=== PATIENT | female | born 1985 | race Caucasian/White ===

== ENCOUNTER 2022-03-13 14:12 | Emergency (ER) | payer BC, SELFPAY ==
[2022-03-13 14:31] VITALS: BP 113/68; PULSE 60; RESP 18; TEMP 36.6; O2SAT 100; BMI 29.3
--- NOTE | 2022-03-13 14:33 | CRLHL7_ITS ---
For Patients: As a result of the Cures Act, medical imaging exams and procedure reports are released immediately into your electronic medical record. You may view this report before your referring provider. If you have questions, please contact your health care provider. INDICATION: Lung inflammation from chlorine TECHNIQUE: Two view chest. FINDINGS: The lungs are clear. The heart, mediastinum and pulmonary vessels are of normal size. There is no evidence of pleural disease. Tiny 2 millimeter nodular density right lower lobe probably related to small granuloma. IMPRESSION: Negative chest. 2 millimeter nodular density peripheral right lower lobe probably reflects a granuloma but this could be compared with more remote chest radiographs to document stability or chest CT could be performed. Dictated by Larisa Snow MD @ 03/13/2022 3:44:59 PM (Electronically Signed)
--- NOTE | 2022-03-13 15:55 | ED_ITS ---
HPI - Burn/Smoke Inhalation General Time Seen by Provider: 15:30 Date Seen: 03/13/22 Chief complaint: Burn/Smoke Inhalation Stated complaint: Inhaled acid, sore throat bloody mucus Time Seen by Provider: 03/13/22 14:27 Source: patient and RN notes reviewed Mode of arrival: ambulatory Limitations: no limitations History of Present Illness HPI Narrative: Elli is a very pleasant 36-year-old female with a history of factor 5 Leiden heterozygous who comes to the emergency room from Urgent Care after that was suggested by poison Control. Very notes that she took the lid off of hydrochloric acid which she was using to treat the pool. Got 1 breath of this and immediately removed herself from the situation. She really had no complaints yesterday but woke up this morning with a feeling of fullness in her throat, mild cough and some mild hemoptysis. She has not had fever or chills. She has not had any wheezing or shortness of breath. She initially presented to urgent care but poison Control said she needed to be seen in the emergency room. She denies any chest pain, but perhaps has a little bit of burning in her upper chest. Her oxygen levels are 100% and pulse is normal. She has no underlying history of asthma and is not a smoker. Complaint: chemical exposure (Hydrochloric acid) Onset (ago): day(s) (Yesterday) Type of Exposure: chemical Smoke Inhalation: brief Place: home Severity: mild Associated symptoms: cough (Mild) and other (Hemoptysis-mild) Related Data Home Medications Medication Instructions Recorded Confirmed No Known Home Medications 03/13/22 03/13/22 Allergies Allergy/AdvReac Type Severity Reaction Status Date / Time No Known Drug Allergies Allergy Verified 03/13/22 13:04 Review of Systems Status of ROS: Reports: 6 or more systems reviewed and unremarkable except as noted in History and below Narrative: Denies wheezing, difficulty swallowing, change in voice, fever or chills. Denies any eye symptoms but does note that interior nasal cavity seems irritated as well. [facility] Social History Smoking Status: Never smoker Do you use any of these nicotine containing products: None Second hand tobacco smoke exposure: No How often do you have a drink containing alcohol: monthly or less How many standard drinks containing alcohol do you have on a typical day: 1 or 2 How often do you have six or more drinks on one occasion: Never AUDIT-C Alcohol total score: 1 Non-prescribed substance use: denies use Exam Narrative: Exam Narrative: personal history: Hysterectomy, heterozygous factor 5 Const: Vital Signs, click to edit/add: Vital Signs - 24 hr 03/13/22 14:31 Temperature 97.8 F Pulse Rate [Right Pulse Oximeter] 60 Respiratory Rate 18 Blood Pressure [Ri ght Upper Arm] 113/68 Pulse Oximetry 100 Documenting provider has reviewed patient's vital signs: yes Common normals: no apparent distress, average body habitus, oriented x3, no limitations, healthy appearing and alert General appearance: cooperative and comfortable Other: Patient is in no acute distress with no evidence of respiratory stridor, wheezing or increased effort. HENMT: Common normals: normocephalic and head/scalp atraumatic Head and scalp: normocephalic and atraumatic Face and sinus: normal facial exam Nose: nares normal Mouth: oral and palatal mucosa normal Other: No evidence of erythema or edema bilateral nares. Airway is patent oropharynx without erythema edema or abnormal findings. Eye: Common normals: PERRL General eye: normal appearance of both eyes Pupil: PERRL Neck & C-Spine: Common normals: no lymphadenopathy and supple Lymph: Lymphatic: no lymphadenopathy noted Resp: Common normals: normal respiratory effort, no retractions and clear to auscultation bilaterally Effort & inspection: able to speak in complete sentences Auscultation: clear to auscultation bilaterally Cardio: Common normals: regular rate and regular rhythm Rate: regular rate Rhythm: regular rhythm Extremity: Common normals: normal to inspection Neuro: Common normals: oriented x3 Sensorium/orientation: alert Speech: speech normal and other (No evidence of stridor or altered voice.) Course Course Hospital Course: Patient is presenting and does not appear to be in respiratory distress. Vital signs are very reassuring with 100% O2 sats. We will get a chest x-ray and attempt to talk to poison Control. We do hear back from poison Control and they also suggest CBC and comprehensive panel. Reevaluation(s) Reevaluation #1: patient continues to do well. She has had no episodes of hypoxia or coughing in the emergency room. Surprisingly she does not have any eye irritation. Poison Control instructed us to do CBC and comprehensive panel both which have come back normal. Patient will be discharged from the ED. She did have an incidental finding noted on plain x-ray of the chest. The chest itself is clear there is a small granuloma measuring 2 mm. She is instructed to follow up with her primary MD in regards to this. Time: 17:00 Vital Signs Vital signs: Initial Vital Signs Temperature 97.8 F 03/13/22 14:31 Temperature Source Temporal Artery Scan 03/13/22 14:31 Pulse Rate 60 03/13/22 14:31 Respiratory Rate 18 03/13/22 14:31 Blood Pressure 113/68 03/13/22 14:31 Blood Pressure Mean 83 03/13/22 14:31 Blood Pressure Position Sitting 03/13/22 14:31 Pulse Oximetry 100 03/13/22 14:31 Oxygen Delivery Method 03/13/22 14:31 Vital Signs Temperature 97.8 F 03/13/22 14:31 Pulse Rate 60 03/13/22 14:31 Respiratory Rate 18 03/13/22 14:31 Blood Pressure 113/68 03/13/22 14:31 Pulse Oximetry 100 03/13/22 14:31 Temperature 97.8 F 03/13/22 14:31 Pulse Rate 60 03/13/22 14:31 Respiratory Rate 18 03/13/22 14:31 Blood Pressure 113/68 03/13/22 14:31 Pulse Oximetry 100 03/13/22 14:31 MDM - Burn/Smoke Inhalation MDM Narrative Medical decision making narrative: Patient continues to do well. She had 1 episode of hemoptysis this morning and nothing since that time. She is not exhibiting any evidence of respiratory distress at this time. Medical Records Attestation: I reviewed the patient's medical records. Lab Data Attestation: I reviewed the patient's lab results. Labs: Lab Results 03/13/22 03/13/22 Range/Units 16:06 16:06 WBC 7.01 (4.50-11.00) K/uL RBC 4.67 (4.00-5.20) m/uL Hgb 13.6 (12.0-16.0) gm/dL Hct 39.1 (33.0-51.0) % MCV 84 (80-100) fL MCH 29 (26-34) pg MCHC 35 (32-36) gm/dL RDW Coeff of Allison 12.4 (11.5-15.5) % Plt Count 152 (140-440) K/uL Neut % (Auto) 72.0 (42.0-72.0) % Lymph % (Auto) 17.7 L (20-44) % [place] % (Auto) 6.7 (0.0-11.0) % Eos % (Auto) 3.1 (0.0-7.0) % Baso % (Auto) 0.4 (0.0-3.0) % Neut # (Auto) 5.04 (1.7-7.0) K/uL Lymph # (Auto) 1.20 (0.90-2.90) K/uL [place] # (Auto) 0.50 (0.00-0.90) K/UL Eos # (Auto) 0.22 (0.00-0.50) K/uL Baso # (Auto) 0.03 (0.00-0.30) K/uL Abs Immat Gran (auto) 0.01 (0.00-0.30) K/uL Sodium 139 (135-149) mmol/L Potassium 3.9 (3.6-5.1) mmol/L Chloride 106 (96-114) mmol/L Carbon Dioxide 26 (20-32) mmol/L BUN 12 (5-24) mg/dL Creatinine 0.9 (0.5-1.5) mg/dL Estimated Creat Clear 67.03 Glucose 100 (60-115) mg/dL Calcium 9.0 (8.4-10.6) mg/dL Total Bilirubin 0.7 (0.1-1.5) mg/dL AST 19 (12-35) U/L ALT 14 (4-35) U/L Alkaline Phosphatase 62 (40-150) U/L Total Protein 7.1 (6.0-8.3) g/dL Albumin 4.4 (3.3-5.0) g/dL Imaging Data Chest: Attestation: I have reviewed the pertinent imaging results. My impression: no evidence of pulmonary edema or Infiltrate Radiologist's impression: 2 mm granuloma right lower lung area. Otherwise clear chest. Discharge Plan Discharge Clinical Impression: Toxic effect of chlorine gas, accidental (unintentional), initial encounter Patient Disposition: Home, Self-Care Condition: Unchanged Additional Instructions: Continue to monitor and seek medical attention for wheezing, difficulty breathing, vomiting, shortness of breath.Follow-up with your primary MD in regards to 2 mm granuloma on your chest x-ray. Activity Level: Activity as Tolerated Discharge Diet: Regular Prescriptions: No Action No Known Home Medications 0RF Follow Up/Referrals: Provider,Not a Local [Primary Care Provider] - Stand Alone Forms: Critical Outcome Technologiesth Info Instructions [place] Burn Citation [email or web address]
--- NOTE | 2022-03-13 15:58 | ED.NURSE ---
Spoke w/ Poison Control per MD request, recommended pt have a CBC and CMP. Updated pt on POC and pt is agreeable w/ plan.
[2022-03-13 16:13] LABS: Basophils Absolute Auto 0.03 K/uL (0.00-0.30); Basophils Percent Auto 0.4 % (0.0-3.0); Eosinophils Absolute Auto 0.22 K/uL (0.00-0.50); Eosinophils Percent Auto 3.1 % (0.0-7.0); Hematocrit 39.1 % (33.0-51.0); Hemoglobin* 13.6 gm/dL (12.0-16.0); Immature Granulocytes Abs Auto 0.01 K/uL (0.00-0.30); Lymphocytes Percent Auto 17.7 % (20-44); Mean Corpuscular HGB Conc 35 gm/dL (32-36); Mean Corpuscular Hemoglobin 29 pg (26-34); Mean Corpuscular Volume 84 fL (80-100); Monocytes Percent Auto 6.7 % (0.0-11.0); Neutrophils Absolute Auto 5.04 K/uL (1.7-7.0); Platelet Count* 152 K/uL (140-440); RDW Coefficient of Variation % 12.4 % (11.5-15.5); Red Blood Count 4.67 m/uL (4.00-5.20); White Blood Count* 7.01 K/uL (4.50-11.00)
[2022-03-13 16:15] LABS: Slide Review Reflex No
[2022-03-13 16:27] LABS: Albumin* 4.4 g/dL (3.3-5.0); Chloride* 106 mmol/L (96-114); Potassium* 3.9 mmol/L (3.6-5.1); Sodium* 139 mmol/L (135-149)
[2022-03-13 16:29] LABS: Creatinine* 0.9 mg/dL (0.5-1.5); Est. Creatinine Clearance* 67.03; Estimated Glomerular Filt Rate 83.92
[2022-03-13 16:30] LABS: Alanine Aminotransferase* 14 U/L (4-35); Alkaline Phosphatase* 62 U/L (40-150); Aspartate Amino Transferase* 19 U/L (12-35); Bilirubin Total* 0.7 mg/dL (0.1-1.5); Blood Urea Nitrogen* 12 mg/dL (5-24); Carbon Dioxide* 26 mmol/L (20-32); Glucose* 100 mg/dL (60-115); Total Protein* 7.1 g/dL (6.0-8.3)
== END 2022-03-13 17:13 | disposition home or self-care (01) ==
PROVIDERS: Emergency Provider Family Medicine
DX: T59.4X1A Toxic effect of chlorine gas, accidental (unintentional), initial encounter (principal)
CPT/HCPCS: 36415; 71046; 80053; 85025; 99283

== ENCOUNTER 2022-04-10 12:49 | Outpatient (RCR) | payer BC, SELFPAY | END 2022-11-28 16:04 | disposition home or self-care (01) | PROVIDERS: PCP Family Medicine; Visit Provider Family Medicine | DX: M25.532 Pain in left wrist (principal); Z51.89 Encounter for other specified aftercare | CPT/HCPCS: 97033; 97035; 97165 ==

== ENCOUNTER 2022-04-17 12:58 | Outpatient (CLI) | payer BC, SELFPAY ==
--- NOTE | 2022-04-17 13:00 | CRLHL7_ITS ---
For Patients: As a result of the Century Cures Act, medical imaging exams and procedure reports are released immediately into your electronic medical record. You may view this report before your referring provider. If you have questions, please contact your health care provider. Indication: Pulmonary nodule Technique: Noncontrast CT chest Please note that all CT scans at this facility use dose modulation, iterative reconstruction, and/or weight-based dosing when appropriate to reduce radiation dose to as low as reasonably achievable. Comparison: Chest x-ray 03/13/2022 Findings: 5 millimeter calcified nodule right lower lobe. Calcified subcarinal and right hilar lymph nodes. Upper abdomen normal. No fracture. Normal breast tissue. Mild atelectasis within the right middle lobe. Left lung clear. Impression: Benign calcified granuloma right lower lobe. Please note that all CT scans at this facility use dose modulation, iterative reconstruction, and/or weight-based dosing when appropriate to reduce radiation dose to as low as reasonably achievable. Dictated by Donnie Manning MD @ 04/17/2022 1:35:04 PM (Electronically Signed)
--- OUTSIDE RECORDS SUMMARY | 2022-04-23 04:55 | XMS_ITS | Encounter Summary ---
:1985 Author Organization [facility] Address [address] [place] [address] Care Team Providers Name Role Phone Unavailable Primary Care Provider Unavailable Reason for Visit Reason Comments COVID Inquiry Encounter Details Date Type Department Care Team Description 12/12/2020 Clinical Communication Central Appointment JESUS Laguna Office in [facility] [address] [place], [place] [id number] Social History Tobacco Use Types Packs/Day Years Used Date Smoking Tobacco: Never Sex Assigned at Date Recorded Not on file documented as of this encounter Miscellaneous Notes Telephone Encounter - Paloma Landaverde - 12/12/2020 2:06 PM CDT What is the purpose of the call?: Requesting Testing Only Request Testing In the past 14 days are any of the following symptoms new to you and not related to an existing health condition?: No symptoms noted In the past 14 days have you had close contact* with a person who has a LABORATORY CONFIRMED case ofCOVID-19?: No exposure noted (Continue Screening) Have you tested positive for COVID-19 in the last 90 days?: No (Continue Screening) Why is the patient requesting testing?: Required to travel Select appropriate regional recommendations: [facility] COVID only testing recommended (End Screening) Plan: Endpoint recommendation: Testing indicated, advised to be swabbed for COVID-19 Only , sent to [facility] located at [address] [place] [address]. The entrance is on the north side of the building. You must call [phone] during the hours of 7am to 6 pm (M-F) or 9 am to 4 pm (Sat and Sun) for an appointment time.You can also schedule via your Patient Online Services account. Testing hours are 8 am to 12 noon every day. When you arrive at the testing site: Remain in your vehicle and check-in by calling the number listed on the signage at the testing site or provided to you at the time you schedule your testingappointment. and Please avoid using public transportation per CDC recommendation. If you do not have personal transportation please self-quarantine until a personal transportation option is available. *Reminder if sending patient for testing in [facility] or [facility], route encounter to the correct testing pool. documented in this encounter Plan of Treatment Not on filedocumented as of this encounter Visit Diagnoses Not on filedocumented in this encounter
--- OUTSIDE RECORDS SUMMARY | 2022-04-23 04:55 | XMS_ITS | Encounter Summary ---
:1985 Author Organization [facility] Address [address] [place] [address] Care Team Providers Name Role Phone Unavailable Primary Care Provider Unavailable Reason for Visit Reason Onset Date Comments Outpatient COVID-19 Testing 12/15/2020 Encounter Details Date Type Department Care Team Description 12/15/2020 External Outreach Department of [facility] Richard Klein Contact With And Medicine, [facility] Anthony Zimmer (Suspected) Exposure Building, in [address] COVID-19 ([place], [place] Dx) [address] [facility] [address] [place], [place] [phone] (Work) [phone] Social History Tobacco Use Types Packs/Day Years Used Date Smoking Tobacco: Never Sex Assigned at Date Recorded Not on file documented as of this encounter Progress Notes Shae You R.N., CHRN - 12/15/2020 9:51 AM CDT Encounter created for COVID-19 screening. documented in this encounter Plan of Treatment Not on filedocumented as of this encounter Procedures Procedure Name Priority Date/Time Associated Comments Diagnosis SARS CORONAVIRUS 2, Routine 12/16/2020 10:01 Resu lts for this PCR, V AM CDT procedure are i n the results section. documented in this encounter Results SARS Coronavirus 2, PCR, V (12/16/2020 10:01 AM CDT) [facility] Method Time Signature SARS-Coronavi Undetected Undetected 12/16/2020 MARITZA bri-2, PCR 11:56 PM CDT Comment: SARS-CoV-2 RNA absent. ?? ----ADDITIONAL INFORMATION---- This test using the Xpert Xpress SARS-Co V-2/Flu/RSV assay ([employer] performed on the Embark[employer] rt DX systems has received Emergency Use Authorization (EU A) by the U.S. Food and Drug Administration. Performanc e characteristics were verified by [facility] in a manner consistent with CLIA requirements . Fact sheets for this Emergency Use Autho rization (EUA) assay can be found at the following link s: For Healthcare Providers: https://www.fda.gov/media/479807/downloa d For Patients: https://www.fda.gov/media/116951/downloa d Specimen Source Nasopharyngeal Swab 12/16/2020 11: 09 PM CDT [facility] Specimen Anatomical Collection Method Collection Time Receive d Time (Source) Location / / Volume Laterality Varies 12/16/2020 10:01 12/16/2020 AM CDT 11:09 PM CDT Richard Klein D.O. LAB MICROBIOLOGY - GENERAL [facility] Performing Organization Address City/State/ZIP Code Phon e Number [facility] [address] [place] [phone] [place] [address] [place] [address] [address] documented in this encounter Visit Diagnoses Diagnosis Contact With And (Suspected) Exposure To COVID-19 - Primary documented in this encounter Additional Health Concerns Infection Onset Date Last Indicated Resolved Time COVID19 Pending 12/15/2020 12/16/2020 12/16/2020 11:09 PM CDT documented as of this encounter
--- OUTSIDE RECORDS SUMMARY | 2022-04-23 04:55 | XMS_ITS | Clinical Summary ---
:1985 Author Organization [facility] Address [address] [place] [address] Care Team Providers Name Role Phone Unavailable Primary Care Provider Unavailable Source Comments Patient records contain information from all sites at [facility]. For routine questions regarding patient records, call [phone] during business hours, M-F 8:00 AM - 5:00 PM Central Time. Record requests for emergency care only can be directed to [phone] at any time.[facility] Allergies No known active allergies Social History Tobacco Use Types Packs/Day Years Used Date Smoking Tobacco: Never Sex Assigned at Date Recorded Not on file Last Filed Vital Signs Vital Sign Reading Time Taken Comments Blood Pressure 116/70 07/22/2017 3:26 PM CERTIFIED [facility]ER Pulse 74 07/22/2017 3:26 PM [facility]IED [facility] Temperature - - Respiratory Rate 18 07/22/2017 9:00 AM CERT[facility]IED [facility] Oxygen Saturation - - Inhaled Oxygen Concentration - - Weight 75.1 kg (165 lb 9.1 oz) 07/22/2017 11:16 AM CERTIFIED [facility]ICAL [facility] Height 159 cm (5' 2.6) 12/16/2020 11:09 AM CDT Body Mass Index - - Plan of Treatment Health Maintenance Due Date Last Done Comments Fasting Lipid Panel 1985 HIV Screening 1985 Hepatitis B Vaccines (1 of 1985 3 - 3-dose series) Hepatitis C Screening 1985 COVID-19 Vaccine (3 - 04/19/2021 11/17/2020, 10/27/2020 Booster for Pfizer series) Depression Screening 09/14/2021 (Annual PHQ-2) Influenza Vaccine (#1) 2022 08/13/2021, 08/07/2020, 07/05/2019, Additional history exists Cervical Cancer Screening 10/09/2023 10/09/2020 DTaP,Tdap,and Td Vaccines 07/14/2027 07/14/2017, 04/25/2016 (3 - Td or Tdap) Pneumococcal vaccine (0-64 Aged Out No lo nger eligible years) based on patient 's age to complete this topic Insurance Payer Benefit Plan / Subscriber ID Effective Phone Address T e Group Dates [facility] [id number] 2019-Alex [phone] [address] [employer] [place] [address]
--- OUTSIDE RECORDS SUMMARY | 2022-04-23 04:55 | XMS_ITS | Encounter Summary ---
:1985 Author Organization [facility] Address [address] [place] [address] Care Team Providers Name Role Phone Unavailable Primary Care Provider Unavailable Encounter Details Date Type Department Care Team Description 08/07/2020 Admin Visit Department of Family Medicine, [address] [address] [facility] [phone] Social History Tobacco Use Types Packs/Day Years Used Date Smoking Tobacco: Never Sex Assigned at Date Recorded Not on file documented as of this encounter Plan of Treatment Not on filedocumented as of this encounter Visit Diagnoses Not on filedocumented in this encounter Additional Health Concerns Infection Onset Date Last Indicated Resolved Time COVID19 Pending 08/07/2020 08/07/2020 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
--- OUTSIDE RECORDS SUMMARY | 2022-04-23 04:55 | XMS_ITS | Encounter Summary ---
:1985 Author Organization [facility] Address [address] [place] [address] Care Team Providers Name Role Phone Unavailable Primary Care Provider Unavailable Encounter Details Date Type Department Care Team Description 08/13/2020 Admin Visit Department of Family Medicine, [address] [address] [facility] [phone] Social History Tobacco Use Types Packs/Day Years Used Date Smoking Tobacco: Never Sex Assigned at Date Recorded Not on file documented as of this encounter Plan of Treatment Not on filedocumented as of this encounter Visit Diagnoses Not on filedocumented in this encounter Additional Health Concerns Infection Onset Date Last Indicated Resolved Time COVID19 Pending 08/13/2020 08/13/2020 08/14/2020 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
--- OUTSIDE RECORDS SUMMARY | 2022-04-23 04:55 | XMS_ITS | Encounter Summary ---
:1985 Author Organization [facility] Address [address] [place] [address] Care Team Providers Name Role Phone Unavailable Primary Care Provider Unavailable Encounter Details Date Type Department Care Team Description 09/25/2021 Admin Visit Department of Family Medicine, [address] [address] [facility] [phone] Social History Tobacco Use Types Packs/Day Years Used Date Smoking Tobacco: Never Sex Assigned at Date Recorded Not on file documented as of this encounter Plan of Treatment Not on filedocumented as of this encounter Visit Diagnoses Not on filedocumented in this encounter Additional Health Concerns Infection Onset Date Last Indicated Resolved Time COVID19 Pending 09/25/2021 09/25/2021 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
--- OUTSIDE RECORDS SUMMARY | 2022-04-23 04:55 | XMS_ITS | Encounter Summary ---
:1985 Author Organization [facility] Address [address] [place] [address] Care Team Providers Name Role Phone Unavailable Primary Care Provider Unavailable Reason for Visit Reason Onset Date Comments Testing For Upper Respiratory Virus Symptoms 09/25/2021 Encounter Details Date Type Department Care Team Description 09/25/2021 External Outreach Department of [facility] Richard Klein Contact With And Medicine, [facility] Anthony Zimmer (Suspected) Exposure Building, in [address] COVID-19 ([place], [place] Dx) [address] [facility] [phone] [place], [place] [phone] [address] (Work) [phone] Social History Tobacco Use Types Packs/Day Years Used Date Smoking Tobacco: Never Sex Assigned at Date Recorded Not on file documented as of this encounter Progress Notes Yudi Brown R.N. - 09/25/2021 9:36 AM CST Encounter created for symptomatic infectious disease screening with possible COVID, Influenza, RSV, and/or Group A Strep testing. TER STRUCTURAL STEEL documented in this encounter Miscellaneous Notes Result Encounter Note - Rebecca Teixeira R.N. - 09/26/2021 10:51 AM PAINTER STRUCTURAL STEEL Your patient has tested positive for SARS-CoV-2, the virus that causes COVID-19. IMPORTANT: Please update the patient's problem list and medication list to ensure an accurate and timely evaluation for COVID-19 treatments, including various medications and Remote Patient Monitoring (RPM). If eligible for COVID-19 treatments or RPM, your patient will be contacted by a designated team of nurses to coordinate the care. The [facility] ([facility]) sends general guidance about COVID-19 to all patients by letter or portal, except when a patient is hospitalized or resides in a [place] health care facility. The [facility] will also call all adult patients at highest risk for severe complications of COVID-19 andall who require an slipman. Any patient with a MASS score 1 or greater or a COVID-19 score 1 or greater may be at higher risk ofsevere disease. These patients will follow up directly with primary care. The primary care team willdecide if the patient needs a phone call or a follow up portal message to assess symptom severity, provide individualized guidance on symptom monitoring or symptom management, or to reinforce when to se ek care. [facility] encourages patients to follow up with their PCP with questions, worsening symptoms, or for symptom management. For questions, contact the [facility] ([facility]): Pager: [phone] In basket: P RST/[facility] COVID-19 POSITIVE Covid Care e-consult Components of the Monoclonal Antibody Selection Score (MASS) Compromised Immune System/Transplant = 4 points Chronic Kidney Disease on Dialysis = 4 points Age greater than or equal to 55 and chronic pulmonary disease = 3 points Age greater than or equal to 65 = 2 points Age greater than or equal to = 2 points Diabetes = 2 points Age greater than or equal to 55 AND cardiovascular disease = 2 points Age greater than or equal to 55 and hypertension = 1 point NOTE: At the time of testing, patients are instructed to obtain the result by calling the ii4b result line or by checking their online services account. TER STRUCTURAL STEEL documented in this encounter Plan of Treatment Not on filedocumented as of this encounter Procedures Procedure Name Priority Date/Time Associated Diagnosis Comme nts SARS CORONAVIRUS-2 Routine 09/25/2021 9:47 AM Contact With And Results for this RNA, V PAINTER STRUCTURAL STEEL (Suspected) Exposure procedu re are in To COVID-19 the results section. documented in this encounter Results (ABNORMAL) SARS Coronavirus-2 RNA, V Symptomatic (09/25/2021 9:47 AM PAINTER STRUCTURAL STEEL) [facility] Method Time Signature SARS-CoV-2 Swab, 09/26/2021 MKTO Specimen Nasopharynx 12:24 AM Source PAINTER STRUCTURAL STEEL SARS CoV-2 Detected (A) Undetected 09/26/2021 MKTO RNA, TMA 12:24 AM PAINTER STRUCTURAL STEEL Comment: SARS-CoV-2 RNA present. ----ADDITIONAL INFORMATION---- This molecular amplification test was pe rformed using the Aptima SARS-CoV-2 assay ([employer] on the Bizos tem under emergency use authorization (EUA) by the U.S. Food and Drug Administ ration. Fact sheets for this EUA assay can be fo und at the following links: For Healthcare Providers: https://www.[employer] [place] a.gov/media/793110/download For Patients: https://www.fda.gov/media/ 900848/download Specimen Anatomical Collection Method Collection Time Receive d Time (Source) Location / / Volume Laterality Varies 09/25/2021 9:47 AM 3:20 (Nasopharynx) PAINTER STRUCTURAL STEEL PM PAINTER STRUCTURAL STEEL Richard Klein D.O. LAB MICROBIOLOGY - GENERAL O RDERABLES Performing Organization Address City/State/ZIP Code Phon e Number [facility]- [address] [place] [address] [place] [address] System [address] documented in this encounter Visit Diagnoses Diagnosis Contact With And (Suspected) Exposure To COVID-19 - Primary documented in this encounter Additional Health Concerns Infection Onset Date Last Indicated Resolved Time COVID19 Pending 09/25/2021 09/25/2021 09/26/2021 12:25 AM PAINTER STRUCTURAL STEEL documented as of this encounter
--- OUTSIDE RECORDS SUMMARY | 2022-04-23 04:55 | XMS_ITS | Encounter Summary ---
:1985 Author Organization [facility] Address [address] [place] [address] Care Team Providers Name Role Phone Unavailable Primary Care Provider Unavailable Reason for Visit Reason Onset Date Comments Outpatient COVID-19 Testing 08/13/2020 Encounter Details Date Type Department Care Team Description 08/13/2020 External Outreach Department of Richard Klein Infect ion Upper Internal Medicine in J, D.O. Respiratory ([place], [place] [address] Dx) [address] [facility] [place] [phone] Social History Tobacco Use Types Packs/Day Years Used Date Smoking Tobacco: Never Sex Assigned at Date Recorded Not on file documented as of this encounter Progress Notes Pola Aponte R.Lucas. - 08/13/2020 12:57 PM CST Encounter created for the drive-through COVID-19 testing. TH SAFETY MANAGER documented in this encounter Miscellaneous Notes Result Encounter Note - Radha Roman APRN, C.N.P., M.S.N. - 08/14/2020 3:09 PM CST I've contacted the patient in regard to the test result. Please see my note for details. TH SAFETY MANAGER documented in this encounter Plan of Treatment Not on filedocumented as of this encounter Procedures Procedure Name Priority Date/Time Associated Diagnosis Comme nts SARS CORONAVIRUS-2 Routine 08/13/2020 2:43 PM Infection Upper Results for this RNA, V HEALTH SAFETY MANAGER Respiratory procedure are i n the results section. documented in this encounter Results (ABNORMAL) SARS Coronavirus-2 RNA, V Symptomatic (08/13/2020 2:43 PM HEALTH SAFETY MANAGER) [facility] Method Time Signature SARS-CoV-2 Swab, 08/14/2020 MKTO Specimen Nasopharynx 1:30 PM HEALTH SAFETY MANAGER Source SARS CoV-2 Detected (C) Undetected 08/14/2020 MKTO RNA, TMA 1:30 PM HEALTH SAFETY MANAGER Comment: SARS-CoV-2 RNA present. ----ADDITIONAL INFORMATION---- This test is performed using the Aptima SARS-CoV-2 assay ([employer] which has received Emergency Use Authori zation (EUA) by the U.S. Food and Drug Administration. Fact sheets for this Emergency Use Autho rization (EUA) assay can be found at the following links: For Healthcare Providers: https://www.fd a.gov/media/963909/download For Patients: https://www.fda.gov/media/ 768779/download Specimen Anatomical Collection Method Collection Time Receive d Time (Source) Location / / Volume Laterality Varies 08/13/2020 2:43 PM 0 6:14 (Nasopharynx) HEALTH SAFETY MANAGER AM HEALTH SAFETY MANAGER Richard Klein D.O. LAB MICROBIOLOGY - GENERAL O NNAMDI Performing Organization Address City/State/[facility] Code Phon e Number [facility]- [address] [place] [id number] [place] [address] System [address] documented in this encounter Visit Diagnoses Diagnosis Infection Upper Respiratory - Primary documented in this encounter Additional Health Concerns Infection Onset Date Last Indicated Resolved Time COVID19 Pending 08/13/2020 08/13/2020 08/14/2020 1:31 PM HEALTH SAFETY MANAGER documented as of this encounter
--- OUTSIDE RECORDS SUMMARY | 2022-04-23 04:55 | XMS_ITS | Encounter Summary ---
:1985 Author Organization [facility] Address [address] [place] [address] Care Team Providers Name Role Phone Unavailable Primary Care Provider Unavailable Encounter Details Date Type Department Care Team Description 08/14/2020 Virtual Visit Division of General Radha Roman, COV ID-19 Infection Internal Medicine in DONG C.N.P., (S[place]ia Talavera) [place], [place] M.S.N. [address] [facility] [address] [place] [phone] Social History Tobacco Use Types Packs/Day Years Used Date Smoking Tobacco: Never Sex Assigned at Date Recorded Not on file documented as of this encounter Progress Notes Radha Roman, DONG C.N.P., M.S.N. - 08/14/2020 2:17 PM CST I attempted to contact, but was unable to get in touch with Ms. Kim at her listed telephone number to discuss test results. ASSESSMENT/PLAN #1 COVID-19 ??? Our team has sent a portal message and left a voicemail (if able) for Ms. Kim regarding theirCOVID-19 diagnosis. ??? Ms. Kim is eligible for enrollment with [facility] if they contact our team within 48 hours. After 48 hours, they will no longer be eligible for [facility] and will need to follow up with their primary careprovider. ??? If they have on-campus appointments within the next 30 days, these should be delayed. Our team will reach out to the area the patient is scheduled to be seen in. They should not come to campus until given the ok to do so by a [place] account retention representative. ??? They will be mailed a letter outlining their COVID positive status and recommended self-management: Please continue to monitor your symptoms. If you develop any of the following symptoms, please call your primary care physician or go to the Emergency Department for evaluation ??? Worsened shortness of breath ??? New or worsening cough ??? New productive cough or cough with blood ??? New chest pain or pain with breathing ??? Fevers, chills, sweats ??? Vomiting or diarrhea ??? Lightheadedness ? ? New temperature > 38.3 ??C ??? Fast heart rate ??? Fast breathing rate If you need to go into the Emergency Room or other healthcare facility, please: ??? Inform EMS of positive COVID result and wear a mask prior to EMS arrival if available. ??? If well enough to transport yourself to the emergency room, you should use a private vehicle (not use taxi, ride-share or public transport). We strongly recommend continuing self-isolation until the following criteria are met and you are released by your local public health department if applicable: ??? Minimum of 10 days since onset of symptoms OR from positive PCR test if asymptomatic AND ??? At least 3 days (72 hours) have passed since recovery defined as resolution of fever without theuse of fever-reducing medications AND ??? Improvement in symptoms (e.g., cough, shortness of breath, diarrhea) ??? The above isolation recommendation may need to be adjusted based on the clinical course. o https://www.youWelzoo.com/watch?time_continue=6&v=UcKI1cFkRIm&feature=emb_logo ??? Testing prior to release from isolation is NOT recommended by CDC or [facility] Infection Prevention and Control for clinical purposes ??? The patient was also advised to follow final recommendations as per local public health department/occupational health if relevant. ??? Please contact your employer's occupational health division to notify them of positive test o If the patient and/or their employer have questions about return to work best practices, they should contact [facility] Occupational Medicine at [email or web address]. o The patient should receive approval from their employer's occupational health division before returning to work. [facility] does not provide return to work assessments. ??? Recommend self isolation for all household members/close contacts. o If any of these individuals are immunocompromised or have serious chronic medical conditions, please have them contact their primary care physician to let them know they have been exposed to close contact with COVID-19 o If unwell, recommend contacting their health care provider. Presenting directly to of the ED can be considered in the case of severe symptoms. o These individuals should call ahead to minimize wait times. The [facility] COVID Triage Line can be reached at [phone]. ??? COVID-19 is a notifiable disease and you may be contacted by [employer] for contact tracing. ??? Please review the links below for additional education. o [facility] recommendations on isolation - https://www.[facility].org/patient-education?VID=VID-74705137 o Additional information about COVID-19 - https://www.cdc.gov/coronavirus/2019-ncov/ o Cognitive Behavior Therapy-Insomnia to help improve sleep - https://[facility].[place]/PatientEducation/PatientLearning/index.html#/ o Building Resiliency During the COVID-19 Pandemic - https://[facility].[place]/2020/PatientEducation/content/index.html#/ ??? Consider donating convalescent plasma once you have recovered from your illness (14 days after symptoms have resolved) o Survey to assess eligibility: https://redcap2.[place]/redcap/surveys/?s=1AON7ZQQ8C and/ or contact convalescent.plasma@[place] o More information is available at - https://www.uscovidplasma.org/ - https://ccpp19.org/ - https://covidplasma.org/ From an exposure standpoint if Ms. Kim was seen in person: No additional action needed if contact with the patient occurred while either: ??? Staff and patient were both wearing face masks OR ??? Staff were wearing face masks and eye protection If there is concern for staff exposure due to individual PPE breach, please touch base with Occupational Health. Rahda Roman APRN, C.N.P., M.S.N. COVID-19 Frontline Care Team [facility] ETIC SURVEY DIRECTOR documented in this encounter Plan of Treatment Not on filedocumented as of this encounter Visit Diagnoses Diagnosis COVID-19 Infection - Primary documented in this encounter Additional Health Concerns Infection Onset Date Last Indicated Resolved Time COVID19 Pending 08/13/2020 08/13/2020 08/14/2020 1:31 PM GEODETIC SURVEY DIRECTOR COVID19 08/13/2020 08/13/2020 09/02/2020 4:47 AM GEODETIC SURVEY DIRECTOR documented as of this encounter
--- OUTSIDE RECORDS SUMMARY | 2022-04-23 04:55 | XMS_ITS | Encounter Summary ---
:1985 Author Organization [facility] Address [address] [place] [address] Care Team Providers Name Role Phone Unavailable Primary Care Provider Unavailable Reason for Visit Reason Onset Date Comments Outpatient COVID-19 Testing 08/07/2020 Encounter Details Date Type Department Care Team Description 08/07/2020 External Outreach Department of Richard Klein Infect ion Upper Internal Medicine in J, D.O. Respiratory ([place], [place] [address] Dx) [address] [facility] [place] [phone] Social History Tobacco Use Types Packs/Day Years Used Date Smoking Tobacco: Never Sex Assigned at Date Recorded Not on file documented as of this encounter Progress Notes Afua Santos, L.P.N. - 08/07/2020 1:04 PM CST Encounter created for the drive-through COVID-19 testing. ICATIONS EDITOR documented in this encounter Plan of Treatment Not on filedocumented as of this encounter Procedures Procedure Name Priority Date/Time Associated Diagnosis Comme nts SARS CORONAVIRUS-2 Routine 08/07/2020 5:47 PM Infection Upper Results for this RNA, V PUBLICATIONS EDITOR Respiratory procedure are i n the results section. documented in this encounter Results SARS Coronavirus-2 RNA, V Symptomatic (08/07/2020 5:47 PM PUBLICATIONS EDITOR) [facility] Method Time Signature SARS-CoV-2 Swab, 08/08/2020 MKTO Specimen Nasopharynx 4:03 PM PUBLICATIONS EDITOR Source SARS CoV-2 Undetected Undetected 08/08/2020 MARITZA RNA, TMA 4:03 PM PUBLICATIONS EDITOR Comment: SARS-CoV-2 RNA absent. This result does not rule out COVID-19 in the patient, as the sensitivity of the test depends o n the timing of the specimen collection and the quality of the specim en. Result should be correlated with patient's history and clinical presentat ion. ----ADDITIONAL INFORMATION---- This test is performed using the Aptima SARS-CoV-2 assay ([employer] which has received Emergency Use Authori zation (EUA) by the U.S. Food and Drug Administration. Fact sheets for this Emergency Use Autho rization (EUA) assay can be found at the following links: For Healthcare Providers: https://www.[employer] a.gov/media/883712/download For Patients: https://www.fda.gov/media/ 221099/download Specimen Anatomical Collection Method Collection Time Receive d Time (Source) Location / / Volume Laterality Varies 08/07/2020 5:47 PM 0 4:33 (Nasopharynx) PUBLICATIONS EDITOR AM PUBLICATIONS EDITOR Richard Klein D.O. LAB MICROBIOLOGY - GENERAL O RDERABLES Performing Organization Address City/State/ZIP Code Phon e Number [facility]- [address] [place] [address] [place] [address] System [address] documented in this encounter Visit Diagnoses Diagnosis Infection Upper Respiratory - Primary documented in this encounter Additional Health Concerns Infection Onset Date Last Indicated Resolved Time COVID19 Pending 08/07/2020 08/07/2020 08/08/2020 4:04 PM PUBLICATIONS EDITOR documented as of this encounter
--- OUTSIDE RECORDS SUMMARY | 2022-04-23 04:55 | XMS_ITS | Encounter Summary ---
:1985 Author Organization [facility] Address [address] [place] [address] Care Team Providers Name Role Phone Unavailable Primary Care Provider Unavailable Encounter Details Date Type Department Care Team Description 08/14/2020 Virtual Visit Division of General Radha Roman, COV ID-19 Infection Internal Medicine in DONG C.N.P., ([place] [employer]alaver[employer]) [place], [place] M.S.N. [address] [facility] [address] [place] [address] [phone] Social History Tobacco Use Types Packs/Day Years Used Date Smoking Tobacco: Never Sex Assigned at Date Recorded Not on file documented as of this encounter Progress Notes Radha Roman, DONG C.N.P., M.S.N. - 08/14/2020 3:01 PM CST Images from the original note were not included. TELEPHONE COMMUNICATION NOTE This was a telephone notification to Ms. Kim to notify them that their PCR test for SARS-CoV-2 (the virus that causes COVID-19) has returned positive. The patient was interviewed, but not personallyexamined. Expansion Joint Finisher: no Currently Ms. Kim has the following symptoms:congestion/rhinorrhea Date of symptom onset: 08/12/20 Since onset, symptoms are about the same. Ms. Kim has the following risk factors for severe infection: None Ms. 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 RESULTS Microbiology Results (last 10 days) Procedure Component Value - Date/Time SARS Coronavirus-2 RNA, V Symptomatic [[id number]] (Abnormal) Collected: 08/13/20 1443 Lab Status: Final result Specimen: Varies from Nasopharynx Updated: 08/14/20 1331 SARS-CoV-2 Specimen Source Swab, Nasopharynx SARS CoV-2 RNA, TMA Detected Comment: SARS-CoV-2 RNA present. ----ADDITIONAL INFORMATION---- This test is performed using the Aptima SARS-CoV-2 assay ([employer] which has received Emergency Use Authorization (EUA) by the U.S. Food and Drug Administration. Fact sheets for this Emergency Use Authorization (EUA) assay can be found at the following links: For Healthcare Providers: https://www.fda.gov/media/351684/download For Patients: https://www.fda.gov/media/834528/download SARS Coronavirus-2 RNA, V Symptomatic [[id number]] Collected: 08/07/20 1747 Lab Status: Final result Specimen: Varies from Nasopharynx Updated: 08/08/20 1604 SARS-CoV-2 Specimen Source Swab, Nasopharynx SARS CoV-2 RNA, TMA Undetected Comment: SARS-CoV-2 RNA absent. This result does not rule out COVID-19 in the patient, as the sensitivity of the test depends on the timing of the specimen collection and the quality of the specimen. Result should be correlated with patient's history and clinical presentation. ----ADDITIONAL INFORMATION---- This test is performed using the Aptima SARS-CoV-2 assay ([employer] which has received Emergency Use Authorization (EUA) by the U.S. Food and Drug Administration. Fact sheets for this Emergency Use Authorization (EUA) assay can be found at the following links: For Healthcare Providers: https://www.fda.gov/media/109174/download For Patients: https://www.fda.gov/media/074879/download ASSESSMENT/PLAN #1 COVID-19 disease Upcoming [id number]-ssxa appointments: No Recommendations: Day 0 is: 08/12/20. Follow up with primary care provider and public health. Will not be enrolled in CFCT. Self-isolation: at least 10 days from symptom onset with at least 72 hours of symptom improvement and fever resolution w/o use of anti-pyretics (Tylenol, NSAIDs) Patient is not interested in learning about COVID experimental therapies Ms. Kim was advised to continue to monitor their symptoms including dyspnea, chest pain, cough, fevers, lightheadedness/dizziness and vomiting/diarrhea. If symptoms are worsening, please contact their primary care provider. If their primary care provider has questions, an eConsult with CFCT can be requested. ??? Worsened shortness of breath ??? New or worsening cough ??? New productive cough or cough with blood ??? New chest pain or pain with breathing ??? Fevers, chills, sweats ??? Vomiting or diarrhea ??? Lightheadedness ? ? New temperature > 38.3 ??C ??? Fast heart rate ??? Fast breathing rate o If directed to the Emergency Room or other care facility, the patient was reminded to - Inform EMS of positive COVID result and wear a mask prior to EMS arrival if available. - If patient is well enough to transport themselves to the emergency room, they should drive themselves (not use taxi, ride-share or public transport). ??? We strongly recommend continuing self-isolation until advised otherwise. o Ms. Kim is aware that they need to: - Remain at home unless requiring medical care - Separate themselves from other people in the home - Avoid sharing personal household items - Clean and disinfect 'high-touch' surfaces daily - Wear a facemask when around other people and cover coughs/sneezes - Practice good hand hygiene - Avoid touching your eyes, nose, and mouth ??? Self-isolation should be continued until the following criteria are met: ??? Minimum isolation as specified above o AND ??? At least 3 days (72 hours) have passed since recovery defined as resolution of fever without theuse of fever-reducing medications o AND ??? Improvement in symptoms (e.g., cough, shortness of breath, diarrhea) o The above isolation recommendation may need to be adjusted based on the clinical course. - https://www.Prong.com/watch?time_continue=6&v=StBB2mMtHDg&feature=emb_logo o Testing prior to release from isolation is NOT recommended by CDC or [facility] Infection Prevention and Control for clinical purposes except in extremely rare cases. o The patient was also advised to follow final recommendations as per local public health department/occupational health if relevant. ??? Advised to contact their employer's occupational health division to notify them of positive test o If the patient and/or their employer have questions about return to work best practices, they should contact [facility] Occupational Medicine at [email or web address]. o The patient should receive approval from their employer's occupational health division before returning to work. ??? Recommend self isolation for all household [...] call ahead to minimize wait times. The [facility] COVID Triage Line can be reached at [phone]. ??? Ms. Kim was advised that COVID-19 is a notifiable disease and that they will be contacted by public health for contact tracing. Please review the links below for additional education. o [facility] recommendations on isolation - https://www.[facility].org/patient-education?VID=VID-14344187 o Additional information about COVID-19 - https://www.cdc.gov/coronavirus/2019-ncov/ o Cognitive Behavior Therapy-Insomnia to help improve sleep - https://mccnycontent.[facility] [place].edu/PatientEducation/PatientLearning/index.html#/ o Building Resiliency During the COVID-19 Pandemic - https://[facility]/2020/PatientEducation/content/index.html#/ ??? Consider donating convalescent plasma once you have recovered from your illness (14 days after symptoms have resolved) o Survey to assess eligibility: https://redcap2.[place]/redcap/surveys/?s=2APT8APU7Z and/ or contact [email or web address] o More information is available at - https://www.uscovidplasma.org/ - https://ccpp19.org/ - https://covidplasma.org/ This note is being cc'ed to the patient's primary care physician for their situational awareness only. The COVID-19 Frontline Care Team will follow up on next steps related to the COVID-19 infection. From a [facility] employee exposure standpoint if Ms. Kim was seen in person: No additional action needed if contact with the patient occurred while either: ??? Staff and patient were both wearing face masks OR ??? Staff were wearing face masks and eye protection If there is concern for staff exposure due to individual PPE breach, please touch base with Occupational Health. Radha Roman APRN, C.NRiccardo, M.S.N. COVID-19 Frontline Care Team [facility] This was a virtual visit. The patient was not seen face to face because of COVID-19. Total time spent in chart review/counselin minutes AL CARE SUPERVISOR documented in this encounter Plan of Treatment Not on filedocumented as of this encounter Visit Diagnoses Diagnosis COVID-19 Infection - Primary documented in this encounter Additional Health Concerns Infection Onset Date Last Indicated Resolved Time COVID19 Pending 08/13/2020 08/13/2020 08/14/2020 1:31 PM ANIMAL CARE SUPERVISOR COVID19 08/13/2020 08/13/2020 09/02/2020 4:47 AM ANIMAL CARE SUPERVISOR documented as of this encounter
--- OUTSIDE RECORDS SUMMARY | 2022-04-23 04:55 | XMS_ITS | Encounter Summary ---
:1985 Author Organization [facility] Address [address] [place] [address] Care Team Providers Name Role Phone Unavailable Primary Care Provider Unavailable Encounter Details Date Type Department Care Team Description 12/16/2020 Admin Visit Department of Family Medicine, [address] [address] [facility] [phone] Social History Tobacco Use Types Packs/Day Years Used Date Smoking Tobacco: Never Sex Assigned at Date Recorded Not on file documented as of this encounter Last Filed Vital Signs Vital Sign Reading Time Taken Comments Blood Pressure - - Pulse - - Temperature - - Respiratory Rate - - Oxygen Saturation - - Inhaled Oxygen Concentration - - Weight - - Height 159 cm (5' 2.6) 12/16/2020 11:09 AM CDT Body Mass Index - - documented in this encounter Plan of Treatment Not on filedocumented as of this encounter Visit Diagnoses Not on filedocumented in this encounter Additional Health Concerns Infection Onset Date Last Indicated Resolved Time COVID19 Pending 12/15/2020 12/16/2020 12/16/2020 11:09 PM CDT documented as of this encounter
--- OUTSIDE RECORDS SUMMARY | 2022-04-23 04:55 | XMS_ITS | Encounter Summary ---
:1985 Author Organization [facility] Address [address] [place] [address] Care Team Providers Name Role Phone Unavailable Primary Care Provider Unavailable Encounter Details Date Type Department Care Team Description 11/25/2017 Abstract DATA ABSTRACTION Provider, Historical Social History Tobacco Use Types Packs/Day Years Used Date Smoking Tobacco: Never Assessed Sex Assigned at Date Recorded Not on file documented as of this encounter Plan of Treatment Not on filedocumented as of this encounter Visit Diagnoses Not on filedocumented in this encounter
--- OUTSIDE RECORDS SUMMARY | 2022-04-23 04:56 | XMS_ITS | Encounter Summary ---
:1985 Author [facility] Address [address] [address] Care Team Providers Name Role Phone Andrea Rodney MD Primary Care Provider Reason for Visit Reason Comments Anticoagulation Dosing Encounter Details Date Type Department Care Team Description 01/26/2012 Anticoagulation [place] [facility] Elysia Moreno RN [address], [address] [place], [place] [address] Social History Tobacco Use Types Packs/Day Years Used Date Smoking Tobacco: Never Assessed Sex Assigned at Date Recorded Not on file documented as of this encounter Plan of Treatment Not on filedocumented as of this encounter Procedures Procedure Name Priority Date/Time Associated Diagnosis Comme nts EXTERNAL INR Routine 01/26/2012 Results for thi s procedure are in the resu lts section. documented in this encounter Results (ABNORMAL) EXTERNAL INR (01/26/2012) athologist Signature Anticoag 2.9 (A) 0.9 - 1.1 [facility] INR Specimen (Source) Anatomical Location Collection Method / Collectio n Time Received Time / Laterality Volume 01/26/2012 Historical Provider LAB EXTERNAL RESULT Performing Organization Address City/State/ZIP Code Phon e Number [facility] CONVERSION documented in this encounter Visit Diagnoses Not on filedocumented in this encounter Care Teams Extrusion Operator Relationship Specialty Start Date End Date Andrea Rodney MD PCP - General 12/15/10 [address] [facility] [place] [address] documented as of this encounter
--- OUTSIDE RECORDS SUMMARY | 2022-04-23 04:56 | XMS_ITS | Encounter Summary ---
:1985 Author Organization [facility] Address [address] [place] [address] Care Team Providers Name Role Phone Andrea Rodney MD Primary Care Provider Reason for Visit Reason Comments Anticoagulation Dosing Encounter Details Date Type Department Care Team Description 01/19/2012 Anticoagulation [place] [facility] Elysia Moreno RN [address], [address] [place], [place] [address] Social History Tobacco Use Types Packs/Day Years Used Date Smoking Tobacco: Never Assessed Sex Assigned at Date Recorded Not on file documented as of this encounter Plan of Treatment Not on filedocumented as of this encounter Procedures Procedure Name Priority Date/Time Associated Diagnosis Comme nts EXTERNAL INR Routine 01/19/2012 Results for thi s procedure are in the resu lts section. documented in this encounter Results (ABNORMAL) EXTERNAL INR (01/19/2012) athologist Signature Anticoag 3.4 (A) 0.9 - 1.1 [facility] INR Specimen (Source) Anatomical Location Collection Method / Collectio n Time Received Time / Laterality Volume 01/19/2012 Historical Provider LAB EXTERNAL RESULT Performing Organization Address City/State/ZIP Code Phon e Number [facility] CONVERSION documented in this encounter Visit Diagnoses Not on filedocumented in this encounter Care Teams Operator Vacuum Relationship Specialty Start Date End Date Andrea Rodney MD PCP - General 12/15/10 [address] [place] [address] documented as of this encounter
--- OUTSIDE RECORDS SUMMARY | 2022-04-23 04:56 | XMS_ITS | Encounter Summary ---
:1985 Author Organization [facility] Address [address] [place] [address] Care Team Providers Name Role Phone Andrea Rodney MD Primary Care Provider Reason for Visit Reason Comments RESULTS, TEST Encounter Details Date Type Department Care Team Description 07/02/2012 Telephone [facility] Andrea Rodney MD RESULTS, TEST [address] [facility] . [address] [place] [address] [place], [place] [address] (Wo rk) Social History Tobacco Use Types Packs/Day Years Used Date Smoking Tobacco: Never Assessed Sex Assigned at Date Recorded Not on file documented as of this encounter Nursing Notes Elysia Moreno RN - 07/05/2012 9:47 AM CDT Patient was called with dosing orders. Thanks, Elysia Bateman RN ACC Clint Pennington - 07/02/2012 3:50 PM CDT Patient calling for INR results done at [facility] today Verbal results given as 2.3 PLease call pt at [phone] with orders Juliana Jerry - 07/02/2012 3:45 PM CDT Patient states she hasn't received a call with her INR results and dosing and is requesting to talk to a nurse. documented in this encounter Plan of Treatment Not on filedocumented as of this encounter Visit Diagnoses Not on filedocumented in this encounter Care Teams Microsoft Dynamics Manager Architect Relationship Specialty Start Date End Date Andrea Rodney MD PCP - General 12/15/[address] [facility] [facility] [place] [address] documented as of this encounter
--- OUTSIDE RECORDS SUMMARY | 2022-04-23 04:56 | XMS_ITS | Encounter Summary ---
:1985 Author Organization [facility] Address [address], [place] [address] Care Team Providers Name Role Phone Andrea Rodney MD Primary Care Provider Encounter Details Date Type Department Care Team Description 07/15/2012 [facility] [address] [place] [address] Social History Tobacco Use Types Packs/Day Years Used Date Smoking Tobacco: Never Assessed Sex Assigned at Date Recorded Not on file documented as of this encounter Plan of Treatment Not on filedocumented as of this encounter Visit Diagnoses Not on filedocumented in this encounter Care Teams Senior Sales Consultant Relationship Specialty Start Date End Date Andrea Rodney MD PCP - General 12/15/10 [address] [place] [address] documented as of this encounter
--- OUTSIDE RECORDS SUMMARY | 2022-04-23 04:56 | XMS_ITS | Encounter Summary ---
:1985 Author Organization [facility] Address [address] [place] [address] Care Team Providers Name Role Phone Unavailable Primary Care Provider Unavailable Encounter Details Date Type Department Care Team Description 07/21/2017 Hospital Encounter HX NO MAPPING Social History Tobacco Use Types Packs/Day Years Used Date Smoking Tobacco: Never Assessed Sex Assigned at Date Recorded Not on file documented as of this encounter Plan of Treatment Not on filedocumented as of this encounter Visit Diagnoses Not on filedocumented in this encounter
--- OUTSIDE RECORDS SUMMARY | 2022-04-23 04:56 | XMS_ITS | Encounter Summary ---
:1985 Author Organization [facility] Address [address], [place] [address] Care Team Providers Name Role Phone Andrea Rodney MD Primary Care Provider Reason for Visit Reason Comments Anticoagulation Dosing Encounter Details Date Type Department Care Team Description 01/30/2012 Anticoagulation [place] [facility] Elysia Moreno RN [address], [address] [place] [address] Social History Tobacco Use Types Packs/Day Years Used Date Smoking Tobacco: Never Assessed Sex Assigned at Date Recorded Not on file documented as of this encounter Plan of Treatment Not on filedocumented as of this encounter Visit Diagnoses Not on filedocumented in this encounter Care Teams Senior Analytical Chemist Relationship Specialty Start Date End Date Andrea Rodney MD PCP - General 12/15/10 [address] [place], [place] [address] documented as of this encounter
--- OUTSIDE RECORDS SUMMARY | 2022-04-23 04:56 | XMS_ITS | Encounter Summary ---
:1985 Author [facility] Address [address] [place] [address] Care Team Providers Name Role Phone Andrea Rodney MD Primary Care Provider Reason for Visit Reason Comments Anticoagulation Dosing Encounter Details Date Type Department Care Team Description 02/20/2012 Anticoagulation [place] [facility] Elysia Moreno RN [address], [address] [place], [place] [address] Social History Tobacco Use Types Packs/Day Years Used Date Smoking Tobacco: Never Assessed Sex Assigned at Date Recorded Not on file documented as of this encounter Plan of Treatment Not on filedocumented as of this encounter Procedures Procedure Name Priority Date/Time Associated Diagnosis Comme nts EXTERNAL INR Routine 02/20/2012 Results for thi s procedure are in the resu lts section. documented in this encounter Results (ABNORMAL) EXTERNAL INR (02/20/2012) P athologist Signature Anticoag 1.8 (A) 0.9 - 1.1 [facility]VERSION Clinic INR Specimen (Source) Anatomical Location Collection Method / Collectio n Time Received Time / Laterality Volume 02/20/2012 Historical Provider LAB EXTERNAL RESULT Performing Organization Address City/State/ZIP Code Phon e Number [facility] CONVERSION documented in this encounter Visit Diagnoses Not on filedocumented in this encounter Care Teams Loose Hand Packer Relationship Specialty Start Date End Date Andrea Rodney MD PCP - General 12/15/10 [address] [facility] [place] [address] documented as of this encounter
--- OUTSIDE RECORDS SUMMARY | 2022-04-23 04:56 | XMS_ITS | Encounter Summary ---
:1985 [address] [facility] Address [address] [address] Care Team Providers Name Role Phone Andrea Rodney MD Primary Care Provider Reason for Visit Reason Comments Anticoagulation Dosing Encounter Details Date Type Department Care Team Description 06/25/2012 Anticoagulation [place] [facility] Elysia Moreno RN [address], [address] [place], [place] [address] Social History Tobacco Use Types Packs/Day Years Used Date Smoking Tobacco: Never Assessed Sex Assigned at Date Recorded Not on file documented as of this encounter Plan of Treatment Not on filedocumented as of this encounter Procedures Procedure Name Priority Date/Time Associated Diagnosis Comme nts EXTERNAL INR Routine 06/25/2012 Results for thi s procedure are in the resu lts section. documented in this encounter Results (ABNORMAL) EXTERNAL INR (06/25/2012) athologist Signature Anticoag 2.4 (A) 0.9 - 1.1 [facility] CONVERSION Clinic INR Specimen (Source) Anatomical Location Collection Method / Collectio n Time Received Time / Laterality Volume 06/25/2012 Historical Provider LAB EXTERNAL RESULT Performing Organization Address City/State/ZIP Code Phon e Number HP CONVERSION documented in this encounter Visit Diagnoses Not on filedocumented in this encounter Care Teams Advertising Intern Relationship Specialty Start Date End Date Andrea Rodney MD PCP - General 12/15/10 14[address] [facility] [place] [place] [address] documented as of this encounter
--- OUTSIDE RECORDS SUMMARY | 2022-04-23 04:56 | XMS_ITS | Encounter Summary ---
:1985 Author Organization [facility] Address [address] [place] [address] Care Team Providers Name Role Phone Andrea Rodney MD Primary Care Provider Reason for Visit Reason Comments RESULTS, TEST Encounter Details Date Type Department Care Team Description 02/13/2012 Telephone [facility] Andrea Rodney MD RESULTS, TEST 14[address] [facility] . [address] [place] [address] [place] [address] [phone] (Wo rk) Social History Tobacco Use Types Packs/Day Years Used Date Smoking Tobacco: Never Assessed Sex Assigned at Date Recorded Not on file documented as of this encounter Nursing Notes Clint Pennington - 02/13/2012 2:48 PM CDT Patient calling for todays INR result and next orders Per phone note from ACC to take 2.5 mg tu,th,sat ROW 5mg Repeat INR in one week Voiced understanding Juliana Jerry - 02/13/2012 2:43 PM CDT Patient states she hasn't received a call with her INR results and dosing instructions. Patient is requesting to talk to a nurse. Patient is at [phone] and VM is OK. documented in this encounter Plan of Treatment Not on filedocumented as of this encounter Visit Diagnoses Not on filedocumented in this encounter Care Teams Acquisition Cost Estimator Relationship Specialty Start Date End Date Andrea Rodney MD PCP - General 12/15/10 [address] [facility] [place] [address] documented as of this encounter
--- OUTSIDE RECORDS SUMMARY | 2022-04-23 04:56 | XMS_ITS | Encounter Summary ---
:1985 Author Organization formerly [facility] Address [address] [place] [address] Care Team Providers Name Role Phone Andrea Rodney MD Primary Care Provider Reason for Visit Reason Comments Anticoagulation Dosing Encounter Details Date Type Department Care Team Description 05/21/2012 Anticoagulation [place] [facility] Renetta Aguilera, Clinic RN [address] [place] [address] [phone] Social History Tobacco Use Types Packs/Day Years Used Date Smoking Tobacco: Never Assessed Sex Assigned at Date Recorded Not on file documented as of this encounter Plan of Treatment Not on filedocumented as of this encounter Procedures Procedure Name Priority Date/Time Associated Diagnosis Comme nts EXTERNAL INR Routine 05/21/2012 Results for thi s procedure are in the resu lts section. documented in this encounter Results (ABNORMAL) EXTERNAL INR (05/21/2012) P athologist Signature Anticoag 1.9 (A) 0.9 - 1.1 HP CONVERSION Clinic INR Specimen (Source) Anatomical Location Collection Method / Collectio n Time Received Time / Laterality Volume 05/21/2012 Historical Provider LAB EXTERNAL RESULT Performing Organization Address City/State/ZIP Code Phon e Number HP CONVERSION documented in this encounter Visit Diagnoses Not on filedocumented in this encounter Care Teams Button Reclaimer Relationship Specialty Start Date End Date Andrea Rodney MD PCP - General 12/15/[address] [place], [place] [address] documented as of this encounter
--- OUTSIDE RECORDS SUMMARY | 2022-04-23 04:56 | XMS_ITS | Encounter Summary ---
:1985 Author Organization [facility] Address [address] [place] [address] Care Team Providers Name Role Phone Andrea Rodney MD Primary Care Provider Reason for Visit Reason Comments Anticoagulation Dosing Encounter Details Date Type Department Care Team Description 01/15/2012 Anticoagulation [place] [facility] Stella Rodrigez, Clinic RN [address] [facility] [address] [facility] [address] [place] [address] [place], [place] [phone] Social History Tobacco Use Types Packs/Day Years Used Date Smoking Tobacco: Never Assessed Sex Assigned at Date Recorded Not on file documented as of this encounter Plan of Treatment Not on filedocumented as of this encounter Visit Diagnoses Not on filedocumented in this encounter Care Teams Peace Officer Relationship Specialty Start Date End Date Andrea Rodney MD PCP - General 12/15/10 [address] [place] [address] documented as of this encounter
--- OUTSIDE RECORDS SUMMARY | 2022-04-23 04:56 | XMS_ITS | Encounter Summary ---
:1985 Author Organization [facility] Address [address] [facility] [place] [address] Care Team Providers Name Role Phone Andrea Rodney MD Primary Care Provider Reason for Visit Reason Comments Anticoagulation Dosing Encounter Details Date Type Department Care Team Description 04/23/2012 Anticoagulation [place] [facility] Elysia Moreno RN [address], [address] [place], [place] [address] Social History Tobacco Use Types Packs/Day Years Used Date Smoking Tobacco: Never Assessed Sex Assigned at Date Recorded Not on file documented as of this encounter Plan of Treatment Not on filedocumented as of this encounter Procedures Procedure Name Priority Date/Time Associated Diagnosis Comme nts EXTERNAL INR Routine 04/23/2012 Results for thi s procedure are in the resu lts section. documented in this encounter Results (ABNORMAL) EXTERNAL INR (04/23/2012) athologist Signature Anticoag 2.7 (A) 0.9 - 1.1 HP CONVERSION Clinic INR Specimen (Source) Anatomical Location Collection Method / Collectio n Time Received Time / Laterality Volume 04/23/2012 Historical Provider LAB EXTERNAL RESULT Performing Organization Address City/State/ZIP Code Phon e Number HP CONVERSION documented in this encounter Visit Diagnoses Not on filedocumented in this encounter Care Teams Electronic Device Repairer Relationship Specialty Start Date End Date Andrea Rodney MD PCP - General 12/15/10 [address] [place] [address] documented as of this encounter
--- OUTSIDE RECORDS SUMMARY | 2022-04-23 04:56 | XMS_ITS | Clinical Summary ---
:1985 Author Organization [facility] Address [address] [address] Care Team Providers Name Role Phone Andrea Rodney MD Primary Care Provider Source Comments You are receiving this document as you are listed as the primary care provider,follow-up provider, or the patient has been referred to you for consultation.This is in compliance with the Medicare and Medicaid EHR Incentive Program,which states Providers who transition their patient to another setting of careor provider of care or refers their patient to another provider of care shouldprovide summarycare record for each transition of care or referral. [facility] Allergies No known active allergies Medications Medication Sig Dispensed Refills Start Date End Date Status Vit-Fe Take 1 tablet by 300 1 05/23/2009 Active Fumarate-FA ( mouth daily (every OR) 24 hours). Active Problems Problem Noted Date Factor V Leiden 01/15/2012 intermediate current use of anticoagulant therapy 012 Overview: Update from Spring 2017 IMO load. DVT (deep venous thrombosis) 01/14/2012 Overview: DVT (deep venous thrombosis) 07/11/2011 Immunizations Name Administration Dates Next Due Flu Vac Preserv Free (3+yrs) 07/20/2010, 10/30/2009, 008, 08/24/2007, 11/03/2006 H1n1 Miv Sanofi 3+ Yr (Injected) 10/30/2009 Influenza IIV4 (Quadrivalent) 0.5mL 06/18/2016 (16022) MMR 04/08/2007 Td 03/21/1997 Family History Relation Name Status Comments Father Mother Alive Brother 1 Alive Brother 2 Alive Sister Alive Social History Tobacco Use Types Packs/Day Years Used Date Smoking Tobacco: Never Alcohol Use Standard Drinks/Week Comments No 0 (1 standard drink = 0.6 oz pure Alcoho lic Drinks/day: Amount:1-2 alcohol) drinks; Freq:Never; Alcohol Habits Answer Date Recorded How often do you have a drink Not asked containing alcohol? How many drinks containing alcohol Not asked do you have on a typical day when you are drinking? How often do you have six or more Not asked drinks on one occasion? Comment: Alcoholic Drinks/day: Amount:1-2 016 drinks; Freq:Never; Sex Assigned at Date Recorded Not on file Last Filed Vital Signs Vital Sign Reading Time Taken Comments Blood Pressure 108/74 07/13/2012 8:55 AM CDT Pulse 60 07/13/2012 8:55 AM CDT Temperature - - Respiratory Rate - - Oxygen Saturation - - Inhaled Oxygen Concentration - - Weight 65.5 kg (144 lb 6.4 oz) 07/13/2012 8:55 AM CDT Height 158.8 cm (5' 2.5) 07/13/2012 8:55 AM CDT Body Mass Index 25.99 07/13/2012 8:55 AM CDT Plan of Treatment Health Maintenance Due Date Last Done Comments Hep C Screening (Preventive 1985 Services) HepB (1) 1985 COVID-19 Vaccine (#1) 1985 DTaP/Tdap/Td (2 - Tdap) 03/22/1997 03/21/1997 Adult Preventive Visit 2001 Cervical Cancer Screening 10/31/2009 10/30/2009, 06/13/2008 , Due 03/12/2007, Additional history exists Influenza (#1) 2022 06/18/2016, 07/20/2010, 10/30/2009, Additional history exists Zoster/Shingles (1 of 2) 2033 HIV Screening (Preventive Completed 10/16/2009, 08/04/2006 , Services) 05/10/2004 HPV Vaccine Aged Out No longer eligib sonam based on patient 's age to complete this topic HepA Aged Out No longer eligib le based on patient 's age to complete this topic Hib Aged Out No longer eligib le based on patient 's age to complete this topic IPV (Polio) Aged Out No longer eligib le based on patient 's age to complete this topic MCV4 Aged Out No longer eligib le based on patient 's age to complete this topic Pneumococcal Aged Out No longer eligib le based on patient 's age to complete this topic Insurance Payer Benefit Plan / Subscriber ID Effective Dates Phone Addre ss Type Group BCBS BCBS [employer] BLUE [id number] 2016-Present [address] [address] [place] [address] [phone] (Home) [address] [id number] JulioElli Personal/Family Self 1985 [address]Home) [address] [address] Care Teams Mill Beam Fitter Relationship Specialty Start Date End Date Andrea Rodney MD PCP - General 12/15/10 [address] [place] [id number]
--- OUTSIDE RECORDS SUMMARY | 2022-04-23 04:56 | XMS_ITS | Encounter Summary ---
:1985 Author Organization [facility] Address [address] [place] [address] Care Team Providers Name Role Phone Andrea Rodney MD Primary Care Provider Reason for Visit Reason Comments RESULTS, TEST Encounter Details Date Type Department Care Team Description 06/25/2012 Telephone [facility] Andrea Rodney MD RESULTS, TEST [address] [facility] [address] [place] [address] [place] [address] [phone] (Wo rk) Social History Tobacco Use Types Packs/Day Years Used Date Smoking Tobacco: Never Assessed Sex Assigned at Date Recorded Not on file documented as of this encounter Nursing Notes Kathy Martin - 06/25/2012 3:41 PM CDT reviewed plan with pt per INR dosing instructions. pt will return in a week for next INR Ernestine Silva - 06/25/2012 3:37 PM CDT Pt is requesting to speak with a nurse regarding INR results and dosing instruction. documented in this encounter Plan of Treatment Not on filedocumented as of this encounter Visit Diagnoses Not on filedocumented in this encounter Care Teams Electronic Data Interchange Specialist Relationship Specialty Start Date End Date Andrea Rodney MD PCP - General 12/15/10 [address] [facility] [place] [address] documented as of this encounter
--- OUTSIDE RECORDS SUMMARY | 2022-04-23 04:56 | XMS_ITS | Encounter Summary ---
:1985 Author Organization [facility] Address [address] [place] [address] Care Team Providers Name Role Phone Andrea Rodney MD Primary Care Provider Reason for Visit Reason Comments Anticoagulation Dosing Encounter Details Date Type Department Care Team Description 03/12/2012 Anticoagulation [place] [facility] Elysia Moreno RN [address], [address] [place], [place] [address] Social History Tobacco Use Types Packs/Day Years Used Date Smoking Tobacco: Never Assessed Sex Assigned at Date Recorded Not on file documented as of this encounter Plan of Treatment Not on filedocumented as of this encounter Procedures Procedure Name Priority Date/Time Associated Diagnosis Comme nts EXTERNAL INR Routine 03/12/2012 Results for thi s procedure are in the resu lts section. documented in this encounter Results (ABNORMAL) EXTERNAL INR (03/12/2012) athologist Signature Anticoag 2.2 (A) 0.9 - 1.1 HP CONVERSION Clinic INR Specimen (Source) Anatomical Location Collection Method / Collectio n Time Received Time / Laterality Volume 03/12/2012 Historical Provider LAB EXTERNAL RESULT Performing Organization Address City/State/ZIP Code Phon e Number HP CONVERSION documented in this encounter Visit Diagnoses Not on filedocumented in this encounter Care Teams Celery Tier Relationship Specialty Start Date End Date Andrea Rodney MD PCP - General 12/15/10 [address] [facility] [place] [address] documented as of this encounter
--- OUTSIDE RECORDS SUMMARY | 2022-04-23 04:56 | XMS_ITS | Encounter Summary ---
:1985 Author Organization [facility] Address [address] [address] Care Team Providers Name Role Phone Andrea Rodney MD Primary Care Provider Reason for Visit Reason Comments NUMBNESS Encounter Details Date Type Department Care Team Description 04/08/2016 Nurse Triage [facility] Andrea Rodney MD NUMBNESS [address] [facility] . [address] [place] [address] [place] [address] [phone] (Wo rk) Social History Tobacco Use Types Packs/Day Years Used Date Smoking Tobacco: Never Assessed Sex Assigned at Date Recorded Not on file documented as of this encounter Nursing Notes Sharri Carrillo RN - 04/08/2016 1:46 PM CDT Protocol: NEUROLOGIC [id number] Affirmative: [1] Numbness (i.e., loss of sensation) of the face, arm / hand, or leg / foot on one side of the body AND [2] sudden onset AND [3] brief (now gone) Disposition of Go To ED Now (Or PCP Triage) suggested. Patient calling. Yesterday 04/07 patient noticed numbness of the left side of her face, numbness of her tongue, headache and left breast pain. These symptoms disappeared but has again occured this morning then subsided and now has occurred again with both sides of her face and all her fingers tingling.Speaks clearly. Denies numbness or weakness of an arm or leg. Agrees to go to ER. DEVELOPER documented in this encounter Plan of Treatment Not on filedocumented as of this encounter Visit Diagnoses Not on filedocumented in this encounter Care Teams Hitcher Relationship Specialty Start Date End Date Andrea Rodney MD PCP - General 12/15/[address] [place] [address] [place] [address] documented as of this encounter
--- OUTSIDE RECORDS SUMMARY | 2022-04-23 04:56 | XMS_ITS | Encounter Summary ---
:1985 Author Organization [facility] Address [address] [place] [address] Care Team Providers Name Role Phone Andrea Rodney MD Primary Care Provider Reason for Visit Reason Comments Questions Encounter Details Date Type Department Care Team Description 01/16/2012 [facility] Andrea Rodney MD Questions [address] [facility] . [address] [place] [address] [place], [place] [address] (Wo rk) Social History Tobacco Use Types Packs/Day Years Used Date Smoking Tobacco: Never Assessed Sex Assigned at Date Recorded Not on file documented as of this encounter Nursing Notes Rain Daniels RN - 01/16/2012 3:59 PM CDT Nurse called pharmacy, gave pharmacist warfarin dosing for today, they will fill rx Rain Daniels RN - 01/16/2012 3:45 PM CDT Nurse stated that pharmacy has been trying to call [facility] for directions on warfarin rx, advised pt to have pharmacy call [facility] for clarification on what they are looking for on rx 01/14/12, pt did receive dosing call from [facility] today, see other note. dosing for today per [facility]: 2.5mg F,Sat and 5mg Sun. INR Thursday. Advised pt call primary clinic with lifestyle variable changes or if tab size different than recorded. Requested to call [facility] with dosing history. INR from [facility]. Celestina Orellana - 01/16/2012 3:39 PM CDT Patient states she is at the [facility] pharmacy in [facility] and they can not fill script because it does not have directions. documented in this encounter Plan of Treatment Not on filedocumented as of this encounter Visit Diagnoses Not on filedocumented in this encounter Care Teams Timber Sizer Operator Relationship Specialty Start Date End Date Andrea Rodney MD PCP - General 12/15/10 [address] [place] [address] documented as of this encounter
--- OUTSIDE RECORDS SUMMARY | 2022-04-23 04:56 | XMS_ITS | Encounter Summary ---
:1985 Author Organization [facility] Address [address] [place] [address] Care Team Providers Name Role Phone Andrea Rodney MD Primary Care Provider Reason for Visit Reason Comments Other Encounter Details Date Type Department Care Team Description 04/23/2012 Telephone [facility] Andrea Rodney MD Other [address] [facility] . [address] [place] [address] [place], [place] [address] (Wo rk) Social History Tobacco Use Types Packs/Day Years Used Date Smoking Tobacco: Never Assessed Sex Assigned at Date Recorded Not on file documented as of this encounter Nursing Notes Janessa Alex - 05/21/2012 2:07 PM CDT pt states she has been taking coumadin after her regular time of 5pm. Transferred to triage to discuss change. Virginia Isbell RN - 04/23/2012 3:39 PM CDT Called pt. Had INR drawn at 10:00 AM in [place]. No result received. Called [facility] lab. Per boat laborer, Kaley - today's INR result is 2.7. Jose Martin December - 04/23/2012 3:28 PM CDT Patient states [facility] [place] today. She said she wanted to know if Dr. Rodney had received them yet. Patient can be reached at [phone]. documented in this encounter Plan of Treatment Not on filedocumented as of this encounter Visit Diagnoses Not on filedocumented in this encounter Care Teams Engineering Leader Relationship Specialty Start Date End Date Andrea Rodney MD PCP - General 12/15/10 [address] [facility] [place] [place] [address] documented as of this encounter
--- OUTSIDE RECORDS SUMMARY | 2022-04-23 04:56 | XMS_ITS | Encounter Summary ---
:1985 Author Organization [employer] [facility] Address [address] [place] [address] Care Team Providers Name Role Phone Andrea Rodney MD Primary Care Provider Reason for Visit Reason Comments Letter Encounter Details Date Type Department Care Team Description 01/21/2012 Telephone [facility] Andrea Rodney MD Letter [address] [facility] . [address] [place] [address] [place], [place] [address] (Wo rk) Social History Tobacco Use Types Packs/Day Years Used Date Smoking Tobacco: Never Assessed Sex Assigned at Date Recorded Not on file documented as of this encounter Nursing Notes Zunilda Martinez - 01/23/2012 8:44 AM CDT Pt called. Letter faxed to below number. [phone] attleland Perez. Wallace Saenz - 01/22/2012 3:10 PM CDT Patient returning call. (transferred to wireless) Karon Cullen [facility] - 01/21/2012 2:[address] Carvajal to address letter request. Currently length of therapy for coumadin use is indicated as 6 months. Lalita Jeffers - 01/21/2012 2:06 PM CDT Ptatient states she needs Dr Rodney to write a letter for her information clerk brokerage stating that she needs to have her blood work (INR) done until the right dosage of Coumadin is reached ,. Please indicate also howlong this will take. Fax to [phone] Attn: Ana Any questions please call patient back. documented in this encounter Miscellaneous Notes Letter - 01/21/2012 12:00 AM CDT Images from the original note were not included. [address] [address] Elli Kim [address] [place] [address] January 23, 2012 To Whom It May Concern:: Ms. Kim has been a long-standing patient of [facility]. I have cared for her and for her 4 children over the past 10 years. She has recently completed a , complicated by pelvic vein thromboses. This necessitates oral anticoagulation for a minimum of 6 months. This will require at the very least, monthly blood teststo regulate her dose of anticoagulation. It is not unusual to require more frequent testing if the dose of medication needs to be modified. Obviously this will be difficult to manage with her many children, as she is currently living alone as a single parent while her is abroad. It is also entirely likely, that Ms. Kim will require long-term anticoagulation beyond the initial 6 month interval. Only time will determine this. If you have any questions or concerns, please don't hesitate to call. Sincerely, Andrea Rodney MD K TENDER documented in this encounter Plan of Treatment Not on filedocumented as of this encounter Visit Diagnoses Not on filedocumented in this encounter Care Teams Chief Mate Relationship Specialty Start Date End Date Andrea Rodney MD PCP - General 12/15/10 [address] [facility] [place] [address] documented as of this encounter
--- OUTSIDE RECORDS SUMMARY | 2022-04-23 04:56 | XMS_ITS | Encounter Summary ---
:1985 Author Organization [facility] [employer] [facility] Address [address] [place] [address] Care Team Providers Name Role Phone Andrea Rodney MD Primary Care Provider Reason for Visit Reason Comments LAB RESULTS Encounter Details Date Type Department Care Team Description 01/15/[facility] LAB RESULTS [address] [facility] . [address] [place] [address] [place] [address] [phone] (Wo rk) Social History Tobacco Use Types Packs/Day Years Used Date Smoking Tobacco: Never Assessed Sex Assigned at Date Recorded Not on file documented as of this encounter Nursing Notes Zunilda Martinez - 01/15/2012 4:40 PM CDT Pt called with below information. Andrea Rodney MD - 01/15/2012 3:32 PM CDT Call pt. OK to stop heparin Zoya Arriola RN - 01/15/2012 2:37 PM CDT Action requested: Return Call Request Additional Info: Pt calling. Can she stop Heparin? INR done 01/13, 3.0. Please call as soon as possible. to Dr Rodney. Arelis Beatty - 01/15/2012 2:32 PM CDT Lab/Radiology Results Primary Care Provider: Andrea Rodney MD What test result is needed? Lab Results When and where was test done? 01/14/12 - [facility] Who ordered the test? Andrea Rodney MD documented in this encounter Plan of Treatment Not on filedocumented as of this encounter Visit Diagnoses Not on filedocumented in this encounter Care Teams Master Brewer Relationship Specialty Start Date End Date Andrea Rodney MD PCP - General 12/15/10 14[address] [facility] [place] [address] documented as of this encounter
--- OUTSIDE RECORDS SUMMARY | 2022-04-23 04:56 | XMS_ITS | Encounter Summary ---
:1985 Author Organization [facility] Address [address], [place] [address] Care Team Providers Name Role Phone Andrea Rodney MD Primary Care Provider Reason for Visit Reason Comments Anticoagulation Dosing Encounter Details Date Type Department Care Team Description 03/26/2012 Anticoagulation [place] [facility] Renetta Aguilera, Clinic RN [address] [place] [address] [phone] Social History Tobacco Use Types Packs/Day Years Used Date Smoking Tobacco: Never Assessed Sex Assigned at Date Recorded Not on file documented as of this encounter Plan of Treatment Not on filedocumented as of this encounter Procedures Procedure Name Priority Date/Time Associated Diagnosis Comme nts EXTERNAL INR Routine 03/26/2012 Results for thi s procedure are in the resu lts section. documented in this encounter Results (ABNORMAL) EXTERNAL INR (03/26/2012) P athologist Signature Anticoag 2.4 (A) 0.9 - 1.1 HP CONVERSION Clinic INR Specimen (Source) Anatomical Location Collection Method / Collectio n Time Received Time / Laterality Volume 03/26/2012 Historical Provider LAB EXTERNAL RESULT Performing Organization Address City/State/ZIP Code Phon e Number HP CONVERSION documented in this encounter Visit Diagnoses Not on filedocumented in this encounter Care Teams Utilities Manager Relationship Specialty Start Date End Date Andrea Rodney MD PCP - General 12/15/[address] [place], [place] [address] documented as of this encounter
--- OUTSIDE RECORDS SUMMARY | 2022-04-23 04:56 | XMS_ITS | Encounter Summary ---
:1985 Author Organization [facility] Address [address] [place] [address] Care Team Providers Name Role Phone Andrea Rodney MD Primary Care Provider Encounter Details Date Type Department Care Team Description 01/30/2012 Notes/Orders [facility] Andrea Rodney DVT (al p venous thrombosis) (Primary Dx); Vitaliy Villareal MD Vaginal bleeding 14[address] [facility] . [address] [place] [address] [facility] [phone] [place] [address] Social History Tobacco Use Types Packs/Day Years Used Date Smoking Tobacco: Never Assessed Sex Assigned at Date Recorded Not on file documented as of this encounter Plan of Treatment Not on filedocumented as of this encounter Visit Diagnoses Diagnosis DVT (deep venous thrombosis) ([facility] - [facility] Acute venous embolism and thrombosis of unspecified deep vessels of lower extremity Vaginal bleeding Other specified noninflammatory disorder of vagina documented in this encounter Care Teams Flow Machine Operator Relationship Specialty Start Date End Date Andrea Rodney MD PCP - General 12/15/10 14[address] [facility] [place] [id number] documented as of this encounter
--- OUTSIDE RECORDS SUMMARY | 2022-04-23 04:56 | XMS_ITS | Encounter Summary ---
:1985 Author Organization [facility] Address [address] [address] Care Team Providers Name Role Phone Andrea Rodney MD Primary Care Provider Reason for Referral Specialty Diagnoses / Procedures Referred By Contact Refer red To Contact Andrea Rodney MD [address] [place] [address] Referral ID Status Reason Start Date Expiration Date Visits Requ ested Visits Authorized Reason for Visit Reason Comments Anticoagulation Encounter Details Date Type Department Care Team Description 01/14/2012 Anticoagulation Andrea Schuler Long- term (current) use of anticoagulants (Primary Dx); Vitaliy Villareal MD DVT (deep venous thrombosis); [address] [place] [address] [place] [address] Factor V Leiden Luiza. [place] [address] [place] [phone] Social History Tobacco Use Types Packs/Day Years Used Date Smoking Tobacco: Never Assessed Sex Assigned at Date Recorded Not on file documented as of this encounter Patient Instructions Patient InstructionsAndrea Rodney MD - 01/15/2012 3:30 PM CDT Call [facility] On heparin 39924 units BID since 06/2011 Dx: bilateral pelvic DVT, + factor V Leiden Duration of Tx 6 months from now Teaching done at [facility] after delivery Pill size 5 mg Desired INR range 2-3 documented in this encounter Progress Notes Tangela Rodrigez RN - 01/15/2012 4:16 PM CDT Has she had 5mg of Warfarin daily the past 9 days? What have been her previous INRs? Not sure how long she'll need to cont on Heparin as unsure if this INR is 1st or 2nd INR above 2.0. Please advise. Thanks. Karon Cullen HUC - 01/15/2012 3:45 PM CDT To ACC: Heparin started 06/2011 Dx pelvic DVT , factor V Leiden deficiency Warfarin started 9 days ago after giving at [facility] Education done at [facility] Desired INR 2-3 Pill size 5 mg Duration of therapy: until 04/2012 Andrea Rodney MD - 01/15/2012 3:35 PM CDT Call ACC: Heparin started 06/2011 Dx pelvic DVT , factor V Leiden deficiency Warfarin started 9 days ago Education done at [facility] Desired INR 2-3 Pill size 5 mg Duration of therapy: until 04/2012 Karon Cullen HUC - 01/15/2012 2:08 PM CDT Could you also clarify questions [facility] has below regarding where/when warfarin was started and Heparinhistory. Also needs to be added to med list. Tangela Rodrigez RN - 01/15/2012 9:01 AM CDT Pt had INR of 3.0 yesterday. [facility] currently does not have dosing orders for this pt. Will need dosingorders prior to dosing this INR. Limited information from notes regarding when and where pt was started on Warfarin. Please indicate when pt was started on Warfarin and Warf/Heparin dosing history so far. Would also like to clarify Heparin dose; notes indicate 10,000 U BID. Can you please update pt's medlist by adding Heparin to active list, if indeed pt continues on this? Thanks in advance. Karon Cullen HUC - 01/14/2012 5:[address] Rodney, please sign [facility] enrollment order. Ok to close encounter when complete. Warfarin start date: 01/06/2012 Low molecular weight heparin (LMWH) dose and duration of treatment: Medication/Dose/Frequency: Heparin 10,000U BID Until INR greater than 2 for 2 days Date of Angelique Diaz warfarin education: TBD Baseline labs drawn (if new start): PT/INR (baseline), HBG, Serum Creatinine, AST, ALB, Platelets Warfarin tablet size(s) prescribed: 5 mg Dose Instructions given to the patient: 1 tab daily Date of next INR: today (01/13) (please CC this chart to the [facility] anticoag pool) documented in this encounter Plan of Treatment Not on filedocumented as of this encounter Visit Diagnoses Diagnosis Long-term (current) use of anticoagulant s - Primary Encounter for long-term (current) use of anticoagulants DVT (deep venous thrombosis) (HRC) Acute venous embolism and thrombosis of unspecified deep vessels of lower extremity Factor V Leiden (HRC) Primary hypercoagulable state documented in this encounter Care Teams Electronic Publisher Relationship Specialty Start Date End Date Andrea Rodney MD PCP - General 12/15/10 [address] [place] [id number] documented as of this encounter
--- OUTSIDE RECORDS SUMMARY | 2022-04-23 04:56 | XMS_ITS | Encounter Summary ---
:1985 Author Organization [facility] Address [address] [place] [address] Care Team Providers Name Role Phone Andrea Rodney MD Primary Care Provider Reason for Visit Reason Comments Anticoagulation Dosing Encounter Details Date Type Department Care Team Description 02/13/2012 Anticoagulation [place] [facility] Elysia Moreno RN [address], [address] [place], [place] [id number] Social History Tobacco Use Types Packs/Day Years Used Date Smoking Tobacco: Never Assessed Sex Assigned at Date Recorded Not on file documented as of this encounter Plan of Treatment Not on filedocumented as of this encounter Procedures Procedure Name Priority Date/Time Associated Diagnosis Comme nts EXTERNAL INR Routine 02/13/2012 Results for thi s procedure are in the resu lts section. documented in this encounter Results (ABNORMAL) EXTERNAL INR (02/13/2012) P athologist Signature Anticoag 1.8 (A) 0.9 - 1.1 HP CONVERSION Clinic INR Specimen (Source) Anatomical Location Collection Method / Collectio n Time Received Time / Laterality Volume 02/13/2012 Historical Provider LAB EXTERNAL RESULT Performing Organization Address City/State/ZIP Code Phon e Number HP CONVERSION documented in this encounter Visit Diagnoses Not on filedocumented in this encounter Care Teams Rigger Relationship Specialty Start Date End Date Andrea Rodney MD PCP - General 12/15/10 [address] [facility] [place] [address] documented as of this encounter
--- OUTSIDE RECORDS SUMMARY | 2022-04-23 04:56 | XMS_ITS | Encounter Summary ---
:1985 Author Organization [facility] Address [address], [place] [address] Care Team Providers Name Role Phone Andrea Rodney MD Primary Care Provider Reason for Visit Reason Comments UPDATE Encounter Details Date Type Department Care Team Description 05/21/2012 Telephone [facility] Andrea Rodney MD UPDATE [address] [facility] . [address] [place] [address] [place], [place] [address] (Wo rk) Social History Tobacco Use Types Packs/Day Years Used Date Smoking Tobacco: Never Assessed Sex Assigned at Date Recorded Not on file documented as of this encounter Nursing Notes Renetta Aguilera RN - 05/21/2012 2:57 PM CDT Noted Betty Lawrence RN - 05/21/2012 2:12 PM CDT Patient returning call from [facility] nurse. Patient reports she usually takes Warfarin at 5 pm, but this week she has been taking later--usually 9-10 pm. FYI to [facility]. documented in this encounter Plan of Treatment Not on filedocumented as of this encounter Visit Diagnoses Diagnosis DVT (deep venous thrombosis) ([facility]C) Acute venous embolism and thrombosis of unspecified deep vessels of lower extremity Factor V Leiden (HRC) Primary hypercoagulable state Long-term (current) use of anticoagulant s Encounter for long-term (current) use of anticoagulants documented in this encounter Care Teams Telecommunication Operator Relationship Specialty Start Date End Date Andrea Rodney MD PCP - General 12/15/10 [address] [facility] [place] [address] documented as of this encounter
--- OUTSIDE RECORDS SUMMARY | 2022-04-23 04:56 | XMS_ITS | Encounter Summary ---
:1985 Author Organization [facility] Address [address] [place] [address] Care Team Providers Name Role Phone Andrea Rodney MD Primary Care Provider Reason for Visit Reason Comments Anticoagulation Dosing Encounter Details Date Type Department Care Team Description 01/22/2012 Anticoagulation [place] [facility] Elysia Moreno RN [address], [address] [place], [place] [id number] Social History Tobacco Use Types Packs/Day Years Used Date Smoking Tobacco: Never Assessed Sex Assigned at Date Recorded Not on file documented as of this encounter Plan of Treatment Not on filedocumented as of this encounter Procedures Procedure Name Priority Date/Time Associated Diagnosis Comme nts EXTERNAL INR Routine 01/22/2012 Results for thi s procedure are in the resu lts section. documented in this encounter Results (ABNORMAL) EXTERNAL INR (01/22/2012) athologist Signature Anticoag 2.8 (A) 0.9 - 1.1 HP CONVERSION Clinic INR Specimen (Source) Anatomical Location Collection Method / Collectio n Time Received Time / Laterality Volume 01/22/2012 Historical Provider LAB EXTERNAL RESULT Performing Organization Address City/State/ZIP Code Phon e Number HP CONVERSION documented in this encounter Visit Diagnoses Not on filedocumented in this encounter Care Teams Talent Acquisition Project Manager Relationship Specialty Start Date End Date Andrea Rodney MD PCP - General 12/15/10 [address] [place] [address] documented as of this encounter
--- OUTSIDE RECORDS SUMMARY | 2022-04-23 04:56 | XMS_ITS | Encounter Summary ---
:1985 Author Organization [employer] Address [address] [place] [address] Care Team Providers Name Role Phone Andrea Rodney MD Primary Care Provider Reason for Visit Reason Comments Anticoagulation Encounter Details Date Type Department Care Team Description 07/13/2012 Anticoagulation [place] [facility] NIKIA Barreto (deep venous thrombosis); Clinic VIVEK Escobar Factor V Leiden; [address]-term (cu rrent) use of anticoagulants [address] [place] [address] Social History Tobacco Use Types Packs/Day Years Used Date Smoking Tobacco: Never Assessed Sex Assigned at Date Recorded Not on file documented as of this encounter Progress Notes Luz Barreto LPN - 07/13/2012 10:03 AM CDT Pt was seen in clinic 07/13/[address] Collier for consult for diagnosis of Factor V Leiden and DVT. Dr. Collier is advising pt to discontinue warfarin at this time and start 81mg ASA daily in 3 days.Pt to have baseline u/s done. Anticoagulation episode resolved and warfarin removed from medication list. FYI to PCP. No action required. documented in this encounter Plan of Treatment Not on filedocumented as of this encounter Visit Diagnoses Diagnosis DVT (deep venous thrombosis) (HRC) Acute venous embolism and thrombosis of unspecified deep vessels of lower extremity Factor V Leiden (HRC) Primary hypercoagulable state Long-term (current) use of anticoagulant s Encounter for long-term (current) use of anticoagulants documented in this encounter Care Teams Word Processing Operator Relationship Specialty Start Date End Date Andrea Rodney MD PCP - General 12/15/10 [address] [facility] [place] [address] documented as of this encounter
--- OUTSIDE RECORDS SUMMARY | 2022-04-23 04:56 | XMS_ITS | Encounter Summary ---
:1985 Author Organization [employer] Address [address] [address] Care Team Providers Name Role Phone Andrea Rodney MD Primary Care Provider Reason for Visit Reason Comments Questions Encounter Details Date Type Department Care Team Description 07/16/2012 Telephone [place] [facility] Veto Sandy MD Questions Clinic [address] [place] [address] [address] [place] [address] [phone] Social History Tobacco Use Types Packs/Day Years Used Date Smoking Tobacco: Never Assessed Sex Assigned at Date Recorded Not on file documented as of this encounter Nursing Notes Luz Barreto LPN - 07/19/2012 9:45 AM CST Left message for pt advising that letter was mailed out to her, and she should be receiving it shortly. ETIC TEAM PHYSICIAN Veto Collier MD - 07/17/2012 11:38 AM CDT I sent this patient a letter yesterday. documented in this encounter Plan of Treatment Not on filedocumented as of this encounter Visit Diagnoses Not on filedocumented in this encounter Care Teams Assistant Grocery Relationship Specialty Start Date End Date Andrea Rodney MD PCP - General 12/15/10 14[address] [facility] [place] [address] documented as of this encounter
--- OUTSIDE RECORDS SUMMARY | 2022-04-23 04:56 | XMS_ITS | Encounter Summary ---
:1985 Author Organization [facility] Address [address] [place] [address] Care Team Providers Name Role Phone Andrea Rodney MD Primary Care Provider Reason for Visit Reason Comments Anticoagulation Dosing Encounter Details Date Type Department Care Team Description 02/06/2012 Anticoagulation [place] [facility] Elysia Moreno RN [address], [address] [place], [place] [address] Social History Tobacco Use Types Packs/Day Years Used Date Smoking Tobacco: Never Assessed Sex Assigned at Date Recorded Not on file documented as of this encounter Plan of Treatment Not on filedocumented as of this encounter Procedures Procedure Name Priority Date/Time Associated Diagnosis Comme nts EXTERNAL INR Routine 02/06/2012 Results for thi s procedure are in the resu lts section. documented in this encounter Results (ABNORMAL) EXTERNAL INR (02/06/2012) athologist Signature Anticoag 2.3 (A) 0.9 - 1.1 HP CONVERSION Clinic INR Specimen (Source) Anatomical Location Collection Method / Collectio n Time Received Time / Laterality Volume 02/06/2012 Historical Provider LAB EXTERNAL RESULT Performing Organization Address City/State/ZIP Code Phon e Number HP CONVERSION documented in this encounter Visit Diagnoses Not on filedocumented in this encounter Care Teams Meat Grader Relationship Specialty Start Date End Date Andrea Rodney MD PCP - General 12/15/10 [address] [place] [address] documented as of this encounter
--- OUTSIDE RECORDS SUMMARY | 2022-04-23 04:56 | XMS_ITS | Encounter Summary ---
:1985 Author Organization [facility] Address [address] [place] [address] Care Team Providers Name Role Phone Andrea Rodney MD Primary Care Provider Reason for Visit Reason Comments Test Request Encounter Details Date Type Department Care Team Description 01/16/2012 Telephone [facility] Andrea Rodney MD Test Request [address] [facility] . [address] [place] [address] [place] [address] [phone] (Wo rk) Social History Tobacco Use Types Packs/Day Years Used Date Smoking Tobacco: Never Assessed Sex Assigned at Date Recorded Not on file documented as of this encounter Nursing Notes Karon Cullen HUC - 01/16/2012 9:08 AM CDT Message left for patient. I was able to get a general fax # of [phone] and order was faxed to that number. Asked patient to call back if there is a better number to fax order to. Rain Daniels, RN - 01/16/2012 8:39 AM CDT To DA to fax [facility] completed orders, orders are still pended from 01/14/12 Amanda De La Torre - 01/16/2012 8:29 AM CDT Lab/Radiology Requests Primary Care Provider: Andrea Rodney MD What test is needed and when? INR blood draw, today 01/16/12 Why is test needed/requested? coumadin / pt. needs INR draw today *If symptom related, send to triage Commercial Photographer: Elli Kim Best call back number: [phone] (home) [phone] (work), No relevant phone numbers on file. Is it OK to leave a confidential message on this voicemail? yes documented in this encounter Plan of Treatment Not on filedocumented as of this encounter Visit Diagnoses Not on filedocumented in this encounter Care Teams Battery Repairer Relationship Specialty Start Date End Date Andrea Rodney MD PCP - General 12/15/10 [facility] [place] [address] documented as of this encounter
--- OUTSIDE RECORDS SUMMARY | 2022-04-23 04:56 | XMS_ITS | Encounter Summary ---
:1985 Author Organization [facility] Address [address] [place] [address] Care Team Providers Name Role Phone Unavailable Primary Care Provider Unavailable Encounter Details Date Type Department Care Team Description 04/11/2008 Hospital Encounter HX NO MAPPING Brad Joya M .D. Social History Tobacco Use Types Packs/Day Years Used Date Smoking Tobacco: Never Assessed Sex Assigned at Date Recorded Not on file documented as of this encounter Progress Notes Brad Joya M.D. - 04/11/2008 12:00 [place] [address] Name: RAEGAN KIM MR#: [id number] : 81 Dictating Provider: Brad Joya MD Serv Date: 04/11/08 CLINIC NOTE S: Raegan comes in today because of urinary frequency, urgency, and some dysuria. No fever, shakes, or chills. O: Blood pressure 100/68. Pulse 50. Respirations 18. Temperature 37.4 C. Weight 56.1 kg. Height 158 cm. Abdomen - Soft, nontender, no masses. Bowel sounds active. No guarding or rebound. No CVA tenderness. No suprapubic pain. DIAGNOSTIC DATA: Urinalysis - Shows pus cells, red cells, positive nitrites, leukocyte esterase. A: URINARY TRACT INFECTION. P: Cipro 500 one b.i.d. for 5 days. Fluids and Tylenol advised. Recheck as needed. Brad Joya MD /[facility] Authenticated by Brad Joya MD on 04/13/2008 14:41:18 Authorized physician signature on file Doc#: [id number] [facility] NAME: RAEGAN KIM [facility] MR#: [id number] [place] [address] : 1985 PHYSICIAN: Brad Joya MD VISIT DATE: 04/11/2008 CLINIC PROGRESS NOTE [facility] Name: RAEGAN KIM CLINIC PROGRESS NOTE Source: [facility] [id number] Document Id: [id number] documented in this encounter Plan of Treatment Not on filedocumented as of this encounter Visit Diagnoses Not on filedocumented in this encounter
--- OUTSIDE RECORDS SUMMARY | 2022-04-23 04:56 | XMS_ITS | Encounter Summary ---
:1985 Author Organization [employer] Address [address] [place] [address] Care Team Providers Name Role Phone Anrdea Rodney MD Primary Care Provider Reason for Visit Reason Comments Refill Encounter Details Date Type Department Care Team Description 07/12/2012 Refill [facility] Andrea Rodney MD Refill [address] [facility] [place] [address] [place] [address] [phone] (Wo rk) Social History Tobacco Use Types Packs/Day Years Used Date Smoking Tobacco: Never Assessed Sex Assigned at Date Recorded Not on file documented as of this encounter Nursing Notes Clint Pennington - 07/14/2012 9:52 AM CDT Rx Coumadin discontinued by Dr Collier (see note 07/13) documented in this encounter Plan of Treatment Not on filedocumented as of this encounter Visit Diagnoses Diagnosis DVT (deep venous thrombosis) ([facility]) - [facility] Acute venous embolism and thrombosis of unspecified deep vessels of lower extremity documented in this encounter Care Teams Component Lab Tech Relationship Specialty Start Date End Date Andrea Rodney MD PCP - General 12/15/[address] [facility] [place] [address] (work) documented as of this encounter
--- OUTSIDE RECORDS SUMMARY | 2022-04-23 04:56 | XMS_ITS | Encounter Summary ---
:1985 Author Organization [facility] Address [address] [place] [address] Care Team Providers Name Role Phone Unavailable Primary Care Provider Unavailable Encounter Details Date Type Department Care Team Description 07/21/2017 - Hospital Encounter HX RST UNIT 3-2 07/22/2017 OBSTETRICS Social History Tobacco Use Types Packs/Day Years Used Date Smoking Tobacco: Never Assessed Sex Assigned at Date Recorded Not on file documented as of this encounter Last Filed Vital Signs Vital Sign Reading Time Taken Comments Blood Pressure 116/70 07/22/2017 3:26 PM [facility] Pulse 74 07/22/2017 3:26 PM [facility] Temperature - - Respiratory Rate 18 07/22/2017 9:00 AM [facility] Oxygen Saturation - - Inhaled Oxygen Concentration - - Weight 75.1 kg (165 lb 9.1 oz) 07/22/2017 11:16 AM [facility] Height - - Body Mass Index - - documented in this encounter Plan of Treatment Not on filedocumented as of this encounter Procedures Procedure Name Priority Date/Time Associated Comments Diagnosis PROTEIN, TOTAL, 24 HR, U Routine 07/22/2017 9:00 Results for this AM [facility] procedure are i n the results section. ECG Routine 07/21/2017 11:42 Results for this PM [facility] procedure are i n the results section. CBC WITHOUT Routine 07/21/2017 10:44 Results for this DIFFERENTIAL, B PM [facility] procedure ar e in the results section. ASPARTATE Routine 07/21/2017 10:44 Results for this AMINOTRANSFERASE (AST), PM [facility] proc edure are in S/P the results section. CREATININE WITH EGFR, Routine 07/21/2017 10:44 Re sults for this S/P PM [facility] procedure are i n the results section. documented in this encounter Results (ABNORMAL) Protein, Total, 24 Hour, Urine (07/22/2017 9:00 AM [facility]) Patholo gist Method Time Signature Collection 24 H [facility] Duration [facility] Urine Volume 1135 ML [facility] Total Protein, 375 (H) <229 [facility] 24 HR, U MG/24 H [facility] Comment: ? ADDITIONAL INFORMATIO N ? On 03/10/2017 the total protein assay me thod changed resulting ? in approximately a 15% increase in prote in values. ? Concentration 33 MG/DL [facility] Specimen Anatomical Collection Method Collection Time Receive d Time (Source) Location / / Volume Laterality 07/22/2017 9:00 AM 11/08/201 7 9:00 [facility] Magalys Aponte M.D. LAB URINE ORDERABLES Performing Organization Address City/State/ZIP Code Phon e Number [facility]ATORIES - [address] ECG 12 Lead (07/21/2017 11:42 PM [facility]) Specimen (Source) Anatomical Collection Method Collection Time Re ceived Time Location / / Volume Laterality 07/21/2017 11:42 PM [facility] Narrative [facility] CONVERSION - 07/22/2017 6:1 7 AM [facility] 21Jul2017 23:42 VENTRICULAR RATE 54 Sinus bradycardia with sinus arrhythmia Low anterior forces Nonspecific T wave abnormality No previous ECGs available [id number]^FAM DAIGLE^ALAN Procedure Note Alan Motta M.D. - 12/03/2017Formatt ing of this note might be different from the original. 21Jul2017 23:42 VENTRICULAR RATE 54 Sinus bradycardia with sinus arrhythmia Low anterior forces Nonspecific T wave abnormality No previous ECGs available [id number]^FAM DAIGLE^ALAN Magalys Aponte M.D. ECG ORDERABLES Performing Organization Address City/[facility]/ZIP Code Phon e Number [facility] CONVERSION Creatinine with Estimated GFR (MDRD) (07/21/2017 10:44 PM [facility]) athologist Signature Creatinine, S 0.8 0.6 - 1.1 [facility] MG/DL [facility] eGFR >60 >60 [facility] Non-Black/Afri ML/MIN/BSA LABORATORIES - can [place] [facility] eGFR-Black/Afr >60 >60 [facility] ER ican [place] ML/MIN/BSA LABORATORIES - [facility] Specimen Anatomical Collection Method Collection Time Receive d Time (Source) Location / / Volume Laterality 07/21/2017 10:44 07/21/2017 PM [facility] 10:44 PM [facility] Magalys Aponte M.D. LAB BLOOD ADD-ON Performing Organization Address City/[facility]/ZIP Code Phon e Number [facility]ATORIES - [address] AST (Aspartate Aminotransferase) (07/21/2017 10:44 PM [facility]) athologist Signature AST, Total, S 15 8 - 43 U/L [facility] Specimen Anatomical Collection Method Collection Time Receive d Time (Source) Location / / Volume Laterality 07/21/2017 10:44 07/21/2017 PM [facility] 10:44 PM [facility] Magalys Aponte M.D. LAB BLOOD ADD-ON Performing Organization Address City/State/ZIP Code Phon e Number [facility]ATORIES - [address] [place] [address] [facility] (ABNORMAL) CBC without Differential (07/21/2017 10:44 PM [facility]) [facility] gist Method Time Signature Hemoglobin 12.4 12.0 - [facility] 15.5 G/DL LABORATORIES - [facility] Hematocrit 34.4 (L) 34.9 - [facility] 44.5 % LABORATORIES - [facility] RBC Distrib 13.3 11.9 - [facility] Width 15.5 % LABORATORIES - [facility] Platelet Count 117 (L) 150 - 450 [facility] X10(9)/L LABORATORIES - [facility] Leukocytes 7.4 3.5 - [facility] 10.5 LABORATORIES - X10(9)/L [facility] Erythrocytes 4.07 3.90 - [facility] 5.03 LABORATORIES - X10(12)/L [facility] MCV 84.5 81.6 - [facility] 98.3 FL LABORATORIES - [facility] Specimen Anatomical Collection Method Collection Time Receive d Time (Source) Location / / Volume Laterality 07/21/2017 10:44 07/21/2017 PM [facility] 10:44 PM [facility] Magalys Aponte M.D. LAB BLOOD ADD-ON Performing Organization Address City/State/ZIP Code Phon e Number [facility]ATORIES - [address] [place] [address] [facility] documented in this encounter Visit Diagnoses Not on filedocumented in this encounter
--- OUTSIDE RECORDS SUMMARY | 2022-04-23 04:56 | XMS_ITS | Encounter Summary ---
:1985 Author Organization [facility] Address [address] [place] [address] Care Team Providers Name Role Phone Andrea Rodney MD Primary Care Provider Reason for Visit Reason Comments RESULTS, TEST Encounter Details Date Type Department Care Team Description 03/26/2012 Telephone [facility] Andrea Rodney MD RESULTS, TEST [address] [facility] . [address] [place] [address] [place] [address] [phone] (Wo rk) Social History Tobacco Use Types Packs/Day Years Used Date Smoking Tobacco: Never Assessed Sex Assigned at Date Recorded Not on file documented as of this encounter Nursing Notes Renetta Aguilera RN - 03/26/2012 4:56 PM CDT Note See Dose Encounter Virginia Isbell RN - 03/26/2012 4:21 PM CDT Pt calling. States INR was drawn today at [facility] in [facility]. Informed no results received yet. Called [facility], spoke with [facility] RN Salena. States pt's INR result today is 2.4. To [facility] for dosing. Ernestine Silva E - 03/26/2012 4:10 PM CDT Pt is calling for her INR results. Pt states she has the blood draw at [facility] in [facility] and they send the results here. documented in this encounter Plan of Treatment Not on filedocumented as of this encounter Visit Diagnoses Diagnosis DVT (deep venous thrombosis) ([facility]) Acute venous embolism and thrombosis of unspecified deep vessels of lower extremity Factor V Leiden ([facility]) Primary hypercoagulable state Long-term (current) use of anticoagulant s Encounter for long-term (current) use of anticoagulants documented in this encounter Care Teams Director Of Cardiac Cath Lab Relationship Specialty Start Date End Date Andrea Rodney MD PCP - General 12/15/10 [address] [facility] [place] [id number] documented as of this encounter
--- OUTSIDE RECORDS SUMMARY | 2022-04-23 04:56 | XMS_ITS | Encounter Summary ---
:1985 Author Organization [facility] Address [address] [place] [address] Care Team Providers Name Role Phone Andrea Rodney MD Primary Care Provider Reason for Visit Reason Comments WRIST PAIN Encounter Details Date Type Department Care Team Description 05/25/2012 Office Visit Andrea Schuler Pain in wrist (Primary Medicine MD Dionna Dx) [address] [facility] . [address] [place] [address] [address] [phone] [place], [place] [address] Social History Tobacco Use Types Packs/Day Years Used Date Smoking Tobacco: Never Assessed Sex Assigned at Date Recorded Not on file documented as of this encounter Last Filed Vital Signs Vital Sign Reading Time Taken Comments Blood Pressure 90/60 05/25/2012 11:11 AM CDT Pulse - - Temperature - - Respiratory Rate - - Oxygen Saturation - - Inhaled Oxygen Concentration - - Weight 65.8 kg (145 lb) 05/25/2012 11:11 AM CDT Height - - Body Mass Index 26.1 05/13/2010 11:04 AM CDT documented in this encounter Progress Notes Andrea Rodney MD - 05/25/2012 11:53 PM CDT CHIEF COMPLAINT: Chief Complaint Patient presents with ??? Wrist Pain Bilateral wrist pain x 2 months mostly Rt hand SUBJECTIVE : Elli Kim is an 27 y.o. female who presents for bilateral wrist pain, right greater than left. No specific trauma, but does note that her symptoms worsened after repetitive efforts such as washingor folding laundry. No effusions, no redness or heat. No family history of inflammatory joint complaints. No nighttime symptoms, and no exacerbation with vibration or repetitive activities such as cutting. She had no similar symptoms when she was . PROBLEM LIST: Patient Active Problem List Diagnoses Date Noted ??? Factor V Leiden [289.81CR] 01/15/2012 ??? Long-term (current) use of anticoagulants [V58.61A] 01/15/2012 ??? DVT (deep venous thrombosis) 07/11/2011 [453.40U] 01/14/2012 ??? Factor V deficiency [286.3AY] 01/14/2012 FAMILY HISTORY OR SICK CONTACTS : No family history on file. SOCIAL HISTORY : History Substance Use Topics ??? Smoking status: Never Smoker ??? Smokeless tobacco: Not on file ??? Alcohol Use: No Alcoholic Drinks/day: Amount:1-2 drinks; Freq:Never; MEDICATIONS : Outpatient prescriptions prior to encounter Medication Sig Dispense Refill ??? op medications reviewed ??? Vit-Iron Fumarate-FA ( S) 27-0.8 mg Tab Take 1 tablet by mouth daily (every 24 hours). 300 1 ??? warfarin (COUMADIN) 5 mg tablet Take as instructed for 184 days. Adjust dose per INR value. Indications: DEEP VENOUS THROMBOSIS 90 tablet 1 ALLERGIES: Allergies Allergen Reactions ??? No Known Drug Allergies REVIEW OF SYSTEMS : OBJECTIVE : Gen.: Alert, cooperative in no acute distress. Vital Signs: BP 90/60 Wt 145 lb (65.772 kg) LMP 05/16/2012 Extremities: No cyanosis , nontender, no edema. She has fairly narrow wrists. Tinel sign is negative. No snuffbox tenderness, no reduction in range of motion. Centrifugal Casting Machine Tender strength is symmetrical and normal LABS : X-ray deferred ASSESSMENT /PLAN : 1. Pain in wrist (719.43J) Ambulatory referral to Physical Therapy 1. Wrist splints were trialed, but she did not find them effective. Given her chronic anticoagulation, Tylenol is the only analgesic to be used. 2. Recheck if not improved. documented in this encounter Plan of Treatment Not on filedocumented as of this encounter Visit Diagnoses Diagnosis Pain in wrist - Primary Pain in joint, forearm documented in this encounter Care Teams Rn Iv Therapy Relationship Specialty Start Date End Date Andrea Rodney MD PCP - General 12/15/10 14[address] [facility] [place] [id number] documented as of this encounter
--- OUTSIDE RECORDS SUMMARY | 2022-04-23 04:56 | XMS_ITS | Encounter Summary ---
:1985 Author Organization [facility] Address [address] [facility] [place] [address] Care Team Providers Name Role Phone Andrea Rodney MD Primary Care Provider Reason for Visit Reason Comments Anticoagulation Dosing Encounter Details Date Type Department Care Team Description 01/16/2012 [facility]ticoagulation [place] [facility] [address] [facility], [address] [place] [address] Social History Tobacco Use Types Packs/Day Years Used Date Smoking Tobacco: Never Assessed Sex Assigned at Date Recorded Not on file documented as of this encounter Plan of Treatment Not on filedocumented as of this encounter Procedures Procedure Name Priority Date/Time Associated Diagnosis Comme nts EXTERNAL INR Routine 01/16/2012 Results for thi s procedure are in the resu lts section. documented in this encounter Results (ABNORMAL) EXTERNAL INR (01/16/2012) athologist Signature Anticoag 3.7 (A) 0.9 - 1.1 [facility] CONVERSION Clinic INR Specimen (Source) Anatomical Location Collection Method / Collectio n Time Received Time / Laterality Volume 01/16/2012 Historical Provider LAB EXTERNAL RESULT Performing Organization Address City/State/ZIP Code Phon e Number [facility] CONVERSION documented in this encounter Visit Diagnoses Not on filedocumented in this encounter Care Teams Production Planning Supervisor Relationship Specialty Start Date End Date Andrea Rodney MD PCP - General 12/15/10 14[address] [place] [id number] documented as of this encounter
--- OUTSIDE RECORDS SUMMARY | 2022-04-23 04:56 | XMS_ITS | Encounter Summary ---
:1985 Author Organization [email or web address] Address [address] [place] [address] Care Team Providers Name Role Phone Andrea Rodney MD Primary Care Provider Reason for Visit Reason Comments Questions Encounter Details Date Type Department Care Team Description 05/21/2012 Telephone [facility] Andrea Rodney MD Questions 14[address] [facility] . [address] [place] [address] [place], [place] [id number] (Wo rk) Social History Tobacco Use Types Packs/Day Years Used Date Smoking Tobacco: Never Assessed Sex Assigned at Date Recorded Not on file documented as of this encounter Nursing Notes Rain Daniels RN - 05/21/2012 4:48 PM CDT Pt calling back; she received [facility] dosing call, she wanted to verify [facility] was aware that she has been taking Warfarin later this week, see other note, [facility] marked message as noted no change to dosing, pt advised Zo Raman - 05/21/2012 4:32 PM CDT Pt states she had inr drawn today and has questions about medication. Pt was not taking medication at scheduled time. documented in this encounter Plan of Treatment Not on filedocumented as of this encounter Visit Diagnoses Not on filedocumented in this encounter Care Teams Web Operations Lead Relationship Specialty Start Date End Date Andrea Rodney MD PCP - General 12/15/10 14[address] [facility] [place] [id number] documented as of this encounter
--- OUTSIDE RECORDS SUMMARY | 2022-04-23 04:56 | XMS_ITS | Encounter Summary ---
:1985 Author Organization [facility] Address [address], [place] [address] Care Team Providers Name Role Phone Andrea Rodney MD Primary Care Provider Reason for Visit Reason Comments RESULTS, TEST Encounter Details Date Type Department Care Team Description 01/16/2012 Telephone [facility] Andrea Rodney MD RESULTS, TEST 14[address] [facility] . [address] [place] [address] [place], [place] [address] (Wo rk) Social History Tobacco Use Types Packs/Day Years Used Date Smoking Tobacco: Never Assessed Sex Assigned at Date Recorded Not on file documented as of this encounter Nursing Notes Luisa Razo RN - 01/16/2012 2:17 PM CDT Called pt with INR and dose instructions. Pt. verified that started Warfarin on 01/07/12 and has beentaking 5mg daily. Sharri Carrillo RN - 01/16/2012 2:05 PM CDT Patient calling for INR dosing. She will be rechecking INR Thursday 01/25 at [facility]. To [facility] -- Dosing gone over with patient. Ernestine Silva - 01/16/2012 2:00 PM CDT Non -Symptom Message from Front Line Primary Care Provider: Andrea Rodney MD Message: Pt calling for INR results and coumadin dosing. documented in this encounter Plan of Treatment Not on filedocumented as of this encounter Visit Diagnoses Diagnosis DVT (deep venous thrombosis) ([facility]) Acute venous embolism and thrombosis of unspecified deep vessels of lower extremity Factor V Leiden ([facility]) Primary hypercoagulable state Long-term (current) use of anticoagulant s Encounter for long-term (current) use of anticoagulants documented in this encounter Care Teams Telecommunicator Supervisor Relationship Specialty Start Date End Date Andrea Rodney MD PCP - General 12/15/10 1415 [facility] [place] [address] documented as of this encounter
--- OUTSIDE RECORDS SUMMARY | 2022-04-23 04:56 | XMS_ITS | Encounter Summary ---
:1985 Author Organization [facility] Address [address] [address] Care Team Providers Name Role Phone Andrea Rodney MD Primary Care Provider Reason for Visit Reason Comments Anticoagulation Dosing Encounter Details Date Type Department Care Team Description 03/05/2012 Anticoagulation [place] [facility] Elysia Moreno RN [address], [address] [place] [address] Social History Tobacco Use Types Packs/Day Years Used Date Smoking Tobacco: Never Assessed Sex Assigned at Date Recorded Not on file documented as of this encounter Plan of Treatment Not on filedocumented as of this encounter Visit Diagnoses Not on filedocumented in this encounter Care Teams Refractory Grinder Operator Relationship Specialty Start Date End Date Andrea Rodney MD PCP - General 12/15/10 [address] [place], [place] [id number] documented as of this encounter
--- OUTSIDE RECORDS SUMMARY | 2022-04-23 04:56 | XMS_ITS | Encounter Summary ---
:1985 Author Organization [employer] Address [address], [place] [address] Care Team Providers Name Role Phone Andrea Rodney MD Primary Care Provider Reason for Visit Reason Comments Anticoagulation Encounter Details Date Type Department Care Team Description 07/13/2012 Initial Consult [facility] Veto Collier, DVT (deep venous Clinic thrombosis) (Primary [address]x) [facility] [address] [place] [address] [phone] Social History Tobacco Use Types Packs/Day Years [...] Mass Index 25.99 07/13/2012 8:55 AM CDT documented in this encounter Patient Instructions Patient InstructionsVeto Collier MD - 07/13/2012 9:40 AM CDT I am recommending the following for you: You may stop warfarin. Start aspirin 81 mg daily 3 days after you stop warfarin Please feel free to contact us if you have concerns regarding procedures in the future. . documented in this encounter Progress Notes Veto Collier MD - 07/13/2012 12:33 PM CDT Progress Notes signed by Veto Collier MD at 07/14/12 0900 Author: Veto Collier MD Service: (none) Author Type: Physician Filed: 07/14/12 0950 Note Time: 07/13/12 1233 Status: Signed Assistant Professor In Family Studies: Veto Collier MD (Physician) NAME: RAEGAN KIM MR#: [id number] CSN: [id number] AUTHENTICATING CLINICIAN: Veto Collier MD CONFIRM #: [id number] LOC: 08950 CLINIC PROGRESS NOTE DATE OF VISIT: 07/13/2012 : 1985 I am seeing Raegan at the request of Dr. Andrea Rodney for a previous history of -related bilateral deep vein thrombosis and known heterozygous factor V Leiden defect. Raegan Kim is a previously healthy 27-year-old female who developed symptoms of bilateral leg painand swelling during her fourth . The patient had 3 previous pregnancies without difficulty and denied history of either DVT or miscarriages. On this particular , the patient had been quite nauseated and vomiting early on and had taken a trip to [place], where there was a significant amount of immobilization. It was shortly after this trip that she developed symptoms. Diagnosis of bilateral DVT and factor V Leiden was made in [place], and I do not have specific records, though thepatient is quite a good historian and describes proximal deep vein thrombosis on the right and left side. She also states that she is aware of the status of her factor V Leiden as being heterozygous. The patient is aware of mother with possible history of phlebitis. Unaware of father'shistory, however. One sister has been tested and found to be negative for factor V Leiden. For details of patient's past medical history, medications, and allergies, see electronic health profile reviewed and updated by me today. At this time, the patient denies significant problems and has had remarkable improvement of bilateral leg edema associated with her DVT. She denies cough, hemoptysis, shortness of breath. Has not any chest pain or palpitations. Denies blood in stools or black, tarry stools. The course of therapy for the patient's bilateral DVT involved sij-wugvjrotj-maymox heparin during , but 6 months of anticoagulation with warfarin since that time. No past medical history on file. Current outpatient prescriptions Medication Sig Dispense Refill ??? Vit-Iron Fumarate-FA ( S) 27-0.8 mg Tab Take 1 tablet by mouth daily (every 24 hours). 300 1 Allergies Allergen Reactions ??? No Known Drug Allergies History Social History ??? Marital Status: Spouse Name: N/A Number of Children: N/A ??? Years of Education: N/A Occupational History ??? Social History Main Topics ??? Smoking status: Never Smoker ??? Smokeless tobacco: None ??? Alcohol Use: No Alcoholic Drinks/day: Amount:1-2 drinks; Freq:Never; ??? Drug Use: ??? Sexually Active: Other Topics Concern ??? None Social History Narrative ??? None No family history on file. ROS see hpi EXAMINATION: Today, reveals a well-appearing female no acute distress. VITALS: Blood pressure 108/74, pulse 60, height 1.588 m (5' 2.5), weight 65.499 kg (144 lb 6.4 oz). HEENT: Unremarkable. LUNGS: Clear. CARDIOVASCULAR: Regular rate and rhythm. ABDOMEN: Supple without organomegaly. On bilateral lower extremity exam, she has remarkably little evidence of venous stasis or edema. ASSESSMENT: History of provoked ( related) bilateral deep vein thrombosis in a patient who is heterozygous for factor V Leiden. RECOMMENDATIONS: Although the factor V Leiden defect is a slight increased risk, I think the overall provocation in this patient would be her with some associated dehydration from nausea and vomiting, as wellas travel to [place] at the time of diagnoses. In patients with provoked events, overall recurrence rates are much less and in general, patients are offered the ability to get off warfarin therapy afteran adequate course of treatment. The heterozygous factor V Leiden defect is not considered a strong enough risk factor to warrant continuing anticoagulation therapy beyond initial treatment phases in provoked events. I explained all of this at length to the patient today and at this time, she is in agreement with discontinuation of warfarin. I would like to get a bilateral baseline ultrasound of her legs at this time for comparison in the future. I did make the patient aware of recent study showing a small risk reduction of 40% using 81-mg aspirin per day. She can initiate this 3days after stopping warfarin. I also encouraged increased physical activity and weight control as ways of minimizing her risks. Finally, she should avoid estrogen products and have prophylaxis around the time of procedures or should she become in the future (she does not plan to). BEB:MEDQ C: CONFIRM #: [id number] documented in this encounter Miscellaneous Notes Letter - 07/13/2012 12:00 AM CDT Images from the original note were not included. [facility] [address] [place] [address] [place] [address] Raegan Kim [address] [place] [address] July 15, 2012 Dear Raegan, This letter is to inform you of your recent test results: US DVT LOWER BILATERAL (VENOUS DUPLEX EXTREMITY) Narrative: TECHNIQUE: Day scale color and spectral Doppler US of the deep venous system of the bilateral lower extremity, with and without compression. COMPARISON: None FINDINGS: LEFT:Deep venous system of the left lower extremity compressible along its course with normal Doppler flow and normal augmentation to flow. RIGHT: There is a fibrinous thrombus seen within the right right common femoral vein and extending into the proximal femoral vein, total length of involvement approximately 9 cm. It is largely compressible, except for approximately 1 cm of its length which is only partially compressible. No definite clot in the right distal femoral vein or popliteal vein. Impression: IMPRESSION: 1. Partially compressible fibrinous (chronic appearing) thrombus within the right common femoral vein and extending into the proximal femoral vein 2. No definite deep vein thrombosis in the left lower extremity. 3. The visualized posterior tibial and peroneal veins without definite thrombus, but US cannot totally exclude calf thrombus. We will use this as a baseline for future comparison. If you have any questions regarding this letter, please call [phone]. Sincerely, Veto Collier MD FACP ERLESS GRINDER TENDER documented in this encounter Plan of Treatment Not on filedocumented as of this encounter Procedures Procedure Name Priority Date/Time Associated Diagnosis Comme nts US LOWER EXTREMITY Routine 07/15/2012 3:24 PM DVT (deep venous Results for this BILAT VENOUS CDT thrombosis) ([facility]) procedure are in DOPPLER the results section. documented in this encounter Results US Lower Extremity Bilat Venous Doppler (07/15/2012 3:24 PM CDT) Anatomical Region Laterality Modality Vascular, Leg Other Specimen (Source) Anatomical Location Collection Method / Collectio n Time Received Time / Laterality Volume Impressions 07/15/2012 3:52 PM CDT IMPRESSION: ?? 1. Partially compressible fibrinous (chr onic appearing) thrombus within the right common femoral vein and extending into the proximal femoral vein 2. No definite deep vein thrombosis in t he left lower extremity. ?? 3. The visualized posterior tibial and p eroneal veins without definite thrombus, but US cannot totally exclude calf thrombus. Narrative 07/15/2012 3:52 PM CDT TECHNIQUE: ??Day scale color and spectr al Doppler US of the deep venous system of the bilateral ??lower e xtremity, with and without compression. ?? COMPARISON: ??None ?? FINDINGS: ?? LEFT:Deep venous system of the left lowe r extremity compressible along its course with normal Doppler kristopher w and normal augmentation to flow. RIGHT: There is a fibrinous thrombus see n within the right right common femoral vein and extending into t he proximal femoral vein, total length of involvement approximatel y 9 cm. ??It is largely compressible, except for approximately 1 cm of its length which is only partially compressible. ??No defini te clot in the right distal femoral vein or popliteal vein. Procedure Note Ben Richardson MD - 03/01/2016Format ting of this note might be different from the original. TECHNIQUE: Day scale color and spectral Doppler US of the deep venous system of the bilateral lower ext remity, with and without compression. COMPARISON: None FINDINGS: LEFT:Deep venous system of the left lowe r extremity compressible along its course with normal Doppler kristopher w and normal augmentation to flow. RIGHT: There is a fibrinous thrombus see n within the right right common femoral vein and extending into t he proximal femoral vein, total length of involvement approximatel y 9 cm. It is largely compressible, except for approximately 1 cm of its length which is only partially compressible. No definite clot in the right distal femoral vein or popliteal vein. IMPRESSION IMPRESSION: 1. Partially compressible fibrinous (chr onic appearing) thrombus within the right common femoral vein and extending into the proximal femoral vein 2. No definite deep vein thrombosis in t he left lower extremity. 3. The visualized posterior tibial and p eroneal veins without definite thrombus, but US cannot totally exclude calf thrombus. Veto Collier MD [facility] US documented in this encounter Visit Diagnoses Diagnosis DVT (deep venous thrombosis) ([facility]) - [facility] Acute venous embolism and thrombosis of unspecified deep vessels of lower extremity documented in this encounter Care Teams Vp Of Digital Marketing Relationship Specialty Start Date End Date Andrea Rodney MD PCP - General 12/15/10 14[address] [facility] [place] [address] documented as of this encounter
--- OUTSIDE RECORDS SUMMARY | 2022-04-23 04:56 | XMS_ITS | Encounter Summary ---
:1985 Author Organization [employer] Address [address] [address] Care Team Providers Name Role Phone Andrea Rodney MD Primary Care Provider Encounter Details Date Type Department Care Team Description 06/18/2016 Immunization [facility] Need for prophylactic [address] [address] inoculation against [phone] influenza (Prim nolan Dx) Social History Tobacco Use Types Packs/Day Years [...] as of this encounter Visit Diagnoses Diagnosis Need for prophylactic vaccination and in oculation against influenza - Primary documented in this encounter Care Teams Natural Sciences Department Chair Relationship Specialty Start Date End Date Andrea Rodney MD PCP - General 12/15/10 1415 [facility] [place] [address] documented as of this encounter
--- OUTSIDE RECORDS SUMMARY | 2022-04-23 04:56 | XMS_ITS | Encounter Summary ---
:1985 Author Organization [facility] Address [address] [place] [address] Care Team Providers Name Role Phone Andrea Rodney MD Primary Care Provider Encounter Details Date Type Department Care Team Description 01/06/2013 Notes/Orders [place] Andrea Rodney, Cough (Primary Dx) Medicine [address] [facility] . [address] [place] [address] [place] [address] [phone] (Wo rk) Social History Tobacco Use Types Packs/Day Years Used Date Smoking Tobacco: Never Assessed Sex Assigned at Date Recorded Not on file documented as of this encounter Plan of Treatment Not on filedocumented as of this encounter Visit Diagnoses Diagnosis Cough - Primary documented in this encounter Care Teams Funeral Director/Embalmer/Owner Relationship Specialty Start Date End Date Andrea Rodney MD PCP - General 12/15/10 [address] [place] [address] documented as of this encounter
--- OUTSIDE RECORDS SUMMARY | 2022-04-23 04:56 | XMS_ITS | Encounter Summary ---
:1985 Author Organization [employer] Address [address] [place] [address] Care Team Providers Name Role Phone Andrea Rodney MD Primary Care Provider Reason for Visit Reason Comments LEG PAIN Encounter Details Date Type Department Care Team Description 11/08/2012 Nurse Triage [facility] Andrea Rodney MD LEG PAIN [address] [facility] . [address] [place] [address] [place] [address] [phone] (Wo rk) Social History Tobacco Use Types Packs/Day Years Used Date Smoking Tobacco: Never Assessed Sex Assigned at Date Recorded Not on file documented as of this encounter Nursing Notes Clint Pennington - 11/08/2012 1:40 PM CST Protocol: LEG [id number] Affirmative: History of prior 'blood clot' in leg or lungs (i.e., deep vein thrombosis, pulmonary embolism) Disposition of Go To ED Now (Or To Office With PCP Approval) suggested. Patient calling with left leg pain behind left knee for 3 days ,worsening with time Slight swellingNo redness or red streaking not like before No injury Hx of clot Has been off Coumadin for 3 months Advised to be seen at ED MANAGER Lalita James - 11/08/2012 1:35 PM CST Pt called for appt with Dr. Rodney for tomorrow, 11-09-12. She states she believes she may be getting another blood clot in her leg. Did not make appt, transferred to nurse. MANAGER documented in this encounter Plan of Treatment Not on filedocumented as of this encounter Visit Diagnoses Not on filedocumented in this encounter Care Teams Wiring Inspector Relationship Specialty Start Date End Date Andrea Rodney MD PCP - General 12/15/[address] [facility] [place] [address] documented as of this encounter
--- OUTSIDE RECORDS SUMMARY | 2022-04-23 04:57 | XMS_ITS | Encounter Summary ---
:1985 Author Organization [employer] Address [address] [place] [address] Care Team Providers Name Role Phone Andrea Rodney MD Primary Care Provider Reason for Visit Reason Comments LICE,HEAD Encounter Details Date Type Department Care Team Description 06/24/2011 Nurse Triage [facility] Andrea Rodney MD LICE,HEAD [address] [facility] . [address] [place] [address] [place], [place] [id number] (Wo rk) Social History Tobacco Use Types Packs/Day Years Used Date Smoking Tobacco: Never Assessed Sex Assigned at Date Recorded Not on file documented as of this encounter Nursing Notes Zunilda Martinez - 06/25/2011 1:04 PM CDT called mom and lmom with below info. Andrea Rodney MD - 06/24/2011 3:48 PM CDT Call pt. No known harm in animal studies. OK to use Jaqueline Neil - 06/24/2011 10:[address] Rodney. Mom asking if it is safe for her to use OTC NIX because she is . Pls advise. If not safe, what alternatives does she have for treating head lice? [phone] Yolande Mijares Protocol: LICE - [id number] Affirmative: [1] New-onset head lice AND [2] usually respond to OTC meds in your community Disposition of Home Care suggested. Mom calling. Has found head lice on her scalp today. 6 year old daughter has head lice and is beingtreated with otc product for lice. Mom is and is wondering is this is safe for her to use.Will send note to clinician to advise. Suzy Putnam - 06/24/2011 10:30 AM CDT [facility] S[facility] Call Primary Committee Member: Andrea Rodney MD, MD Reason for call/symptom: was exposed to lice this weekend, is and wants to treat herself and one year old, need special lice med documented in this encounter Plan of Treatment Not on filedocumented as of this encounter Visit Diagnoses Not on filedocumented in this encounter Care Teams Automotive Wholesale Parts Advisor Relationship Specialty Start Date End Date Andrea Rodney MD PCP - General 12/15/[address] [place], [place] [address] [place] [address] documented as of this encounter
--- OUTSIDE RECORDS SUMMARY | 2022-04-23 04:57 | XMS_ITS | Encounter Summary ---
:1985 [address] [facility] Address [address] [address] Care Team Providers Name Role Phone Andrea Rodney MD Primary Care Provider Encounter Details Date Type Department Care Team Description 04/08/2010 Routine [place] Dylon Talley MD Obstetrics/Gynecolog y [address] [place] [address] Social History Tobacco Use Types Packs/Day Years Used Date Smoking Tobacco: Never Assessed Sex Assigned at Date Recorded Not on file documented as of this encounter Last Filed Vital Signs Vital Sign Reading Time Taken Comments Blood Pressure 110/70 04/08/2010 2:37 PM CDT Pulse - - Temperature - - Respiratory Rate - - Oxygen Saturation - - Inhaled Oxygen Concentration - - Weight 63.5 kg (139 lb 15.9 oz) 04/08/2010 2:37 PM CDT C: 63.5kg Height - - Body Mass Index 25.2 03/19/2010 8:59 AM CDT documented in this encounter Progress Notes Dylon Talley MD - 04/08/2010 12:01 AM CDT Progress Notes signed by Dylon Talley MD at 04/12/10 0948 Author: Dylon Talley MD Service: (none) Author Type: Physician Filed: 01/05/11 0003 Note Time: 04/08/10 0001 Status: Signed Personal Carer: Dylon Talley MD (Physician) NAME: RAEGAN KIM MR#: [id number] ACCT: [id number] VISIT: [id number] DICTATING CLINICIAN: Dylon Talley MD CONFIRM #: [id number] LOC: 512 CLINIC PROGRESS NOTE DATE OF VISIT: 04/08/2010 : 1985 This patient is a 24-year-old 5 para 0-2-2-2, with EDC of 06/06/10. She is seen today after calling with complaint of noticing fluid running down her leg at work. 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 She could not tell where this fluid was coming from. She was advised to present for evaluation for possible rupture of membranes. On questioning, patient states that fetus has been active. She has had no bleeding, no contractions. She has felt some urinary urgency, with no actual dysuria or increased frequency. Since initial fluid was noted, she has not noticed continued drainage. She has had no vaginal discharge, or vaginal symptoms. OBJECTIVE: Fundal height is 29 cm. Uterus is soft and nontender. heart rate is 144, best heard in the right lower quadrant. Pelvic exam shows external genitalia to be dry. Speculum exam shows some thickish discharge, which appears normal. No watery discharge. Digital cervical exam is deferred. Discharge is noted to be Nitrazine negative. Careful microscopic examination of 2 slides of the discharge shows no ferning. LABORATORY DATA: Urinalysis today is negative. ASSESSMENT: 1. History of unexplained fluid leakage. No evidence of ruptured membranes. 2. Urinary urgency. No evidence of urinary tract infection. 3. , 31 weeks gestation. PLAN: Patient is advised at the time of clinic visit regarding negative test results. She is reassured. Return as scheduled for next routine clinic visit. She expressed agreement with this plan. DIAGNOSES AND IMPRESSION: 1. History of unexplained fluid leakage. No evidence of ruptured membranes. 2. Urinary urgency. No evidence of urinary tract infection. 3. , 31 weeks gestation. JPE:MEDQ C: CONFIRM #: [id number] documented in this encounter Plan of Treatment Not on filedocumented as of this encounter Visit Diagnoses Not on filedocumented in this encounter Care Teams Structural Fitter Relationship Specialty Start Date End Date Andrea Rodney MD PCP - General 4/3/11 14[address] [facility] [place] [address] documented as of this encounter
--- OUTSIDE RECORDS SUMMARY | 2022-04-23 04:57 | XMS_ITS | Encounter Summary ---
:1985 Author Organization [facility] Address [address] [place] [address] Care Team Providers Name Role Phone Andrea Rodney MD Primary Care Provider Reason for Visit Reason Comments Other Encounter Details Date Type Department Care Team Description 01/01/2011 Telephone [facility], Message Other [address] [facility] . [place], [place] [address] Social History Tobacco Use Types Packs/Day Years Used Date Smoking Tobacco: Never Assessed Sex Assigned at Date Recorded Not on file documented as of this encounter Progress [facility], Message - 01/01/2011 11:19 AM CDT Phone Note filed by [employer] at 01/09/11 1036 Author: [employer] Service: (none) Author Type: (none) Filed: 01/09/11 1036 Note Time: 01/01/11 1119 Status: Addendum Animal Scientist: [employer] (Resource) Related Notes: Original Note by Alejandra Maldonado (Physician) filed at 01/09/11 1036 Front Line Sx Call Caller Name/Relationship:Elli pt Primary Steeping Press Tender:penelope Symptom or request?upset stomach. Is appointment scheduled & when?no Ruby On Rails Consultant:ellidon Marti call back number:[phone] Pharmacy Name:[facility] [address] Is it OK to leave a confidential message on this voicemail?yes *ECODE~PNSX2 Created on 01Jan2011 11:19am by REAGAN FATIMA On 01Jan2011 11:24am TIMOTHY MAGGIE M wrote: Patient calling; states that she has been having an upset stomach and is requesting information on ok to take pepto bismol while breast feeding, per medication sand mother's milk reference this is L3 for risk category and package instructions advised mom to get ok from clinician prior to taking. please advise to clinician per distribution On 01Jan2011 12:05pm SADIA FLORES wrote: please let her know that a better option would be Tums or Zantac, rather than Pepto-Bismol (possibly unsafe with breast feeding). Acknowledged by SADIA FLORES on 12:05pm On 01Jan2011 4:18pm VICTORIANO TOMAS wrote: Notified pt of above info. Acknowledged by VICTORIANO TOMAS on 4:18pm ICE ADMITTING CLERK documented in this encounter Plan of Treatment Not on filedocumented as of this encounter Visit Diagnoses Not on filedocumented in this encounter Care Teams Interventional Neuroradiologist Relationship Specialty Start Date End Date Andrea Rodney MD PCP - General 12/15/10 [address] [place] [address] documented as of this encounter
--- OUTSIDE RECORDS SUMMARY | 2022-04-23 04:57 | XMS_ITS | Encounter Summary ---
:1985 Author Organization [facility] Address [address] [place] [address] Care Team Providers Name Role Phone Andrea Rodney MD Primary Care Provider Encounter Details Date Type Department Care Team Description 05/09/2010 PN Conversion Only [place] [facility] N Scot Roach [address] [facility] [place] [address] [address] [place], [place] [address] (Wo rk) Social History Tobacco Use Types Packs/Day Years Used Date Smoking Tobacco: Never Assessed Sex Assigned at Date Recorded Not on file documented as of this encounter Plan of Treatment Not on filedocumented as of this encounter Procedures Procedure Name Priority Date/Time Associated Diagnosis Comme nts PLATELETS Routine 05/09/2010 9:28 AM Results f or this CDT procedure are i n the results section . documented in this encounter Results (ABNORMAL) Platelets (05/09/2010 9:28 AM CDT) P athologist Signature Platelet Count 110 (L) 140 - 450 HP CONVERSION k/cmm Specimen (Source) Anatomical Collection Method Collection Time Re ceived Time Location / / Volume Laterality 05/09/2010 9:28 AM CDT Scot Roach MD LAB_1 Performing Organization Address City/State/ZIP Code Phon e Number HP CONVERSION documented in this encounter Visit Diagnoses Not on filedocumented in this encounter Care Teams Flight Mechanic Relationship Specialty Start Date End Date Andrea Rodney MD PCP - General 12/15/10 [address] [place] [id number] documented as of this encounter
--- OUTSIDE RECORDS SUMMARY | 2022-04-23 04:57 | XMS_ITS | Encounter Summary ---
:1985 Author Organization [facility] Address [address], [place] [address] Care Team Providers Name Role Phone Andrea Rodney MD Primary Care Provider Reason for Visit Reason Comments Other Encounter Details Date Type Department Care Team Description 04/08/2010 Telephone [facility], Message Other [address] [place] [address] Social History Tobacco Use Types Packs/Day Years Used Date Smoking Tobacco: Never Assessed Sex Assigned at Date Recorded Not on file documented as of this encounter Progress Notes Giancarlo De Leon - 04/08/2010 2:11 PM CDT Phone Note filed by Giancarlo De Leon RN at 01/04/11 1301 Author: Giancarlo De Leon RN Service: (none) Author Type: Registered Nurse Filed: 01/04/11 1302 Note Time: 04/08/10 1411 Status: Signed Furniture Servicer: Giancarlo De Leon RN (Registered Nurse) CLINICIAN FOLLOW-UP: Contacted case monitor clinician: Dr. Talley E-Paged: [phone]; 32 weeks leaking clear fluid twice running down leg; urinary frequency; no increase in cramping, contractions. decrease movement; , hx preeclampsia IMPRESSION: OB Labor Symptom URGENT SYMPTOMS: Possible pre-term labor with increased vaginal watery discharge, Additional Symptoms: Jackson is 32 weeks c/o 2 occurrences of leaking of clear fluid since 1245 today. Reports that it has run down her leg. Also reports frequency of urination with only a little coming out when she does go. Reports they have decreased her work hours d/t lower pelvic pain and cramping, but denies an increase in cramping/contractions today. Also reports that baby isn't moving as much as usual. Usually sleeps while she is at work, then wakes up and has not yet done so. ; with a previous 34 and 36 week deliver d/t pre eclampsia. Denies any other symptoms. Denies any emergent symptoms PATIENT INFORMATION: Problem List: Reviewed today in [employer] INTERIM/HOME MANAGEMENT RECOMMENDATIONS: Do no eat or drink. Monitor movements, 10/hour is expected, rest, Advised to call back if any of the following occur: case monitor clinician has not contacted caller within 20 minutes, symptoms continue, any other questions or concerns. PLAN: CONTACT CARE TEAM Patient/Caller agrees with plan and denies additional questions. Reference(s) Used: [facility] OB Symptoms of Labor Nursing Reference - Adult, *SH~PNNL~OB LABORSX~ Created on 08Apr2010 2:11pm by GIANCARLO DE LEON On 08Apr2010 2:14pm MOIZ TALLEY wrote: Spoke with the patient. Advised she come to clinic now, to evaluate for possible ROM. Please book appt. with me. Thanks. Acknowledged by MOIZ TALLEY on 2:14pm On 08Apr2010 2:20pm BURT WILSON wrote: Pt scheduled this pm with Dr Talley Acknowledged by BURT WILSON on 2:20pm H FINISHING RANGE TENDER documented in this encounter Plan of Treatment Not on filedocumented as of this encounter Visit Diagnoses Not on filedocumented in this encounter Care Teams Medical Assistant Float Relationship Specialty Start Date End Date Andrea Rodney MD PCP - General 12/15/10 [address] [facility] [place] [id number] documented as of this encounter
--- OUTSIDE RECORDS SUMMARY | 2022-04-23 04:57 | XMS_ITS | Encounter Summary ---
:1985 Author Organization [facility] Address [address] [address] Care Team Providers Name Role Phone Andrea Rodney MD Primary Care Provider Encounter Details Date Type Department Care Team Description 01/22/2010 Routine [place] Scot Roach Obstetrics/[place] [address] [facility] [address] [place] [address] [place] [address] [phone] (Wo rk) Social History Tobacco Use Types Packs/Day Years Used Date Smoking Tobacco: Never Assessed Sex Assigned at Date Recorded Not on file documented as of this encounter Last Filed Vital Signs Vital Sign Reading Time Taken Comments Blood Pressure 102/64 01/22/2010 9:09 AM CDT Pulse - - Temperature - - Respiratory Rate - - Oxygen Saturation - - Inhaled Oxygen Concentration - - Weight 59.9 kg (131 lb 15.8 oz) 01/22/2010 9:09 AM C: 5 9.9kg CDT Height 158.8 cm (5' 2.5) 01/22/2010 9:09 AM C: 158.8cm CDT Body Mass Index 23.76 01/22/2010 9:09 AM CDT documented in this encounter Plan of Treatment Not on filedocumented as of this encounter Visit Diagnoses Not on filedocumented in this encounter Care Teams Form Maker Plaster Relationship Specialty Start Date End Date Andrea Rodney MD PCP - General 12/15/10 [address] [place] [address] documented as of this encounter
--- OUTSIDE RECORDS SUMMARY | 2022-04-23 04:57 | XMS_ITS | Encounter Summary ---
:1985 Author Organization [facility] Address [address] [address] Care Team Providers Name Role Phone Andrea Rodney MD Primary Care Provider Encounter Details Date Type Department Care Team Description 05/06/2010 Routine [place] Scot Roach Obstetrics/[place] [address] [facility] [address] [place] [address] [place] [address] [phone] (Wo rk) Social History Tobacco Use Types Packs/Day Years Used Date Smoking Tobacco: Never Assessed Sex Assigned at Date Recorded Not on file documented as of this encounter Last Filed Vital Signs Vital Sign Reading Time Taken Comments Blood Pressure 115/77 05/06/2010 9:26 AM CDT Pulse 80 05/06/2010 9:26 AM CDT Temperature - - Respiratory Rate - - Oxygen Saturation - - Inhaled Oxygen Concentration - - Weight 66.9 kg (147 lb 7.8 oz) 05/06/2010 9:26 AM C: 66 .9kg CDT Height 158.8 cm (5' 2.5) 05/06/2010 9:26 AM C: 158.8cm CDT Body Mass Index 26.55 05/06/2010 9:26 AM CDT documented in this encounter Plan of Treatment Not on filedocumented as of this encounter Procedures Procedure Name Priority Date/Time Associated Diagnosis Comme nts US OB BPP SINGLE Routine 05/06/2010 2:54 PM Resul ts for this CDT procedure are i n the results section. US OB FOLLOW-UP FOR Routine 05/06/2010 2:53 PM Re sults for this GROWTH SINGLE CDT procedure are in (INCLUDES PAUL) the results section. documented in this encounter Results US OB BPP Single (05/06/2010 2:54 PM CDT) Anatomical Region Laterality Modality Pelvis Other Specimen (Source) Anatomical Location Collection Method / Collectio n Time Received Time / Laterality Volume Narrative 05/06/2010 2:54 PM CDT FINDINGS: An OB ultrasound examination was performed for evaluation of biophysical profile (BPP). breathing 2 One episode of breathing for > 30 seconds Gross movements 2 > 3 body, limb, discrete or separate movements tone 2 One episode of extension/flexion of limbs, head or trun k Amniotic fluid volume 2___ > 2 cm ( > 36 weeks) > 3 cm ( < 36 weeks) TOTAL SCORE 8 Observation time 4 minutes (maximum time 30 minutes) PLACENTA: anterior right HEART RATE: 145 BPM PRESENTATION: vertex Dictating RIVERA ABAD RADIOLOGIST Procedure Note Rivera Santos MD - 02/28/2016 FINDINGS: An OB ultrasound examination w as performed for evaluation of biophysical profile (BPP). breathing 2 One episode of breathing for > 30 seconds Gross movements 2 > 3 body, limb, discrete or separate movements tone 2 One episode of extension/flexion of limbs, head or trun k Amniotic fluid volume 2___ > 2 cm ( > 36 weeks) > 3 cm ( < 36 weeks) TOTAL SCORE 8 Observation time 4 minutes (maximum time 30 minutes) PLACENTA: anterior right HEART RATE: 145 BPM PRESENTATION: vertex Dictating RIVERA ABAD RADIOLOGIST Scot Roach MD RAD [facility] OB Follow-Up For Growth Single (Includes PAUL) (05/06/2010 2:53 PM CDT) Anatomical Region Laterality Modality Pelvis Other Specimen (Source) Anatomical Location Collection Method / Collectio n Time Received Time / Laterality Volume Narrative 05/06/2010 2:53 PM CDT HISTORY: Evaluate for help syndrome, check growth FINDINGS: Single fetus is noted in the v ertex presentation. Composite ultrasound gestation age by th is ultrasound is 33 weeks and 1 day. ??JASSON by this ultrasound is 06/23. ??Based on the ultrasound of 01/16/2010 today would be 35 weeks and 3 days. ??But the estimated weight there is 2254 gra ms which is at the 10.6 percentile. ??PAUL is normal in amount me asuring 13.6 cm. ??Umbilical arterial ratio is normal at 1.9. ??Place nta is anterior and right lateral without previa. Dictating RIVERA ABAD RADIOLOGIST Procedure Note Rivera Santos MD - 02/28/2016 HISTORY: Evaluate for help syndrome, jb ck growth FINDINGS: Single fetus is noted in the v ertex presentation. Composite ultrasound gestation age by th is ultrasound is 33 weeks and 1 day. JASSON by this ultrasound is 010. Based on the ultrasound of 01/16/2010 today would be 35 weeks and 3 days. But the estimated weight there is 2254 gra ms which is at the 10.6 percentile. PAUL is normal in amount alejandrina uring 13.6 cm. Umbilical arterial ratio is normal at 1.9. Placent a is anterior and right lateral without previa. Dictating RIVERA ABAD RADIOLOGIST Scot Roach MD RAD US documented in this encounter Visit Diagnoses Not on filedocumented in this encounter Care Teams Parachute Supervisor Relationship Specialty Start Date End Date Andrea Rodney MD PCP - General 12/15/[address] [place] [address] documented as of this encounter
--- OUTSIDE RECORDS SUMMARY | 2022-04-23 04:57 | XMS_ITS | Encounter Summary ---
:1985 Author Organization [facility] Address [address], [place] [address] Care Team Providers Name Role Phone Andrea Rodney MD Primary Care Provider Reason for Visit Reason Comments Other Encounter Details Date Type Department Care Team Description 01/21/2010 Telephone [facility] George Marie RN Other [address] [facility] [place] [address] Social History Tobacco Use Types Packs/Day Years Used Date Smoking Tobacco: Never Assessed Sex Assigned at Date Recorded Not on file documented as of this encounter Progress Notes George Marie RN - 01/21/2010 8:53 PM CDT Phone Note filed by George Marie RN at 01/04/11639 Author: George Marie RN Service: (none) Author Type: Registered Nurse Filed: 01/04/11639 Note Time: 01/21/102052 Status: Signed Rental Manager: George Marie RN (Registered Nurse) CLINICIAN FOLLOW-UP: Contacted service loss control consultant clinician: Sent her thru stat page to OB oncall although she is stable presently. IMPRESSION: Palpitations. SYMPTOMS: patient calling stating she has had palpitations intermittently all day. No chest pain or sweating. Spouse is with her. Has had 2 glasses of pop/caffeine today. Has not taken any otc meds, just her prenatals. She states this has been normal but she had hypertension and preeclampsia with her first one. She is 21 weeks. Does not know how to take her pulse so she does not know her HR. Is calm and no sob. Problem List: reviewed in electronic medical record. Allergies: Reviewed/updated in electronic medical record. Medications: Reviewed/updated in electronic medical record. CARE ADVICE: service loss control consultant OB [place] Advised to call back if any of the following occur: symptoms worsen or persist, any other questions or concerns. PLAN: CONTACT HOME RESTORATION SERVICE SUPERVISOR CLINICIAN Patient/Caller agrees with plan and denies additional questions. References Used: [facility] Adult Telephone Protocols--Palpitations. Call Complete. *SH~THOMP~PALPITATE~ Created on 21Jan2010 8:53pm by GEORGE MARIE INIST WOOD documented in this encounter Plan of Treatment Not on filedocumented as of this encounter Visit Diagnoses Not on filedocumented in this encounter Care Teams Machine Inker Relationship Specialty Start Date End Date Andrea Rodney MD PCP - General 12/15/10 [facility] [place] [phone] documented as of this encounter
--- OUTSIDE RECORDS SUMMARY | 2022-04-23 04:57 | XMS_ITS | Encounter Summary ---
:1985 Author Organization [facility] Address [address] [address] Care Team Providers Name Role Phone Andrea Rodney MD Primary Care Provider Encounter Details Date Type Department Care Team Description 03/19/2010 PN Conversion [place] [address] [place] [address] Social History Tobacco Use Types Packs/Day Years Used Date Smoking Tobacco: Never Assessed Sex Assigned at Date Recorded Not on file documented as of this encounter Plan of Treatment Not on filedocumented as of this encounter Procedures Procedure Name Priority Date/Time Associated Comments Diagnosis HEMOGLOBIN OB Routine 03/19/2010 9:53 AM Results for this CDT procedure are i n the results section. GLUCOSE - 1 HR. P.C. Routine 03/19/2010 9:53 AM R esults for this PREG CDT procedure are i n the results section. documented in this encounter Results Glucose - 1 Hr. P.C. Preg (03/19/2010 9:53 AM CDT) P athologist Signature Glucose 125 40 - 139 HP CONVERSION [place] mg/dL Screen Specimen (Source) Anatomical Collection Method Collection Time Re ceived Time Location / / Volume Laterality 03/19/2010 9:53 AM CDT Yesenia Rea RN LAB_1 Performing Organization Address City/State/ZIP Code Phon e Number HP CONVERSION HEMOGLOBIN OB (03/19/2010 9:53 AM CDT) athologist Signature OB Hemoglobin 12.8 gm/dL HP CONVERSION Comment: Reference Ranges Gestational Hemoglobin level measured in gm/dL First Trimester (Week 12) ?? 11.0-13.4 Second Trimester (Week 20) ??10.5-12.7 Third Trimester (Week 32) ?? 11.0-13.2 From MMWR 1989;38(22):400-4 Specimen (Source) Anatomical Collection Method Collection Time Re ceived Time Location / / Volume Laterality 03/19/2010 9:53 AM CDT Yesenia Rea RN LAB_1 Performing Organization Address City/State/ZIP Code Phon e Number HP CONVERSION documented in this encounter Visit Diagnoses Not on filedocumented in this encounter Care Teams Third Officer Relationship Specialty Start Date End Date Andrea Rodney MD PCP - General 12/15/10 [facility] [place] [address] documented as of this encounter
--- OUTSIDE RECORDS SUMMARY | 2022-04-23 04:57 | XMS_ITS | Encounter Summary ---
:1985 Author Organization [facility] Address [address] [address] Care Team Providers Name Role Phone Andrea Rodney MD Primary Care Provider Encounter Details Date Type Department Care Team Description 07/20/2010 Nursing Visit [place] [address] [place] [address] Social History Tobacco Use Types Packs/Day Years Used Date Smoking Tobacco: Never Assessed Sex Assigned at Date Recorded Not on file documented as of this encounter Plan of Treatment Not on filedocumented as of this encounter Visit Diagnoses Not on filedocumented in this encounter Care Teams Histologic Technician Relationship Specialty Start Date End Date Andrea Rodney MD PCP - General 12/15/10 [address] [place], [place] [address] documented as of this encounter
--- OUTSIDE RECORDS SUMMARY | 2022-04-23 04:57 | XMS_ITS | Encounter Summary ---
:1985 Author Organization [facility] Address [address], [place] [address] Care Team Providers Name Role Phone Andrea Rodney MD Primary Care Provider Encounter Details Date Type Department Care Team Description 04/29/2010 PN Conversion Only [place] [address] [place] [address] Social History Tobacco Use Types Packs/Day Years Used Date Smoking Tobacco: Never Assessed Sex Assigned at Date Recorded Not on file documented as of this encounter Plan of Treatment Not on filedocumented as of this encounter Visit Diagnoses Not on filedocumented in this encounter Care Teams Telegraph Service Clerk Relationship Specialty Start Date End Date Andrea Rodney MD PCP - General 12/15/10 [address] [place] [address] documented as of this encounter
--- OUTSIDE RECORDS SUMMARY | 2022-04-23 04:57 | XMS_ITS | Encounter Summary ---
:1985 Author Organization [facility] [facility] Address [address] [place] [address] Care Team Providers Name Role Phone Andrea Rodney MD Primary Care Provider Encounter Details Date Type Department Care Team Description 01/14/2012 Lab Visit [facility] DVT (deep venous [address] thrombosis) [place], [place] [id number] Social History Tobacco Use Types Packs/Day Years Used Date Smoking Tobacco: Never Assessed Sex Assigned at Date Recorded Not on file documented as of this encounter Plan of Treatment Not on filedocumented as of this encounter Procedures Procedure Name Priority Date/Time Associated Diagnosis Comme nts INR/PROTIME Routine 01/14/2012 5:20 PM DVT (deep venous Resul ts for this CDT thrombosis) ([facility]) procedure are in the results section . documented in this encounter Results (ABNORMAL) INR/Protime (01/14/2012 5:20 PM CDT) [facility] Method Time Signature Prothrombin Time 30.3 (H) 12.6 - HP CONVERSION 15.0 sec INR 3.0 HP CONVERSION Comment: Recommendations for INR in warfarin ther apy: (Chest, Vol. 119, No. 1, Sep 2000, Suppl ement). Prevention and treatment of venous throm bosis; ? INR 2.0-3.0 Treatment of PE; Prevention of systemic embolism due to prosthetic tissue heart valves, b ileaflet mechanical valves in the aortic position , acute [place], valvular heart disease and atrial fibril lation. Mechanical prosthetic valves, (high risk ). ? INR 2.5-3.5 Prevention of recurrent myocardial infar ct. These recommended ranges serve as guidel min. Adjustment outside these ranges may be c linically indicated. Specimen Anatomical Collection Method Collection Time Receive d Time (Source) Location / / Volume Laterality 01/14/2012 5:20 PM 2 5:20 CDT PM CDT Narrative HP CONVERSION - 01/14/2012 5:46 PM CDT Performed at [facility], [address] [place] [id number] Andrea Rodney MD LAB_1 Performing Organization Address City/State/ZIP Code Phon e Number HP CONVERSION documented in this encounter Visit Diagnoses Diagnosis DVT (deep venous thrombosis) ([facility]) Acute venous embolism and thrombosis of unspecified deep vessels of lower extremity documented in this encounter Care Teams Cma Or Lpn Relationship Specialty Start Date End Date Andrea Rodney MD PCP - General 12/15/[address] [place] [id number] documented as of this encounter
--- OUTSIDE RECORDS SUMMARY | 2022-04-23 04:57 | XMS_ITS | Encounter Summary ---
:1985 Author Organization [employer] Address [address] [address] Care Team Providers Name Role Phone Andrea Rodney MD Primary Care Provider Encounter Details Date Type Department Care Team Description 05/13/2010 Routine [place] Scot Roach Obstetrics/[place] [address] [facility] [address] [place] [address] [place] [address] [phone] (Wo rk) Social History Tobacco Use Types Packs/Day Years Used Date Smoking Tobacco: Never Assessed Sex Assigned at Date Recorded Not on file documented as of this encounter Last Filed Vital Signs Vital Sign Reading Time Taken Comments Blood Pressure 123/80 05/13/2010 11:04 AM CDT Pulse 70 05/13/2010 11:04 AM CDT Temperature - - Respiratory Rate - - Oxygen Saturation - - Inhaled Oxygen Concentration - - Weight 66.7 kg (146 lb 15.7 oz) 05/13/2010 11:04 AM C: 66.7kg CDT Height 158.8 cm (5' 2.5) 05/13/2010 11:04 AM C: 158.8c m CDT Body Mass Index 26.45 05/13/2010 11:04 AM CDT documented in this encounter Plan of Treatment Not on filedocumented as of this encounter Visit Diagnoses Not on filedocumented in this encounter Care Teams Veneer Gluer Relationship Specialty Start Date End Date Andrea Rodney MD PCP - General 12/15/[address] [place], [place] [address] documented as of this encounter
--- OUTSIDE RECORDS SUMMARY | 2022-04-23 04:57 | XMS_ITS | Encounter Summary ---
:1985 Author Organization [facility] Address [address], [place] [address] Care Team Providers Name Role Phone Andrea Rodney MD Primary Care Provider Encounter Details Date Type Department Care Team Description 05/01/2010 PN Conversion [place] [address] [place] [address] Social History Tobacco Use Types Packs/Day Years Used Date Smoking Tobacco: Never Assessed Sex Assigned at Date Recorded Not on file documented as of this encounter Plan of Treatment Not on filedocumented as of this encounter Procedures Procedure Name Priority Date/Time Associated Comments Diagnosis TOTAL PROTEIN UR 24 Routine 05/01/2010 9:00 AM Re sults for this HR CDT procedure are i n the results section. CREATININE CLEARANCE Routine 05/01/2010 9:00 AM R esults for this CDT procedure are i n the results section. documented in this encounter Results (ABNORMAL) Total Protein Urine 24 Hr (05/01/2010 9:00 AM CDT) P athologist Signature Urine Protein, 31 mg/dL HP CONVERSION Random Urine Protein 310 (H) 0 - 165 HP CONVERSION 24 hr mg/24 hr Specimen (Source) Anatomical Collection Method Collection Time Re ceived Time Location / / Volume Laterality 05/01/2010 9:00 AM CDT Yesenia Rea RN LAB_1 Performing Organization Address City/State/ZIP Code Phon e Number HP CONVERSION (ABNORMAL) Creatinine Clearance (05/01/2010 9:00 AM CDT) Patholo gist Method Time Signature Total Volume 1,000 mL HP CONVERSION Hours Of 24 No normal HP CONVERSION Collection range Height 53 inches HP CONVERSION Weight 146 lb HP CONVERSION Creatinine 0.8 0.4 - 1.3 HP CONVERSION Serum mg/dL U Creat Random 162 mg/dL HP CONVERSION Body Surface 1.49 No normal HP CONVERSION Area range Creatinine 163 (H) 75 - 115 HP CONVERSION Clearance mL/min Creatinine 24 1,620 1,000 - HP CONVERSION Hour Urine 2,000 mg/24 hr Specimen (Source) Anatomical Collection Method Collection Time Re ceived Time Location / / Volume Laterality 05/01/2010 9:00 AM CDT Yesenia Rea RN LAB_1 Performing Organization Address City/State/ZIP Code Phon e Number HP CONVERSION documented in this encounter Visit Diagnoses Not on filedocumented in this encounter Care Teams Drying Supervisor Relationship Specialty Start Date End Date Andrea Rodney MD PCP - General 12/15/10 [address] [place], [place] [address] documented as of this encounter
--- OUTSIDE RECORDS SUMMARY | 2022-04-23 04:57 | XMS_ITS | Encounter Summary ---
:1985 Author Organization [employer] Address [address], [place] [address] Care Team Providers Name Role Phone Andrea Rodney MD Primary Care Provider Encounter Details Date Type Department Care Team Description 03/19/2010 Routine [place] Scot Roach Obstetrics/[place] [address] [facility] [address] [place] [address] [place] [address] [phone] (Wo rk) Social History Tobacco Use Types Packs/Day Years Used Date Smoking Tobacco: Never Assessed Sex Assigned at Date Recorded Not on file documented as of this encounter Last Filed Vital Signs Vital Sign Reading Time Taken Comments Blood Pressure 106/70 03/19/2010 8:59 AM CDT Pulse 82 03/19/2010 8:59 AM CDT Temperature - - Respiratory Rate - - Oxygen Saturation - - Inhaled Oxygen Concentration - - Weight 62.4 kg (137 lb 9.1 oz) 03/19/2010 8:59 AM C: 62 .4kg CDT Height 158.8 cm (5' 2.5) 03/19/2010 8:59 AM C: 158.8cm CDT Body Mass Index 24.76 03/19/2010 8:59 AM CDT documented in this encounter Plan of Treatment Not on filedocumented as of this encounter Visit Diagnoses Not on filedocumented in this encounter Care Teams Practice Or Student Teacher Relationship Specialty Start Date End Date Andrea Rodney MD PCP - General 12/15/[address] [place], [place] [address] documented as of this encounter
--- OUTSIDE RECORDS SUMMARY | 2022-04-23 04:57 | XMS_ITS | Encounter Summary ---
:1985 Author Organization [facility] Address [address] [place] [address] Care Team Providers Name Role Phone Andrea Rodney MD Primary Care Provider Encounter Details Date Type Department Care Team Description 04/08/2010 PN Conversion Only [place] [facility] N D[place], [address] [facility] [place] [address] Social History Tobacco Use Types Packs/Day Years Used Date Smoking Tobacco: Never Assessed Sex Assigned at Date Recorded Not on file documented as of this encounter Plan of Treatment Not on filedocumented as of this encounter Procedures Procedure Name Priority Date/Time Associated Comments Diagnosis URINE MICROSCOPIC Routine 04/08/2010 3:07 PM Resu lts for this CDT procedure are i n the results section. URINALYSIS ROUTINE, Routine 04/08/2010 3:07 PM Re sults for this MICRO/CULTURE IF POS CDT procedu re are in the results section. documented in this encounter Results (ABNORMAL) URINE MICROSCOPIC (04/08/2010 3:07 PM CDT) [facility] gist Method Time Signature White Blood 3-4 0 - 4 HP CONVERSION Cells Urine /HPF Red Blood 0-2 0 - 2 HP CONVERSION Cells Urine /HPF Epithelial Few /HPF HP CONVERSION Cells Renal Tubular Occasional (A) /LPF HP CONVERSI ON Epithelial Cells Urine Mucus Moderate /LPF HP CONVERSION Amorphous Moderate (A) /HPF HP CONVERSION Crystals Specimen (Source) Anatomical Collection Method Collection Time Re ceived Time Location / / Volume Laterality 04/08/2010 3:07 PM CDT Dylon Talley MD LAB_1 Performing Organization Address City/State/ZIP Code Phon e Number HP CONVERSION (ABNORMAL) URINALYSIS ROUTINE, MICRO/CULTURE IF POS (04/08/2010 3:07 PM CDT) [facility] Method Time Signature Urine Type Cln catch No normal HP CONVERSION range Turbidity Clear Clear HP CONVERSION U BILI Negative Negative HP CONVERSION Blood Urine Negative Negative HP CONVERSION Glucose, 100 (A) Neg-30 mg/dL HP CONVERSION Qualitative U Ketones Negative Negative HP CONVERSION Leukocyte Negative Negative HP CONVERSION Esterase Urine Nitrite Urine Negative Negative HP CONVERSION pH Urine 6.0 5.0 - 8.0 HP CONVERSION Protein Urine Trace Neg - Trace HP CONVERSION mg/dL U Specific 1.025 1.005 - HP CONVERSION [place] 1.030 Urobilinogen Negative Negative HP CONVERSION Urine Eu/dL Specimen (Source) Anatomical Collection Method Collection Time Re ceived Time Location / / Volume Laterality 04/08/2010 3:07 PM CDT Dylon Talley MD LAB_1 Performing Organization Address City/[facility]/ZIP Code Phon e Number HP CONVERSION documented in this encounter Visit Diagnoses Not on filedocumented in this encounter Care Teams Internetworking Technician Relationship Specialty Start Date End Date Andrea Rodney MD PCP - General 12/15/[address] [facility] [place] [address] documented as of this encounter
--- OUTSIDE RECORDS SUMMARY | 2022-04-23 04:57 | XMS_ITS | Encounter Summary ---
:1985 Author Organization [employer] Address [address] [place] [address] Care Team Providers Name Role Phone Andrea Rodney MD Primary Care Provider Encounter Details Date Type Department Care Team Description 01/16/2010 PN Conversion Only [place] [address] [place] [address] Social History Tobacco Use Types Packs/Day Years Used Date Smoking Tobacco: Never Assessed Sex Assigned at Date Recorded Not on file documented as of this encounter Plan of Treatment Not on filedocumented as of this encounter Procedures Procedure Name Priority Date/Time Associated Diagnosis Comme nts US OB >/= 14 WEEKS Routine 01/16/2010 2:15 PM Res ults for this 0 DAYS, SINGLE CDT procedure are in FETUS the results section. documented in this encounter Results US OB >/= 14 Weeks 0 Days, Single Fetus (01/16/2010 2:15 PM CDT) Anatomical Region Laterality Modality Pelvis Other Specimen (Source) Anatomical Location Collection Method / Collectio n Time Received Time / Laterality Volume Impressions 01/16/2010 2:15 PM CDT : ??Single with a sonographic age of 19 weeks 5 days; normal anatomic survey. Dictating REN HO Radiologist Narrative 01/16/2010 2:15 PM CDT CLINICAL HISTORY: ??Evaluate anatomy and dates. COMPARISON: ??None. FINDINGS: ??A level 1 ultrasound was per formed scanning was performed. Type of Gestation: ??Fuller. Presentation: Breech Movement Present: ??Yes Cardiac Rate: 155bpm and is regular Amniotic Fluid Volume: ??Normal Placental Position: ??Anterior without p revia Cervix: ??3.6 cm ANATOMIC SURVEY RESULTS: ??Normal The anatomic survey includes assessment of: Cranium, Lateral Ventricles, Cerebellum, Cisterna Magna, Nuchal Fold, Face: Orbits, Upper Lip, Profile, Spine: Long C,T,L,S, Transverse Sacrum, Heart: 4 Chamber View, M-Mode, Abdomen: Cord Inse rtion, 3-Vessel Cord, Bladder, Stomach, Diaphragm, Kidneys, Ex tremities: presence of arms and legs. Measurements (Source Hadlock): BPD: ??4.4 cm = 19 weeks 2 days HC: ??17.1 cm = 19 weeks 5 days AC: ??14.8 cm= 20 weeks 0 days FL: ??3.2 cm = 19 weeks 6 days Anatomic Ratios: ??Within normal limits. Estimated Weight: No estimate when less than 24 weeks. GA by LMP: ??19 weeks 6 days GA by Prior US: ?? N/A GA by today's US: ??19 weeks 5 days JASSON by today's US: ??06/07/2010 Other Findings: ??None. Procedure Note Ren Black MD - 02/28/2016For matting of this note might be different from the original. CLINICAL HISTORY: Evaluate anatomy and d ates. COMPARISON: None. FINDINGS: A level 1 ultrasound was perfo rmed scanning was performed. Type of Gestation: Fuller. Presentation: Breech Movement Present: Yes Cardiac Rate: 155bpm and is regular Amniotic Fluid Volume: Normal Placental Position: Anterior without pre via Cervix: 3.6 cm ANATOMIC SURVEY RESULTS: Normal The anatomic survey includes assessment of: Cranium, Lateral Ventricles, Cerebellum, Cisterna Magna, Nuchal Fold, Face: Orbits, Upper Lip, Profile, Spine: Long C,T,L,S, Transverse Sacrum, Heart: 4 Chamber View, M-Mode, Abdomen: Cord Inse rtion, 3-Vessel Cord, Bladder, Stomach, Diaphragm, Kidneys, Ex tremities: presence of arms and legs. Measurements (Source Hadlock): BPD: 4.4 cm = 19 weeks 2 days HC: 17.1 cm = 19 weeks 5 days AC: 14.8 cm= 20 weeks 0 days FL: 3.2 cm = 19 weeks 6 days Anatomic Ratios: Within normal limits. Estimated Weight: No estimate when less than 24 weeks. GA by LMP: 19 weeks 6 days GA by Prior US: N/A GA by today's US: 19 weeks 5 days JASSON by today's US: 06/07/2010 Other Findings: None. IMPRESSION : Single with a sonographic ag e of 19 weeks 5 days; normal anatomic survey. Dictating REN HO Radiologist Yesenia Rea RN RAD US documented in this encounter Visit Diagnoses Not on filedocumented in this encounter Care Teams Annealer Relationship Specialty Start Date End Date Andrea Rodney MD PCP - General 12/15/10 [address] [place] [address] documented as of this encounter
--- OUTSIDE RECORDS SUMMARY | 2022-04-23 04:57 | XMS_ITS | Encounter Summary ---
:1985 Author Organization [facility] Address [address] [place] [address] Care Team Providers Name Role Phone Andrea Rodney MD Primary Care Provider Encounter Details Date Type Department Care Team Description 05/17/2010 PN Conversion Only OTHER CONVERSION [address] [place] [address] Social History Tobacco Use Types Packs/Day Years Used Date Smoking Tobacco: Never Assessed Sex Assigned at Date Recorded Not on file documented as of this encounter Plan of Treatment Not on filedocumented as of this encounter Visit Diagnoses Not on filedocumented in this encounter Care Teams Logistics Engineering Manager Relationship Specialty Start Date End Date Andrea Rodney MD PCP - General 12/15/10 [address] [facility] [address] documented as of this encounter
--- OUTSIDE RECORDS SUMMARY | 2022-04-23 04:57 | XMS_ITS | Encounter Summary ---
:1985 Author Organization [employer] Address [address] [place] [address] Care Team Providers Name Role Phone Andrea Rodney MD Primary Care Provider Encounter Details Date Type Department Care Team Description 05/13/2010 PN Conversion Only [place] [facility] Scot Roach [address] [facility] [place] [address] [address] [place], [place] [address] (Wo rk) Social History Tobacco Use Types Packs/Day Years Used Date Smoking Tobacco: Never Assessed Sex Assigned at Date Recorded Not on file documented as of this encounter Plan of Treatment Not on filedocumented as of this encounter Procedures Procedure Name Priority Date/Time Associated Comments Diagnosis COMPLETE BLOOD Routine 05/13/2010 11:30 Results f or this COUNT-W/DIFF AM CDT procedure are i n the results section. DIFFERENTIAL Routine 05/13/2010 11:30 Results for this AM CDT procedure are i n the results section. ALT (SGPT) Routine 05/13/2010 11:30 Results for this AM CDT procedure are i n the results section. AST Routine 05/13/2010 11:30 Results for this AM CDT procedure are i n the results section. BUN Routine 05/13/2010 11:30 Results for this AM CDT procedure are i n the results section. BILIRUBIN, TOTAL Routine 05/13/2010 11:30 Results for this AM CDT procedure are i n the results section. documented in this encounter Results Differential (05/13/2010 11:30 AM CDT) athologist Signature Absolute 5.8 2.0 - 6.8 HP CONVERSION Neutrophils k/cmm Absolute 1.1 1.0 - 4.0 HP CONVERSION Lymphocytes k/cmm Absolute 0.3 0.2 - 1.0 HP CONVERSION Monocytes k/cmm Absolute 0.2 0.0 - 0.5 HP CONVERSION Eosinophils k/cmm Absolute 0.0 0.0 - 0.2 HP CONVERSION Basophils k/cmm Specimen (Source) Anatomical Collection Method Collection Time Re ceived Time Location / / Volume Laterality 05/13/2010 11:30 AM CDT Scot Roach MD LAB_1 Performing Organization Address City/State/ZIP Code Phon e Number HP CONVERSION BUN (05/13/2010 11:30 AM CDT) athologist Signature Blood Urea 10 5 - 26 HP CONVERSION Nitrogen mg/dL Specimen (Source) Anatomical Collection Method Collection Time Re ceived Time Location / / Volume Laterality 05/13/2010 11:30 AM CDT Scot Roach MD LAB_1 Performing Organization Address City/State/ZIP Code Phon e Number HP CONVERSION Bilirubin, Total (05/13/2010 11:30 AM CDT) athologist Signature Bilirubin Total 0.3 0.2 - 1.2 HP CONVERSION mg/dL Specimen (Source) Anatomical Collection Method Collection Time Re ceived Time Location / / Volume Laterality 05/13/2010 11:30 AM CDT Scot Roach MD LAB_1 Performing Organization Address City/State/ZIP Code Phon e Number HP CONVERSION AST (05/13/2010 11:30 AM CDT) [facility] gist Method Time Signature Aspartate 11 0 - 45 HP CONVERSION Aminotransferase U/L Specimen (Source) Anatomical Collection Method Collection Time Re ceived Time Location / / Volume Laterality 05/13/2010 11:30 AM CDT Scot Roach MD LAB_1 Performing Organization Address City/State/ZIP Code Phon e Number HP CONVERSION ALT (SGPT) (05/13/2010 11:30 AM CDT) [facility] gist Method Time Signature Alanine 6 4 - 55 HP CONVERSION Aminotransferase U/L Specimen (Source) Anatomical Collection Method Collection Time Re ceived Time Location / / Volume Laterality 05/13/2010 11:30 AM CDT Scot Roach MD LAB_1 Performing Organization Address City/State/ZIP Code Phon e Number HP CONVERSION (ABNORMAL) Hemogram/Plts/Diff (05/13/2010 11:30 AM CDT) [facility] Method Time Signature White Blood Cell 7.4 3.8 - 11.0 HP CONVERSIO N Count k/cmm Red Blood Cell 4.29 3.70 - HP CONVERSION Count 5.20 m/cmm Hemoglobin 13.4 11.8 - HP CONVERSION 15.5 g/dL Hematocrit 38.4 35.0 - HP CONVERSION 46.0 % Mean Corpuscular 89.4 80.0 - HP CONVERSION Volume 100.0 fL RDW 12.7 11.0 - HP CONVERSION 15.0 % Platelet Count 117 (L) 140 - 450 HP CONVERSION k/cmm Specimen (Source) Anatomical Collection Method Collection Time Re ceived Time Location / / Volume Laterality 05/13/2010 11:30 AM CDT Scot Roach MD LAB_1 Performing Organization Address City/[facility]/ZIP Code Phon e Number HP CONVERSION documented in this encounter Visit Diagnoses Not on filedocumented in this encounter Care Teams Optical Manager Relationship Specialty Start Date End Date Andrea Rodney MD PCP - General 12/15/10 [address] [place] [address] documented as of this encounter
--- OUTSIDE RECORDS SUMMARY | 2022-04-23 04:57 | XMS_ITS | Encounter Summary ---
:1985 Author Organization [employer] [facility] Address [address] [place] [address] Care Team Providers Name Role Phone Andrea Rodney MD Primary Care Provider Encounter Details Date Type Department Care Team Description 01/14/2012 Notes/Orders [facility] Andrea Rodney DVT ([place] venous Medicine MD Dionna thrombosis) (Primary [address]) [place] [address] [facility] [phone] [place] [address] Social History Tobacco Use Types Packs/Day Years Used Date Smoking Tobacco: Never Assessed Sex Assigned at Date Recorded Not on file documented as of this encounter Plan of Treatment Not on filedocumented as of this encounter Visit Diagnoses Diagnosis DVT (deep venous thrombosis) ([facility]) - [facility] Acute venous embolism and thrombosis of unspecified deep vessels of lower extremity documented in this encounter Care Teams Product Tester Fiberglass Relationship Specialty Start Date End Date Andrea Rodney MD PCP - General 12/15/[address] [place] [address] documented as of this encounter
--- OUTSIDE RECORDS SUMMARY | 2022-04-23 04:57 | XMS_ITS | Encounter Summary ---
:1985 Author Organization [employer] Address [address] [place] [address] Care Team Providers Name Role Phone Andrea Rodney MD Primary Care Provider Reason for Visit Reason Comments UPDATE Encounter Details Date Type Department Care Team Description 07/15/2011 Telephone [facility] Andrea Rodney MD UPDATE [address] [facility] . [address] [place] [address] [place], [place] [address] (Wo rk) Social History Tobacco Use Types Packs/Day Years Used Date Smoking Tobacco: Never Assessed Sex Assigned at Date Recorded Not on file documented as of this encounter Nursing Notes Sharri Carrillo RN - 07/15/2011 10:06 AM CDT Mother calling: Elli was hospitalized in [facility] for a blood clot in her hip x 4 days. A doctor there wants her to abort her baby and mother does not know what they are doing or treating her with (Language barrier). Patient is in ICU and mom does not know the name of the hospital. Mother is worried and would like a call back from you. Please address. Routed to Mother's phone number: [phone] (H) documented in this encounter Plan of Treatment Not on filedocumented as of this encounter Visit Diagnoses Not on filedocumented in this encounter Care Teams Mechanical Engineering Specialist Relationship Specialty Start Date End Date Andrea Rodney MD PCP - General 12/15/10 [address] [facility] [place] [address] documented as of this encounter
--- OUTSIDE RECORDS SUMMARY | 2022-04-23 04:57 | XMS_ITS | Encounter Summary ---
:1985 Author Organization [employer] Address [address] [address] Care Team Providers Name Role Phone Andrea Rodney MD Primary Care Provider Reason for Visit Reason Comments Other Encounter Details Date Type Department Care Team Description 05/07/2010 Telephone [facility] Obstetrics[facility]Gynecolog y [address] [facility] [address] [place] [address] [place] [address] [phone] (Wo rk) Social History Tobacco Use Types Packs/Day Years Used Date Smoking Tobacco: Never Assessed Sex Assigned at Date Recorded Not on file documented as of this encounter Progress Notes Kojo Henriquez - 05/07/2010 3:23 PM CDT Phone Note filed by Kojo Henriquez RN at 01/04/111526 Author: Kojo Henriquez RN Service: (none) Author Type: Registered Nurse Filed: 01/04/111526 Note Time: 05/07/101522 Status: Signed Tow Truck Driver: Kojo Henriquez RN (Registered Nurse) [phone]. 36 wks. Continued cramping today. Not able to sleep last night due to cramping. ? beginning preelampsia. e-paged. Created on 07May2010 3:23pm by KOJO HENRIQUEZ On 07May2010 3:29pm SCOT RIDER wrote: Spoke with pt. Discussed signs and symptoms of labor and PIH Acknowledged by SCOT RIDER on 3:29pm RIFUGAL WAX MOLDER documented in this encounter Plan of Treatment Not on filedocumented as of this encounter Visit Diagnoses Not on filedocumented in this encounter Care Teams Rn Cardiac Relationship Specialty Start Date End Date Andrea Rodney MD PCP - General 12/15/10 [address] [place] [address] documented as of this encounter
--- OUTSIDE RECORDS SUMMARY | 2022-04-23 04:57 | XMS_ITS | Encounter Summary ---
:1985 Author Organization [facility] Address [address], [place] [address] Care Team Providers Name Role Phone Andrea Rodney MD Primary Care Provider Encounter Details Date Type Department Care Team Description 04/29/2010 Routine [place] Yesenia Rea, RN Obstetrics/Gynecolog y [address] [place] [address] Social History Tobacco Use Types Packs/Day Years Used Date Smoking Tobacco: Never Assessed Sex Assigned at Date Recorded Not on file documented as of this encounter Last Filed Vital Signs Vital Sign Reading Time Taken Comments Blood Pressure 100/70 04/29/2010 9:06 AM CDT Pulse - - Temperature - - Respiratory Rate - - Oxygen Saturation - - Inhaled Oxygen Concentration - - Weight 66.2 kg (145 lb 15.8 oz) 04/29/2010 9:06 AM C: 6 6.2kg CDT Height 158.8 cm (5' 2.5) 04/29/2010 9:06 AM C: 158.8cm CDT Body Mass Index 26.28 04/29/2010 9:06 AM CDT documented in this encounter Plan of Treatment Not on filedocumented as of this encounter Visit Diagnoses Not on filedocumented in this encounter Care Teams Account Resolution Expert Relationship Specialty Start Date End Date Andrea Rodney MD PCP - General 12/15/10 [address] [place] [address] documented as of this encounter
--- OUTSIDE RECORDS SUMMARY | 2022-04-23 04:57 | XMS_ITS | Encounter Summary ---
:1985 Author Organization [employer] Address [address] [address] Care Team Providers Name Role Phone Andrea Rodney MD Primary Care Provider Encounter Details Date Type Department Care Team Description 04/22/2010 Routine [place] Scot Roach Obstetrics/[place] [address] [facility] [address] [place] [address] [place] [address] [phone] (Wo rk) Social History Tobacco Use Types Packs/Day Years Used Date Smoking Tobacco: Never Assessed Sex Assigned at Date Recorded Not on file documented as of this encounter Last Filed Vital Signs Vital Sign Reading Time Taken Comments Blood Pressure 110/66 04/22/2010 9:29 AM CDT Pulse 67 04/22/2010 9:29 AM CDT Temperature - - Respiratory Rate - - Oxygen Saturation - - Inhaled Oxygen Concentration - - Weight 66 kg (145 lb 7.7 oz) 04/22/2010 9:29 AM CDT C: 66.0kg Height 158.8 cm (5' 2.5) 04/22/2010 9:29 AM CDT C: 158 .8cm Body Mass Index 26.18 04/22/2010 9:29 AM CDT documented in this encounter Plan of Treatment Not on filedocumented as of this encounter Visit Diagnoses Not on filedocumented in this encounter Care Teams Whale Fisherman Relationship Specialty Start Date End Date Andrea Rodney MD PCP - General 12/15/10 [facility] [facility] [place] [address] documented as of this encounter
--- OUTSIDE RECORDS SUMMARY | 2022-04-23 04:57 | XMS_ITS | Encounter Summary ---
:1985 Author Organization [facility] Address [address] [place] [address] Care Team Providers Name Role Phone Andrea Rodney MD Primary Care Provider Encounter Details Date Type Department Care Team Description 05/06/2010 PN Conversion Only [facility] N Scot Rider [id number] [facility] [place] [address] [address] [place], [place] [address] (Wo rk) Social History Tobacco Use Types Packs/Day Years Used Date Smoking Tobacco: Never Assessed Sex Assigned at Date Recorded Not on file documented as of this encounter Plan of Treatment Not on filedocumented as of this encounter Procedures Procedure Name Priority Date/Time Associated Comments Diagnosis GROUP B STREP SCREEN Routine 05/06/2010 11:25 AM Results for this (OB PTS) CDT procedure are i n the results section. CREATININE / GFR Routine 05/06/2010 10:11 AM Resu lts for this CDT procedure are i n the results section. COMPLETE BLOOD Routine 05/06/2010 10:11 AM Result s for this COUNT-W/DIFF CDT procedure are i n the results section. URIC ACID Routine 05/06/2010 10:11 AM Results for this CDT procedure are i n the results section. ALT (SGPT) Routine 05/06/2010 10:11 AM Results for this CDT procedure are i n the results section. AST Routine 05/06/2010 10:11 AM Results for this CDT procedure are i n the results section. BUN Routine 05/06/2010 10:11 AM Results for this CDT procedure are i n the results section. BILIRUBIN, TOTAL Routine 05/06/2010 10:11 AM Resu lts for this CDT procedure are i n the results section. documented in this encounter Results Group B Strep Screen (OB Pts) (05/06/2010 11:25 AM CDT) Analysis Performed At Patho logist Time Signature Culture Strep SEE TEXT HP CONVERSION Screen Other Source Comment: CSSO Culture Strep Screen, Other Source ? ORDERED BY: SCOT RIDER SOURCE: Vag/Rec ?COLLECTED: ??05/06/10 11:25 ? PLATED: ? 05/06/10 11:26 Culture Strep Screen, Other Source ? FINAL ? 05/08/10 11:13 No beta hemolytic Streptococcus, Group A or B Specimen (Source) Anatomical Collection Method Collection Time Re ceived Time Location / / Volume Laterality 05/06/2010 11:25 AM CDT Scot Rider MD LAB_1 Performing Organization Address City/State/ZIP Code Phon e Number HP CONVERSION Uric Acid (05/06/2010 10:11 AM CDT) P athologist Signature Uric Acid Serum 4.2 2.5 - 8.5 HP CONVERSION mg/dL Specimen (Source) Anatomical Collection Method Collection Time Re ceived Time Location / / Volume Laterality 05/06/2010 10:11 AM CDT Scot Rider MD LAB_1 Performing Organization Address City/State/ZIP Code Phon e Number HP CONVERSION Creatinine / GFR (05/06/2010 10:11 AM CDT) P athologist Signature Creatinine 0.8 0.4 - 1.3 HP CONVERSION Serum mg/dL Est GFR >60 >60 HP CONVERSION Am mL/min/1.7 Est GFR Non-Afr >60 >60 HP CONVERSION Am mL/min/1.7 Comment: Normal>60, moderate decrease 30 - 59, se mika decrease 15 - 29, renal failure <15 mL/min/1.73 m2 NOTE: ??Choose the eGFR result above yasmine ropriate for the race of the patient. Specimen (Source) Anatomical Collection Method Collection Time Re ceived Time Location / / Volume Laterality 05/06/2010 10:11 AM CDT Scot Rider MD LAB_1 Performing Organization Address City/[facility]/ZIP Code Phon e Number HP CONVERSION BUN (05/06/2010 10:11 AM CDT) athologist Signature Blood Urea 10 5 - 26 HP CONVERSION Nitrogen mg/dL Specimen (Source) Anatomical Collection Method Collection Time Re ceived Time Location / / Volume Laterality 05/06/2010 10:11 AM CDT Scot Rider MD LAB_1 Performing Organization Address City/[facility]/ZIP Code Phon e Number HP CONVERSION Bilirubin, Total (05/06/2010 10:11 AM CDT) P athologist Signature Bilirubin Total 0.4 0.2 - 1.2 HP CONVERSION mg/dL Specimen (Source) Anatomical Collection Method Collection Time Re ceived Time Location / / Volume Laterality 05/06/2010 10:11 AM CDT Scot Rider MD LAB_1 Performing Organization Address City/[facility]/ZIP Code Phon e Number HP CONVERSION AST (05/06/2010 10:11 AM CDT) Patholo gist Method Time Signature Aspartate 13 0 - 45 HP CONVERSION Aminotransferase U/L Specimen (Source) Anatomical Collection Method Collection Time Re ceived Time Location / / Volume Laterality 05/06/2010 10:11 AM CDT Scot Rider MD LAB_1 Performing Organization Address City/[facility]/ZIP Code Phon e Number HP CONVERSION ALT (SGPT) (05/06/2010 10:11 AM CDT) Patholo gist Method Time Signature Alanine 9 4 - 55 HP CONVERSION Aminotransferase U/L Specimen (Source) Anatomical Collection Method Collection Time Re ceived Time Location / / Volume Laterality 05/06/2010 10:11 AM CDT Scot Rider MD LAB_1 Performing Organization Address City/State/ZIP Code Phon e Number HP CONVERSION (ABNORMAL) Hemogram/Plts/Diff (05/06/2010 10:11 AM CDT) [facility] Method Time Signature White Blood Cell 8.4 3.8 - 11.0 HP CONVERSIO N Count k/cmm Red Blood Cell 4.07 3.70 - HP CONVERSION Count 5.20 m/cmm Hemoglobin 13.0 11.8 - HP CONVERSION 15.5 g/dL Hematocrit 36.8 35.0 - HP CONVERSION 46.0 % Mean Corpuscular 90.3 80.0 - HP CONVERSION Volume 100.0 fL RDW 12.5 11.0 - HP CONVERSION 15.0 % Platelet Count 120 (L) 140 - 450 HP CONVERSION k/cmm Absolute 6.3 2.0 - 6.8 HP CONVERSION Neutrophils k/cmm Absolute 1.3 1.0 - 4.0 HP CONVERSION Lymphocytes k/cmm Absolute 0.5 0.2 - 1.0 HP CONVERSION Monocytes k/cmm Absolute 0.2 0.0 - 0.5 HP CONVERSION Eosinophils k/cmm Absolute 0.1 0.0 - 0.2 HP CONVERSION Basophils k/cmm Specimen (Source) Anatomical Collection Method Collection Time Re ceived Time Location / / Volume Laterality 05/06/2010 10:11 AM CDT Scot Rider MD LAB_1 Performing Organization Address City/State/ZIP Code Phon e Number HP CONVERSION documented in this encounter Visit Diagnoses Not on filedocumented in this encounter Care Teams Resident Care Director Relationship Specialty Start Date End Date Andrea Rodney MD PCP - General 12/15/10 [address] [facility] [place] [address] documented as of this encounter
--- OUTSIDE RECORDS SUMMARY | 2022-04-23 04:57 | XMS_ITS | Encounter Summary ---
:1985 Author Organization [employer] Address [address] [address] Care Team Providers Name Role Phone Andrea Rodney MD Primary Care Provider Reason for Visit Reason Comments Other Encounter Details Date Type Department Care Team Description 12/06/2009 Telephone [facility] Ameena Kolb Other [address] [place], [place] [phone] Social History Tobacco Use Types Packs/Day Years Used Date Smoking Tobacco: Never Assessed Sex Assigned at Date Recorded Not on file documented as of this encounter Progress Notes Ameena Kolb - 12/06/2009 3:16 PM CDT Phone Note filed by Ameena Kolb RN at 01/04/11243 Author: Ameena Kolb RN Service: (none) Author Type: (none) Filed: 01/04/11243 Note Time: 12/06/091515 Status: Signed Label Pinker: Ameena Kolb RN (Registered Nurse) CLINICIAN FOLLOW-UP: None IMPRESSION: follow up call from today, abdominal trauma SX/ADVICE: Patient calling back to schedule follow up appt. 14 wks , hit abdomen on counter today. Talked to material handler floorperson doctor, advised to make appt. for tomorrow if not feeling worse. States she is not feeling any worse, does continue to have discomfort. Appt. made for 326 am. Denies emergent, urgent symptoms PATIENT INFORMATION: Status: Patient is . Status: Patient is not . Patient to call back if: symptoms worsen or persist, any other questions or concerns. DISPOSITION: SCHEDULE APPOINTMENT WITHIN 12 HOURS Patient/Caller agrees with plan and denies additional questions. Call Complete. *SH~PNNL~SCHOLARII ~ Created on 06Dec2009 3:16pm by AMEENA KOLB TLE HAND documented in this encounter Plan of Treatment Not on filedocumented as of this encounter Visit Diagnoses Not on filedocumented in this encounter Care Teams Motor And Controls Tester Relationship Specialty Start Date End Date Andrea Rodney MD PCP - General 12/15/10 [facility]15 [facility] [place] [address] documented as of this encounter
--- OUTSIDE RECORDS SUMMARY | 2022-04-23 04:57 | XMS_ITS | Encounter Summary ---
:1985 [facility] Address [address] [place] [address] Care Team Providers Name Role Phone Andrea Rodney MD Primary Care Provider Encounter Details Date Type Department Care Team Description 12/07/2009 Office Visit Quynh Ball, Obstetrics/Gynecolog y ART MANAGER, DEBONE SUPERVISOR [address] [place] [address] [place], [place] [phone] (Wo rk) Social History Tobacco Use Types Packs/Day Years Used Date Smoking Tobacco: Never Assessed Sex Assigned at Date Recorded Not on file documented as of this encounter Plan of Treatment Not on filedocumented as of this encounter Visit Diagnoses Not on filedocumented in this encounter Care Teams Rail Grinder Relationship Specialty Start Date End Date Andrea Rodney MD PCP - General 12/15/10 [facility] [place] [address] documented as of this encounter
--- OUTSIDE RECORDS SUMMARY | 2022-04-23 04:57 | XMS_ITS | Encounter Summary ---
:1985 Author Organization [facility] Address [address] [place] [address] Care Team Providers Name Role Phone Andrea Rodney MD Primary Care Provider Reason for Visit Reason Comments Other Encounter Details Date Type Department Care Team Description 04/22/2010 Telephone Scot Toussaint Oth er Obstetrics/Gynecolog y [address] [facility] [address] [place] [address] [place] [address] [phone] (Wo rk) Social History Tobacco Use Types Packs/Day Years Used Date Smoking Tobacco: Never Assessed Sex Assigned at Date Recorded Not on file documented as of this encounter Progress Notes Coty Moore RN - 04/22/2010 4:49 PM CDT Phone Note filed by Coty Moore RN at 01/04/11 3592 Author: Coty Moore RN Service: (none) Author Type: Registered Nurse Filed: 01/04/11 1412 Note Time: 04/22/10 1649 Status: Signed Grocery Buyer: Coty Moore RN (Registered Nurse) Pt.called. States called her and said her platelet count was low and they would be monitoring that. Asking if she can do anything for this. Explained that there is nothing to prevent the low platelets at this time. Is also set up for a 24 hour urine. Discussed that if she was to have any signs of pre eclampsia to call immediately; headache not relieved by tylenol, vision disturbances, upper epigastric pain. Will be seen weekly per Dr. Rider. No further questions at this time. Created on 22Apr2010 4:49pm by COTY MOORE Acknowledged by SCOT RIDER on 7:36am IMPLANT MACHINE OPERATOR documented in this encounter Plan of Treatment Not on filedocumented as of this encounter Visit Diagnoses Not on filedocumented in this encounter Care Teams Obstetrical Nurse Relationship Specialty Start Date End Date Andrea Rodney MD PCP - General 12/15/10 1415 [facility] [place] [address] documented as of this encounter
--- OUTSIDE RECORDS SUMMARY | 2022-04-23 04:57 | XMS_ITS | Encounter Summary ---
:1985 Author Organization [employer] [facility] Address [address] [place] [address] Care Team Providers Name Role Phone Andrea Rodney MD Primary Care Provider Reason for Visit Reason Comments Letter Encounter Details Date Type Department Care Team Description 10/09/2011 Telephone [facility] Andrea Rodney MD Letter [address] [facility] . [address] [place] [address] [place], [place] [phone] (Wo rk) Social History Tobacco Use Types Packs/Day Years Used Date Smoking Tobacco: Never Assessed Sex Assigned at Date Recorded Not on file documented as of this encounter Nursing Notes Zunilda Martinez - 11/19/2011 3:29 PM CST Letter mailed out to pt this am. ING SUPERVISOR Andrea Rodney MD - 11/19/2011 12:02 AM CST Letter at printer Andrea Rodney MD - 11/18/2011 11:14 PM CST Not yet Karon Peñaloza HUC - 10/17/2011 4:17 PM CST When I spoke with her on the , that is what she told me needs to be included in letter. She wants it to say that you have been her family's primary care doctor and have been caring for her childrensince their . In addition to seeing them when they are ill and for routine [facility] visits, you have also been caring for them for Vesta's heart murmur and Odell and Tanya's head injuries. Andrea Greene MD - 10/17/2011 1:31 PM CST I will be unable to complete letter until I return. Call pt and determine what is to be included please Karon Peñaloza HUC - 10/09/2011 10:54 AM CST Elli is asking for a letter to be written for her family for immigration for her . The letter needs to state that you have been the primary care doctor for her and their children since . States letter should also address specific medical conditions that you have been monitoring with her children. Children are Vesta (MR# [id number]) Odell (MR# [id number]) and Tanya (MR# [id number]). Asks you to mention Vesta's murmur and hole in heart, and closed head injuries with Odell and Tanya and also mention that you see them in clinic when they are ill. Requests letter be mailed to home addresswhen done. Myrna Yadav - 10/09/2011 10:29 AM CST Mom needs a letter for immigration from Dr. Rodney. Mom stated she wasn't sure who it was to be mailed, only that the address was: [address] [place] [address]. Mom would like a call back to give the details. ING SUPERVISOR documented in this encounter Miscellaneous Notes Letter - 10/09/2011 12:00 AM CST ING SUPERVISOR Letter - 10/09/2011 12:00 AM CST Images from the original note were not included. [address] [address] November 18, 2011 Patient: Elli Kim Date of : 1985 Date of Visit: 10/09/2011 To Whom It May Concern: My name is Dr. Andrea Rodney, and I have been Ms. Kim his primary care physician for many years. 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 Furthermore, I have been her 3 daughter's primary care physician as well throughout their lives. Ms. Kim has done an exemplary job in raising her 3 children in the absence of their father. If you have any questions or concerns, please don't hesitate to call. Sincerely, Andrea Rodney MD ING SUPERVISOR Letter - 10/09/2011 12:00 AM CST Images from the original note were not included. [address] [address] November 18, 2011 Patient: Elli Kim Date of : 1985 Date of Visit: 10/09/2011 To Whom It May Concern: I have been Ms. Kim his primary care physician since 2003. I have assisted her through 2 pregnancies, both complicated by preeclampsia and severe intrauterine growth retardation of both children. Her third daughter was born with a congenital heart defect, specifically a ventricular septal defect. Furthermore, I have been the primary care physician for Ms. Kim's 3 children as well. I have attended to there acute illness needs in the clinic, and I have cared for the oldest and second oldest daughter following closed head injuries sustained during a playground accident. Ms. Kim has done an abnormal job in raising her 3 children in the absence of their father. If you have any questions or concerns, please don't hesitate to call. Sincerely, Andrea Rodney MD ING SUPERVISOR documented in this encounter Plan of Treatment Not on filedocumented as of this encounter Visit Diagnoses Not on filedocumented in this encounter Care Teams Rn Ed Relationship Specialty Start Date End Date Andrea Rodney MD PCP - General 12/15/[address] [place], [place] [address] [address] documented as of this encounter
--- OUTSIDE RECORDS SUMMARY | 2022-04-23 04:57 | XMS_ITS | Encounter Summary ---
:1985 [facility] Address [address] [address] Care Team Providers Name Role Phone Andrea Rodney MD Primary Care Provider Reason for Visit Reason Comments Other Encounter Details Date Type Department Care Team Description 05/22/2010 Telephone Amber Hodge RN Other Obstetrics/Gynecolog y [address] [place] [address] Social History Tobacco Use Types Packs/Day Years Used Date Smoking Tobacco: Never Assessed Sex Assigned at Date Recorded Not on file documented as of this encounter Progress Notes Amber Hedrick RN - 05/22/2010 8:05 PM CDT Phone Note filed by Amber Hedrick RN at 01/04/11 0322 Author: Amber Hedrick RN Service: (none) Author Type: Registered Nurse Filed: 01/04/11 1641 Note Time: 05/22/102004 Status: Signed Prosthetic Aides Teacher: Amber Hedrick RN (Registered Nurse) CLINICIAN FOLLOW-UP: none IMPRESSION: - Vaginal Bleeding and Lochia. SYMPTOMS: Pt. calling and states had vaginal delivery on 05/17. Bleeding has been light, but about 10 minutes ago bled through a pad and there was blood running down leg. Has mild cramping, but feels fine otherwise. Denies emergent symptoms Problem List: reviewed in electronic medical record. CARE ADVICE: REASSURANCE - NORMAL VAGINAL BLEEDING: - - Lochia pools in your vagina. It often comes out when you first standup after lying down for awhile (e.g., first thing in the morning). LOCHIA - 3 OVERLAPPING STAGES: - Lochia Rubra (red, red-brown): Occurring between days 1-28 . There are usually clots the first three days and then vaginal bleeding gradually decreases. - WHEN BLEEDING STOPS AND STARTS: - It is very common for mild bleeding and spotting to occur suddenly and intermittently during the weeks following delivery. Many women report an episode of bleeding about 7-14 days . - Such bleeding is not concerning if it stops after an hour or two and does not exceed two pads. AFTERBIRTH PAINS: Afterbirth pains occur during the couple days following delivery. These pains are intermittent and represent the muscular contractions of the shrinking uterus. DRINK LIQUIDS: You should drink 8-10 glasses of liquids daily (e.g., water). You may need to drink more if you are . USE PADS NOT TAMPONS: - Do not use tampons for at least 6 weeks after delivery. Instead use sanitary napkins (maxipads). - Count how many pads you use each day. CALL BACK IF: Severe abdominal pain or lightheadedness occurs. Bleeding worsens or does not improve. Fever >100.4F (38.0C). You become worse. Advised to call back if any of the following occur: symptoms worsen or persist, any other questions or concerns. PLAN: HOME CARE Patient/Caller agrees with plan and denies additional questions. References Used: [place] Adult Telephone Protocols-- - Vaginal Bleeding and Lochia. Call Complete. *SH~THOMP~POSTVAGB~ Created on 22May2010 8:05pm by AMBER HEDRICK AL EQUIPMENT TECHNICIAN documented in this encounter Plan of Treatment Not on filedocumented as of this encounter Visit Diagnoses Not on filedocumented in this encounter Care Teams Filter Press Tender Relationship Specialty Start Date End Date Andrea Rodney MD PCP - General 12/15/10 1415 [facility] [place] [address] documented as of this encounter
--- OUTSIDE RECORDS SUMMARY | 2022-04-23 04:57 | XMS_ITS | Encounter Summary ---
:1985 Author Organization [facility] Address [address] [address] Care Team Providers Name Role Phone Andrea Rodney MD Primary Care Provider Encounter Details Date Type Department Care Team Description 02/19/2010 Routine Paxton Yesenia Rea, RN Obstetrics/Gynecolog y [address] [place] [address] Social History Tobacco Use Types Packs/Day Years Used Date Smoking Tobacco: Never Assessed Sex Assigned at Date Recorded Not on file documented as of this encounter Last Filed Vital Signs Vital Sign Reading Time Taken Comments Blood Pressure 120/80 02/19/2010 9:00 AM CDT Pulse - - Temperature - - Respiratory Rate - - Oxygen Saturation - - Inhaled Oxygen Concentration - - Weight 60.8 kg (133 lb 15.9 oz) 02/19/2010 9:00 AM C: 6 0.8kg CDT Height 158.8 cm (5' 2.5) 02/19/2010 9:00 AM C: 158.8cm CDT Body Mass Index 24.12 02/19/2010 9:00 AM CDT documented in this encounter Plan of Treatment Not on filedocumented as of this encounter Visit Diagnoses Not on filedocumented in this encounter Care Teams Program Manager Transportation Relationship Specialty Start Date End Date Andrea Rodney MD PCP - General 12/15/10 [address] [place], [place] [address] documented as of this encounter
--- OUTSIDE RECORDS SUMMARY | 2022-04-23 04:57 | XMS_ITS | Encounter Summary ---
:1985 Author Organization [facility] Address [address] [address] Care Team Providers Name Role Phone Andrea Rodney MD Primary Care Provider Encounter Details Date Type Department Care Team Description 04/16/2010 Routine Jewell Yesenia Rea, RN Obstetrics/Gynecolog y [address] [place] [address] Social History Tobacco Use Types Packs/Day Years Used Date Smoking Tobacco: Never Assessed Sex Assigned at Date Recorded Not on file documented as of this encounter Plan of Treatment Not on filedocumented as of this encounter Visit Diagnoses Not on filedocumented in this encounter Care Teams Bioengineer Relationship Specialty Start Date End Date Andrea Rodney MD PCP - General 12/15/10 [address] [place], [place] [address] documented as of this encounter
--- OUTSIDE RECORDS SUMMARY | 2022-04-23 04:57 | XMS_ITS | Encounter Summary ---
:1985 Author Organization [employer] Address [address] [place] [address] Care Team Providers Name Role Phone Andrea Rodney MD Primary Care Provider Reason for Visit Reason Comments Other Encounter Details Date Type Department Care Team Description [facility]/2011 [facility], Other [address] [facility] [place] [address] [place] [address] [phone] Social History Tobacco Use Types Packs/Day Years Used Date Smoking Tobacco: Never Assessed Sex Assigned at Date Recorded Not on file documented as of this encounter Nursing Notes Anahi Villalobos RN - 07/11/2011 8:11 PM CDT MomNuzhat, calling as patient is in [place] and is 11 weeks and just diagnosed with a blood clot behind her knee. Wants Dr. Rodney contacted as patient wants to fly home to be treated and wants to know if that would be OK? Explained to her that is not a good idea but mom wants manager field investigations to contact provider for an answer. Mom is at [phone]. Paged manager field investigations. Dr. Lynne Cortez called and said flying is not a good idea and patient should have the provider there call here to speak with the manager field investigations. Called mom and informed her. documented in this encounter Plan of Treatment Not on filedocumented as of this encounter Visit Diagnoses Not on filedocumented in this encounter Care Teams Director Of Training Relationship Specialty Start Date End Date Andrea Rodney MD PCP - General 12/15/10 1415 [facility] [place] [address] documented as of this encounter
--- OUTSIDE RECORDS SUMMARY | 2022-04-23 04:57 | XMS_ITS | Encounter Summary ---
:1985 Author Organization [facility] Address [address] [place] [address] Care Team Providers Name Role Phone Andrea Rodney MD Primary Care Provider Reason for Visit Reason Comments Other Encounter Details Date Type Department Care Team Description 04/16/2010 Telephone Scot Toussaint Oth er Obstetrics/Gynecolog y [address] [facility] [address] [place] [address] [place] [address] [phone] (Wo rk) Social History Tobacco Use Types Packs/Day Years Used Date Smoking Tobacco: Never Assessed Sex Assigned at Date Recorded Not on file documented as of this encounter [facility], Message - 04/16/2010 10:52 AM CDT Phone Note filed by Veracode at 01/04/11 0500 Author: Veracode Service: (none) Author Type: (none) Filed: 01/04/11 1340 Note Time: 04/16/10 1052 Status: Signed Oxyacetylene Torch Operator: Veracode (Resource) Non -Symptom Message from Front Line Caller Name/Relationship:self Primary Cut Off Saw Set Up Operator:Marley Message:pt is calling regarding some testing she was supposed to be having at her next appt. would like Dr. Rider to give her a call about this. thank you Brush Clearing Laborer: Best call back number:[phone] Is it OK to leave a confidential message on this voicemail?yes *ECODE~PNMSG2 Created on 16Apr2010 10:52am by DAVIN CADENA On 16Apr2010 1:26pm SHREE VARGAS wrote: Called pt. back. Will be 33 weeks on 04-18-10. . History of pre eclampsia x 2. Is having Ellis. LE edema and Ellis.edema hands. Says when she presses down on her feet it turns white and takes about 4 seconds for the skin to come back to nl. Gained 3 pounds last week. Lots of irregular contractions lasting one minute or more. Seen in clinic today. Put on Bedrest per Yesenia Rea . Patient says she was told by Dr. Rider they would start checking her urine for protein due to her history. Delivered first child at 34 weeks and 2nd child at 36 weeks. Also gets a sharp pain across lower abdomen when turning in bed. Denies headache or upper epigastric pain. Was induced with 2nd baby at 36 weeks due to spilling protein. Please advise patient re: checking for protein in urine. On 16Apr2010 2:03pm SCOT RIDER wrote: Chart reviewed. Spoke with pt. Will evaluate for PIH 8/9 as today's visit w/o concerns other than PTL symptoms. Acknowledged by SCOT RIDER on 2:03pm TY COMMISSIONER documented in this encounter Plan of Treatment Not on filedocumented as of this encounter Visit Diagnoses Not on filedocumented in this encounter Care Teams Directional Drill Operator Relationship Specialty Start Date End Date Andrea Rodney MD PCP - General 12/15/10 0515 [facility] [place] [id number] (work) documented as of this encounter
--- OUTSIDE RECORDS SUMMARY | 2022-04-23 04:57 | XMS_ITS | Encounter Summary ---
:1985 Author Organization [facility] Address [address] [address] Care Team Providers Name Role Phone Andrea Rodney MD Primary Care Provider Reason for Visit Reason Comments Other Encounter Details Date Type Department Care Team Description 05/06/2010 Telephone Martine Jeffers RN Other Obstetrics/Gynecolog y [address] [place] [address] Social History Tobacco Use Types Packs/Day Years Used Date Smoking Tobacco: Never Assessed Sex Assigned at Date Recorded Not on file documented as of this encounter Progress Notes Martine Pimentel RN - 05/06/2010 8:39 PM CDT Phone Note filed by Martine Pimentel RN at 01/04/11 1521 Author: Martine Pimentel RN Service: (none) Author Type: Registered Nurse Filed: 01/04/11 1521 Note Time: 05/06/102038 Status: Signed Framer: Martine Pimentel RN (Registered Nurse) CLINICIAN FOLLOW-UP: Contacted food production machine operator clinician: scallop cutter paged out to address the issue IMPRESSION: OB Symptom URGENT SYMPTOMS: patient >20 weeks gestation with abdominal or menstrual-like cramping or tightening. Additional Symptoms: Pt was seen today , and is 36 weeks along; She has been having cramping off and on and was checked out; She is calling now because she has had bad abdominal pain on one side for the last 3 hours; unable to walk almost; difficult to move; Denies any emergent symptoms PATIENT INFORMATION: Problem List: Reviewed today in LastWord INTERIM/HOME MANAGEMENT RECOMMENDATIONS: rest, food production machine operator clinician has not contacted caller within 20 minutes, any other questions or concerns. PLAN: CONTACT VEGETABLE TESTER CLINICIAN FOR JUSTIN NEWELL Patient/Caller agrees with plan and denies additional questions. Reference(s) Used: [facility] After Hours Nurse Line Reference, Call Complete. *SH~PNNL~OB AFTERHR~ Created on 06May2010 8:39pm by MARTINE PIMENTEL NE COMMUNICATIONS MANAGER documented in this encounter Plan of Treatment Not on filedocumented as of this encounter Visit Diagnoses Not on filedocumented in this encounter Care Teams Software Engineer Relationship Specialty Start Date End Date Andrea Rodney MD PCP - General 12/15/10 1415 [place] [address] documented as of this encounter
--- OUTSIDE RECORDS SUMMARY | 2022-04-23 04:57 | XMS_ITS | Encounter Summary ---
:1985 Author Organization [facility] Address [address], [place] [address] Care Team Providers Name Role Phone Andrea Rodney MD Primary Care Provider Encounter Details Date Type Department Care Team Description 04/22/2010 PN Conversion Only [place] [facility] Scot Roach [address] [facility] [place] [address] [address] [place], [place] [address] (Wo rk) Social History Tobacco Use Types Packs/Day Years Used Date Smoking Tobacco: Never Assessed Sex Assigned at Date Recorded Not on file documented as of this encounter Plan of Treatment Not on filedocumented as of this encounter Procedures Procedure Name Priority Date/Time Associated Comments Diagnosis CREATININE / GFR Routine 04/22/2010 9:56 AM Resul ts for this CDT procedure are i n the results section. COMPLETE BLOOD Routine 04/22/2010 9:56 AM Results for this COUNT-W/DIFF CDT procedure are i n the results section. URIC ACID Routine 04/22/2010 9:56 AM Results f or this CDT procedure are i n the results section. ALT (SGPT) Routine 04/22/2010 9:56 AM Results f or this CDT procedure are i n the results section. AST Routine 04/22/2010 9:56 AM Results f or this CDT procedure are i n the results section. BUN Routine 04/22/2010 9:56 AM Results f or this CDT procedure are i n the results section. BILIRUBIN, TOTAL Routine 04/22/2010 9:56 AM Resul ts for this CDT procedure are i n the results section. documented in this encounter Results Uric Acid (04/22/2010 9:56 AM CDT) athologist Signature Uric Acid Serum 3.3 2.5 - 8.5 HP CONVERSION mg/dL Specimen (Source) Anatomical Collection Method Collection Time Re ceived Time Location / / Volume Laterality 04/22/2010 9:56 AM CDT Scot Roach MD LAB_1 Performing Organization Address [facility] Phon e Number HP CONVERSION Creatinine / GFR (04/22/2010 9:56 AM CDT) athologist Signature Creatinine 0.7 0.4 - 1.3 HP CONVERSION Serum mg/dL [...] ceived Time Location / / Volume Laterality 04/22/2010 9:56 AM CDT Scot Roach MD LAB_1 Performing Organization Address [facility] Phon e Number HP CONVERSION BUN (04/22/2010 9:56 AM CDT) athologist Signature Blood Urea 11 5 - 26 HP CONVERSION Nitrogen mg/dL Specimen (Source) Anatomical Collection Method Collection Time Re ceived Time Location / / Volume Laterality 04/22/2010 9:56 AM CDT Scot Roach MD LAB_1 Performing Organization Address City/[facility] Code Phon e Number HP CONVERSION Bilirubin, Total (04/22/2010 9:56 AM CDT) athologist Signature Bilirubin Total 0.3 0.2 - 1.2 HP CONVERSION mg/dL Specimen (Source) Anatomical Collection Method Collection Time Re ceived Time Location / / Volume Laterality 04/22/2010 9:56 AM CDT Scot Roach MD LAB_1 Performing Organization Address City/[facility]/ZIP Code Phon e Number HP CONVERSION AST (04/22/2010 9:56 AM CDT) [facility] Method Time Signature Aspartate 16 0 - 45 HP CONVERSION Aminotransferase U/L Specimen (Source) Anatomical Collection Method Collection Time Re ceived Time Location / / Volume Laterality 04/22/2010 9:56 AM CDT Scot Roach MD LAB_1 Performing Organization Address City/[facility]/ZIP Code Phon e Number HP CONVERSION ALT (SGPT) (04/22/2010 9:56 AM CDT) [facility] Method Time Signature Alanine 8 4 - 55 HP CONVERSION Aminotransferase U/L Specimen (Source) Anatomical Collection Method Collection Time Re ceived Time Location / / Volume Laterality 04/22/2010 9:56 AM CDT Scot Roach MD LAB_1 Performing Organization Address [facility] Phon e Number HP CONVERSION (ABNORMAL) Hemogram/Plts/Diff (04/22/2010 9:56 AM CDT) [facility] Method Time Signature White Blood Cell 9.0 3.8 - 11.0 HP CONVERSIO N Count k/cmm Red Blood Cell 3.98 3.70 - HP CONVERSION Count 5.20 m/cmm Hemoglobin 12.3 11.8 - HP CONVERSION 15.5 g/dL Hematocrit 35.9 35.0 - HP CONVERSION 46.0 % Mean Corpuscular 90.3 80.0 - HP CONVERSION Volume 100.0 fL RDW 12.6 11.0 - HP CONVERSION 15.0 % Platelet Count 109 (L) 140 - 450 HP CONVERSION k/cmm Absolute 6.8 2.0 - 6.8 HP CONVERSION Neutrophils k/cmm Absolute 1.4 1.0 - 4.0 HP CONVERSION Lymphocytes k/cmm Absolute 0.6 0.2 - 1.0 HP CONVERSION Monocytes k/cmm Absolute 0.2 0.0 - 0.5 HP CONVERSION Eosinophils k/cmm Absolute 0.0 0.0 - 0.2 HP CONVERSION Basophils k/cmm Specimen (Source) Anatomical Collection Method Collection Time Re ceived Time Location / / Volume Laterality 04/22/2010 9:56 AM CDT Scot Roach MD LAB_1 Performing Organization Address City/State/ZIP Code Phon e Number HP CONVERSION documented in this encounter Visit Diagnoses Not on filedocumented in this encounter Care Teams Precision Assembly Inspector Relationship Specialty Start Date End Date Andrea Rodney MD PCP - General 12/15/[address] [facility] [place] [id number] documented as of this encounter
--- OUTSIDE RECORDS SUMMARY | 2022-04-23 04:57 | XMS_ITS | Encounter Summary ---
:1985 Author Organization [facility] Address [address] [place] [address] Care Team Providers Name Role Phone Andrea Rodney MD Primary Care Provider Encounter Details Date Type Department Care Team Description 07/01/2010 Office [place] [address] [place] [address] [address] [facility] [phone] [place], [address] Social History Tobacco Use Types Packs/Day Years Used Date Smoking Tobacco: Never Assessed Sex Assigned at Date Recorded Not on file documented as of this encounter Plan of Treatment Not on filedocumented as of this encounter Visit Diagnoses Not on filedocumented in this encounter Care Teams Intake Man Relationship Specialty Start Date End Date Andrea Rodney MD PCP - General 12/15/[address] [place] [id number] documented as of this encounter
--- OUTSIDE RECORDS SUMMARY | 2022-04-23 04:57 | XMS_ITS | Encounter Summary ---
:1985 Author Organization [facility] Address [address], [place] [address] Support Name Relationship Address Phone Raghu Kim Unavailable [address] [facility] [phone] [place] [address] Nuzhat Lizarraga Unavailable Unavailable [place], [place] Care Team Providers Name Role Phone Andrea Rodney MD Primary Care Provider Encounter Details Date Type Department Care Team Description 12/25/2009 Routine [place] Yesenia Rea, RN Obstetrics/Gynecolog y [address] [place] [address] Social History Tobacco Use Types Packs/Day Years Used Date Smoking Tobacco: Never Assessed Sex Assigned at Date Recorded Not on file documented as of this encounter Last Filed Vital Signs Vital Sign Reading Time Taken Comments Blood Pressure 110/64 12/25/2009 9:02 AM CDT Pulse - - Temperature - - Respiratory Rate - - Oxygen Saturation - - Inhaled Oxygen Concentration - - Weight 57.6 kg (126 lb 15.8 oz) 12/25/2009 9:02 AM C: 5 7.6kg CDT Height 158.8 cm (5' 2.5) 12/25/2009 9:02 AM C: 158.8cm CDT Body Mass Index 22.86 12/25/2009 9:02 AM CDT documented in this encounter Plan of Treatment Not on filedocumented as of this encounter Visit Diagnoses Not on filedocumented in this encounter Care Teams Delicatessen Department Manager Relationship Specialty Start Date End Date Andrea Rodney MD PCP - General 12/15/10 [address] [place] [address] documented as of this encounter
--- OUTSIDE RECORDS SUMMARY | 2022-04-23 04:57 | XMS_ITS | Encounter Summary ---
:1985 Author [facility] Address [address] [place] [address] Care Team Providers Name Role Phone Andrea Rodney MD Primary Care Provider Encounter Details Date Type Department Care Team Description 01/12/2011 PN Conversion Only [facility] Andrea Rodney, Medicine MD [address] [facility] . [address] [place] [address] [place] [address] [phone] (Wo rk) Social History Tobacco Use Types Packs/Day Years Used Date Smoking Tobacco: Never Assessed Sex Assigned at Date Recorded Not on file documented as of this encounter Plan of Treatment Not on filedocumented as of this encounter Visit Diagnoses Not on filedocumented in this encounter Care Teams Nuclear Medicine Specialist Relationship Specialty Start Date End Date Andrea Rodney MD PCP - General 12/15/10 [address] [place] [address] documented as of this encounter
--- OUTSIDE RECORDS SUMMARY | 2022-04-23 04:58 | XMS_ITS | Encounter Summary ---
:1985 Author Organization [facility] Address [address] [place] [address] Care Team Providers Name Role Phone Andrea Rodney MD Primary Care Provider Encounter Details Date Type Department Care Team Description 05/23/2009 PN Conversion Only [place] CONVERSION Andrea Rodney, [address] [place] [address] [address] [place] [address] (Wo rk) Social History Tobacco Use Types Packs/Day Years Used Date Smoking Tobacco: Never Assessed Sex Assigned at Date Recorded Not on file documented as of this encounter Plan of Treatment Not on filedocumented as of this encounter Visit Diagnoses Not on filedocumented in this encounter Care Teams Moisture Conditioner Operator Relationship Specialty Start Date End Date Andrea Rodney MD PCP - General 12/15/[address] [place] [address] documented as of this encounter
--- OUTSIDE RECORDS SUMMARY | 2022-04-23 04:58 | XMS_ITS | Encounter Summary ---
:1985 Author Organization [facility] Address [address] [place] [address] Care Team Providers Name Role Phone Andrea Rodney MD Primary Care Provider Encounter Details Date Type Department Care Team Description 06/05/2009 PN Conversion Only [place] CONVERSION Dann Villalobos [address] [facility] [address] [facility] [address] [place], [place] [address] (Wo rk) Social History Tobacco Use Types Packs/Day Years Used Date Smoking Tobacco: Never Assessed Sex Assigned at Date Recorded Not on file documented as of this encounter Plan of Treatment Not on filedocumented as of this encounter Procedures Procedure Name Priority Date/Time Associated Diagnosis Comme nts HCG QUANT TO [facility] 06/05/2009 2:44 PM Resul ts for [facility] CDT procedure are i n the results section. documented in this encounter Results HCG QUANT TO [facility] (06/05/2009 2:44 PM CDT) athologist Signature HCG Quant 5,236.0 mIU/L [facility] Comment: Expected value for healthy non- premenopausal women <5 mIU/L Expected value for healthy postmenopausa l women (>55 yrs) <14 mIU/L FOR GESTATIONAL ASSESSMENT See Range Tab le Below Weeks Post LMP ? Approximate hCG Range: 3-4 ?? weeks ?6 - 750 4-5 ?? weeks ?067 - 4850 5-6 ?? weeks ?020 - 21808 6-7 ?? weeks ?7178 - 306956 7-8 ?? weeks ?44810 - 57056 1 8-9 ?? weeks ?02935 - 21211 0 9-10 ??weeks ?59116 - 46766 7 10-16 weeks ?9087 - 90448 16-19 weeks ?9147 - 38159 Performed at [address] [place] [address] Specimen (Source) Anatomical Collection Method Collection Time Re ceived Time Location / / Volume Laterality 06/05/2009 2:44 PM CDT Dann Villalobos MD LAB_1 Performing Organization Address City/State/ZIP Code Phon e Number HP CONVERSION documented in this encounter Visit Diagnoses Not on filedocumented in this encounter Care Teams Retail Banker Relationship Specialty Start Date End Date Andrea Rodney MD PCP - General 12/15/[address] [place], [place] [address] [address] documented as of this encounter
--- OUTSIDE RECORDS SUMMARY | 2022-04-23 04:58 | XMS_ITS | Encounter Summary ---
:1985 Author Organization [facility] Address [address] [place] [address] Care Team Providers Name Role Phone Andrea Rodney MD Primary Care Provider Encounter Details Date Type Department Care Team Description 06/20/2009 Office Visit [place] [address] Dann Villalobos, Obstetrics/Gynecolog y 15[address] [facility] . [address] [place] [address] [address] [place], [place] [address] (Wo rk) Social History Tobacco Use Types Packs/Day Years Used Date Smoking Tobacco: Never Assessed Sex Assigned at Date Recorded Not on file documented as of this encounter Plan of Treatment Not on filedocumented as of this encounter Visit Diagnoses Not on filedocumented in this encounter Care Teams Media Relations Director Relationship Specialty Start Date End Date Andrea Rodney MD PCP - General 12/15/10 1415 [place] [address] documented as of this encounter
--- OUTSIDE RECORDS SUMMARY | 2022-04-23 04:58 | XMS_ITS | Encounter Summary ---
:1985 Author Organization [facility] Address [address] [place] [address] Care Team Providers Name Role Phone Andrea Orozco MD Primary Care Provider Reason for Visit Reason Comments Other Encounter Details Date Type Department Care Team Description 05/19/2009 Telephone [facility] Andrea Orozco MD Other [address] [facility] . [address] [place] [address] [place], [place] [address] (Wo rk) Social History Tobacco Use Types Packs/Day Years Used Date Smoking Tobacco: Never Assessed Sex Assigned at Date Recorded Not on file documented as of this encounter Progress Notes Jaswinder Whitaker RN - 05/19/2009 1:03 PM CDT Phone Note filed by Jaswinder Whitaker RN at 01/03/11 4684 Author: Jaswinder Whitaker RN Service: (none) Author Type: Registered Nurse Filed: 01/03/11 1049 Note Time: 05/19/09 1303 Status: Signed Correctional Case Manager: Jaswinder Whitaker RN (Registered Nurse) CLINICIAN FOLLOW-UP: FYI (note is complete) IMPRESSION: Vaginal Bleeding in SEMI-URGENT SYMPTOMS: Light vaginal bleeding/spotting, denies all of the following: pain, cramping or passing of tissue, Additional Symptoms: Patient is 23 year old, took home test 2 weeks ago and was positive, LMP 04-18-09. Had some spotting that started yesterday and minimal cramping, continuing today. No sexual intercourse in last 1-2 days. Hx of miscarriage in 2005. Blood when she wipes, not heavy flow at all. Denies any emergent symptoms PATIENT INFORMATION: Problem List: Reviewed today in LastWord --- Allergies: Reviewed/updated today in LastWord --- Medications: Reviewed/updated today in LastWord --- Status: Approximate date of last menstrual period was 04-18-09. INTERIM/HOME MANAGEMENT RECOMMENDATIONS: Monitor amount of flow. Avoid intercourse until 48 hours after bleeding stops. Declined Interim/Home Management Advised to call back if any of the following occur: vaginal bleeding increases, becomes red in color, cramping, backache, passing of clots or tissue, vaginal bleeding does not resolve in 48 hours, symptoms persist or worsen, any other questions or concerns. PLAN: SEND ROUTINE MESSAGE TO CARE TEAM; advised patient to call 's office for appt as soon as possible for routine OB care. Can be normal to have some light spotting as placenta is implanting but call sooner if flow is heavy/cramping worsens. Patient/Caller agrees with plan and denies additional questions. Reference(s) Used: [facility] OB VAginal Bleeding Nursing Reference, Call Complete. *~PNNL~OB VAGINAL~ Created on 19May2009 1:03pm by JASWINDER WHITAKER On 22May2009 2:29pm BOBBY BUSTAMANTE wrote: patient has appt 05/23/[address] Orozco. Family [facility] does not do OB care. Do you want to see her still or send this to OB dept.? On 22May2009 2:37pm ANDREA OROZCO wrote: I can see Acknowledged by ANDREA OROZCO on 2:37pm Acknowledged by CRYSTAL RUBALCAVA on 3:00pm On 23May2009 11:02am SAUNDRA WLOFE wrote: pt states she has an appt today Acknowledged by BOBBY BUSTAMANTE on 9:58am On 25May2009 2:21pm FELIPA TSE wrote: pt calling back On 25May2009 2:24pm GRIS CLEMONS wrote: pt calling; requesting HCG lab results. labs not back yet. When results are back please call pt at [phone] ok to On 25May2009 3:59pm ANDREA OROZCO wrote: Called. BHCG up 50%. Will observe Acknowledged by ANDREA OROZCO on 3:59pm RIOR BLOCK WIRER documented in this encounter Plan of Treatment Not on filedocumented as of this encounter Visit Diagnoses Not on filedocumented in this encounter Care Teams Brazer Assembler Relationship Specialty Start Date End Date Andrea rOozco MD PCP - General 12/15/10 14[address] [facility] [place] [phone] documented as of this encounter
--- OUTSIDE RECORDS SUMMARY | 2022-04-23 04:58 | XMS_ITS | Encounter Summary ---
:1985 Author Organization [facility] Address [address] [place] [address] Care Team Providers Name Role Phone Andrea Rodney MD Primary Care Provider Encounter Details Date Type Department Care Team Description 06/06/2009 Office Visit [place] 1515 Dann Villalobos, Obstetrics/Gynecolog y 1515 [facility] . [address] [place] [address] [address] [place], [place] [address] (Wo rk) Social History Tobacco Use Types Packs/Day Years Used Date Smoking Tobacco: Never Assessed Sex Assigned at Date Recorded Not on file documented as of this encounter Last Filed Vital Signs Vital Sign Reading Time Taken Comments Blood Pressure 110/70 06/06/2009 1:09 PM CDT Pulse - - Temperature - - Respiratory Rate - - Oxygen Saturation - - Inhaled Oxygen Concentration - - Weight 59.6 kg (131 lb 7.7 oz) 06/06/2009 1:09 PM C: 59 .6kg CDT Height 158.8 cm (5' 2.5) 06/06/2009 1:09 PM C: 158.8cm CDT Body Mass Index 23.67 06/06/2009 1:09 PM CDT documented in this encounter Progress Notes Dann Villalobos MD - 06/06/2009 12:01 AM CDT Progress Notes signed by Dann Villalobos MD at 06/16/09 0830 Author: Dann Villalobos MD Service: (none) Author Type: Physician Filed: 01/04/11 1630 Note Time: 06/06/09 0001 Status: Signed Supervisor Adult Education: Dann Villalobos MD (Physician) NAME: RAEGAN KIM MR#: [id number] ACCT: [id number] VISIT: [id number] DICTATING CLINICIAN: Dann Villalobos MD CONFIRM #: [id number] LOC: 3212 CLINIC PROGRESS NOTE DATE OF VISIT: 06/06/2009 SUBJECTIVE: Chief Complaint: First trimester vaginal bleeding. HISTORY: The patient has been seen recently and followed for an early . She was seen 06/05/09. See LastWord for that dictation. She had a quantitative beta HCG drawn, which was 5,236 and is not rising appropriately. She had an ultrasound scheduled. Verbal report from Dr. Caicedo, intrauterine gestational sac, heart rate 95 beats per minute. Yolk sac enlarged. Irregular gestational sac. Ultrasound results were discussed with the patient. The patient has had no bleeding, and her pain has decreased. OBJECTIVE: No exam today. ASSESSMENT: First trimester intrauterine , vaginal bleeding. Abnormalities on ultrasound. PLAN: Repeat ultrasound in 1 week and follow up after ultrasound. Patient's questions were answered. Patient is in agreement with this plan. Total Time: 10 minutes. Counseling Time: 9 minutes. MLA:[id number] C: 06/07/09 09:38 CONFIRM #: [id number] documented in this encounter Plan of Treatment Not on filedocumented as of this encounter Visit Diagnoses Not on filedocumented in this encounter Care Teams Hand Spinner Relationship Specialty Start Date End Date Andrea Rodney MD PCP - General 12/15/10 [address] [place] [address] documented as of this encounter
--- OUTSIDE RECORDS SUMMARY | 2022-04-23 04:58 | XMS_ITS | Encounter Summary ---
:1985 Author [facility] Address [address] [place] [address] Care Team Providers Name Role Phone Andrea Rodney MD Primary Care Provider Encounter Details Date Type Department Care Team Description 06/13/2008 PN Conversion Only [place] CONVERSION Andrea Rodney, [address] [facility] [place] [address] 1415 [facility] [place] [address] (Wo rk) Social History Tobacco Use Types Packs/Day Years Used Date Smoking Tobacco: Never Assessed Sex Assigned at Date Recorded Not on file documented as of this encounter Plan of Treatment Not on filedocumented as of this encounter Procedures Procedure Name Priority Date/Time Associated Comments Diagnosis ANATOMICAL PATH Routine 06/13/2008 8:37 AM Result s for this LIQUID BASED CDT procedure are i n the results section. documented in this encounter Results Pap Smear (06/13/2008 8:37 AM CDT) [facility] gist Method Time Signature PAP Smear SEE TEXT No normal HP CONVERSION Liquid Based range Comment: Patient: RAEGAN KIM ? CERVICAL CYTOLOGY REPORT Pathology # ??[id number] ?Date Obtained: [id number] ? Date Received: CYTOLOGIC IMPRESSION: Low grade squamous intraepithelial lesio n, mild dysplasia (LSIL), encompassing mild epithelial dysplasia a nd koilocytic changes consistent with condyloma acuminatum. Verified 06/16/08 by: ??Donavan Jean MD ? (electronic signature) ? HERMINIA TIONAL DATA LMP: CLINICAL HIST LIQUID BASED PAP CERVICAL SPECIMEN ADEQUACY: ?? Satisfactory. ENDOCERVICAL CELLS: ??Present. Specimen (Source) Anatomical Collection Method Collection Time Re ceived Time Location / / Volume Laterality 06/13/2008 8:37 AM CDT Andrea Rodney MD LAB_1 Performing Organization Address City/State/ZIP Code Phon e Number HP CONVERSION documented in this encounter Visit Diagnoses Not on filedocumented in this encounter Care Teams Brakes Inspector Relationship Specialty Start Date End Date Andrea Rodney MD PCP - General [facility]15/10 [facility] [place] [address] documented as of this encounter
--- OUTSIDE RECORDS SUMMARY | 2022-04-23 04:58 | XMS_ITS | Encounter Summary ---
:1985 Author Organization [facility] Address [address] [place] [address] Care Team Providers Name Role Phone Andrea Rodney MD Primary Care Provider Reason for Visit Reason Comments Other Encounter Details Date Type Department Care Team Description 06/27/2009 Telephone [place] 1515 [facility]et [facility], Message Other 1515 [facility] [place] [address] Social History Tobacco Use Types Packs/Day Years Used Date Smoking Tobacco: Never Assessed Sex Assigned at Date Recorded Not on file documented as of this encounter Progress Notes Center, Message - 06/27/2009 2:37 PM CDT Phone Note filed by RateSetter at 01/03/11 1400 Author: RateSetter Service: (none) Author Type: (none) Filed: 01/03/11 1400 Note Time: 06/27/09 1437 Status: Signed Factory Engineer: RateSetter (Resource) Front Line Sx Call Caller Name/Relationship:Elli Primary Scratch Brusher: Symptom or request? pt is calling to get note stating that she can return to work. please Fax to [phone] Attn Owen Cortez Is appointment scheduled & when?no Floatlight Loading Supervisor:pt Best call back number:[phone] Is it OK to leave a confidential message on this voicemail?vm y *ECODE~PNSX2 Created on 27Jun2009 2:37pm by CARMELO PAGE On 28Jun2009 9:41am JESUS GARCIA wrote: No AYALA on file in SDoc. Above request forwarded to MD Vale fraga for note? Please advise. Per TRX last seen 06/13/09. Nurse to contact pt regarding AYALA if note is approved. On 28Jun2009 9:46am TIMMY GLOVER wrote: What date is she going to return to work? Acknowledged by TIMMY GLOVER on 9:46am On 28Jun2009 9:54am CARMELO PAGE wrote: pt returned on Thursday and was told that she need that note to state it is ok for her to continue to work. On 28Jun2009 1:42pm TIMMY GLOVER wrote: Note signed and given to Tamiko. Acknowledged by TIMMY GLOVER on 1:42pm On 28Jun2009 1:48pm EVELIN KUMAR wrote: Message left that note is ready for filler picker. We are unable to fax due to no AYALA on file to send to employer. Note complete. S COMMUNICATIONS MANAGER documented in this encounter Plan of Treatment Not on filedocumented as of this encounter Visit Diagnoses Not on filedocumented in this encounter Care Teams Porcelain Buildup Assistant Relationship Specialty Start Date End Date Andrea Rodney MD PCP - General 12/15/10 1415 [facility] [place] [id number] documented as of this encounter
--- OUTSIDE RECORDS SUMMARY | 2022-04-23 04:58 | XMS_ITS | Encounter Summary ---
:1985 Author Organization [facility] Address [address] [address] Care Team Providers Name Role Phone Andrea Rodney MD Primary Care Provider Encounter Details Date Type Department Care Team Description 10/30/2009 Initial [place] Yesenia Rea, RN Obstetrics/Gynecolog y [address] [place] [address] Social History Tobacco Use Types Packs/Day Years Used Date Smoking Tobacco: Never Assessed Sex Assigned at Date Recorded Not on file documented as of this encounter Progress Notes Yesenia Rea, GRAVEL ROOFER, VETERINARY TECHNICIAN ASSISTANT - 10/30/2009 12:01 AM CST Progress Notes signed by CULLEN Padilla at 10/30/09 0946 Author: CULLEN Padilla Service: (none) Author Type: Nurse Practitioner Filed: 01/04/112005 Note Time: 10/30/09 0001 Status: Signed Supervisory Geographer: CULLEN Padilla (Nurse Practitioner) New OB visit Subjective: Elli is a 24 year old female who presents to clinic for new OB exam. She has had her new OB labs drawn, which include blood type A+, negative antibody screen, hemoglobin 13.4, rubella immune, RPR nonreactive, hepatitis B negative, HIV nonreactive, and urine culture showing mixed gram-positive organisms. LMP: Definite LMP of 08/24/09 Menstrual interval: 30 to 32 days Positive test: 09/24/09 Gestation: 9 weeks 4 days EDC: 05/31/10 Medical/surgical history No chronic medical problems. Had varicella. forensic psychiatrist history: /delivery history: 2004 - vaginal delivery of a 3-pound 9-ounce female at 36 weeks. She had severe preeclampsia with this and possible placental abruption. Her [facility] had IUGR and [facility]. 2005 - Spontaneous at 8 weeks 2006 - Vaginal delivery of a 5 pound 9 ounce female at 36 weeks. She was induced for preeclampsia. 2008 - Spontaneous at 12 weeks. Pap smear history: LSIL pap in 04/21. Colposcopy in 09/22 showed chronic cervicitis. No follow up pap smears have been performed. STD history: None Social history Occupation: Linen Attendant at [employer] Marital status: Tobacco/alcohol/drugs: none Cat at home: no Family/genetic history: Denies any defects in her or the father of the baby's family. Medications: Medications reviewed and updated in LastWord. Allergies: Allergies reviewed and updated in LastWord. Review of Systems: Nausea, which is improving. The remainder of the complete review of systems is negative. Objective: Blood Pressure: 100/70 Weight: 128 pounds, pre- weight 131 pounds Height: 62 inches General: Well developed, well-nourished female. HEENT: Sclera clear, 8pupils equal. Oropharynx normal appearing. Neck: No lymphadenopathy, 9thyromegaly, or masses noted. Cardiovascular: Heart with regular rate and :rhythm. No peripheral edema. Respiratory: Clear to auscultation ;bilaterally. Normal respiratory effort. Breasts: No masses, lesions, or <nipple discharge. No axillary lymphadenopathy. Abdomen: No tenderness, =masses or hepatosplenomegaly. Pelvic: External without lesions. Vagina and cervix pink without lesions. Uterus palpates to approximately 8 week size, and is mobile, and non-tender. Adnexa without masses or tenderness. @Cervix long, thick, closed. Rectal: No hemorrhoids or redness noted. Lymphatic: No neck, supraclavicular, axillary, or groin lymphadenopathy. Skin: No lesions. Psych: Alert and oriented. Appropriate affect, no Cagitation. Heart Tones: unable to hear heart beat with doptone. Ultrasound: Transvaginal ultrasound performed by myself to check for dating and viability of for patient anxiety. Single, viable, intrauterine with average crown rump length 2.13cm, consistent with 8 weeks 5 days. Yolk sac present. movement present. heart rate 176 beats/minute. No adnexal masses appreciated. Assessment: New OB exam. Plan: Return to clinic in 4 weeks for NOB 2 exam with one of the chef saucier physicians. Pap smear. Flu vaccine and H1N1 vaccine. New OB education provided regarding anticipated care, genetic screening, diet, exercise, sexual activity, travel, medication use in , environmental/work hazards, seat belt use, toxoplasmosis and listeriosis. Patient expressed understanding of education. Total time with patient 45 minutes, total education time 30. *SH~DNS~newOB APPLYING MACHINE TENDER documented in this encounter Plan of Treatment Not on filedocumented as of this encounter Visit Diagnoses Not on filedocumented in this encounter Care Teams Activities Attendant Relationship Specialty Start Date End Date Andrea Rodney MD PCP - General 12/15/[address] [place] [address] [place] [id number] documented as of this encounter
--- OUTSIDE RECORDS SUMMARY | 2022-04-23 04:58 | XMS_ITS | Encounter Summary ---
:1985 Author Organization [facility] Address [address] [place] [address] Care Team Providers Name Role Phone Andrea Rodney MD Primary Care Provider Encounter Details Date Type Department Care Team Description 08/24/2007 Nursing Visit [facility] Andrea Rodney MD 1415 [facility] . [address] [place] [address] [place] [address] [phone] (Wo rk) Social History Tobacco Use Types Packs/Day Years Used Date Smoking Tobacco: Never Assessed Sex Assigned at Date Recorded Not on file documented as of this encounter Plan of Treatment Not on filedocumented as of this encounter Visit Diagnoses Not on filedocumented in this encounter Care Teams Machine I Trimmer Relationship Specialty Start Date End Date Andrea Rodney MD PCP - General 12/15/10 [address] [place] [address] documented as of this encounter
--- OUTSIDE RECORDS SUMMARY | 2022-04-23 04:58 | XMS_ITS | Encounter Summary ---
:1985 Author Organization [facility] Address [address] [place] [address] Care Team Providers Name Role Phone Andrea Rodney MD Primary Care Provider Reason for Visit Reason Comments Other Encounter Details Date Type Department Care Team Description 06/19/2009 Telephone [place] 1515 Timmy Glover MD Other Obstetrics/Gynecolog y 1515 [facility] Shivam 1515 [facility] . [address] [place] [address] [place] [address] [phone] (Wo rk) Social History Tobacco Use Types Packs/Day Years Used Date Smoking Tobacco: Never Assessed Sex Assigned at Date Recorded Not on file documented as of this encounter Progress Notes Center, Message - 06/19/2009 12:13 PM CDT Phone Note filed by Mr Banana at 01/03/11 6777 Author: Mr Banana Service: (none) Author Type: (none) Filed: 01/03/11 1316 Note Time: 06/19/09 1213 Status: Signed Elder Counselor: Mr Banana (Resource) Front Line Sx Call Caller Name/Relationship: Elli Primary Meter Reading Clerk: Wilfredo Symptom or request? questions about her miscarriage. Heavy bleeding and cramping since 06/18 and wondering if she should still come in for her u/s 06/20. Is appointment scheduled & when? Software Configuration Analyst: pt Best call back number: [phone] Is it OK to leave a confidential message on this voicemail? y *ECODE~PNSX2 Created on 19Jun2009 12:13pm by JEFF NELSON On 19Jun2009 12:21pm KOJO QUICK wrote: Spoke with pt. She started having bright red bleeding yesterday. States was changing a pad q 15-45 min yesterday. Has slowed somewhat today. Rates cramping at 5/10. Elli has an US and an appt.with you tomorrow afternoon. Asking if she should keep these appts. I told her to keep them. If you do not want her to keep the appt.s please call her at [phone]. Acknowledged by TIMMY GLOVER on 1:36pm TAL MEDIA PRODUCER documented in this encounter Plan of Treatment Not on filedocumented as of this encounter Visit Diagnoses Not on filedocumented in this encounter Care Teams Tandem Operator Relationship Specialty Start Date End Date Andrea Rodney MD PCP - General 12/15/10 [address] [place] [id number] documented as of this encounter
--- OUTSIDE RECORDS SUMMARY | 2022-04-23 04:58 | XMS_ITS | Encounter Summary ---
:1985 Author Organization [facility] Address [address] [address] Care Team Providers Name Role Phone Andrea Rodney MD Primary Care Provider Encounter Details Date Type Department Care Team Description 10/30/2009 Director Construction Services Only Yesenia Zepeda, RN Obstetrics/Gynecolog y [address] [place] [address] Social History Tobacco Use Types Packs/Day Years Used Date Smoking Tobacco: Never Assessed Sex Assigned at Date Recorded Not on file documented as of this encounter Progress Notes Yesenia Rea, DONG, SHELLFISH DREDGE OPERATOR - 10/30/2009 12:01 AM CST Progress Notes signed by CULLEN Padilla at 10/30/09 0947 Author: CULLEN Padilla Service: (none) Author Type: Nurse Practitioner Filed: 01/04/112005 Note Time: 10/30/09 0001 Status: Signed Fire Protection Engineer: CULLEN Padilla (Nurse Practitioner) Ultrasound: Transvaginal ultrasound performed by myself to check for dating and viability of for patient anxiety. Single, viable, intrauterine with average crown rump length 2.13cm, consistent with 8 weeks 5 days. Yolk sac present. movement present. heart rate 176 beats/minute. No adnexal masses appreciated. RY CELLAR HAND documented in this encounter Plan of Treatment Not on filedocumented as of this encounter Visit Diagnoses Not on filedocumented in this encounter Care Teams Database Marketing Analyst Relationship Specialty Start Date End Date Andrea Rodney MD PCP - General 12/15/10 [facility] [place] [address] documented as of this encounter
--- OUTSIDE RECORDS SUMMARY | 2022-04-23 04:58 | XMS_ITS | Encounter Summary ---
:1985 Author Organization [facility] Address [address] [address] Care Team Providers Name Role Phone Andrea Rodney MD Primary Care Provider Encounter Details Date Type Department Care Team Description 05/23/2009 PN Conversion Only [place] CONVERSION Andrea Rodney, [address] [facility] [address] 1419 [facility] [place] [address] (Wo rk) Social History Tobacco Use Types Packs/Day Years Used Date Smoking Tobacco: Never Assessed Sex Assigned at Date Recorded Not on file documented as of this encounter Plan of Treatment Not on filedocumented as of this encounter Procedures Procedure Name Priority Date/Time Associated Diagnosis Comme nts HCG, QUANTITATIVE, Routine 05/23/2009 3:28 PM Res ults for this SERUM CDT procedure ar e in the results section. INFLUENZA A AND B Routine 05/23/2009 2:56 PM Resu lts for this ANTIGEN CDT procedure are i n the results section. TEST Routine 05/23/2009 2:52 PM Results for this (URINE) CDT procedure are i n the results section. documented in this encounter Results (ABNORMAL) HCG, Quantitative, Serum (05/23/2009 3:28 PM CDT) P athologist Signature HCG For 405 (H) 0 - 6 HP CONVERSION mIU/mL Comment: Approximate ?Approximate Gestational Age ?Concentration (m IU/mL) ---X 0-1 week ? 5-50 1-2 weeks ?50-500 2-3 weeks ?100-5000 3-4 weeks ?500-10,000 1-2 months ? 1000-200,000 2-3 months ? 15,000-200,000 2nd trimester ?----- 3rd trimester ?----- Tumor marker ? <5 Specimen (Source) Anatomical Collection Method Collection Time Re ceived Time Location / / Volume Laterality 05/23/2009 3:28 PM CDT Andrea Rodney MD LAB_1 Performing Organization Address City/State/ZIP Code Phon e Number HP CONVERSION Influenza A and B Antigen (05/23/2009 2:56 PM CDT) Analysis Performed At Patho logist Time Signature Influenza A & SEE TEXT HP CONVERSION B Ag Comment: Patient: RACHELLEXXWiley Holley Influenza A,B (Swab, In House) ?Collected: ??[id number] ??1401 Source: NASAL ? Processed: ??[id number] ??5436 ? S Final Report ------ ?[id number] ??1519 No influenza antigen detected. The sensitivity of this assay been shown to range between 10-70% for the detection of nove l influenza A (H1N1) virus and between 20-100% for sea gera influenza viruses. ??A negative result does not e xclude influenza virus infections. ??If influenza is cir culating in your community, a diagnosis of influenza sunil uld be considered based on a patient's clinica l presentation. Empiric antiviral treatment should be c onsidered, if indicated. For more conclusive testing, order a follow up confirmatory test by either molecula r method or viral culture from our lab. Specimen (Source) Anatomical Collection Method Collection Time Re ceived Time Location / / Volume Laterality 05/23/2009 2:56 PM CDT Andrea Rodney MD LAB_1 Performing Organization Address City/[facility] Code Phon e Number HP CONVERSION (ABNORMAL) Test (Urine) (05/23/2009 2:52 PM CDT) [facility] Method Time Signature Urine Positive (A) No normal HP CONVERSION range Test Comment: PREGU CORRECTED FROM ??Negative TO Posit tootie ON 05/23/09 ??BY KEREN [place] [id number] at [place]. Date: Time: 1458. Result repeated back verbatim by russell colon. The sensitivity of this assay is 25 mIU/ mL. This test can detect as early as 10-12 days after conception. It may be positive before a first missed menses. A negative result does no t rule out an early . Specimen (Source) Anatomical Collection Method Collection Time Re ceived Time Location / / Volume Laterality 05/23/2009 2:52 PM CDT Andrea Rodney MD LAB_1 Performing Organization Address [facility] Phon e Number HP CONVERSION documented in this encounter Visit Diagnoses Not on filedocumented in this encounter Care Teams Gate Watch Relationship Specialty Start Date End Date Andrea Rodney MD PCP - General 12/15/10 1415 [facility] [place] [id number] documented as of this encounter
--- OUTSIDE RECORDS SUMMARY | 2022-04-23 04:58 | XMS_ITS | Encounter Summary ---
:1985 Author Organization [facility] Address [address] [place] [address] Care Team Providers Name Role Phone Andrea Rodney MD Primary Care Provider Reason for Visit Reason Comments Other Encounter Details Date Type Department Care Team Description 09/13/2008 Telephone [facility] Angelique Gonzáles LPN Other [address] [facility] [place] [address] Social History Tobacco Use Types Packs/Day Years Used Date Smoking Tobacco: Never Assessed Sex Assigned at Date Recorded Not on file documented as of this encounter Progress Notes Center, Message - 09/13/2008 2:28 PM CST Phone Note filed by Navita at 01/02/11 1322 Author: Navita Service: (none) Author Type: (none) Filed: 01/02/11 1322 Note Time: 09/13/08 1428 Status: Signed Business Process Representative: Navita Front Line Sx Call Caller Name/Relationship:Elli/pt Primary Material Handler 1St Shift:Ronel Symptom or request?Elli states she is returning a call to a nurse, but I do not see a message regarding the call. Elli states she was in to see Dr. Rodney about 3 weeks ago. The only info pt had for me was a negative test. Is appointment scheduled & when? Firer Powerhouse:Elli/pt Best call back number:[phone] cell Is it OK to leave a confidential message on this voicemail?yes *ECODE~PNSX2 Created on 13Sep2008 2:28pm by FELIPA AGUILERA On 13Sep2008 3:22pm ANGELIQUE DONG wrote: pt needs colposcopy due to abnormal pap. orders at apt desk pt notified Acknowledged by ANGELIQUE DONG on 3:22pm OLOGY TECHNOLOGIST documented in this encounter Plan of Treatment Not on filedocumented as of this encounter Visit Diagnoses Not on filedocumented in this encounter Care Teams Supervisor Malt House Relationship Specialty Start Date End Date Andrea Rodney MD PCP - General 12/15/10 [address] [place] [address] documented as of this encounter
--- OUTSIDE RECORDS SUMMARY | 2022-04-23 04:58 | XMS_ITS | Encounter Summary ---
:1985 Author Organization [facility] Address [address] [place] [address] Care Team Providers Name Role Phone Andrea Rodney MD Primary Care Provider Encounter Details Date Type Department Care Team Description 05/23/2009 Office Visit [facility] Andrea Rodney MD [address] [facility] . [address] [place] [address] [place], [place] [id number] (Wo rk) Social History Tobacco Use Types Packs/Day Years Used Date Smoking Tobacco: Never Assessed Sex Assigned at Date Recorded Not on file documented as of this encounter Last Filed Vital Signs Vital Sign Reading Time Taken Comments Blood Pressure 100/64 05/23/2009 2:07 PM CDT Pulse - - Temperature - - Respiratory Rate - - Oxygen Saturation - - Inhaled Oxygen Concentration - - Weight 58.5 kg (128 lb 15.9 oz) 05/23/2009 2:07 PM C: 5 8.5kg CDT Height 157.5 cm (5' 2) 05/23/2009 2:07 PM C: 157.5cm CDT Body Mass Index 23.59 05/23/2009 2:07 PM CDT documented in this encounter Progress Notes Andrea Rodney MD - 05/23/2009 12:01 AM CDT Progress Notes signed by Andrea Rodney MD at 05/23/09 2536 Author: Andrea Rodney MD Service: (none) Author Type: Physician Filed: 01/04/11 1606 Note Time: 05/23/09 0001 Status: Signed Chart Snatcher: Andrea Rodney MD (Physician) Acute Clinic Visit IMPRESSION: Viral Illness Diagnosis of First trimester bleeding SUBJECTIVE: History of Present Illness: Symptom(s): Afebrile. Nasal congestion/rhinorrhea. Sore throat. No neck stiffness. Cough. No wheezing. May be . LMP 04/18/09. May only be 4 weeks gestation. Had spotting earlier this week. Nasal congestion/rhinorrhea: Duration: 5 days. Additional Details: Exposed to a coworker with H1 N!. Sore throat: Duration: 5 days. Cough: Duration: 5 days. Severity: Mild. Meds This Illness: No acute medications being used Past History: No History of Respiratory Disease Tobacco: None. Patient is . Adverse Drug Reactions: Patient's ADR's were reviewed and updated today on the Health Profile screen of [employer].. Chronic Medications: Reviewed and updated today on Health Profile in [employer].. OBJECTIVE: Vital Signs: Vital Signs taken today were reviewed on the flowsheet in [employer].. General Appearance: Well-appearing Ears: Bilateral pinnae, canals and TMs normal Nose/Sinuses: Normal Oropharynx: Normal, mucous membranes moist, tonsils symmetric without redness or exudate. Neck: Supple without significant adenopathy or thyromegaly Respiratory: Lung sounds clear to auscultation without respiratory distress Cardiac: RRR without murmur Lab & X-Ray: Rapid strep test is negative. Other laboratory studies: H1N1 culture pending. Urine test positive. Serum quantitative test pending for today and in 48 hours. ASSESSMENT: Viral Illness Diagnosis of First trimester bleeding. PLAN: Throat Culture pending Symptomatic care RTC PRN if not gradually improving Serum quantitative hCG today and in 48 hours. vitamins provided. *SH~PC~URIL ~Shorthand Note completed on: 05/23/2009 5:38 PM documented in this encounter Plan of Treatment Not on filedocumented as of this encounter Visit Diagnoses Not on filedocumented in this encounter Care Teams Sample Selector Relationship Specialty Start Date End Date Andrea Rodney MD PCP - General 12/15/[address] [place], [place] [address] documented as of this encounter
--- OUTSIDE RECORDS SUMMARY | 2022-04-23 04:58 | XMS_ITS | Encounter Summary ---
:1985 Author Organization [facility] Address [address] [place] [address] Care Team Providers Name Role Phone Andrea Rodney MD Primary Care Provider Encounter Details Date Type Department Care Team Description 05/23/2009 PN Conversion Only [place] CONVERSION Andrea Rodney, [address] [facility] [place] [address] 1412 [facility] [place] [address] (Wo rk) Social History Tobacco Use Types Packs/Day Years Used Date Smoking Tobacco: Never Assessed Sex Assigned at Date Recorded Not on file documented as of this encounter Plan of Treatment Not on filedocumented as of this encounter Procedures Procedure Name Priority Date/Time Associated Diagnosis Comme nts STREP GROUP A Routine 05/23/2009 3:51 PM Results for this ANTIGEN TEST CDT procedure are i n the results section. BETA STREP FOLLOWUP Routine 05/23/2009 3:51 PM Re sults for this CDT procedure are i n the results section. documented in this encounter Results Strep Group A Antigen Test (05/23/2009 3:51 PM CDT) Analysis Performed At Patho logist Time Signature Strep Group A Negative Negative HP CONVERSION Antigen Test Comment: Culture to follow. Specimen (Source) Anatomical Collection Method Collection Time Re ceived Time Location / / Volume Laterality 05/23/2009 3:51 PM CDT Andrea Rodney MD LAB_1 Performing Organization Address City/State/ZIP Code Phon e Number HP CONVERSION Beta Strep Followup (05/23/2009 3:51 PM CDT) P athologist Signature Strep Screen SEE TEXT HP CONVERSION Comment: Patient: RAEGAN KIM Rapid Strep Follow up Culture ? Collected: ??[id number] ??[id number] Source: Throat ?Processed: ??[id number] ??[id number] Final Report ------ ?[id number] ??[id number] No beta hemolytic Strep group A isolated . Specimen (Source) Anatomical Collection Method Collection Time Re ceived Time Location / / Volume Laterality 05/23/2009 3:51 PM CDT Andrea Rodney MD LAB_1 Performing Organization Address City/State/ZIP Code Phon e Number HP CONVERSION documented in this encounter Visit Diagnoses Not on filedocumented in this encounter Care Teams Gang Punch Operator Relationship Specialty Start Date End Date Andrea Rodney MD PCP - General 12/15/10 [address] [place] [address] documented as of this encounter
--- OUTSIDE RECORDS SUMMARY | 2022-04-23 04:58 | XMS_ITS | Encounter Summary ---
:1985 Author Organization [facility] Address [address] [place] [address] Care Team Providers Name Role Phone Andrea Rodney MD Primary Care Provider Reason for Visit Reason Comments Other Encounter Details Date Type Department Care Team Description 08/23/2008 Telephone [facility], Message Other [address] [facility] [place] [address] Social History Tobacco Use Types Packs/Day Years Used Date Smoking Tobacco: Never Assessed Sex Assigned at Date Recorded Not on file documented as of this encounter Progress Notes Center, Message - 08/23/2008 4:08 PM CST Phone Note filed by [employer] at 01/02/11 1200 Author: [facility] [employer] Service: (none) Author Type: (none) Filed: 01/02/11 1200 Note Time: 08/23/08 1608 Status: Signed Banking Supervisor: [facility] [employer] Lab/Radiology Results Caller Name/Relationship:pt Primary Overcoiler:penelope What test result is needed? preg test When and where was test done? [facility] Who ordered the test? penelope [employer] Weighter:pt Best call back number:[phone] Is it OK to leave a confidential message on this voicemail? y *[email or web address] Created on [id number] 4:08pm by ALPHONSE CUNNINGHAM On [id number] 4:10pm NANCY MAGGIE Mary wrote: Negative result given. MAKING MACHINE OPERATOR documented in this encounter Plan of Treatment Not on filedocumented as of this encounter Visit Diagnoses Not on filedocumented in this encounter Care Teams Renovator Machine Operator Relationship Specialty Start Date End Date Andrea Rodney MD PCP - General 12/15/10 1415 [facility] [place] [address] documented as of this encounter
--- OUTSIDE RECORDS SUMMARY | 2022-04-23 04:58 | XMS_ITS | Encounter Summary ---
:1985 Author Organization [facility] Address [address] [place] [address] Care Team Providers Name Role Phone Andrea Rodney MD Primary Care Provider Encounter Details Date Type Department Care Team Description 06/01/2009 PN Conversion Only [place] CONVERSION Dann Villalobos [address] [facility] [place] [address] 15[address] [facility] [address] [place] [address] (Wo rk) Social History Tobacco Use Types Packs/Day Years Used Date Smoking Tobacco: Never Assessed Sex Assigned at Date Recorded Not on file documented as of this encounter Plan of Treatment Not on filedocumented as of this encounter Procedures Procedure Name Priority Date/Time Associated Comments Diagnosis COMPLETE BLOOD Routine 06/01/2009 9:42 AM Results for this COUNT-NO DIFF CDT procedure are in the results section. LAB MISCELLANEOUS Routine 06/01/2009 9:35 AM Resu lts for this CDT procedure are i n the results section. CREATININE [facility] Routine 06/01/2009 9:35 AM Results for this HOSPITAL CDT procedure are i n the results section. BUN [facility] Routine 06/01/2009 9:35 AM Results for this HOSPITAL CDT procedure are i n the results section. documented in this encounter Results Hemogram/Plts (06/01/2009 9:42 AM CDT) P athologist Signature White Blood Cell 6.3 3.8 - 11.0 HP CONVERSIO N Count K/cmm Red Blood Cell 4.70 3.70 - HP CONVERSION Count 5.20 m/cmm Hemoglobin 13.8 11.8 - HP CONVERSION 15.5 gm/dL Hematocrit 40.6 35.0 - HP CONVERSION 46.0 % Mean Corpuscular 86.4 80.0 - HP CONVERSION Volume 100.0 fl Mean Corpuscular 29.4 27.0 - HP CONVERSION Hemoglobin 34.0 pg Mean Corpuscular 34.0 32.0 - HP CONVERSION Hemoglobin Conc 36.5 gm/dL [place] RDW 12.3 11.0 - HP CONVERSION 15.0 % Platelet Count 218 140 - 450 HP CONVERSION k/cmm Specimen (Source) Anatomical Collection Method Collection Time Re ceived Time Location / / Volume Laterality 06/01/2009 9:42 AM CDT Dann Villalobos MD LAB_1 Performing Organization Address City/[facility]/ZIP Code Phon e Number HP CONVERSION LAB MISCELLANEOUS (06/01/2009 9:35 AM CDT) P athologist Signature Result See Note No normal HP CONVERSION range Comment: Test Name ? AST Test Code ? 0 Performing Lab ?[facility] AST ??11 IU/L ?? Expected Values: ??10-4 2 Specimen (Source) Anatomical Collection Method Collection Time Re ceived Time Location / / Volume Laterality 06/01/2009 9:35 AM CDT Dann Villalobos MD LAB_1 Performing Organization Address City/[facility]/ZIP Code Phon e Number HP CONVERSION (ABNORMAL) CREATININE [facility] (06/01/2009 9:35 AM CDT) [facility] Method Time Signature Creatinine St 0.84 (H) 0.40 - HP CONVERSION [place] 0.70 mg/dL Hospital Comment: Performed at [facility] [address] [place] [address] Specimen (Source) Anatomical Collection Method Collection Time Re ceived Time Location / / Volume Laterality 06/01/2009 9:35 AM CDT Dann Villalobos MD LAB_1 Performing Organization Address City/[facility]/ZIP Code Phon e Number HP CONVERSION BUN [facility] (06/01/2009 9:35 AM CDT) athologist Signature BUN [facility] 12 5 - 18 HP CONVERSION Hospital mg/dL Comment: Performed at [facility] [address] [facility] [address] Specimen (Source) Anatomical Collection Method Collection Time Re ceived Time Location / / Volume Laterality 06/01/2009 9:35 AM CDT Dann Villalobos MD LAB_1 Performing Organization Address City/State/ZIP Code Phon e Number HP CONVERSION documented in this encounter Visit Diagnoses Not on filedocumented in this encounter Care Teams Metal Polisher Relationship Specialty Start Date End Date Andrea Rodney MD PCP - General 12/15/10 45[address] [facility] [place] [address] documented as of this encounter
--- OUTSIDE RECORDS SUMMARY | 2022-04-23 04:58 | XMS_ITS | Encounter Summary ---
:1985 Author Organization [facility] Address [address], [place] [address] Care Team Providers Name Role Phone Andrea Rodney MD Primary Care Provider Encounter Details Date Type Department Care Team Description 09/21/2008 Procedure Visit [place] 1515 Dann Villalobos, Obstetrics/Gynecolog y 15[address] [facility] . [address] [place] [address] [address] [place], [place] [address] (Wo rk) Social History Tobacco Use Types Packs/Day Years Used Date Smoking Tobacco: Never Assessed Sex Assigned at Date Recorded Not on file documented as of this encounter Last Filed Vital Signs Vital Sign Reading Time Taken Comments Blood Pressure 104/78 09/21/2008 9:00 AM HOSPITAL ACCOUNT MANAGER Pulse - - Temperature - - Respiratory Rate - - Oxygen Saturation - - Inhaled Oxygen Concentration - - Weight 58.3 kg (128 lb 9.5 oz) 09/21/2008 9:00 AM C: 58 .3kg HOSPITAL ACCOUNT MANAGER Height 157.5 cm (5' 2) 09/21/2008 9:00 AM C: 157.5cm HOSPITAL ACCOUNT MANAGER Body Mass Index 23.52 09/21/2008 9:00 AM HOSPITAL ACCOUNT MANAGER documented in this encounter Progress Notes Dann Villalobos MD - 09/21/2008 12:01 AM CST Procedures signed by Dann Villalobos MD at 10/11/08 1310 Author: Dann Villalobos MD Service: (none) Author Type: Physician Filed: 01/04/11 0945 Note Time: 09/21/082010 Status: Signed Clam Grower: Dann Villalobos MD (Physician) NAME: RAEGAN KIM MR#: [id number] ACCT: [id number] VISIT: [id number] DICTATING CLINICIAN: Dann Villalobos MD CONFIRM #: [id number] LOC: 3212 CLINIC PROCEDURE REPORT DATE OF VISIT: 09/21/2008 SUBJECTIVE: CHIEF COMPLAINT: Colposcopy. HISTORY: The patient 23-year-old female, para 2-0-1-2, last menstrual period 08/29/08. She uses nothing for contraception. She states she last had intercourse in June of this year. She had a negative test done 08/23/08. Her first abnormal Pap smear was 06/13/08. It was an LSIL Pap. Abnormal Pap smears, HPV, and colposcopy were discussed with the patient. Colposcopy and the risks and benefits of the procedure were discussed with the patient and the patient agrees to the procedure. PAST OB HISTORY: Normal spontaneous vaginal delivery x 2. Spontaneous x1. PAST SURGICAL HISTORY: Negative. PAST MEDICAL HISTORY: Negative. MEDICATIONS: None. ADR/ALLERGIES: NO KNOWN DRUG ALLERGIES. OBJECTIVE: VS: BP: 104/78. Ht: 62 in. Wt: 128.6. BMI: 23.5. Procedure performed with a nurse in the room. PROCEDURE: A speculum was placed in the vagina. The cervix was visualized with a colposcope. Acetic acid was placed on the cervix. Lugol's solution was placed on the cervix and the abnormal areas did not take up the solution. There was some white epithelium and punctation on the anterior lip of the cervix, see diagram. Endocervical curettings were performed with a Kevorkian curette and a cytology brush. The specimens were combined and sent to Pathology labeled endocervical curettings. A cervical biopsy at 11 o'clock. The specimen was removed from the operative field and sent to Pathology labeled cervical biopsy. Monsel's for hemostasis. Hemostasis was noted. Colposcopy of the vagina was normal. Colposcopy of the vulva was normal. Speculum was removed. The patient tolerated the procedure well. ASSESSMENT: BENNY I of cervix. PLAN: We will notify the patient of the biopsy results and recommendations for any further treatment or diagnostic procedures. The patient's questions were answered. The patient is in agreement with this plan. MLA:[id number] C: 09/21/08 11:39 CONFIRM #: [id number] ITAL ACCOUNT MANAGER documented in this encounter Plan of Treatment Not on filedocumented as of this encounter Visit Diagnoses Not on filedocumented in this encounter Care Teams Matrix Bath Attendant Relationship Specialty Start Date End Date Andrea Rodney MD PCP - General 12/15/10 [address] [place] [address] documented as of this encounter
--- OUTSIDE RECORDS SUMMARY | 2022-04-23 04:58 | XMS_ITS | Encounter Summary ---
:1985 Author Organization [facility] Address [address] [place] [address] Care Team Providers Name Role Phone Andrea Rodney MD Primary Care Provider Reason for Visit Reason Comments Other Encounter Details Date Type Department Care Team Description 10/15/2009 Telephone [facility], Message Other [address] [facility] [place] [address] Social History Tobacco Use Types Packs/Day Years Used Date Smoking Tobacco: Never Assessed Sex Assigned at Date Recorded Not on file documented as of this encounter Progress Notes Center, Message - 10/15/2009 3:25 PM CST Phone Note filed by [employer] at 01/03/112227 Author: [employer] Service: (none) Author Type: (none) Filed: 01/03/112227 Note Time: 10/15/091524 Status: Signed Drill Rig Operator Helper: [employer] (Resource) Front Line Sx Call Caller Name/Relationship: [place] / Stu/JULY Primary Shingle Cutter:Ronel Symptom or request? question regarding pt Is appointment scheduled & when? n/a Senior Web Architect:[place] Best call back number:[phone] Is it OK to leave a confidential message on this voicemail? yes *ECODE~[email or web address] Created on 15Oct2009 3:25pm by KUSH LOMAX On 15Oct2009 3:33pm MAGGIE CRUZ wrote: Nurse looking for a New OB visit that may have been done at [facility] in 2004. Could not find this information. No other questions. RUCTOR MODELING documented in this encounter Plan of Treatment Not on filedocumented as of this encounter Visit Diagnoses Not on filedocumented in this encounter Care Teams Shredding Machine Knife Changer Relationship Specialty Start Date End Date Andrea Rodney MD PCP - General 12/15/10 14[address] [facility] [place] [address] documented as of this encounter
--- OUTSIDE RECORDS SUMMARY | 2022-04-23 04:58 | XMS_ITS | Encounter Summary ---
:1985 Author Organization [email or web address] Address [address] [place] [address] Care Team Providers Name Role Phone Andrea Rodney MD Primary Care Provider Encounter Details Date Type Department Care Team Description 03/30/2008 Procedure Visit [facility] Andrea Rodney, 14[address] [facility] [place] [address] 14[address] [facility] [phone] [place], [place] [address] (Wo rk) Social History Tobacco Use Types Packs/Day Years Used Date Smoking Tobacco: Never Assessed Sex Assigned at Date Recorded Not on file documented as of this encounter Progress Notes Andrea Rodney MD - 03/30/2008 12:01 AM CDT Progress Notes signed by Andrea Rodney MD at 03/30/08 1925 Author: Andrea Rodney MD Service: (none) Author Type: Physician Filed: 01/04/11 0531 Note Time: 03/30/082010 Status: Signed [employer]: Andrea Rodney MD (Physician) Patient was scheduled for a Pap. Her period started today and would like to defer. Oral contraceptives refill for 3 months. Andrea Rodney MD - 03/30/2008 12:01 AM CDT Progress Notes signed by Andrea Rodney MD at 03/30/08 1923 Author: Andrea Rodney MD Service: (none) Author Type: Physician Filed: 01/04/11 0531 Note Time: 03/30/082010 Status: Signed Vp [employer] Partnerships: Andrea Rodney MD (Physician) Procedure Note: Skin Lesion Excision CHIEF COMPLAINT: Skin bump(s) Past History: NO personal history of skin cancer. Adverse Drug Reactions: Patient's ADR's were reviewed and updated today on the Health Profile screen of [employer] [facility] [employer]. Vital Signs: Vital Signs taken today were reviewed on the flowsheet in Electronic Medical Record. Location #1: right shoulder Number of Lesions Treated @ This Site: History: Lesion has been enlarging, irritated, present for 6 months, Size: 5 mm circular lesion, fibroma. cm x Characteristics: brown, with uniform coloration, regular border, ASSESSMENT: Dermatofibroma (216.9) PROCEDURE NOTE: Skin was cleaned & prepped with Alcohol. Area surrounding the lesion was infiltrated with Xylocaine (Lidocaine) with epinephrine. Full thickness punch biopsy (down to the fat) was performed using a 6 mm punch. Hemostatis was not necessary. The subcutaneous tissue was not closed. The skin was not closed. Band-Aid applied to wound(s). PLAN: Signs of infection (spreading erythema, increasing pain, purulent discharge) were discussed. No swimming, keep lesion clean and dry except for showering until the sutures are removed, or fall out (if absorbable). Return to clinic if any signs of the lesion recurring. *SH~PC~SLB ~Shorthand Note completed on: 03/30/2008 7:23 PM documented in this encounter Plan of Treatment Not on filedocumented as of this encounter Visit Diagnoses Not on filedocumented in this encounter Care Teams Carry In Worker Relationship Specialty Start Date End Date Andrea Rodney MD PCP - General 12/15/10 14[address] [facility] [place] [address] documented as of this encounter
--- OUTSIDE RECORDS SUMMARY | 2022-04-23 04:58 | XMS_ITS | Encounter Summary ---
:1985 Author Organization [facility] Address [address] [address] Care Team Providers Name Role Phone Andrea Rodney MD Primary Care Provider Encounter Details Date Type Department Care Team Description 11/27/2009 Initial [facility] Obstetrics/[place] [address] [facility] [address] [place] [address] [place] [address] [phone] (Wo rk) Social History Tobacco Use Types Packs/Day Years Used Date Smoking Tobacco: Never Assessed Sex Assigned at Date Recorded Not on file documented as of this encounter Last Filed Vital Signs Vital Sign Reading Time Taken Comments Blood Pressure 113/64 11/27/2009 2:21 PM CDT Pulse - - Temperature - - Respiratory Rate - - Oxygen Saturation - - Inhaled Oxygen Concentration - - Weight 56.7 kg (124 lb 15.7 oz) 11/27/2009 2:21 PM C: 5 6.7kg CDT Height 158.8 cm (5' 2.5) 11/27/2009 2:21 PM C: 158.8cm CDT Body Mass Index 22.49 11/27/2009 2:21 PM CDT documented in this encounter Plan of Treatment Not on filedocumented as of this encounter Visit Diagnoses Not on filedocumented in this encounter Care Teams Financial Controller Relationship Specialty Start Date End Date Andrea Rodney MD PCP - General 12/15/10 [address] [place] [address] documented as of this encounter
--- OUTSIDE RECORDS SUMMARY | 2022-04-23 04:58 | XMS_ITS | Encounter Summary ---
:1985 Author Organization [facility] Address [address] [place] [address] Care Team Providers Name Role Phone Andrea Rodney MD Primary Care Provider Encounter Details Date Type Department Care Team Description 10/16/2009 PN Conversion Only PAGUATE CONVERSIO N Scot Roach [address] [facility] [place] [address] [address]DA JEAN CLAUDE [place], [place] [address] (Wo rk) Social History Tobacco Use Types Packs/Day Years Used Date Smoking Tobacco: Never Assessed Sex Assigned at Date Recorded Not on file documented as of this encounter Plan of Treatment Not on filedocumented as of this encounter Procedures Procedure Name Priority Date/Time Associated Comments Diagnosis TYPE AND SCREEN Routine 10/16/2009 8:29 AM Result s for this UNMAN[employer]ED AIRCRAFT SYSTEMS ROBOTICIST procedure are i n the results section. RUBELLA IGG Routine 10/16/2009 8:29 AM Results f or this [employer] ROBOTICIST procedure are i n the results section. HIV ANTIBODY Routine 10/16/2009 8:29 AM Results f or this [employer]MAN[employer] SYSTEM[employer] ROBOTICIST procedure are i n the results section. URINALYSIS Routine 10/16/2009 8:29 AM Results f or this ROUTINE(MICRO IF POS) [employer] SYSTEM[employer] ROBOTICIST proced ure are in the results section. RPR BLOOD Routine 10/16/2009 8:29 AM Results f or this [employer] ROBOTICIST procedure are i n the results section. URINALYSIS Routine 10/16/2009 8:29 AM Results f or this MICROSCOPIC [employer] ROBOTICIST procedure are i n the results section. HEP B SURFACE Routine 10/16/2009 8:29 AM Results for this ANTIGEN, NO REFLEX [employer] ROBOTICIST procedure are in the results section. URINE CULTURE Routine 10/16/2009 8:29 AM Results for this [employer] ROBOTICIST procedure are i n the results section. COMPLETE BLOOD Routine 10/16/2009 8:29 AM Results for this COUNT-NO DIFF [employer] ROBOTICIST procedure are in the results section. documented in this encounter Results Urine Culture (10/16/2009 8:29 AM UNMAN[employer]ED AIR[employer] ROBOTICIST) [facility] U[facility] SEE TEXT HP CONVERSION Comment: Patient: RAEGAN KIM Culture, Urine ?Collected: ??[id number] ??[id number] Source: Clean Ca ?Processed: ??[id number] ??0829 ? 1V Final Report ------ ?[id number] ??0948 10-50,000 CFU/mL mixed gram positive org anisms No further workup Specimen (Source) Anatomical Collection Method Collection Time Re ceived Time Location / / Volume Laterality 10/16/2009 8:29 AM UN[employer] ROBOTICIST Scot Roach MD LAB_1 Performing Organization Address City/State/ZIP Code Phon e Number HP CONVERSION (ABNORMAL) URINALYSIS MICROSCOPIC (10/16/2009 8:29 AM UN[employer] ROBOTICIST) Patholo gist Method Time Signature White Blood 0-2/HPF 0 - 3 HP CONVERSION Cells Urine Red Blood 3-4/HPF (A) 0 - 2 HP CONVERSION Cells Urine Bacteria Urine Moderate (A) None HP CONVERSIO N Urine Mucus Large None HP CONVERSION Epithelial Few Few /HPF HP CONVERSION Cells Specimen (Source) Anatomical Collection Method Collection Time Re ceived Time Location / / Volume Laterality 10/16/2009 8:29 AM [employer] ROBOTICIST Scot Roach MD LAB_1 Performing Organization Address City/State/ZIP Code Phon e Number HP CONVERSION Hep B Surface Antigen, No Reflex (10/16/2009 8:29 AM UN[employer] ROBOTICIST) Analysis Performed At Patho logist Time Signature Hep B Surf Ag Negative Negative HP CONVERSION Specimen (Source) Anatomical Collection Method Collection Time Re ceived Time Location / / Volume Laterality 10/16/2009 8:29 AM UN[employer] ROBOTICIST Scot Roach MD LAB_1 Performing Organization Address [facility] Code Phon e Number HP CONVERSION HIV ANTIBODY (10/16/2009 8:29 AM UN[employer] ROBOTICIST) athologist Signature HIV 1/HIV 2 Non Reac Non Reac HP CONVERSION Specimen (Source) Anatomical Collection Method Collection Time Re ceived Time Location / / Volume Laterality 10/16/2009 8:29 AM UN[employer] ROBOTICIST Scot Roach MD LAB_1 Performing Organization Address [facility] Code Phon e Number HP CONVERSION RPR BLOOD (10/16/2009 8:29 AM [employer] ROBOTICIST) athologist Signature RPR Non Reac Non Reac HP CONVERSION Specimen (Source) Anatomical Collection Method Collection Time Re ceived Time Location / / Volume Laterality 10/16/2009 8:29 AM [employer] ROBOTICIST Scot Roach MD LAB_1 Performing Organization Address City/State/ZIP Code Phon e Number HP CONVERSION RUBELLA IGG (10/16/2009 8:29 AM [employer] ROBOTICIST) athologist Signature Rubella IgG Immune Immune HP CONVERSION Specimen (Source) Anatomical Collection Method Collection Time Re ceived Time Location / / Volume Laterality 10/16/2009 8:29 AM [employer] ROBOTICIST Scot Roach MD LAB_1 Performing Organization Address City/State/ZIP Code Phon e Number HP CONVERSION (ABNORMAL) URINALYSIS ROUTINE(MICRO IF POS) (10/16/2009 8:29 AM UN[employer] ROBOTICIST) [facility] Method Time Signature Turbidity Clear No normal HP CONVERSION range pH Urine 6.0 4.5 - 7.5 HP CONVERSION Protein Urine 30 mg/dL Neg-Trac HP CONVERSION (A) Glucose, Negative Neg-Trac HP CONVERSION Qualitative U Ketones 15 mg/dL Negative HP CONVERSION (A) U BILI Negative Negative HP CONVERSION Blood Urine Negative Negative HP CONVERSION Nitrite Urine Negative Negative HP CONVERSION Leukocyte Negative Negative HP CONVERSION Esterase Urine Urobilinogen Negative 0.2 - 1.0 HP CONVERSION Urine U Specific >=1.030 1.005 - 25 HP CONVERSION Baxter Specimen (Source) Anatomical Collection Method Collection Time Re ceived Time Location / / Volume Laterality 10/16/2009 8:29 AM UN[employer] ROBOTICIST Scot Roach MD LAB_1 Performing Organization Address [facility] Code Phon e Number HP CONVERSION Hemogram/Plts (10/16/2009 8:29 AM UN[employer] ROBOTICIST) athologist Signature White Blood Cell 6.3 3.8 - 11.0 HP CONVERSIO N Count k/cmm Red Blood Cell 4.40 3.70 - HP CONVERSION Count 5.20 m/cmm Hemoglobin 13.4 11.8 - HP CONVERSION 15.5 gm/dL Hematocrit 38.3 35.0 - HP CONVERSION 46.0 % Mean Corpuscular 87.1 80.0 - HP CONVERSION Volume 100.0 fl Mean Corpuscular 30.6 27.0 - HP CONVERSION Hemoglobin 34.0 pg Mean Corpuscular 35.1 32.0 - HP CONVERSION Hemoglobin Conc 36.5 gm/dL [place] RDW 12.1 11.0 - HP CONVERSION 15.0 % Platelet Count 182 140 - 450 HP CONVERSION k/cmm Specimen (Source) Anatomical Collection Method Collection Time Re ceived Time Location / / Volume Laterality 10/16/2009 8:29 AM [employer] ROBOTICIST Scot Roach MD LAB_1 Performing Organization Address City/[facility] Phon e Number HP CONVERSION TYPE AND SCREEN (10/16/2009 8:29 AM UN[employer] ROBOTICIST) P athologist Signature BB BLOOD TYPE A POS No normal HP CONVERSION (BLOOD GROUP & range RH) N/O BB NEG No normal HP CONVERSION ANTIBODY range SCREEN Specimen (Source) Anatomical Collection Method Collection Time Re ceived Time Location / / Volume Laterality 10/16/2009 8:29 AM [employer] ROBOTICIST Scot Roach MD PN BLOOD BANK ORDERS Performing Organization Address City/State/ZIP Code Phon e Number HP CONVERSION documented in this encounter Visit Diagnoses Not on filedocumented in this encounter Care Teams Screen Printing Supervisor Relationship Specialty Start Date End Date Andrea Rodney MD PCP - General [facility]/15/10 [facility] [place] [id number] documented as of this encounter
--- OUTSIDE RECORDS SUMMARY | 2022-04-23 04:58 | XMS_ITS | Encounter Summary ---
:1985 Author Organization [facility] Address [address] [place] [address] Care Team Providers Name Role Phone Andrea Rodney MD Primary Care Provider Reason for Visit Reason Comments Other Encounter Details Date Type Department Care Team Description 06/08/2009 Telephone [place] [id number] Sharfi Gu RN Other Obstetrics/Gynecolog y [address] [facility] [place] [address] Social History Tobacco Use Types Packs/Day Years Used Date Smoking Tobacco: Never Assessed Sex Assigned at Date Recorded Not on file documented as of this encounter Progress Notes Sharif Gu RN - 06/08/2009 11:54 PM CDT Phone Note filed by Sharif Gu RN at 01/03/11 1236 Author: Sharif Gu RN Service: (none) Author Type: (none) Filed: 01/03/11 1231 Note Time: 06/08/09 8215 Status: Signed Regional Commercial Sales Manager: Alejandra Maldonado (Physician) Patient calling due to being 6 weeks & is at high risk for miscarriage. for the past 4 hrs she has been feeling a lot of movement in the area of her uterus. Anxious this may be the start of something. Transferred to plate and frame filter operator to have government relations director OBG paged. Created on 08Jun2009 11:54pm by SHARIF GU E OPERATOR documented in this encounter Plan of Treatment Not on filedocumented as of this encounter Visit Diagnoses Not on filedocumented in this encounter Care Teams [place] Maori Relationship Specialty Start Date End Date Andrea Rodney MD PCP - General 12/15/10 1415 [facility] [place] [id number] documented as of this encounter
--- OUTSIDE RECORDS SUMMARY | 2022-04-23 04:58 | XMS_ITS | Encounter Summary ---
:1985 Author Organization [facility] Address [address] [place] [address] Care Team Providers Name Role Phone Andrea Rodney MD Primary Care Provider Encounter Details Date Type Department Care Team Description 04/08/2007 Nursing Visit [facility] Andrea Rodney MD [address] [facility] . [address] [place] [address] [place] [address] [phone] (Wo rk) Social History Tobacco Use Types Packs/Day Years Used Date Smoking Tobacco: Never Assessed Sex Assigned at Date Recorded Not on file documented as of this encounter Plan of Treatment Not on filedocumented as of this encounter Visit Diagnoses Not on filedocumented in this encounter Care Teams Strain Technician Relationship Specialty Start Date End Date Andrea Rodney MD PCP - General 12/15/10 1415 [place] [address] documented as of this encounter
--- OUTSIDE RECORDS SUMMARY | 2022-04-23 04:58 | XMS_ITS | Encounter Summary ---
:1985 Author Organization [facility] Address [address] [place] [address] Care Team Providers Name Role Phone Andrea Rodney MD Primary Care Provider Reason for Visit Reason Comments Other Encounter Details Date Type Department Care Team Description 09/26/2008 Telephone [place] [address] Obstet rics/Gynecology Raegan Reyes Other [address] [facility] [place] [address] Social History Tobacco Use Types Packs/Day Years Used Date Smoking Tobacco: Never Assessed Sex Assigned at Date Recorded Not on file documented as of this encounter Progress Notes Center, Message - 09/26/2008 11:36 AM CST Phone Note filed by [email or web address] at 01/02/11 1413 Author: [email or web address] Service: (none) Author Type: (none) Filed: 01/02/11 1413 Note Time: 09/26/08 1136 Status: Signed Bee Keeper: [email or web address] Front Line Sx Call Caller Name/Relationship:pt Primary Ending Machine Operator: Symptom or request?calling for results Is appointment scheduled & when?no Sound Designer:pt Best call back number:[phone] Is it OK to leave a confidential message on this voicemail?vm y *[id number] Created on 26Sep2008 11:36am by CARMELO PAGE On 26Sep2008 11:39am DAVIN CADENA wrote: pt is calling back. please advise [phone] On 26Sep2008 11:45am JESUS GARCIA wrote: Pt is calling for pap results; reviewed with pt per LW. Pt desires plan of care; message she was left broke up and she could not hear all of the information. 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 Please advise. [phone]; ok to leave detailed message. On 26Sep2008 12:00 TIMMY GLOVER wrote: Please find [facility] and return call to patient with information. Acknowledged by TIMMY GLOVER on 12:00 On 26Sep2008 12:11pm RAEGAN REYES wrote: Pt notified of test results and all questions answered. Acknowledged by RAEGAN REYES on 12:11pm MATERIALS HANDLING PLANT OPERATOR documented in this encounter Plan of Treatment Not on filedocumented as of this encounter Visit Diagnoses Not on filedocumented in this encounter Care Teams Restaurant Line Cook Relationship Specialty Start Date End Date Andrea Rodney MD PCP - General 12/15/10 [address] [place] [address] documented as of this encounter
--- OUTSIDE RECORDS SUMMARY | 2022-04-23 04:58 | XMS_ITS | Encounter Summary ---
:1985 Author Organization [facility] Address [address] [address] Care Team Providers Name Role Phone Andrea Rodney MD Primary Care Provider Encounter Details Date Type Department Care Team Description 10/16/2009 Office Visit Scot Toussaint, Obstetrics/Gynecolog y [address] [place] [address] [place] [address] [place] [address] [phone] (Wo rk) Social History Tobacco Use Types Packs/Day Years Used Date Smoking Tobacco: Never Assessed Sex Assigned at Date Recorded Not on file documented as of this encounter Last Filed Vital Signs Vital Sign Reading Time Taken Comments Blood Pressure 110/68 10/16/2009 8:07 AM JANITOR CLEANER Pulse - - Temperature - - Respiratory Rate - - Oxygen Saturation - - Inhaled Oxygen Concentration - - Weight 59.2 kg (130 lb 7.8 oz) 10/16/2009 8:07 AM C: 59 .2kg JANITOR CLEANER Height 158.8 cm (5' 2.5) 10/16/2009 8:07 AM C: 158.8cm JANITOR CLEANER Body Mass Index 23.49 10/16/2009 8:07 AM JANITOR CLEANER documented in this encounter Progress Notes Scot Rider - 10/16/2009 12:01 AM CST Progress Notes signed by Scot Rider MD at 10/16/09 2353 Author: Scot Rider MD Service: (none) Author Type: Physician Filed: 01/04/11 1947 Note Time: 10/16/09 0001 Status: Signed Excel Specialist: Scot Rider MD (Physician) NAME: RAEGAN KIM MR#: [id number] ACCT: [id number] VISIT: [id number] DICTATING CLINICIAN: SCOT RIDER MD CONFIRM #: [id number] LOC: 512 CLINIC PROGRESS NOTE DATE OF VISIT: 10/16/2009 SUBJECTIVE: Raegan Kim is a 24-year-old female, 5, para 0-2-2-2, last menstrual period 08/24/09, placing her at 7+ weeks' gestation, who presents with concerns. The patient's other 2 pregnancies were managed by Dr. Andrea Rodney in [facility]. She plans on coming here to the [place] office for this . She is concerned about her past obstetrical history, which is significant for severe PIH with her first , a daughter, Odell, born at 36+ weeks vaginally after developing severe PIH and possibly a placental abruption. Her child weighed 3 lb 9 oz. Her second was also associated with PIH, or at least the patient reports rising proteinuria prompting induction also at 36 weeks. That child weighed 5 lb. She has a known heart-shaped uterus. I spent approximately 15 minutes in discussing with her what is known and what is unknown about -induced hypertension and how we would manage a patient with a history such as hers. Close surveillance would be recommended, both with her history of intrauterine growth restriction as well as PIH. Additionally, the patient is concerned about some ongoing nausea in her present . She states that it is persistent throughout the day. It has not been associated to this point with vomiting or significant weight loss. OBJECTIVE: Physical examination was deferred. I did explain to her our typical practice patterns at [facility] office. ASSESSMENT: Early , with history of PIH x2, presently complicated by nausea. PLAN: Trial of Zofran 4 mg oral dissolving tablet, prescription written. Patient will also get new OB labs drawn today and schedule a new OB appointment within the next couple of weeks. CJS:[id number] C: 10/16/09 11:20 CONFIRM #: [id number] TOR CLEANER documented in this encounter Plan of Treatment Not on filedocumented as of this encounter Visit Diagnoses Not on filedocumented in this encounter Care Teams Fifth Hand Relationship Specialty Start Date End Date Andrea Rodney MD PCP - General 12/15/10 [facility]15 [facility] [place] [address] documented as of this encounter
--- OUTSIDE RECORDS SUMMARY | 2022-04-23 04:58 | XMS_ITS | Encounter Summary ---
:1985 Author Organization [facility] Address [address] [place] [address] Care Team Providers Name Role Phone Andrea Rodney MD Primary Care Provider Reason for Visit Reason Comments Other Encounter Details Date Type Department Care Team Description 05/02/2007 Telephone [facility] Sharif Gu RN Other [address] [facility] . [place], [place] [address] Social History Tobacco Use Types Packs/Day Years Used Date Smoking Tobacco: Never Assessed Sex Assigned at Date Recorded Not on file documented as of this encounter Progress Notes Sharif Gu RN - 05/02/2007 12:20 AM CDT Phone Note filed by Sharif Gu RN at 01/01/11217 Author: Sharif Gu RN Service: (none) Author Type: (none) Filed: 01/01/11217 Note Time: 05/02/07 0020 Status: Signed Wash Crew Person: Alejandra Maldonado PAtient calling to see if she can use Robitussin DM when . Advised as per Medications and Mothers' Milk.Safe to use. Advised to use as per instructions. Use only at night to help with sleep. Created on 02May2007 0:20am by SHARIF GU EW NURSE documented in this encounter Plan of Treatment Not on filedocumented as of this encounter Visit Diagnoses Not on filedocumented in this encounter Care Teams Wood Fence Installer Relationship Specialty Start Date End Date Andrea Rodney MD PCP - General 12/15/[address] [facility] [place] [address] documented as of this encounter
--- OUTSIDE RECORDS SUMMARY | 2022-04-23 04:58 | XMS_ITS | Encounter Summary ---
:1985 Author Organization [facility] Address [address] [place] [address] Care Team Providers Name Role Phone Andrea Rodney MD Primary Care Provider Encounter Details Date Type Department Care Team Description 06/01/2009 Office Visit [place] 1515 Dann Villalobos, Obstetrics/Gynecolog y [address] [facility] . [address] [place] [address] [address] [place], [place] [address] (Wo rk) Social History Tobacco Use Types Packs/Day Years Used Date Smoking Tobacco: Never Assessed Sex Assigned at Date Recorded Not on file documented as of this encounter Last Filed Vital Signs Vital Sign Reading Time Taken Comments Blood Pressure 100/70 06/01/2009 9:19 AM CDT Pulse - - Temperature - - Respiratory Rate - - Oxygen Saturation - - Inhaled Oxygen Concentration - - Weight 59.3 kg (130 lb 12.4 oz) 06/01/2009 9:19 AM C: 5 9.3kg CDT Height 158.8 cm (5' 2.5) 06/01/2009 9:19 AM C: 158.8cm CDT Body Mass Index 23.54 06/01/2009 9:19 AM CDT documented in this encounter Progress Notes Dann Villalobos MD - 06/01/2009 12:01 AM CDT Progress Notes signed by Dnan Villalobos MD at 06/14/09 9287 Author: Dann Villalobos MD Service: (none) Author Type: Physician Filed: 01/04/11 1623 Note Time: 06/01/09 0001 Status: Signed Log Roper: Dann Villalobos MD (Physician) NAME: RAEGAN KIM MR#: [id number] ACCT: [id number] VISIT: [id number] DICTATING CLINICIAN: Dann Villalobos MD CONFIRM #: [id number] LOC: 3212 CLINIC PROGRESS NOTE DATE OF VISIT: 06/01/2009 SUBJECTIVE: CHIEF COMPLAINT: First trimester vaginal bleeding. HISTORY: The patient was seen yesterday in clinic. See LastWord for that dictation. She had a quantitative beta hCG which was 3,003. This was increase of 817, which is an increase of 37% and under the 100% expected. The patient is still asymptomatic. She has had no vaginal bleeding. I discussed the abnormal lab value with the patient and recommended labs and a followup ultrasound, and briefly discussed treatment with methotrexate, and also gave the patient a handout on methotrexate, treatment for ectopic pregnancies. The patient had an ultrasound. A verbal report from Dr. Montesinos is that there was what he felt was a gestational sac in the uterus. No evidence of ectopic . No yolk sac or pole. I discussed the ultrasound results with the patient. ASSESSMENT: First trimester probable intrauterine . Abnormally rising quantitative beta hCG. PLAN: Discussed options with the patient. Recommended followup in 4 days to have bloods redrawn and possible repeat ultrasound. Ectopic precautions were discussed with the patient, and she is to go to the emergency room if she has unilateral pain or heavy vaginal bleeding. She can call if she has any questions or concerns. The patient's questions were answered. The patient is inmagreement with this plan. Total time with the patient today, 10 minutes. Counseling time, 7 minutes. MLA:[id number] C: 06/02/09 10:36 CONFIRM #: [id number] documented in this encounter Plan of Treatment Not on filedocumented as of this encounter Visit Diagnoses Not on filedocumented in this encounter Care Teams Differential Tester Relationship Specialty Start Date End Date Andrea Rodney MD PCP - General 12/15/10 14[address] [place] [address] documented as of this encounter
--- OUTSIDE RECORDS SUMMARY | 2022-04-23 04:58 | XMS_ITS | Encounter Summary ---
:1985 Author Organization [facility] Address [address] [place] [address] Care Team Providers Name Role Phone Andrea Rodney MD Primary Care Provider Encounter Details Date Type Department Care Team Description 08/23/2008 Nursing Visit [facility] Andrea Rodney MD [address] [facility] . [address] [place] [address] [place] [address] [phone] (Wo rk) Social History Tobacco Use Types Packs/Day Years Used Date Smoking Tobacco: Never Assessed Sex Assigned at Date Recorded Not on file documented as of this encounter Plan of Treatment Not on filedocumented as of this encounter Visit Diagnoses Not on filedocumented in this encounter Care Teams Conservation Planner Relationship Specialty Start Date End Date Andrea Rodney MD PCP - General 12/15/10 [address] [place] [address] documented as of this encounter
--- OUTSIDE RECORDS SUMMARY | 2022-04-23 04:58 | XMS_ITS | Encounter Summary ---
:1985 Author Organization [facility] Address [address] [address] Care Team Providers Name Role Phone Andrea Rodney MD Primary Care Provider Encounter Details Date Type Department Care Team Description 08/23/2008 PN Conversion Only PICAYUNE CONVERSION Andrea Rodney, [address] [facility] [place] [address] 360[address] [facility] [place] [address] (Wo rk) Social History Tobacco Use Types Packs/Day Years Used Date Smoking Tobacco: Never Assessed Sex Assigned at Date Recorded Not on file documented as of this encounter Plan of Treatment Not on filedocumented as of this encounter Procedures Procedure Name Priority Date/Time Associated Comments Diagnosis URINALYSIS Routine 08/23/2008 11:59 Results for this ROUTINE(MICRO IF POS) AM HORSE SHOW MANAGER proced ure are in the results section. URINALYSIS Routine 08/23/2008 11:59 Results for this MICROSCOPIC AM HORSE SHOW MANAGER procedure are i n the results section. TEST Routine 08/23/2008 11:59 Results f or this (URINE) AM HORSE SHOW MANAGER procedure are i n the results section. documented in this encounter Results Urinalysis Routine(Micro If Pos) (08/23/2008 11:59 AM HORSE SHOW MANAGER) [facility] Method Time Signature Turbidity Clear No normal HP CONVERSION range pH Urine 5.0 4.5 - 7.5 HP CONVERSION Protein Urine Negative Neg-Trac HP CONVERSION Glucose, Negative Neg-Trac HP CONVERSION Qualitative U Ketones Negative Negative HP CONVERSION U BILI Negative Negative HP CONVERSION Blood Urine Negative Negative HP CONVERSION Nitrite Urine Negative Negative HP CONVERSION Leukocyte Negative Negative HP CONVERSION Esterase Urine Urobilinogen Negative 0.2 - 1.0 HP CONVERSION Urine U Specific 1.025 1.005 - 25 HP CONVERSION [place] Specimen (Source) Anatomical Collection Method Collection Time Re ceived Time Location / / Volume Laterality 08/23/2008 11:59 AM HORSE SHOW MANAGER Andrea Rodney MD LAB_1 Performing Organization Address [facility] Phon e Number HP CONVERSION (ABNORMAL) Urinalysis Microscopic (08/23/2008 11:59 AM HORSE SHOW MANAGER) Patholo gist Method Time Signature White Blood 0-2/HPF 0 - 3 HP CONVERSION Cells Urine Red Blood 0-2/HPF 0 - 2 HP CONVERSION Cells Urine Bacteria Urine Moderate (A) None HP CONVERSIO N Epithelial Moderate Few /HPF HP CONVERSION Cells Specimen (Source) Anatomical Collection Method Collection Time Re ceived Time Location / / Volume Laterality 08/23/2008 11:59 AM HORSE SHOW MANAGER Andrea Rodney MD LAB_1 Performing Organization Address [facility] Phon e Number HP CONVERSION Test (Urine) (08/23/2008 11:59 AM HORSE SHOW MANAGER) Patholo gist Method Time Signature Urine Negative No normal HP CONVERSION Test range Comment: The sensitivity of this assay is 25 mIU/ mL. This test can detect as early as 10-12 days after conception. It may be positive before a first missed menses. A negative result does no t rule out an early . Specimen (Source) Anatomical Collection Method Collection Time Re ceived Time Location / / Volume Laterality 08/23/2008 11:59 AM HORSE SHOW MANAGER Andrea Rodney MD LAB_1 Performing Organization Address [facility] Phon e Number HP CONVERSION documented in this encounter Visit Diagnoses Not on filedocumented in this encounter Care Teams Respiratory Director Relationship Specialty Start Date End Date Andrea Rodney MD PCP - General 12/15/10 1415 [facility] [place] [address] documented as of this encounter
--- OUTSIDE RECORDS SUMMARY | 2022-04-23 04:58 | XMS_ITS | Encounter Summary ---
:1985 Author Organization [facility] Address [address] [address] Care Team Providers Name Role Phone Andrea Rodney MD Primary Care Provider Reason for Visit Reason Comments Other Encounter Details Date Type Department Care Team Description 06/21/2009 Telephone [place] 1515 Isatu Hogan Other Obstetrics/Gynecolog y 1515 [place] [place] [address] Social History Tobacco Use Types Packs/Day Years Used Date Smoking Tobacco: Never Assessed Sex Assigned at Date Recorded Not on file documented as of this encounter Progress Notes Isatu Hogan - 06/21/2009 8:09 PM CDT Phone Note filed by Isatu Hogan RN at 01/03/11 1788 Author: Isatu Hogan RN Service: (none) Author Type: Registered Nurse Filed: 01/03/11 1381 Note Time: 06/21/092008 Status: Signed Gravel Hauler: Isatu Hogan RN (Registered Nurse) Pt calling,states she has been miscarrying for over a wk. Not bleeding heavily until past couple days. Now experiencing dizziness. Pt needs to be seen tonight. [facility] nurse unable to determine if OB wants to talk with pt before sending her to the ER. Transferred pt to greenwood lamination machine operator to have MD section chief for OB at [facility] contact pt. Call complete . Created on 21Jun2009 8:09pm by ISATU HOGAN ER HEEL AND SOLE PRESS TENDER documented in this encounter Plan of Treatment Not on filedocumented as of this encounter Visit Diagnoses Not on filedocumented in this encounter Care Teams Saloonkeeper Relationship Specialty Start Date End Date Andrea Rodney MD PCP - General [facility]/15/10 [facility] [place] [address] documented as of this encounter
--- OUTSIDE RECORDS SUMMARY | 2022-04-23 04:58 | XMS_ITS | Encounter Summary ---
:1985 Author Organization [email or web address] Address [address] [address] Care Team Providers Name Role Phone Andrea Rodney MD Primary Care Provider Reason for Visit Reason Comments Other Encounter Details Date Type Department Care Team Description 05/29/2009 Telephone [place] 1515 Timmy Glover MD Other Obstetrics/Gynecolog y 1515 [facility] Shivam 15[address] [facility] . [address] [place] [address] [place] [address] [phone] (Wo rk) Social History Tobacco Use Types Packs/Day Years Used Date Smoking Tobacco: Never Assessed Sex Assigned at Date Recorded Not on file documented as of this encounter Progress Notes Sherry Barnard - 05/29/2009 5:01 PM CDT Phone Note filed by Sherry Barnard RN at 01/03/11 5959 Author: Sherry Barnard RN Service: (none) Author Type: Registered Nurse Filed: 01/03/11 6467 Note Time: 05/29/09 1701 Status: Signed User Experience Designer: Sherry Barnard RN (Registered Nurse) CLINICIAN FOLLOW-UP: Contacted denture contour wire specialist clinician: Please advise for plan. Contact Number:[phone] Yes, it is okay to leave a detailed message. IMPRESSION:Early OB--cramping SYMPTOMS: Pt at 5 wks gestation (LMP: 8/5) c/o menstrual-like abd cramping ever since she had intercourse last noc; rating a 4. Denies vag bleeding, referred pain to shoulder or UTI sxs. Did have some spotting with cramping earlier in the month et saw her family practice provider who ordered Quant HCGs which did not double. Pt wondering what she should do. PATIENT INFORMATION: Problem List: Reviewed today in LastWord INTERIM/HOME MANAGEMENT RECOMMENDATIONS: Advised to callback if any of the following occur: symptoms worsen or persist, any other questions or concerns. PLAN: CONTACT CAUSTIC LIQUOR MAKER CLINICIAN Patient/Caller agrees with plan and denies additional questions. *SH~PNNL~SCHOLAR ~ Created on 29May2009 5:01pm by SHERRY BARNARD On 29May2009 5:21pm TIMMY GLOVER wrote: I called patient. Recommend she go to the ER. Acknowledged by TIMMY GLOVER on 5:21pm EKEEPING/LAUNDRY documented in this encounter Plan of Treatment Not on filedocumented as of this encounter Visit Diagnoses Not on filedocumented in this encounter Care Teams Ice House Supervisor Relationship Specialty Start Date End Date Andrea Rodney MD PCP - General 12/15/10 [facility]5 [place] [address] documented as of this encounter
--- OUTSIDE RECORDS SUMMARY | 2022-04-23 04:58 | XMS_ITS | Encounter Summary ---
:1985 [facility] Address [address] [place] [address] Care Team Providers Name Role Phone Andrea Orozco MD Primary Care Provider Reason for Visit Reason Comments Other Encounter Details Date Type Department Care Team Description 10/05/2009 Telephone [facility] Andrea Orozco MD Other [address] [facility] . [address] [place] [address] [place], [place] [address] (Wo rk) Social History Tobacco Use Types Packs/Day Years Used Date Smoking Tobacco: Never Assessed Sex Assigned at Date Recorded Not on file documented as of this encounter Progress Notes Center, Message - 10/05/2009 3:17 PM CST Phone Note filed by DriveFactor at 01/03/112146 Author: DriveFactor Service: (none) Author Type: (none) Filed: 01/03/112146 Note Time: 10/05/091516 Status: Signed Sandstone Splitter: DriveFactor (Resource) Non -Symptom Message from Front Line Caller Name/Relationship:Pt Primary Drying Machine Receiver:Ronel Message:Pt stated that Dr Orozco delivered her two children, both had complications. She is again and will be transfering to the [facility] location. She would like to know from Dr Orozco if he has any recommendations as to who she should see and if he does have a recommendation, if he could give the new Dr background inform re:her complications. Leather Stretcher:Pt Best call back number:[phone] Is it OK to leave a confidential message on this voicemail? yes *ECODE~PNMSG2 Created on 05Oct2009 3:17pm by PARAMJIT LAI M On 10Oct2009 2:26pm ANDREA OROZCO wrote: Called. Suggested Janis Gregg, Dylon Talley, and Martell De La Paz Acknowledged by ANDREA OROZCO on 2:26pm UTIVE COACH documented in this encounter Plan of Treatment Not on filedocumented as of this encounter Visit Diagnoses Not on filedocumented in this encounter Care Teams Plastics Engineering Teacher Relationship Specialty Start Date End Date Andrea Orozco MD PCP - General 12/15/10 [address] [place] [address] documented as of this encounter
--- OUTSIDE RECORDS SUMMARY | 2022-04-23 04:58 | XMS_ITS | Encounter Summary ---
:1985 Author Organization [facility] Address [address] [place] [address] Care Team Providers Name Role Phone Andrea Rodney MD Primary Care Provider Encounter Details Date Type Department Care Team Description 05/31/2009 Office Visit [place] 1515 Dann Villalobos, Obstetrics/Gynecolog y 1515 [facility] . [address] [place] [address] 200 [place], [place] [address] (Wo rk) Social History Tobacco Use Types Packs/Day Years Used Date Smoking Tobacco: Never Assessed Sex Assigned at Date Recorded Not on file documented as of this encounter Last Filed Vital Signs Vital Sign Reading Time Taken Comments Blood Pressure 110/68 05/31/2009 1:59 PM CDT Pulse - - Temperature - - Respiratory Rate - - Oxygen Saturation - - Inhaled Oxygen Concentration - - Weight 59.1 kg (130 lb 2.9 oz) 05/31/2009 1:59 PM C: 59 .1kg CDT Height 157.5 cm (5' 2) 05/31/2009 1:59 PM C: 157.5cm CDT Body Mass Index 23.81 05/31/2009 1:59 PM CDT documented in this encounter Progress Notes Dann Villalobos MD - 05/31/2009 12:01 AM CDT Progress Notes signed by Dann Villalobos MD at 06/14/09 1322 Author: Dann Villalobos MD Service: (none) Author Type: Physician Filed: 01/04/11 1621 Note Time: 05/31/09 0001 Status: Signed Thread Machine Operator: Dann Villalobos MD (Physician) NAME: RAEGAN KIM MR#: [id number] ACCT: [id number] VISIT: [id number] DICTATING CLINICIAN: Dann Villalobos MD CONFIRM #: [id number] LOC: 3212 CLINIC PROGRESS NOTE DATE OF VISIT: 05/31/2009 SUBJECTIVE: CHIEF COMPLAINT: Cramping, spotting in early . HISTORY: The patient is a 24-year-old female, 4, para 2-0-1-2, last menstrual period 04/18/09. The patient states that her periods are usually about 30-31 days apart. She has had cramping since April. She has lower bilateral, sometimes on the right, sometimes on the left, cramping pain. She had some spotting on 05/19/09. This spotting has resolved. She saw Dr. Rodney on 05/23/09, and she had quantitative beta HCGs. The first one was 4:05 PM on 05/23/09. She had a followup on 05/25/09, at 8:25 AM which was 680, which was not doubling. She was instructed to follow up with VALVE SETTER. I talked to her on 05/29/09, and she was instructed to go to the [facility]. There was no spotting at that time. A quantitative beta HCG was done which was 2,186, although it was a different lab than the first 2 beta HCGs. She had an ultrasound on 05/29/09. There was what appeared to be a possible gestational sac measuring 5 mm in average diameter. Only a 1 mm echo was seen within the sac. This could represent an early gestational sac or a pseudosac or possibly an . Ectopic could not be excluded. She was told to follow up in 2 days in the clinic. She still has cramping pains. She denies any vaginal bleeding. PAST OB HISTORY: Normal spontaneous vaginal delivery x 2. Spontaneous x 1. PAST SURGICAL HISTORY: Negative. PAST MEDICAL HISTORY: Negative. The patient has had HPV and a colposcopy in 09/2008. She denies any history of gonorrhea, chlamydia, or pelvic inflammatory disease. MEDICATIONS: vitamins. ADR/ALLERGIES: NO KNOWN DRUG ALLERGIES. HABITS: Denies tobacco, alcohol, and illicit drug use. OBJECTIVE: VS: BP: 110/68. Ht: 62 in. Wt: 130.2. BMI 23.8. No exam today. ASSESSMENT: Early - rule out intrauterine , rule out threatened , rule out ectopic . PLAN: Will repeat quantitative beta HCG today, which is approximately 42 or 43 hours since the previous beta HCG. Have specimen run at the [facility], which is the same lab where it was run 2 days ago, and have the patient follow up in the a.m. The patient was instructed to go to the emergency room if she gets severe pain or heavy vaginal bleeding. Diagnostic options were discussed with the patient. The patient's questions were answered. The patient is in agreement with this plan. MLA:[id number] C: 06/01/09 09:01 CONFIRM #: [id number] documented in this encounter Plan of Treatment Not on filedocumented as of this encounter Visit Diagnoses Not on filedocumented in this encounter Care Teams Varnisher Plasticoater Relationship Specialty Start Date End Date Andrea Rodney MD PCP - General 12/15/[address] [place] [address] [place] [address] documented as of this encounter
--- OUTSIDE RECORDS SUMMARY | 2022-04-23 04:58 | XMS_ITS | Encounter Summary ---
:1985 Author Organization [facility] Address [address] [place] [address] Care Team Providers Name Role Phone Andrea Rodney MD Primary Care Provider Encounter Details Date Type Department Care Team Description 10/30/2009 PN Conversion Only [place] [address] [place] [address] Social History Tobacco Use Types Packs/Day Years Used Date Smoking Tobacco: Never Assessed Sex Assigned at Date Recorded Not on file documented as of this encounter Plan of Treatment Not on filedocumented as of this encounter Procedures Procedure Name Priority Date/Time Associated Comments Diagnosis ANATOMICAL PATH Routine 10/30/2009 7:43 AM Result s for this LIQUID BASED GREY IRON MOLDER procedure are i n the results section. documented in this encounter Results Pap Smear (10/30/2009 7:43 AM GREY IRON MOLDER) [facility] Method Time Signature PAP Smear SEE TEXT No normal HP CONVERSION Liquid Based range Comment: Patient: RAEGAN KIM ? CERVICAL CYTOLOGY REPORT Pathology # ??[id number] ?Date Obtained: [id number] ? Date Received: CYTOLOGIC IMPRESSION: Negative for intraepithelial lesion or m alignancy. Verified 11/01/09 by: ??Brigid Siddiqui ?(electronic signature) ? HERMINIA TIONAL DATA LMP: CLINICAL HIST LIQUID BASED PAP CERVICAL SPECIMEN ADEQUACY: ?? Satisfactory. ENDOCERVICAL CELLS: ??Present. Specimen (Source) Anatomical Collection Method Collection Time Re ceived Time Location / / Volume Laterality 10/30/2009 7:43 AM GREY IRON MOLDER Yesenia Rea RN LAB_1 Performing Organization Address City/State/ZIP Code Phon e Number HP CONVERSION documented in this encounter Visit Diagnoses Not on filedocumented in this encounter Care Teams Final Inspector Relationship Specialty Start Date End Date Andrea Rodney MD PCP - General 12/15/10 1415 [facility] [place] [address] documented as of this encounter
--- OUTSIDE RECORDS SUMMARY | 2022-04-23 04:58 | XMS_ITS | Encounter Summary ---
:1985 Author Organization [facility] Address [address] [place] [address] Care Team Providers Name Role Phone Andrea Rodney MD Primary Care Provider Encounter Details Date Type Department Care Team Description 06/09/2007 Office Visit [place] 1515 Sharif Lofton MD Obstetrics/Gynecolog y 1515 [facility] 1515 [facility] . Shivam [address] [place] [address] [place] [address] [phone] (Wo rk) Social History Tobacco Use Types Packs/Day Years Used Date Smoking Tobacco: Never Assessed Sex Assigned at Date Recorded Not on file documented as of this encounter Last Filed Vital Signs Vital Sign Reading Time Taken Comments Blood Pressure 112/66 06/09/2007 3:20 PM CDT Pulse - - Temperature - - Respiratory Rate - - Oxygen Saturation - - Inhaled Oxygen Concentration - - Weight 59.3 kg (130 lb 12.4 oz) 06/09/2007 3:20 PM CDT C: 59.3kg Height - - Body Mass Index - - documented in this encounter Progress Notes Sharif Lofton MD - 06/09/2007 12:01 AM CDT Progress Notes signed by Sharif Lofton MD at 06/11/07 7672 Author: Sharif Lofton MD Service: (none) Author Type: Physician Filed: 01/03/11 2153 Note Time: 06/09/07 0001 Status: Signed Aligner: Sharif Lofton MD (Physician) NAME: RAEGAN KIM MR#: [id number] ACCT: [id number] VISIT: [id number] DICTATING CLINICIAN: SHARIF LOFTON MD JOB: [id number] LOC: 3212 CLINIC PROGRESS NOTE DATE OF VISIT: 06/09/2007 SUBJECTIVE: Patient is a 22-year-old, para 2-0-1-2, LMP 05/29/07, here today in consultation from Dr. Rodney regarding a uterine anomaly. She has had 2, essentially, full-term deliveries. However, in her most recent , she had 2 ultrasounds indicating a possible uterine anomaly. 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 She did deliver at 37 weeks, but that was for preeclampsia. Again, with either of her full-term pregnancies, she did not have any problems with labor. She did experience 1 early loss, and she was under the impression that this could be due to the abnormally shaped uterus. MEDICATIONS: Only vitamins. ADR/ALLERGIES: SHE HAS NO ALLERGIES. She is a nonsmoker. OBJECTIVE: VS: BP: 112/66. Wt: 130.8 lb. Physical exam is deferred. ASSESSMENT: Possible uterine anomaly. PLAN: I discussed the embryology, the formation of the uterus with the patient and the possible anomalies that can result from failure of normal development. It is not clear to me what the exact abnormality may be in her case. However, I think it is quite reassuring that she has had 2 term deliveries and has not had problems with labor or malpresentation. I reviewed some of the statistics and issues regarding early loss, and I do not feel it is unusual that she has experienced 1 early loss. If she does have a uterine septum, however, that could have predisposed to that if implantation occurred on the septum. We also discussed possible treatment options, including resection of a uterine septum or even uterine reunification surgery. However, I advised the patient that given her reassuring history, my first inclination would be to recommend expectant management. For now however, we will have her schedule a pelvic ultrasound to better delineate the uterine anatomy when she is non, although there are limitations to ultrasound in determining the exact anatomy. We will have that information available for future reference should problems arise, but again otherwise, at this time, I would recommend expectant management and would not necessarily recommend any surgical procedure. She is in agreement and will follow up as needed. CC: Andrea Rodney MD [facility] DAD:[id number] C: 06/10/07 17:04 DOCUMENT: [id number] documented in this encounter Plan of Treatment Not on filedocumented as of this encounter Visit Diagnoses Not on filedocumented in this encounter Care Teams Wreath Inspector Relationship Specialty Start Date End Date Andrea Rodney MD PCP - General 12/15/10 1415 [facility] [place] [address] documented as of this encounter
--- OUTSIDE RECORDS SUMMARY | 2022-04-23 04:58 | XMS_ITS | Encounter Summary ---
:1985 Author [facility] Address [address] [place] [address] Care Team Providers Name Role Phone Andrea Rodney MD Primary Care Provider Encounter Details Date Type Department Care Team Description 06/19/2009 PN Conversion Only [facility] 1515 [place] [address] [place] [address] Social History Tobacco Use Types Packs/Day Years Used Date Smoking Tobacco: Never Assessed Sex Assigned at Date Recorded Not on file documented as of this encounter Plan of Treatment Not on filedocumented as of this encounter Visit Diagnoses Not on filedocumented in this encounter Care Teams Report Programmer Relationship Specialty Start Date End Date Andrea Rodney MD PCP - General 12/15/10 1415 [place] [address] documented as of this encounter
--- OUTSIDE RECORDS SUMMARY | 2022-04-23 04:58 | XMS_ITS | Encounter Summary ---
:1985 Author Organization [facility] Address [address] [place] [address] Care Team Providers Name Role Phone Andrea Orozco MD Primary Care Provider Reason for Visit Reason Comments Other Encounter Details Date Type Department Care Team Description 08/15/2008 Telephone [facility] Angelique Gonzáles LPN Other 1415 [facility] . [place], [place] [address] Social History Tobacco Use Types Packs/Day Years Used Date Smoking Tobacco: Never Assessed Sex Assigned at Date Recorded Not on file documented as of this encounter Progress Notes Center, Message - 08/15/2008 4:49 PM CST Phone Note filed by StyleSaint at 01/02/11 1122 Author: StyleSaint Service: (none) Author Type: (none) Filed: 01/02/11 1122 Note Time: 08/15/08 1649 Status: Signed Pig Machine Supervisor: StyleSaint Front Line Sx Call Caller Name/Relationship: Pt Primary Diesel Mechanic Farm: Ronel Symptom or request? Pt.'s daughter Tanya (MR# [id number]) has a [facility] appt with Dr Orozco on 08-23-08 at 11:00. Pt is driving up from [place] and would like to have a flu shot during her daughter's appt as well as her other daughter, Odell, MR# [id number]. Please let her know if this is OK Is appointment scheduled & when? Data Review Specialist:Pt Best call back number:[phone] Is it OK to leave a confidential message on this voicemail? yes *ECODE~PNSX2 Created on 15Aug2008 4:49pm by PARAMJIT LAI On 15Aug2008 5:13pm ANDREA OROZCO wrote: OK with me Acknowledged by ANDREA OROZCO on 5:13pm On 16Aug2008 9:03am ANGELIQUE DONG wrote: Called notified pt it is ok to get there flu shots same day Acknowledged by ANGELIQUE DONG on 9:03am OW REPAIRER documented in this encounter Plan of Treatment Not on filedocumented as of this encounter Visit Diagnoses Not on filedocumented in this encounter Care Teams Automobile Upholsterer Apprentice Relationship Specialty Start Date End Date Andrea Orozco MD PCP - General 12/15/10 [facility]5 [place] [address] documented as of this encounter
--- OUTSIDE RECORDS SUMMARY | 2022-04-23 04:58 | XMS_ITS | Encounter Summary ---
:1985 Author Organization [facility] Address [address] [place] [address] Care Team Providers Name Role Phone Andrea Rodney MD Primary Care Provider Encounter Details Date Type Department Care Team Description 06/05/2009 Office Visit [facility]ey 1515 Dann Villalobos, Obstetrics/Gynecolog y 1515 [facility] . [address]15 [place] [address] 200 [place], [place] [address] (Wo rk) Social History Tobacco Use Types Packs/Day Years Used Date Smoking Tobacco: Never Assessed Sex Assigned at Date Recorded Not on file documented as of this encounter Last Filed Vital Signs Vital Sign Reading Time Taken Comments Blood Pressure 104/56 06/05/2009 2:23 PM CDT Pulse - - Temperature - - Respiratory Rate - - Oxygen Saturation - - Inhaled Oxygen Concentration - - Weight 59 kg (129 lb 15.7 oz) 06/05/2009 2:23 PM CDT C: 59.0kg Height - - Body Mass Index 23.4 06/01/2009 9:19 AM CDT documented in this encounter Progress Notes Dann Villalobos MD - 06/05/2009 12:01 AM CDT Progress Notes signed by Dann Villalobos MD at 06/16/09 0821 Author: Dann Villalobos MD Service: (none) Author Type: Physician Filed: 01/04/11 1628 Note Time: 06/05/09 0001 Status: Signed External Grinder Tool: Dann Villalobos MD (Physician) NAME: RAEGAN KIM MR#: [id number] ACCT: [id number] VISIT: [id number] DICTATING CLINICIAN: Dann Villalobos MD CONFIRM #: [id number] LOC: 3212 CLINIC PROGRESS NOTE DATE OF VISIT: 06/05/2009 SUBJECTIVE: CHIEF COMPLAINT: First trimester vaginal bleeding. HISTORY: The patient was seen on 05/31 and 06/01/09. See LastWord for those dictations. She has a and it has not been determined if she has a normal intrauterine , an abnormal intrauterine , or an ectopic . She returns today for followup. She states on Thursday afternoon she noticed some blood on the toilet paper, but that overall she has had less cramping compared to last week. OBJECTIVE: No exam today. ASSESSMENT: First trimester , vaginal bleeding. Possible intrauterine , possible abnormal intrauterine , possible ectopic . PLAN: Quantitative beta HCG today. Followup ultrasound in 1-2 days. I will call the patient with the ultrasound results and recommendations for any further treatment or diagnostic studies. The patient's questions were answered. The patient is in agreement with this plan. Total time 10 minutes, counseling time 6 minutes. MLA:[id number] C: 06/06/09 11:45 CONFIRM #: [id number] documented in this encounter Plan of Treatment Not on filedocumented as of this encounter Visit Diagnoses Not on filedocumented in this encounter Care Teams Motion Picture Equipment Supervisor Relationship Specialty Start Date End Date Andrea Rodney MD PCP - General 12/15/10 [address] [place] [id number] documented as of this encounter
--- OUTSIDE RECORDS SUMMARY | 2022-04-23 04:58 | XMS_ITS | Encounter Summary ---
:1985 Author Organization [employer] Address [address] [place] [address] Care Team Providers Name Role Phone Andrea Rodney MD Primary Care Provider Encounter Details Date Type Department Care Team Description 05/25/2009 PN Conversion Only GLENDIVE CONVERSIO N Andrea Rodney, [address] AL[address] MD [address] [place] [address] [place] [address] (Wo rk) Social History Tobacco Use Types Packs/Day Years Used Date Smoking Tobacco: Never Assessed Sex Assigned at Date Recorded Not on file documented as of this encounter Plan of Treatment Not on filedocumented as of this encounter Procedures Procedure Name Priority Date/Time Associated Diagnosis Comme nts HCG, QUANTITATIVE, Routine 05/25/2009 8:25 AM Res ults for this SERUM CDT procedure ar e in the results section. documented in this encounter Results (ABNORMAL) HCG, Quantitative, Serum (05/25/2009 8:25 AM CDT) P athologist Signature HCG For 680 (H) 0 - 6 HP CONVERSION mIU/mL Comment: Approximate ?Approximate Gestational Age ?Concentration (m IU/mL) ---X 0-1 week ? 5-50 1-2 weeks ?50-500 2-3 weeks ?100-5000 3-4 weeks ?500-10,000 1-2 months ? 1000-200,000 2-3 months ? 15,000-200,000 2nd trimester ?----- 3rd trimester ?----- Tumor marker ? <5 Specimen (Source) Anatomical Collection Method Collection Time Re ceived Time Location / / Volume Laterality 05/25/2009 8:25 AM CDT Andrea Rodney MD LAB_1 Performing Organization Address City/State/ZIP Code Phon e Number HP CONVERSION documented in this encounter Visit Diagnoses Not on filedocumented in this encounter Care Teams Post Tensioning Ironworker Relationship Specialty Start Date End Date Andrea Rodney MD PCP - General 12/15/10 [address] [place] [id number] documented as of this encounter
--- OUTSIDE RECORDS SUMMARY | 2022-04-23 04:58 | XMS_ITS | Encounter Summary ---
:1985 Author Organization [facility] Address [address] [place] [address] Care Team Providers Name Role Phone Andrea Rodney MD Primary Care Provider Encounter Details Date Type Department Care Team Description 06/08/2008 PN Conversion Only [place] CONVERSION 1415 [place] [address] Social History Tobacco Use Types Packs/Day Years Used Date Smoking Tobacco: Never Assessed Sex Assigned at Date Recorded Not on file documented as of this encounter Plan of Treatment Not on filedocumented as of this encounter Visit Diagnoses Not on filedocumented in this encounter Care Teams Quick Technician Relationship Specialty Start Date End Date Andrea Rodney MD PCP - General 12/15/10 14[address] [place] [address] documented as of this encounter
--- OUTSIDE RECORDS SUMMARY | 2022-04-23 04:58 | XMS_ITS | Encounter Summary ---
:1985 Author Organization [email or web address] Address [address], [place] [address] Care Team Providers Name Role Phone Andrea Rodney MD Primary Care Provider Encounter Details Date Type Department Care Team Description 03/30/2008 [facility] Rodney MD 1414 [facility] . 1415 [facility] [place] [address] [place], [place] [address] (Wo rk) Social History Tobacco Use Types Packs/Day Years Used Date Smoking Tobacco: Never Assessed Sex Assigned at Date Recorded Not on file documented as of this encounter Last Filed Vital Signs Vital Sign Reading Time Taken Comments Blood Pressure 102/78 03/30/2008 10:53 AM CDT Pulse - - Temperature - - Respiratory Rate - - Oxygen Saturation - - Inhaled Oxygen Concentration - - Weight 57.2 kg (125 lb 15.9 oz) 03/30/2008 10:53 AM C: 57.2kg CDT Height 157.5 cm (5' 2) 03/30/2008 10:53 AM C: 157.5cm CDT Body Mass Index 23.04 03/30/2008 10:53 AM CDT documented in this encounter Plan of Treatment Not on filedocumented as of this encounter Visit Diagnoses Not on filedocumented in this encounter Care Teams Packager Hand Relationship Specialty Start Date End Date Andrea Rodney MD PCP - General 12/15/10 [address] [place] [address] documented as of this encounter
--- OUTSIDE RECORDS SUMMARY | 2022-04-23 04:59 | XMS_ITS | Encounter Summary ---
:1985 Author Organization [employer] Address [address], [place] [address] Care Team Providers Name Role Phone Andrea Rodney MD Primary Care Provider Encounter Details Date Type Department Care Team Description 01/13/2007 PN Conversion Only [place] CONVERSION Andrea Rodney, 14[address] [facility] [place] [address] 0734 [facility] [place] [address] (Wo rk) Social History Tobacco Use Types Packs/Day Years Used Date Smoking Tobacco: Never Assessed Sex Assigned at Date Recorded Not on file documented as of this encounter Plan of Treatment Not on filedocumented as of this encounter Procedures Procedure Name Priority Date/Time Associated Comments Diagnosis URINALYSIS Routine 01/13/2007 11:45 Results for this ROUTINE(MICRO IF POS) AM CDT proced ure are in the results section. URINALYSIS Routine 01/13/2007 11:45 Results for this MICROSCOPIC AM CDT procedure are i n the results section. documented in this encounter Results (ABNORMAL) Urinalysis Routine(Micro If Pos) (01/13/2007 11:45 AM CDT) [facility] Method Time Signature Turbidity Clear No normal HP CONVERSION range pH Urine 5.5 4.5 - 7.5 HP CONVERSION Protein Urine 30 mg/dL Neg-Trac HP CONVERSION (A) Glucose, 250mg/dL Neg-Trac HP CONVERSION Qualitative U (A) Ketones Trace (A) Negative HP CONVERSION U BILI Negative Negative HP CONVERSION Blood Urine Negative Negative HP CONVERSION Nitrite Urine Negative Negative HP CONVERSION Leukocyte Negative Negative HP CONVERSION Esterase Urine Urobilinogen Negative 0.2 - 1.0 HP CONVERSION Urine U Specific >=1.030 1.005 - 25 HP CONVERSION Pala Specimen (Source) Anatomical Collection Method Collection Time Re ceived Time Location / / Volume Laterality 01/13/2007 11:45 AM CDT Andrea Rodney MD LAB_1 Performing Organization Address City/State/ZIP Code Phon e Number HP CONVERSION (ABNORMAL) Urinalysis Microscopic (01/13/2007 11:45 AM CDT) [facility] Method Time Signature White Blood 0-2/HPF 0 - 3 HP CONVERSION Cells Urine Red Blood 0-2/HPF 0 - 2 HP CONVERSION Cells Urine Bacteria Urine Moderate (A) None HP CONVERSIO N Urine Mucus Few None HP CONVERSION Epithelial Few Few /HPF HP CONVERSION Cells Crystals Ca Ox None HP CONVERSION Specimen (Source) Anatomical Collection Method Collection Time Re ceived Time Location / / Volume Laterality 01/13/2007 11:45 AM CDT Andrea Rodney MD LAB_1 Performing Organization Address City/[facility] Code Phon e Number HP CONVERSION documented in this encounter Visit Diagnoses Not on filedocumented in this encounter Care Teams Soccer Commentator Relationship Specialty Start Date End Date Andrea Rodney MD PCP - General 12/15/10 1415 [facility] [place] [address] documented as of this encounter
--- OUTSIDE RECORDS SUMMARY | 2022-04-23 04:59 | XMS_ITS | Encounter Summary ---
:1985 Author Organization [facility] Address [address] [place] [address] Care Team Providers Name Role Phone Andrea Orozco MD Primary Care Provider Reason for Visit Reason Comments Other Encounter Details Date Type Department Care Team Description 01/27/2007 Telephone [facility] Andrea Orozco MD Other 1415 [facility] . [address] [place] [address] [place], [place] [address] (Wo rk) Social History Tobacco Use Types Packs/Day Years Used Date Smoking Tobacco: Never Assessed Sex Assigned at Date Recorded Not on file documented as of this encounter Progress Notes Center, Message - 01/27/2007 1:40 PM CDT Phone Note filed by [email or web address] at 12/31/102043 Author: [email or web address] Service: (none) Author Type: (none) Filed: 12/31/102043 Note Time: 01/27/07 1340 Status: Signed Waste Collector: Message [employer] MESSAGE TO CARE TEAM NAME OF CALLER:Elli NAME OF CLINICIAN:Dr. Orozco MESSAGE:Pt would like to let you know that is it ok for her to come in today at 8pm to be induced. Please call with questions. PHARMACY NAME: PHARMACY PHONE #: CITY: CALL BACK PHONE OR CELL PHONE:[phone] BEST TIME TO CALL BACK:anytime IS IT OK TO LEAVE A CONFIDENTIAL MESSAGE ON THIS VOICEMAIL?yes Created on 27Jan2007 1:40pm by DAVIN FINCH Acknowledged by ANDREA OROZCO on 2:03pm NER W[facility]OW documented in this encounter Plan of Treatment Not on filedocumented as of this encounter Visit Diagnoses Not on filedocumented in this encounter Care Teams Reinforcing Bar Setter Relationship Specialty Start Date End Date Andrea Orozco MD PCP - General 12/15/10 1415 [facility] [place] [id number] documented as of this encounter
--- OUTSIDE RECORDS SUMMARY | 2022-04-23 04:59 | XMS_ITS | Encounter Summary ---
:1985 Author Organization [employer] Address [address] [place] [address] Care Team Providers Name Role Phone Andrea Rodney MD Primary Care Provider Encounter Details Date Type Department Care Team Description 12/22/2006 PN Conversion Only PRIOR WHITING CONVERSIO N Andrea Rodney, [address] MD [address] [place] [address] [place] [address] (Wo rk) Social History Tobacco Use Types Packs/Day Years Used Date Smoking Tobacco: Never Assessed Sex Assigned at Date Recorded Not on file documented as of this encounter Plan of Treatment Not on filedocumented as of this encounter Procedures Procedure Name Priority Date/Time Associated Diagnosis Comme nts GTT 3 HR, Routine 12/22/2006 8:52 AM Resu lts for this CDT procedure are i n the results section. documented in this encounter Results GTT 3 Hr, (12/22/2006 8:52 AM CDT) P athologist Signature Glucose, 94 mg/dL HP CONVERSION Fasting Glucose, 94 mg/dL HP CONVERSION Fasting Glucose, GTT - 146 mg/dL HP CONVERSION 1 Hour Glucose, 94 mg/dL HP CONVERSION Fasting Glucose, GTT - 146 mg/dL HP CONVERSION 1 Hour Glucose, GTT - 133 mg/dL HP CONVERSION 2 Hour Glucose, GTT - 109 mg/dL HP CONVERSION 3 Hour Comment: At least 2 of the following glucose valu es must be met or exceeded to diagnose Gestational Diabetes ? mg/dL ?mg/dL Fasting ? 95 ? 2 demetrio r ? 155 1 hour ? 180 ? 3 demetrio r ? 140 Glucose data are non-diagnostic for Ges tational Diabetes. Glucose, Fasting 94 mg/dL HP CONVERSION Glucose, GTT - 1 Hour 146 mg/dL HP CONVE RSION Glucose, GTT - 2 Hour 133 mg/dL HP CONVE RSION Glucose, GTT - 3 Hour 109 mg/dL HP CONVE RSION Comment: At least 2 of the following glucose valu es must be met or exceeded to diagnose Gestational Diabetes ? mg/dL ?mg/dL Fasting ? 95 ? 2 demetrio r ? 155 1 hour ? 180 ? 3 demetrio r ? 140 Glucose data are non-diagnostic for Ges tational Diabetes. Specimen (Source) Anatomical Collection Method Collection Time Re ceived Time Location / / Volume Laterality 12/22/2006 8:52 AM CDT Andrea Rodney MD LAB_1 Performing Organization Address City/State/ZIP Code Phon e Number HP CONVERSION documented in this encounter Visit Diagnoses Not on filedocumented in this encounter Care Teams Dynamicist Relationship Specialty Start Date End Date Andrea Rodney MD PCP - General 12/15/10 [address] [place] [address] documented as of this encounter
--- OUTSIDE RECORDS SUMMARY | 2022-04-23 04:59 | XMS_ITS | Encounter Summary ---
:1985 Author Organization [facility] Address [address] [place] [address] Care Team Providers Name Role Phone Andrea Rodney MD Primary Care Provider Encounter Details Date Type Department Care Team Description 11/13/2004 PN Conversion Only OTHER CONVERSION [address] [place] [address] Social History Tobacco Use Types Packs/Day Years Used Date Smoking Tobacco: Never Assessed Sex Assigned at Date Recorded Not on file documented as of this encounter Plan of Treatment Not on filedocumented as of this encounter Visit Diagnoses Not on filedocumented in this encounter Care Teams Podiatry Professor Relationship Specialty Start Date End Date Andrea Rodney MD PCP - General 12/15/10 1415 [facility] [place] [address] documented as of this encounter
--- OUTSIDE RECORDS SUMMARY | 2022-04-23 04:59 | XMS_ITS | Encounter Summary ---
:1985 Author Organization [employer] Address [address] [place] [address] Care Team Providers Name Role Phone Andrea Rodney MD Primary Care Provider Encounter Details Date Type Department Care Team Description 08/12/2005 Office Visit [facility] Roland Rodriguez MD [address] [address] [place], [place] [address] [phone] Social History Tobacco Use Types Packs/Day Years Used Date Smoking Tobacco: Never Assessed Sex Assigned at Date Recorded Not on file documented as of this encounter Last Filed Vital Signs Vital Sign Reading Time Taken Comments Blood Pressure 110/78 08/12/2005 2:45 PM CLINICAL PHARMACY COORDINATOR Pulse 60 08/12/2005 2:45 PM CLINICAL PHARMACY COORDINATOR Temperature - - Respiratory Rate - - Oxygen Saturation - - Inhaled Oxygen Concentration - - Weight 58.5 kg (128 lb 15.9 oz) 08/12/2005 2:45 PM CLINICAL PHARMACY COORDINATOR C: 58.5kg Height - - Body Mass Index - - documented in this encounter Progress Notes Clara Rodriguez - 08/12/2005 12:01 AM CST Progress Notes signed by Clara Rodriguez MD at 08/15/05 1246 Author: Clara Rodriguez MD Service: (none) Author Type: Physician Filed: 01/03/11 0837 Note Time: 08/12/05 0001 Status: Signed Recreational Therapy Technician: Clara Rodriguez MD (Physician) NAME: RAEGAN RABAGO MR: [id number] ACCT: VISIT: [id number] DICTATING CLINICIAN: CLARA RODRIGUEZ MD JOB: [id number] CLINIC PROGRESS NOTE DATE OF VISIT: 08/12/2005 SUBJECTIVE: : 1985. This is a very pleasant 20-year-old patient who is coming in reporting that she has had some (blood) spotting and pain in her lower abdomen, and it happened about 1 week ago for the first time. She was sick and nauseous at that time, and she had some blood in her underwear spotting. She was okay 1 day later. More blood was noted, and then she was totally okay. Now, today she has this lower abdominal pain, and denies any vaginal discharge except for some spotting. She denies being , and she is complaining of lower abdominal pain. She points to the bladder area and the area below that. She has also had unprotected sex. She is engaged and is monogamous. Her LMP was on 07/18/05. She really cannot think of any other reasons that can be causing this pain because she has not traveled abroad. She does not have nausea, vomiting, constipation, diarrhea, she has not ingested any foods that can cause this, and she does not think she can be to have the symptoms either. REVIEW OF SYSTEMS: Constitution as above. Eyes, ENT, respiration, cardio negative. GI negative. as above. Skin, neuro, psych negative. OBJECTIVE: VS: BP: 110/78. Wt: 129 lb. Alert and oriented. HEENT: NAD. HEART: NAD. LUNGS: NAD. No costovertebral tenderness is noted. ABDOMINAL EXAM: There is no localizing tenderness. Bowel sounds are heard. Bustamante's and McBurney signs are negative. A pelvic exam is done. No odor or discharge is noted. No cervix motion tenderness is noted. A wet prep is collected, and a GC-Chlamydia is collected. Further labs that are done are wet prep, UA, GC-Chlamydia, UPT, CBC differential. Except for GC-Chlamydia, which is still pending, all of the labs are within normal limits. ASSESSMENT: Abdominal pain of unknown origin. Could be just due to viral syndrome. If her vaginal bleeding continues we will need to investigate further, do an ultrasound or an x-ray. Her UPT is negative today. The UA is okay and within normal limits except for proteinuria, which is noted. We may need to repeat her urine to FU on proteinuria, and hope it will resolve. If it does not, we may need to investigate it further. I did discuss with her that it is unlikely that she has appendicitis, but it could be a probability, it is called a masquerader. So, to watch out for that, but right now her CBC differential is within normal limits, and there are no localizing signs, and she does not have nausea or vomiting. We will treat her if GC-Chlaymdia done comes back positive. She is monogamous, and she does not think she will end up having those symptoms. I am also advising her to be seen for a follow up in the clinic in 2 weeks or so, sooner if her symptoms are worsening. She may even need to be seen in the urgent care earlier if the clinic is not open at that time. PLAN: See assessment. SKZ:[id number] C: 08/13/05 15:42 DOCUMENT: [id number] ICAL PHARMACY COORDINATOR documented in this encounter Plan of Treatment Not on filedocumented as of this encounter Visit Diagnoses Not on filedocumented in this encounter Care Teams Gear Machine Operator Relationship Specialty Start Date End Date Andrea Rodney MD PCP - General 12/15/[address] [place], [place] [address] [place] [address] documented as of this encounter
--- OUTSIDE RECORDS SUMMARY | 2022-04-23 04:59 | XMS_ITS | Encounter Summary ---
:1985 Author Organization [facility] Address [address] [place] [address] Care Team Providers Name Role Phone Andrea Rodney MD Primary Care Provider Encounter Details Date Type Department Care Team Description 11/27/2006 PN Conversion Only [place] CONVERSION Irving Morris MD [address] [place] [address] [address] [address] (Wo rk) Social History Tobacco Use Types Packs/Day Years Used Date Smoking Tobacco: Never Assessed Sex Assigned at Date Recorded Not on file documented as of this encounter Plan of Treatment Not on filedocumented as of this encounter Visit Diagnoses Not on filedocumented in this encounter Care Teams Information Technology Administrator Relationship Specialty Start Date End Date Andrea Rodney MD PCP - General 12/15/[address] [place] [address] documented as of this encounter
--- OUTSIDE RECORDS SUMMARY | 2022-04-23 04:59 | XMS_ITS | Encounter Summary ---
:1985 Author Organization [email or web address] Address [address] [place] [address] Care Team Providers Name Role Phone Andrea Orozco MD Primary Care Provider Reason for Visit Reason Comments Other Encounter Details Date Type Department Care Team Description 05/13/2006 Telephone [facility] Andrea Orozco MD Other 1415 [facility] . [address] [place] [address] [place], [place] [address] (Wo rk) Social History Tobacco Use Types Packs/Day Years Used Date Smoking Tobacco: Never Assessed Sex Assigned at Date Recorded Not on file documented as of this encounter Progress Notes Maliha Rashid - 05/13/2006 8:18 AM CDT Phone Note filed by Maliha Rashid RN at 12/31/10801 Author: Maliha Rashid RN Service: (none) Author Type: Registered Nurse Filed: 12/31/10801 Note Time: 05/13/06817 Status: Signed Pipe Bowl Paint Trimmer: Maliha Rashid RN (Registered Nurse) CLINICIAN FOLLOW-UP: Clinician action required: pt declines to be seen anywhere until you are notified. pt would like to speak to provider only. this is second and pt's mother reports that pt had a lot of problems with the first one, but did deliver full term. Contact Number: [phone] Yes, it is okay to leave a detailed message. IMPRESSION: OB Vaginal Bleeding URGENT SYMPTOMS: Vaginal bleeding, denies recent intercourse, symptom of hemorrhoids or UTI, symptoms include cramping and passing tissue, gestation < 12 weeks and patient anxious. Additional Symptoms: mom calling. LMP 04/03/06. she was seen in [facility] for spotting and abd pain. says lab work was done and two ultrasounds. was told she is too early and they could not see anything. today pt has saturated three maxipads in the last hour and a half. still having abd pain. has not seen tissue or clots. Denies any emergent symptoms PATIENT INFORMATION: Status: Approximate date of last menstrual period was 04/03/06. INTERIM/HOME MANAGEMENT RECOMMENDATIONS: Monitor amount of flow. Record number of saturated pads per hour, do not use tampon. rest with feet elevated and drink plenty of fluids. Advised to call back if any of the following occur: vaginal bleeding increases, becomes red in color, cramping, backache, passing of clots or tissue, symptoms persist or worsen, any other questions or concerns. PLAN: NOTIFY CARE TEAM STAT Patient/Caller agrees with plan and denies additional questions. Reference(s) Used: [facility] OB VAginal Bleeding Nursing Reference, *SH~PNNL~OB VAGINAL~ Created on 13May2006 8:18am by MALIHA RASHID On 13May2006 9:02am ANDREA OROZCO wrote: Called. Pain improved, bleeding heavy earlier, now better. Offered earlier blood testing, but declined. Will do B HCG tomorrow and re-eval Acknowledged by ANDREA OROZCO on 9:02am REPAIRER documented in this encounter Plan of Treatment Not on filedocumented as of this encounter Visit Diagnoses Not on filedocumented in this encounter Care Teams C Iron Worker Relationship Specialty Start Date End Date Andrea Orozco MD PCP - General 12/15/10 1415 [facility] [place] [address] documented as of this encounter
--- OUTSIDE RECORDS SUMMARY | 2022-04-23 04:59 | XMS_ITS | Encounter Summary ---
:[address] [facility] [employer] Address [address] [place] [address] Care Team Providers Name Role Phone Andrea Rodney MD Primary Care Provider Encounter Details Date Type Department Care Team Description [facility] [address] [place] [address] . [address] [place] [address] [place] [address] [phone] (Wo rk) Social History Tobacco Use Types Packs/Day Years Used Date Smoking Tobacco: Never Assessed Sex Assigned at Date Recorded Not on file documented as of this encounter Plan of Treatment Not on filedocumented as of this encounter Visit Diagnoses Not on filedocumented in this encounter Care Teams Auto Service Instructor Relationship Specialty Start Date End Date Andrea Rodney MD PCP - General 12/15/[address] [place] [address] documented as of this encounter
--- OUTSIDE RECORDS SUMMARY | 2022-04-23 04:59 | XMS_ITS | Encounter Summary ---
:1985 Author Organization [employer] Address [address], [place] [address] Care Team Providers Name Role Phone Andrea Rodney MD Primary Care Provider Reason for Visit Reason Comments Other Encounter Details Date Type Department Care Team Description 12/04/2006 [facility] [address] [facility] . [address] [place] [address] [address] [phone] [place] [address] (Wo rk) Social History Tobacco Use Types Packs/Day Years Used Date Smoking Tobacco: Never Assessed Sex Assigned at Date Recorded Not on file documented as of this encounter Progress Notes Tila Cummings - 12/04/2006 12:50 PM CDT Phone Note filed by Tila Cummings RN at 12/31/101748 Author: Tila Cummings RN Service: (none) Author Type: (none) Filed: 12/31/101748 Note Time: 12/04/06 1250 Status: Signed Mud Engineer: Alejandra Maldonado CLINICIAN FOLLOW-UP: None IMPRESSION: fell at 29 wks SX/ADVICE: pt is 29 weeks . she fell this afternoon and landed on her buttocks. pt is having a lot of pain in her lower back. denies hitting her abdomen. no vaginal discharge. Denies emergent symptoms PATIENT INFORMATION: Status: Approximate date of last menstrual period was: 29 weeks. Status: Patient is not . Tobacco Use: No history of tobacco use. Patient to call back if: symptoms worsen or persist, any other questions or concerns. DISPOSITION: SCHEDULE APPOINTMENT WITHIN 2 HOURS- pt to be seen at family for eval Patient/Caller agrees with plan and denies additional questions. Call Complete. *SH~PNNL~SCHOLARII ~ Created on 04Dec2006 12:50pm by TILA CUMMINGS On 04Dec2006 12:55pm IRVING PRADHAN wrote: Has she gotten appt? Acknowledged by IRVING PRADHAN on 12:55pm On 04Dec2006 1:21pm ZANE PALMER wrote: pt going to family [facility] for evaluation. talked with MIN from above. Acknowledged by ZANE PALMER on 1:21pm Acknowledged by IRVING PRADHAN on 2:26pm AND ASH SUPERVISOR documented in this encounter Plan of Treatment Not on filedocumented as of this encounter Visit Diagnoses Not on filedocumented in this encounter Care Teams Document Management Consultant Relationship Specialty Start Date End Date Andrea Rodney MD PCP - General 12/15/10 [address] [place] [address] documented as of this encounter
--- OUTSIDE RECORDS SUMMARY | 2022-04-23 04:59 | XMS_ITS | Encounter Summary ---
:1985 Author Organization [facility] Address [address] [place] [address] Care Team Providers Name Role Phone Andrea Rodney MD Primary Care Provider Encounter Details Date Type Department Care Team Description 01/27/2007 PN Conversion Only OTHER CONVERSION [address] [place] [address] Social History Tobacco Use Types Packs/Day Years Used Date Smoking Tobacco: Never Assessed Sex Assigned at Date Recorded Not on file documented as of this encounter Plan of Treatment Not on filedocumented as of this encounter Visit Diagnoses Not on filedocumented in this encounter Care Teams Benzene Washer Relationship Specialty Start Date End Date Andrea Rodney MD PCP - General 12/15/10 [address] [facility] [place] [address] documented as of this encounter
--- OUTSIDE RECORDS SUMMARY | 2022-04-23 04:59 | XMS_ITS | Encounter Summary ---
:1985 Author Organization [facility] Address [address], [place] [address] Care Team Providers Name Role Phone Andrea Orozco MD Primary Care Provider Encounter Details Date Type Department Care Team Description 11/20/2004 Office Visit [facility] Andrea Orozco MD [address] [facility] . [address] [place] [address] [place], [place] [phone] (Wo rk) Social History Tobacco Use Types Packs/Day Years Used Date Smoking Tobacco: Never Assessed Sex Assigned at Date Recorded Not on file documented as of this encounter Progress Notes Andrea Orozco MD - 11/20/2004 12:01 AM CST Progress Notes signed by Andrea Orozco MD at 11/21/042040 Author: Andrea Orozco MD Service: (none) Author Type: Physician Filed: 01/03/11 0340 Note Time: 11/20/04 0001 Status: Signed Comfort Station Attendant: Andrea Orozco MD (Physician) NAME: RAEGAN RABAGO MR: [id number] ACCT: [id number] VISIT: [id number] DICTATING CLINICIAN: ANDREA OROZCO MD JOB: [id number] CLINIC PROGRESS NOTE DATE OF VISIT: 11/20/2004 SUBJECTIVE: A 19-year-old here for blood pressure recheck. She had significant blood pressure elevation a week ago when she delivered vaginally an IUGR infant that required transfer to [facility] ICU. She was significantly hypertensive on admission, responding well to mag sulfate. She was discharged on Aldomet 250 mg b.i.d. which she tolerated well without lightheadedness. She has had continued dependent edema apparently in the genitalia presumably from ascites. She has had no peripheral edema. No headaches or visual disturbance. She has no abdominal pain. OBJECTIVE: VS: BP: 146/74. Wt: 143. She has only grade 1 to trace edema intensity. Genitalia was not evaluated. ABDOMEN: Shows marked reduction of her ascites from a week ago. Fundus is firm. ASSESSMENT: induced hypertension. PLAN: Continue her Aldomet. She has refills for a total of two months. I would like to see her blood pressure rechecked in two weeks with a recheck exam in six weeks after delivery. If she has a headache or visual disturbance, would like to have her be seen urgently. JFR:[id number] C: 11/21/04 10:13 DOCUMENT: [id number] MEDICAL documented in this encounter Plan of Treatment Not on filedocumented as of this encounter Visit Diagnoses Not on filedocumented in this encounter Care Teams Diamond Finishing Supervisor Relationship Specialty Start Date End Date Andrea Orozco MD PCP - General 12/15/[address] [place], [place] [address] [place] [id number] documented as of this encounter
--- OUTSIDE RECORDS SUMMARY | 2022-04-23 04:59 | XMS_ITS | Encounter Summary ---
:1985 Author Organization [employer] Address [address] [place] [address] Care Team Providers Name Role Phone Andrea Orozco MD Primary Care Provider Encounter Details Date Type Department Care Team Description 01/20/2007 Routine [facility] Andrea Orozco, [address] [facility] [place] [address] [address] [facility] [phone] [place] [address] (Wo rk) Social History Tobacco Use Types Packs/Day Years Used Date Smoking Tobacco: Never Assessed Sex Assigned at Date Recorded Not on file documented as of this encounter Last Filed Vital Signs Vital Sign Reading Time Taken Comments Blood Pressure 120/80 01/20/2007 1:04 PM CDT Pulse - - Temperature - - Respiratory Rate - - Oxygen Saturation - - Inhaled Oxygen Concentration - - Weight 70.8 kg (156 lb) 01/20/2007 1:04 PM CDT C: 70.8k g Height - - Body Mass Index - - documented in this encounter Progress Notes Andrea Orozco MD - 01/20/2007 12:01 AM CDT Progress Notes signed by Andrea Orozco MD at 01/25/072044 Author: Andrea Orozco MD Service: (none) Author Type: Physician Filed: 01/03/111909 Note Time: 01/20/07 0001 Status: Signed Pharmacy Service Associate: Andrea Orozco MD (Physician) NAME: RAEGAN KIM MR#: [id number] ACCT: [id number] VISIT: [id number] DICTATING CLINICIAN: ANDREA OROZOC MD JOB: [id number] LOC: 1202 CLINIC PROGRESS NOTE DATE OF VISIT: 01/20/2007 SUBJECTIVE: OBJECTIVE: ASSESSMENT: care. PLAN: See OB worksheet. JFR:[id number] C: 01/23/07 20:24 DOCUMENT: [id number] documented in this encounter Plan of Treatment Not on filedocumented as of this encounter Visit Diagnoses Not on filedocumented in this encounter Care Teams Assistant Store Director Relationship Specialty Start Date End Date Andrea Orozco MD PCP - General 12/15/10 14[address] [facility] [place] [address] documented as of this encounter
--- OUTSIDE RECORDS SUMMARY | 2022-04-23 04:59 | XMS_ITS | Encounter Summary ---
:1985 Author Organization [facility] Address [address] [place] [address] Care Team Providers Name Role Phone Andrea Orozco MD Primary Care Provider Reason for Visit Reason Comments Other Encounter Details Date Type Department Care Team Description 01/18/2007 Telephone [facility] Andrea Orozco MD Other 1415 [facility] . [address] [place] [address] [place], [place] [address] (Wo rk) Social History Tobacco Use Types Packs/Day Years Used Date Smoking Tobacco: Never Assessed Sex Assigned at Date Recorded Not on file documented as of this encounter Progress Notes Gris You - 01/18/2007 2:10 PM CDT Phone Note filed by Gris You RN at 12/31/102010 Author: Gris You RN Service: (none) Author Type: (none) Filed: 12/31/102010 Note Time: 01/18/07 1410 Status: Signed Brake Repair Supervisor: Imr Conversion Per Dr. Orozco request; Pt unable to get a hold of due to phone number out of service. Several attempts have been made to get a hold of pt in regards to urine specimen. Pt should be seen this week. Called pt; pt already has appointment with Dr. Orozco for January 20 @ 1pm. Pt states her phone was temporality out of service last week. Phone numbers were verified and updated. Created on 18Jan2007 2:10pm by GRIS YOU Acknowledged by ANDREA OROZCO on 0:48am OMER ASSOCIATE documented in this encounter Plan of Treatment Not on filedocumented as of this encounter Visit Diagnoses Not on filedocumented in this encounter Care Teams Airport Utility Worker Relationship Specialty Start Date End Date Andrea Orozco MD PCP - General 12/15/10 1415 [facility] [place] [address] documented as of this encounter
--- OUTSIDE RECORDS SUMMARY | 2022-04-23 04:59 | XMS_ITS | Encounter Summary ---
:1985 Author Organization [facility] Address [address] [place] [address] Care Team Providers Name Role Phone Andrea Rodney MD Primary Care Provider Encounter Details Date Type Department Care Team Description 01/20/2007 PN Conversion Only [place] CONVERSION Andrea Rodney, [address] [place] [address] [address] [place] [address] (Wo rk) Social History Tobacco Use Types Packs/Day Years Used Date Smoking Tobacco: Never Assessed Sex Assigned at Date Recorded Not on file documented as of this encounter Plan of Treatment Not on filedocumented as of this encounter Visit Diagnoses Not on filedocumented in this encounter Care Teams Physician Practice Market Manager Relationship Specialty Start Date End Date Andrea Rodney MD PCP - General 12/15/[address] [place] [address] documented as of this encounter
--- OUTSIDE RECORDS SUMMARY | 2022-04-23 04:59 | XMS_ITS | Encounter Summary ---
:1985 Author Organization [employer] Address [address] [place] [address] Care Team Providers Name Role Phone Andrea Rodney MD Primary Care Provider Encounter Details Date Type Department Care Team Description 09/15/2006 Routine [facility] Andrea Rodney, 1415 [facility] [place] [address] 14[address] [facility] [phone] [place] [address] (Wo rk) Social History Tobacco Use Types Packs/Day Years Used Date Smoking Tobacco: Never Assessed Sex Assigned at Date Recorded Not on file documented as of this encounter Progress Notes Andrea Rodney MD - 09/15/2006 12:01 AM CST Progress Notes signed by Andrea Rodney MD at 09/15/062013 Author: Andrea Rodney MD Service: (none) Author Type: Physician Filed: 01/03/11 1630 Note Time: 09/15/062013 Status: Signed Vest Tailor: Andrea Rodney MD (Physician) SUBJECTIVE: Here for care. EGA 17 5/7 weeks. Weight gain has been minimal. Remains a nonsmoker. Adverse Drug Reactions: Medications: Reviewed. See Medication List in LastWord. OBJECTIVE: heart tones are heard. The pressure stable. Vital Signs : Reviewed; See Flowsheet Charting in LastWord. ASSESSMENT: care at 17 5/7 weeks. PLAN: Patient is late to perform her quad screen and declines. Would like to see her back in three weeks. See OB worksheet. The patient was discharged ambulatory and in stable condition. GROWER documented in this encounter Plan of Treatment Not on filedocumented as of this encounter Visit Diagnoses Not on filedocumented in this encounter Care Teams Release Manager Relationship Specialty Start Date End Date Andrea Rodney MD PCP - General 12/15/[address] [place], [place] [address] [address] documented as of this encounter
--- OUTSIDE RECORDS SUMMARY | 2022-04-23 04:59 | XMS_ITS | Encounter Summary ---
:1985 Author Organization [employer] Address [address] [place] [address] Care Team Providers Name Role Phone Andrea Rodney MD Primary Care Provider Encounter Details Date Type Department Care Team Description 08/04/2006 Initial [facility] Andrea Rodney, 14[address] [facility] [place] [address] 1419 [facility] [phone] [facility] [place] [address] (Wo rk) Social History Tobacco Use Types Packs/Day Years Used Date Smoking Tobacco: Never Assessed Sex Assigned at Date Recorded Not on file documented as of this encounter Progress Notes Andrea Rodney MD - 08/04/2006 12:01 AM CST Progress Notes signed by Andrea Rodney MD at 08/04/06 1944 Author: Andrea Rodney MD Service: (none) Author Type: Physician Filed: 01/03/11 1543 Note Time: 08/04/06 0001 Status: Signed Nursing Professor: Andrea Rodney MD (Physician) SUBJECTIVE: Here for first OB visit. Patient has had one miscarriage since her delivery. Patient's had multiple evaluations already for this secondary to bleeding. See the results of her ultrasound in SDoc. In summary, she has a bicornuate uterus, in the left horn, and a proximally seven weeks gestation. She is 11 6/7 weeks at present with an EDC of 02/18/07. She is no longer working, does not smoke, is taking vitamins, and is now . Father of this is also the father of her daughter Adverse Drug Reactions: Medications: Reviewed. See Medication List in LastWord. OBJECTIVE: See form. heart tones are heard. Vital Signs : Reviewed; See Flowsheet Charting in LastWord. ASSESSMENT: Intrauterine at approximately 12 weeks. Previous history of miscarriage. Previous history of severe preeclampsia and delivery with known uterine anatomic variation. PLAN: First OB labs are pending. See back at 16 weeks for AFP testing. She may need specialty consultation should signs or symptoms of -induced hypertension develop. The patient was discharged ambulatory and in stable condition. NE MECHANIC documented in this encounter Plan of Treatment Not on filedocumented as of this encounter Visit Diagnoses Not on filedocumented in this encounter Care Teams Manager Residential Relationship Specialty Start Date End Date Andrea Rodney MD PCP - General 12/15/[address] [place] [address] documented as of this encounter
--- OUTSIDE RECORDS SUMMARY | 2022-04-23 04:59 | XMS_ITS | Encounter Summary ---
:1985 Author Organization [employer] Address [address] [place] [address] Care Team Providers Name Role Phone Andrea Orozco MD Primary Care Provider Reason for Visit Reason Comments Other Encounter Details Date Type Department Care Team Description 07/21/2006 Telephone [facility] Andrea Orozco MD Other 1415 [facility] . [address] [place] [address] [place], [place] [address] (Wo rk) Social History Tobacco Use Types Packs/Day Years Used Date Smoking Tobacco: Never Assessed Sex Assigned at Date Recorded Not on file documented as of this encounter Progress Notes Brigid Haas - 07/21/2006 10:34 AM CST Phone Note filed by Brigid Haas RN at 12/31/10 1027 Author: Brigid Haas RN Service: (none) Author Type: (none) Filed: 12/31/10 1027 Note Time: 07/21/06 1034 Status: Signed Litigation Manager: Alejandra Maldonado CLINICIAN FOLLOW-UP: FYI (note is complete) Pt sent to ER per protocol. IMPRESSION: OB Vaginal Bleeding/Abdominal pain EMERGENT SYMPTOMS: Bleeding and history of missed or light periods/positive history for early and sudden, sharp stabbing abdominal or pelvic pain, Additional Symptoms: Patient calling has hx of miscarriage in April 2006. Has not had a period since then. Had a positive test 06/21/06. Has had a severe sharp, persistent, pain in lower right abdomen for 24 hours. Pain is worse when she lays down. Denies any shoulder pain, vaginal bleeding or spotting. No current symptoms of illness. PATIENT INFORMATION: Patient information not reviewed; advised 911/ER. INTERIM/HOME MANAGEMENT RECOMMENDATIONS: Do not eat or drink. Advised to call back if any of the following occur: any other questions or concerns. PLAN: DIRECTED TO EMERGENCY ROOM Patient/Caller agrees with plan and denies additional questions. Reference(s) Used: [facility] OB Vaginal Bleeding Nursing Reference, Call Complete. *~PNNL~OB VAGINAL~ Created on 21Jul2006 10:34am by BRIGID HAAS Acknowledged by ANDREA OROZCO on 2:20pm H INSPECTOR documented in this encounter Plan of Treatment Not on filedocumented as of this encounter Visit Diagnoses Not on filedocumented in this encounter Care Teams Potato Spotter Relationship Specialty Start Date End Date Andrea Orozco MD PCP - General 12/15/10 [facility] [place] [address] documented as of this encounter
--- OUTSIDE RECORDS SUMMARY | 2022-04-23 04:59 | XMS_ITS | Encounter Summary ---
:1985 Author Organization [facility] Address [address] [place] [address] Care Team Providers Name Role Phone Andrea Rodney MD Primary Care Provider Reason for Visit Reason Comments Other Encounter Details Date Type Department Care Team Description 01/28/2007 Telephone [facility], Message Other [address] [facility] . [place], [place] [address] Social History Tobacco Use Types Packs/Day Years Used Date Smoking Tobacco: Never Assessed Sex Assigned at Date Recorded Not on file documented as of this encounter Progress Notes Center, Message - 01/28/2007 2:24 PM CDT Phone Note filed by [employer] at 12/31/102047 Author: [employer] Service: (none) Author Type: (none) Filed: 12/31/102047 Note Time: 01/28/071423 Status: Signed Risk Manager: [employer] MESSAGE TO CARE TEAM NAME OF CALLER:Carmen [facility] NAME OF CLINICIAN:Rnoel MESSAGE:Carmen calling for pts Blood Type and GBS status please fax over [phone], Pt has delivered they just need it on paper. PHARMACY NAME: PHARMACY PHONE #: CITY: CALL BACK PHONE OR CELL PHONE:[phone] Carmen BEST TIME TO CALL BACK:anytime IS IT OK TO LEAVE A CONFIDENTIAL MESSAGE ON THIS VOICEMAIL? yes Created on 28Jan2007 2:24pm by SHARYN MALAGON On 28Jan2007 2:52pm EMILY ANDRADE wrote: faxed again. BLOCKER documented in this encounter Plan of Treatment Not on filedocumented as of this encounter Visit Diagnoses Not on filedocumented in this encounter Care Teams Assembly Repairer Relationship Specialty Start Date End Date Andrea Rodney MD PCP - General 12/15/10 [facility]5 [facility] [place] [address] documented as of this encounter
--- OUTSIDE RECORDS SUMMARY | 2022-04-23 04:59 | XMS_ITS | Encounter Summary ---
:1985 Author Organization [employer] Address [address] [place] [address] Care Team Providers Name Role Phone Andrea Orozco MD Primary Care Provider Reason for Visit Reason Comments Other Encounter Details Date Type Department Care Team Description 05/12/2006 Telephone [facility] Angelique Gonzáles LPN Other [address] [facility] . [place], [place] [address] Social History Tobacco Use Types Packs/Day Years Used Date Smoking Tobacco: Never Assessed Sex Assigned at Date Recorded Not on file documented as of this encounter Progress Notes Center, Message - 05/12/2006 8:40 AM CDT Phone Note filed by [employer] at 12/31/10 0752 Author: [employer] Service: (none) Author Type: (none) Filed: 12/31/10 0759 Note Time: 05/12/06839 Status: Signed Associate Product Integrity Engineer: Message [employer] Patient is and was seen in the ER for abdominal pain last night. Dr Jackson would like her to have another Beta HCG on am. Her one from last night was 58. He wants to rule out ectopic . Please let patient know. He also feels she should be followed up after her lab.CBR# [phone] Created on 12May2006 8:40am by FELTON BYERS On 12May2006 1:49pm ANDREA OROZCO wrote: Needs quantitative B HCG on Thu or . Results to me. Dx Abdominal pain, Acknowledged by ANDREA OROZCO on 1:49pm On 12May2006 4:25pm ANGELIQUE DONG wrote: Called pt gave her lab number lab slip in lab Acknowledged by ANGELIQUE DONG on 4:25pm SETTER/DRIVER documented in this encounter Plan of Treatment Not on filedocumented as of this encounter Visit Diagnoses Not on filedocumented in this encounter Care Teams Rewinder Relationship Specialty Start Date End Date Andrea Orozco MD PCP - General 12/15/10 [facility] [place] [address] documented as of this encounter
--- OUTSIDE RECORDS SUMMARY | 2022-04-23 04:59 | XMS_ITS | Encounter Summary ---
:1985 Author Organization [facility] Address [address] [place] [address] Care Team Providers Name Role Phone Andrea Orozco MD Primary Care Provider Encounter Details Date Type Department Care Team Description 12/30/2006 Routine [facility] Andrea Orozco, 1415 [facility] [place] [address] 141 [facility] [phone] [place] [address] (Wo rk) Social History Tobacco Use Types Packs/Day Years Used Date Smoking Tobacco: Never Assessed Sex Assigned at Date Recorded Not on file documented as of this encounter Last Filed Vital Signs Vital Sign Reading Time Taken Comments Blood Pressure 112/68 12/30/2006 10:48 AM CDT Pulse - - Temperature - - Respiratory Rate - - Oxygen Saturation - - Inhaled Oxygen Concentration - - Weight 69.4 kg (152 lb 15.6 oz) 12/30/2006 10:48 AM C: 69.4kg CDT Height - - Body Mass Index - - documented in this encounter Progress Notes Andrea Orozco MD - 12/30/2006 12:01 AM CDT Progress Notes signed by Andrea Orozco MD at 01/04/07 2424 Author: Andrea Orozco MD Service: (none) Author Type: Physician Filed: 01/03/11 1183 Note Time: 12/30/06 0001 Status: Signed Jig Borer: Andrea Orozco MD (Physician) NAME: RAEGAN KIM MR#: [id number] ACCT: [id number] VISIT: [id number] DICTATING CLINICIAN: ANDREA OROZCO MD JOB: [id number] LOC: 1202 CLINIC PROGRESS NOTE DATE OF VISIT: 12/30/2006 SUBJECTIVE: OBJECTIVE: care. ASSESSMENT: care. PLAN: See OB worksheet. JFR:[id number] C: 01/02/07 13:59 DOCUMENT: [id number] documented in this encounter Plan of Treatment Not on filedocumented as of this encounter Visit Diagnoses Not on filedocumented in this encounter Care Teams Marine Steam Fitter Helper Relationship Specialty Start Date End Date Andrea Orozco MD PCP - General 12/15/10 [facility] [place] [address] documented as of this encounter
--- OUTSIDE RECORDS SUMMARY | 2022-04-23 04:59 | XMS_ITS | Encounter Summary ---
:1985 Author Organization [facility] Address [address] [place] [address] Care Team Providers Name Role Phone Andrea Rodney MD Primary Care Provider Encounter Details Date Type Department Care Team Description 08/04/2006 PN Conversion Only UTE CONVERSION [address] [place] [address] Social History Tobacco Use Types Packs/Day Years Used Date Smoking Tobacco: Never Assessed Sex Assigned at Date Recorded Not on file documented as of this encounter Plan of Treatment Not on filedocumented as of this encounter Visit Diagnoses Not on filedocumented in this encounter Care Teams Remarketing Manager Relationship Specialty Start Date End Date Andrea Rodney MD PCP - General 12/15/10 [address] [place] [address] documented as of this encounter
--- OUTSIDE RECORDS SUMMARY | 2022-04-23 04:59 | XMS_ITS | Encounter Summary ---
:1985 Author Organization [facility] [employer] Address [address] [place] [address] Care Team Providers Name Role Phone Andrea Rodney MD Primary Care Provider Encounter Details Date Type Department Care Team Description 05/14/2006 PN Conversion Only [place] CON[facility] N Andrea Rodney, [address] AL[address]Z MD [address] [place] [address] [place] [address] (Wo rk) Social History Tobacco Use Types Packs/Day Years Used Date Smoking Tobacco: Never Assessed Sex Assigned at Date Recorded Not on file documented as of this encounter Plan of Treatment Not on filedocumented as of this encounter Procedures Procedure Name Priority Date/Time Associated Diagnosis Comme nts HCG, QUANTITATIVE, Routine 05/14/2006 10:08 AM Bertha mata for this SERUM CDT procedure ar e in the results section. documented in this encounter Results (ABNORMAL) HCG, Quantitative, Serum (05/14/2006 10:08 AM CDT) P athologist Signature HCG For 12 (H) 0 - 6 HP CONVERSION mIU/mL Comment: Approximate ?Approximate Gestational Age ?Concentration (m IU/mL) ---X 0-1 week ? 5-50 1-2 weeks ?50-500 2-3 weeks ?100-5000 3-4 weeks ?500-10,000 1-2 months ? 1000-200,000 2-3 months ? 15,000-200,000 2nd trimester ?----- 3rd trimester ?----- Tumor marker ? <5 Specimen (Source) Anatomical Collection Method Collection Time Re ceived Time Location / / Volume Laterality 05/14/2006 10:08 AM CDT Andrea Rodney MD LAB_1 Performing Organization Address City/State/ZIP Code Phon e Number HP CONVERSION documented in this encounter Visit Diagnoses Not on filedocumented in this encounter Care Teams Brand Director Relationship Specialty Start Date End Date Andrea Rodney MD PCP - General 12/15/10 [address] [place] [address] documented as of this encounter
--- OUTSIDE RECORDS SUMMARY | 2022-04-23 04:59 | XMS_ITS | Encounter Summary ---
:1985 Author Organization [facility] Address [address] [place] [address] Care Team Providers Name Role Phone Andrea Rodney MD Primary Care Provider Encounter Details Date Type Department Care Team Description 08/12/2005 PN Conversion Only [place] CONVERSI ON Clara Ziegler MD [address] [facility] [place] [address] [place], [place] [address] (Wo rk) Social History Tobacco Use Types Packs/Day Years Used Date Smoking Tobacco: Never Assessed Sex Assigned at Date Recorded Not on file documented as of this encounter Plan of Treatment Not on filedocumented as of this encounter Procedures Procedure Name Priority Date/Time Associated Comments Diagnosis COMPLETE BLOOD Routine 08/12/2005 3:53 PM Results for this COUNT-W/DIFF IMAGING TECHNOLOGIST procedure are i n the results section. WET PREP Routine 08/12/2005 3:25 PM Results f or this IMAGING TECHNOLOGIST procedure are i n the results section. SEXUALLY TRANSMITTED Routine 08/12/2005 3:25 PM R esults for this DISEASE PROBE IMAGING TECHNOLOGIST procedure are in the results section. URINALYSIS COMPLETE Routine 08/12/2005 3:25 PM Re sults for this IMAGING TECHNOLOGIST procedure are i n the results section. TEST Routine 08/12/2005 3:25 PM Results for this (URINE) IMAGING TECHNOLOGIST procedure are i n the results section. documented in this encounter Results Complete Blood Count-W/Diff (08/12/2005 3:53 PM IMAGING TECHNOLOGIST) [facility] Method Time Signature White Blood Cell 7.4 3.8 - 11.0 HP CONVERSIO N Count K/cmm Red Blood Cell 4.56 3.70 - HP CONVERSION Count 5.20 m/cmm Hemoglobin 13.5 11.8 - HP CONVERSION 15.5 gm/dL Hematocrit 38.1 35.0 - HP CONVERSION 46.0 % Mean Corpuscular 83.5 80.0 - HP CONVERSION Volume 100.0 fl Mean Corpuscular 29.5 27.0 - HP CONVERSION Hemoglobin 34.0 pg Mean Corpuscular 35.3 32.0 - HP CONVERSION Hemoglobin Conc 36.5 gm/dL Homer RDW 12.9 11.0 - HP CONVERSION 15.0 % Platelet Count 202 140 - 450 HP CONVERSION k/cmm Differential Auto-Dif No normal HP CONVERSION Verify range Neutrophils 4.9 2.0 - 7.5 HP CONVERSION Absolute Count K/cmm Neutrophil 66.3 50.0 - HP CONVERSION 75.0 % Lymphocyte % 23.6 20.0 - HP CONVERSION 40.0 % Monocyte 7.2 5.0 - 14.0 HP CONVERSION % Eosinophil 2.3 0.0 - 6.0 HP CONVERSION % Basophil % 0.6 0.0 - 2.0 HP CONVERSION % Specimen (Source) Anatomical Collection Method Collection Time Re ceived Time Location / / Volume Laterality 08/12/2005 3:53 PM IMAGING TECHNOLOGIST Clara Ziegler MD LAB_1 Performing Organization Address City/State/ZIP Code Phon e Number HP CONVERSION (ABNORMAL) Urinalysis Complete (08/12/2005 3:25 PM IMAGING TECHNOLOGIST) [facility] Method Time Signature Glucose, Negative Neg-Trac HP CONVERSION Qualitative U Protein Urine 30 mg/dL Neg-Trac HP CONVERSION (A) Ketones Negative Negative HP CONVERSION U BILI Negative Negative HP CONVERSION U Specific 1.025 1.005 - 25 HP CONVERSION [place] Blood Urine Negative Negative HP CONVERSION pH Urine 7.0 4.5 - 7.5 HP CONVERSION Urobilinogen Negative 0.2 - 1.0 HP CONVERSION Urine Nitrite Urine Negative Negative HP CONVERSION Leukocyte Negative Negative HP CONVERSION Esterase Urine White Blood 0-2/HPF 0 - 3 HP CONVERSION Cells Urine Red Blood Cells Negative 0 - 2 HP CONVERSION Urine Urine Mucus Moderate None HP CONVERSION Epithelial Cells Moderate Few /HPF HP CONVERSION Specimen (Source) Anatomical Collection Method Collection Time Re ceived Time Location / / Volume Laterality 08/12/2005 3:25 PM IMAGING TECHNOLOGIST Clara Ziegler MD LAB_1 Performing Organization Address City/State/ZIP Code Phon e Number HP CONVERSION Wet Prep (08/12/2005 3:25 PM IMAGING TECHNOLOGIST) P athologist Signature Wet Prep SEE TEXT HP CONVERSION Comment: Patient: RAEGAN RABAGO Wet Prep @ ?Collected: ??[id number] ??1525 Source: Vaginal ? Processed: ??[id number] ??1525 ? 1B Final Report ------ Moderate WBCs seen Many epithelial cells seen No Trichomonas seen No yeast seen No clue cells seen @ = WET PREP Performed at ??[address] [place], [place] ??[address] Specimen (Source) Anatomical Collection Method Collection Time Re ceived Time Location / / Volume Laterality 08/12/2005 3:25 PM IMAGING TECHNOLOGIST Clara Ziegler MD LAB_1 Performing Organization Address City/State/ZIP Code Phon e Number HP CONVERSION Sexually Transmitted Disease Probe (08/12/2005 3:25 PM IMAGING TECHNOLOGIST) Patholo gist Method Time Signature Sexually SEE TEXT HP CONVERSION Transmitted Disease Probe Comment: Patient: RAEGAN RABAGO Sexually Trans Disease Probe @ ?Collected: ??[id number] ??1525 Source: CERVIX ?Processed: ??[id number] ??1525 ? 1B Final Report ------ ?[id number] ??1510 No Chlamydia trachomatis detected by amp lified DNA assay No Neisseria gonorrhoeae detected by amp lified DNA assay NOTE: The [facility] Amplified DNA assay i s cleared by the FDA ??for non-medicolegal diagnostic te sting in the adult population. It has not been clear ed for use in the pediatric population. @ = Sexually Trans Disease Probe Perform ed at ??[address] [facility] [address] Specimen (Source) Anatomical Collection Method Collection Time Re ceived Time Location / / Volume Laterality 08/12/2005 3:25 PM IMAGING TECHNOLOGIST Clara Ziegler MD LAB_1 Performing Organization Address City/State/ZIP Code Phon e Number HP CONVERSION Test (Urine) (08/12/2005 3:25 PM IMAGING TECHNOLOGIST) [facility] gist Method Time Signature Urine Negative No [...] ceived Time Location / / Volume Laterality 08/12/2005 3:25 PM IMAGING TECHNOLOGIST Clara Ziegler MD LAB_1 Performing Organization Address City/State/ZIP Code Phon e Number HP CONVERSION documented in this encounter Visit Diagnoses Not on filedocumented in this encounter Care Teams Window Maker Relationship Specialty Start Date End Date Andrea Rodney MD PCP - General 12/15/10 14[address] [facility] [place] [address] documented as of this encounter
--- OUTSIDE RECORDS SUMMARY | 2022-04-23 04:59 | XMS_ITS | Encounter Summary ---
:1985 Author Organization [facility] Address [address] [place] [address] Care Team Providers Name Role Phone Andrea Rodney MD Primary Care Provider Reason for Visit Reason Comments Other Encounter Details Date Type Department Care Team Description 05/11/2006 Telephone [facility] Rain Novak RN Other [address] [facility] . [address] [place] [address] [place], [place] [address] Social History Tobacco Use Types Packs/Day Years Used Date Smoking Tobacco: Never Assessed Sex Assigned at Date Recorded Not on file documented as of this encounter Progress Notes Rain Novak RN - 05/11/2006 11:20 PM CDT Phone Note filed by Rain Novak RN at 12/31/10 6870 Author: Rain Novak RN Service: (none) Author Type: Registered Nurse Filed: 12/31/10 0759 Note Time: 05/11/062319 Status: Signed Supply Chain Business Analyst: Rain Novak RN (Registered Nurse) Pt calling, 5 weeks gestation, with spotting and cramping. Rates cramping pain at 7/10. Pain does not radiate to shoulder. Referenced PNC OB:Vaginal bleeding reference. Advised pt be seen in [place] [facility]. Caller agreed with plan. Created on 11May2006 11:20pm by RAIN NOVAK ET LIGHT SERVICER documented in this encounter Plan of Treatment Not on filedocumented as of this encounter Visit Diagnoses Not on filedocumented in this encounter Care Teams Director [employer]eron[employer] Relationship Specialty Start Date End Date Andrea Rodney MD PCP - General 12/15/10 [address] [facility] [place] [address] documented as of this encounter
--- OUTSIDE RECORDS SUMMARY | 2022-04-23 04:59 | XMS_ITS | Encounter Summary ---
:1985 Author [facility] Address [address] [place] [address] Care Team Providers Name Role Phone Andrea Rodney MD Primary Care Provider Encounter Details Date Type Department Care Team Description 12/27/[address] [facility] CONVERSION Andrea Rodney, [address] [facility] [place] [address] [facility] [place] [address] (Wo rk) Social History Tobacco Use Types Packs/Day Years Used Date Smoking Tobacco: Never Assessed Sex Assigned at Date Recorded Not on file documented as of this encounter Plan of Treatment Not on filedocumented as of this encounter Procedures Procedure Name Priority Date/Time Associated Comments Diagnosis ANATOMICAL PATH Routine 12/27/2004 1:25 PM Result s for this LIQUID BASED CDT procedure are i n the results section. documented in this encounter Results Pap Smear (12/27/2004 1:25 PM CDT) [facility] gist Method Time Signature PAP Smear SEE TEXT No normal HP CONVERSION Liquid Based range Comment: Patient: RAEGAN RABAGO ? CERVICAL CYTOLOGY REPORT Pathology # ??[id number] ?Date Obtained: ? Date Received: CYTOLOGIC IMPRESSION: Negative for intraepithelial lesion or m alignancy. ? HERMINIA TIONAL DATA LMP: CLINICAL HIST LIQUID BASED PAP CERVICAL SPECIMEN ADEQUACY: ?? Satisfactory. ENDOCERVICAL CELLS: ??Present. Verified 01/02/05 by: ??TSC ?(electronic signature) Specimen (Source) Anatomical Collection Method Collection Time Re ceived Time Location / / Volume Laterality 12/27/2004 1:25 PM CDT Andrea Rodney MD LAB_1 Performing Organization Address City/State/ZIP Code Phon e Number HP CONVERSION documented in this encounter Visit Diagnoses Not on filedocumented in this encounter Care Teams Pearl Diver Relationship Specialty Start Date End Date Andrea Rodney MD PCP - General 12/15/10 [facility]5 [facility] [place] [address] documented as of this encounter
--- OUTSIDE RECORDS SUMMARY | 2022-04-23 04:59 | XMS_ITS | Encounter Summary ---
:1985 Author Organization [facility] Address [address] [place] [address] Care Team Providers Name Role Phone Andrea Rodney MD Primary Care Provider Encounter Details Date Type Department Care Team Description 11/27/2006 PN Conversion Only [facility] CONVERSION Andrea Rodney, [address] [facility] [place] [address] [address] [facility] [place] [address] (Wo rk) Social History Tobacco Use Types Packs/Day Years Used Date Smoking Tobacco: Never Assessed Sex Assigned at Date Recorded Not on file documented as of this encounter Plan of Treatment Not on filedocumented as of this encounter Procedures Procedure Name Priority Date/Time Associated Comments Diagnosis HEMOGLOBIN OB Routine 11/27/2006 11:05 Results fo r this AM CDT procedure are i n the results section. GLUCOSE - 1 HR. P.C. Routine 11/27/2006 11:05 Res ults for this PREG AM CDT procedure are i n the results section. URINALYSIS Routine 11/27/2006 10:28 Results for this ROUTINE(MICRO IF POS) AM CDT proced ure are in the results section. URINALYSIS Routine 11/27/2006 10:28 Results for this MICROSCOPIC AM CDT procedure are i n the results section. documented in this encounter Results Hemoglobin Ob (11/27/2006 11:05 AM CDT) P athologist Signature OB Hemoglobin 13.4 gm/dL HP CONVERSION Comment: First trimester (week 12) 11.0 - 13.4 gm /dL Second trimester(week 20) 10.5 - 12.7 gm /dL Third trimester (week 32) 11.0 - 13.2 gm /dL From MMWR 1989;38(22): 400-4 Specimen (Source) Anatomical Collection Method Collection Time Re ceived Time Location / / Volume Laterality 11/27/2006 11:05 AM CDT Andrea Rodney MD LAB_1 Performing Organization Address [facility] Phon e Number HP CONVERSION (ABNORMAL) Glucose - 1 Hr. P.C. Preg (11/27/2006 11:05 AM CDT) P athologist Signature Glucose, GTT - 146 (H) 40 - 139 HP CONVERSION 1 Hour mg/dL Specimen (Source) Anatomical Collection Method Collection Time Re ceived Time Location / / Volume Laterality 11/27/2006 11:05 AM CDT Andrea Rodney MD LAB_1 Performing Organization Address [facility] Phon e Number HP CONVERSION (ABNORMAL) Urinalysis Routine(Micro If Pos) (11/27/2006 10:28 AM CDT) [facility] gist Method Time Signature Turbidity Hazy (A) No normal HP CONVERSION range pH Urine 7.0 4.5 - 7.5 HP CONVERSION Protein Urine 30 mg/dL Neg-Trac HP CONVERSION (A) Glucose, 250mg/dL Neg-Trac HP CONVERSION Qualitative U (A) Ketones Negative Negative HP CONVERSION U BILI Negative Negative HP CONVERSION Blood Urine Negative Negative HP CONVERSION Nitrite Urine Negative Negative HP CONVERSION Leukocyte Negative Negative HP CONVERSION Esterase Urine Urobilinogen Negative 0.2 - 1.0 HP CONVERSION Urine U Specific 1.025 1.005 - 25 HP CONVERSION [place] Specimen (Source) Anatomical Collection Method Collection Time Re ceived Time Location / / Volume Laterality 11/27/2006 10:28 AM CDT Andrea Rodney MD LAB_1 Performing Organization Address [facility] Phon e Number HP CONVERSION (ABNORMAL) Urinalysis Microscopic (11/27/2006 10:28 AM CDT) Patholo gist Method Time Signature White Blood 3-4/HPF 0 - 3 HP CONVERSION Cells Urine Red Blood 0-2/HPF 0 - 2 HP CONVERSION Cells Urine Bacteria Urine Moderate (A) None HP CONVERSIO N Urine Mucus Moderate None HP CONVERSION Epithelial Many Few /HPF HP CONVERSION Cells Specimen (Source) Anatomical Collection Method Collection Time Re ceived Time Location / / Volume Laterality 11/27/2006 10:28 AM CDT Andrea Rodney MD LAB_1 Performing Organization Address City/State/ZIP Code Phon e Number HP CONVERSION documented in this encounter Visit Diagnoses Not on filedocumented in this encounter Care Teams Casting Wheel Operator Relationship Specialty Start Date End Date Andrea Rodney MD PCP - General 12/15/10 [facility]5 [facility] [place] [address] documented as of this encounter
--- OUTSIDE RECORDS SUMMARY | 2022-04-23 04:59 | XMS_ITS | Encounter Summary ---
:1985 Author Organization [facility] Address [address] [place] [address] Care Team Providers Name Role Phone Andrea Orozco MD Primary Care Provider Reason for Visit Reason Comments Other Encounter Details Date Type Department Care Team Description 05/14/2006 Telephone [facility] Andrea Orozco MD Other [address] [facility] . [address] [place] [address] [place], [place] [address] (Wo rk) Social History Tobacco Use Types Packs/Day Years Used Date Smoking Tobacco: Never Assessed Sex Assigned at Date Recorded Not on file documented as of this encounter [facility], Message - 05/14/2006 10:20 AM CDT Phone Note filed by [employer] at 12/31/10804 Author: [employer] Service: (none) Author Type: (none) Filed: 12/31/10804 Note Time: 05/14/06 1020 Status: Signed Chefs: Message Yamsafer MESSAGE TO CARE TEAM NAME OF CALLER:elli NAME OF CLINICIAN:penelope MESSAGE:Pt had blood draw today and needs a call back yg today as to the points of her blood draw, for miscarriage. Please call her today. PHARMACY NAME: PHARMACY PHONE #: CALL BACK PHONE #:[phone] BEST TIME TO CALL BACK:today Is it OK to leave detailed message on voicemail?no Created on 14May2006 10:20am by MELINDA MOBLEY On 14May2006 12:39pm ANDREA OROZCO wrote: Need B HCG results Acknowledged by ANDREA OROZCO on 12:39pm On 14May2006 1:17pm JUANCARLOS DONG wrote: called lab it just got picked up so results will not be ready until tonight (test was not ordered YG). Called pt to let her know that we won't have anything until after clinic hours. She would like you to call her tonight if possible other baker I told her we would call her first thing in the morning. Acknowledged by JUANCARLOS DONG on 1:17pm On 14May2006 1:30pm ANDREA OROZCO wrote: make test YG Acknowledged by ANDREA OROZCO on 1:30pm On 14May2006 1:57pm JUANCARLOS DONG wrote: Pl have not been picked up yet lab notified Pl and [facility] to run test STAT Acknowledged by JUANCARLOS DONG on 1:57pm On 14May2006 4:45pm JUANCARLOS DONG wrote: not in computor yet Acknowledged by JUANCARLOS DONG on 4:45pm On 14May2006 7:46pm ANDREA OROZCO wrote: Called. B HCG has dropped to 12. Notified of likely miscarriage. Will observe. Discussed with mother future fertility questions. Acknowledged by ANDREA OROZCO on 7:46pm L RIGHTS REPRESENTATIVE documented in this encounter Plan of Treatment Not on filedocumented as of this encounter Visit Diagnoses Not on filedocumented in this encounter Care Teams Drop Wire Aliner Relationship Specialty Start Date End Date Andrea Orozco MD PCP - General 12/15/10 [facility]5 [place] [address] documented as of this encounter
--- OUTSIDE RECORDS SUMMARY | 2022-04-23 04:59 | XMS_ITS | Encounter Summary ---
:1985 Author Organization [facility] Address [address] [place] [address] Care Team Providers Name Role Phone Andrea Rodney MD Primary Care Provider Reason for Visit Reason Comments Other Encounter Details Date Type Department Care Team Description 01/06/2005 Telephone [facility], Message Other [address] [facility] [place] [address] Social History Tobacco Use Types Packs/Day Years Used Date Smoking Tobacco: Never Assessed Sex Assigned at Date Recorded Not on file documented as of this encounter [facility], Message - 01/06/2005 1:33 PM CDT Phone Note filed by [employer] at 12/30/101756 Author: [employer] Service: (none) Author Type: (none) Filed: 12/30/101756 Note Time: 01/06/051332 Status: Signed Building Cleaning Supervisor: [employer] MESSAGE TO CARE TEAM NAME OF CALLER:Elli NAME OF CLINICIAN:Andrea Rodney MESSAGE:I dropped of a form for maternity leave on Nov 29 to be filled out and faxed and they havn't received it yet. I need that to be completed and faxed so I get paid. PHARMACY NAME: PHARMACY PHONE #: CALL BACK PHONE #:[phone] BEST TIME TO CALL BACK:anytime Is it OK to leave detailed message on voicemail?yes Created on 06Jan2005 1:33pm by INNA BAILEY R On 07Jan2005 11:02am CAYLA COY wrote: Contacted patient, The insurance company still has not received the form. The patient will have them fax over another form and MD can fill it out. I also informed her of normal pap smear results. No further questions. Acknowledged by CAYLA COY on 11:02am EQUIPMENT OPERATOR documented in this encounter Plan of Treatment Not on filedocumented as of this encounter Visit Diagnoses Not on filedocumented in this encounter Care Teams Stave Jointer Relationship Specialty Start Date End Date Andrea Rodney MD PCP - General 12/15/10 [address] [place] [address] documented as of this encounter
--- OUTSIDE RECORDS SUMMARY | 2022-04-23 04:59 | XMS_ITS | Encounter Summary ---
:1985 Author Organization [facility] Address [address] [address] Care Team Providers Name Role Phone Anrdea Rodney MD Primary Care Provider Encounter Details Date Type Department Care Team Description 11/12/2004 PN Conversion Only [place] CONVERSION Andrea Rodney, [address] [facility] [place] [address] 14[address] [facility] [place] [address] (Wo rk) Social History Tobacco Use Types Packs/Day Years Used Date Smoking Tobacco: Never Assessed Sex Assigned at Date Recorded Not on file documented as of this encounter Plan of Treatment Not on filedocumented as of this encounter Procedures Procedure Name Priority Date/Time Associated Diagnosis Comme nts GROUP B STREP Routine 11/12/2004 9:59 AM Results for this SCREEN (OB PTS) PERIODONTIST procedure ar e in the results section. documented in this encounter Results Group B Strep Screen (OB Pts) (11/12/2004 9:59 AM PERIODONTIST) Analysis Performed At Patho logist Time Signature Culture Strep SEE TEXT HP CONVERSION Screen Other Source Comment: Patient: RAEGAN RABAGO Culture Strep Scr Other Source @ ?Collected: ?958 Source: Vaginal ? Processed: ?958 Final Report ------ ?0716 No group A or B Streptococcus isolated @ = Strep Screen Performed at ??[address] [place] ?[address] Specimen (Source) Anatomical Collection Method Collection Time Re ceived Time Location / / Volume Laterality 11/12/2004 9:59 AM PERIODONTIST Andrea Rodney MD LAB_1 Performing Organization Address City/State/ZIP Code Phon e Number HP CONVERSION documented in this encounter Visit Diagnoses Not on filedocumented in this encounter Care Teams Insemination Worker Relationship Specialty Start Date End Date Andrea Rodney MD PCP - General 12/15/[address] [place] [id number] documented as of this encounter
--- OUTSIDE RECORDS SUMMARY | 2022-04-23 04:59 | XMS_ITS | Encounter Summary ---
:1985 Author Organization [facility] Address [address] [place] [address] Care Team Providers Name Role Phone Andrea Orozco MD Primary Care Provider Encounter Details Date Type Department Care Team Description 10/06/2006 Routine [facility] Andrea Orozco, 14[address] [facility] [place] [address] 1417 [facility] [phone] [place], [place] [address] (Wo rk) Social History Tobacco Use Types Packs/Day Years Used Date Smoking Tobacco: Never Assessed Sex Assigned at Date Recorded Not on file documented as of this encounter Progress Notes Andrea Orozco MD - 10/06/2006 12:01 AM CST Progress Notes signed by Andrea Orozco MD at 10/07/06 1812 Author: Andrea Orozco MD Service: (none) Author Type: Physician Filed: 01/03/11 1654 Note Time: 10/06/06 0001 Status: Signed Surfboard Designer: Andrea Orozco MD (Physician) NAME: RAEGAN KIM MR#: [id number] ACCT: [id number] VISIT: [id number] DICTATING CLINICIAN: ANDREA OROZCO MD JOB: [id number] LOC: 1202 CLINIC PROGRESS NOTE DATE OF VISIT: 10/06/2006 SUBJECTIVE: OBJECTIVE: ASSESSMENT: care. PLAN: See OB worksheet. JFR:[id number] C: 10/07/06 17:09 DOCUMENT: [id number] IC LINGUIST documented in this encounter Plan of Treatment Not on filedocumented as of this encounter Visit Diagnoses Not on filedocumented in this encounter Care Teams Bankruptcy Processor Relationship Specialty Start Date End Date Andrea Orozco MD PCP - General 12/15/10 [facility] [place] [address] documented as of this encounter
--- OUTSIDE RECORDS SUMMARY | 2022-04-23 04:59 | XMS_ITS | Encounter Summary ---
:1985 Author Organization [facility] Address [address], [place] [address] Care Team Providers Name Role Phone Andrea Rodney MD Primary Care Provider Encounter Details Date Type Department Care Team Description 01/27/2007 PN Conversion Only [employer] CONVERSION Andrea Rodney, 1415 [facility] [place] [address] 9971 [facility] [place] [address] (Wo rk) Social History Tobacco Use Types Packs/Day Years Used Date Smoking Tobacco: Never Assessed Sex Assigned at Date Recorded Not on file documented as of this encounter Plan of Treatment Not on filedocumented as of this encounter Procedures Procedure Name Priority Date/Time Associated Comments Diagnosis URINALYSIS Routine 01/27/2007 11:59 Results for this ROUTINE(MICRO IF POS) AM CDT proced ure are in the results section. URINALYSIS Routine 01/27/2007 11:59 Results for this MICROSCOPIC AM CDT procedure are i n the results section. documented in this encounter Results (ABNORMAL) Urinalysis Routine(Micro If Pos) (01/27/2007 11:59 AM CDT) [facility] Method Time Signature Turbidity Hazy (A) No normal HP CONVERSION range pH Urine 6.5 4.5 - 7.5 HP CONVERSION Protein Urine Trace Neg-Trac HP CONVERSION Glucose, 500mg/dL Neg-Trac HP CONVERSION Qualitative U (A) Ketones Negative Negative HP CONVERSION U BILI Negative Negative HP CONVERSION Blood Urine Negative Negative HP CONVERSION Nitrite Urine Negative Negative HP CONVERSION Leukocyte Negative Negative HP CONVERSION Esterase Urine Urobilinogen Negative 0.2 - 1.0 HP CONVERSION Urine U Specific 1.025 1.005 - 25 HP CONVERSION [place] Specimen (Source) Anatomical Collection Method Collection Time Re ceived Time Location / / Volume Laterality 01/27/2007 11:59 AM CDT Andrea Rodney MD LAB_1 Performing Organization Address City/[facility]/ZIP Code Phon e Number HP CONVERSION (ABNORMAL) Urinalysis Microscopic (01/27/2007 11:59 AM CDT) [facility] Method Time Signature White Blood 5-9/HPF 0 - 3 HP CONVERSION Cells Urine (A) Red Blood Cells 3-4/HPF 0 - 2 HP CONVERSION Urine (A) Bacteria Urine Few (A) None HP CONVERSION Urine Mucus Large None HP CONVERSION Epithelial Few Few /HPF HP CONVERSION Cells Crystals Ca Ox None HP CONVERSION Specimen (Source) Anatomical Collection Method Collection Time Re ceived Time Location / / Volume Laterality 01/27/2007 11:59 AM CDT Andrea Rodney MD LAB_1 Performing Organization Address City/[facility]/ZIP Code Phon e Number HP CONVERSION documented in this encounter Visit Diagnoses Not on filedocumented in this encounter Care Teams Tour Production Supervisor Relationship Specialty Start Date End Date Andrea Rodney MD PCP - General 12/15/10 1415 [place] [address] documented as of this encounter
--- OUTSIDE RECORDS SUMMARY | 2022-04-23 04:59 | XMS_ITS | Encounter Summary ---
:1985 Author Organization [facility] Address [address] [place] [address] Care Team Providers Name Role Phone Andrea Rodney MD Primary Care Provider Reason for Visit Reason Comments Other Encounter Details Date Type Department Care Team Description 08/15/2005 Telephone [facility], Message Other [address] [place], [place] [address] Social History Tobacco Use Types Packs/Day Years Used Date Smoking Tobacco: Never Assessed Sex Assigned at Date Recorded Not on file documented as of this encounter Progress Notes [place], Message - 08/15/2005 3:17 PM CST Phone Note filed by Trefis at 12/30/102245 Author: Trefis Service: (none) Author Type: (none) Filed: 12/30/102245 Note Time: 08/15/051516 Status: Signed Desk Representative: [facility] [employer] Please inform pt that GC and Chlamydia tests are negative. Created on 15Aug2005 3:17pm by LYDIA MOLINA On 15Aug2005 4:06pm CLOTILDE COURTNEY wrote: pt received the above message SORSHIP COORDINATOR documented in this encounter Plan of Treatment Not on filedocumented as of this encounter Visit Diagnoses Not on filedocumented in this encounter Care Teams Cupola Operator Insulation Relationship Specialty Start Date End Date Andrea Rodney MD PCP - General 12/15/10 0905 [facility] [place] [address] documented as of this encounter
--- OUTSIDE RECORDS SUMMARY | 2022-04-23 04:59 | XMS_ITS | Encounter Summary ---
:1985 Author Organization [facility] Address [address] [place] [address] Care Team Providers Name Role Phone Andrea Orozco MD Primary Care Provider Reason for Visit Reason Comments Other Encounter Details Date Type Department Care Team Description 07/09/2006 Telephone [facility] Andrea Orozco MD Other [address] [facility] . [address] [place] [address] [place], [place] [id number] (Wo rk) Social History Tobacco Use Types Packs/Day Years Used Date Smoking Tobacco: Never Assessed Sex Assigned at Date Recorded Not on file documented as of this encounter [facility], Message - 07/09/2006 11:55 AM CDT Phone Note filed by [employer] at 12/31/10 1004 Author: [employer] Service: (none) Author Type: (none) Filed: 12/31/10 1004 Note Time: 07/09/06 1155 Status: Signed Sales And Marketing Administrator: [employer] MESSAGE TO CARE TEAM NAME OF CALLER: david Jaeger NAME OF CLINICIAN: Ronel MESSAGE: Mom is calling to talk to you about a related concern with the pt. She states that about a month ago, she had a miscarriage, but now she is coming back to her mom stating that she just took a preg test and got a positive. Mom's concerns are with regards to how quickly she got again. Please call her to discuss. PHARMACY NAME: PHARMACY PHONE #: CALL BACK PHONE #: [phone] BEST TIME TO CALL BACK: anytime Is it OK to leave detailed message on [employer]? yes Created on 09Jul2006 11:55am by ROXANA WHITLEY On 10Jul2006 2:04pm ANDREA OROZCO wrote: Called, LMTCB Acknowledged by ANDREA OROZCO on 2:04pm NOLOGY METHODOLOGY CONSULTANT documented in this encounter Plan of Treatment Not on filedocumented as of this encounter Visit Diagnoses Not on filedocumented in this encounter Care Teams Boardmarker Relationship Specialty Start Date End Date Andrea Orozco MD PCP - General 12/15/10 [address] [place] [address] documented as of this encounter
--- OUTSIDE RECORDS SUMMARY | 2022-04-23 04:59 | XMS_ITS | Encounter Summary ---
:1985 Author [facility] Address [address], [place] [address] Care Team Providers Name Role Phone Andrea Rodney MD Primary Care Provider Encounter Details Date Type Department Care Team Description 03/12/2007 Office Visit [facility] Andrea Rodney MD 1415 [facility] . [address] [place] [address] [place], [place] [address] (Wo rk) Social History Tobacco Use Types Packs/Day Years Used Date Smoking Tobacco: Never Assessed Sex Assigned at Date Recorded Not on file documented as of this encounter Last Filed Vital Signs Vital Sign Reading Time Taken Comments Blood Pressure 108/60 03/12/2007 10:36 AM CDT Pulse - - Temperature - - Respiratory Rate - - Oxygen Saturation - - Inhaled Oxygen Concentration - - Weight 60.3 kg (132 lb 15.7 oz) 03/12/2007 10:36 AM C: 60.3kg CDT Height - - Body Mass Index - - documented in this encounter Progress Notes Andrea Rodney MD - 03/12/2007 12:01 AM CDT Progress Notes signed by Andrea Rodney MD at 03/12/072006 Author: Andrea Rodney MD Service: (none) Author Type: Physician Filed: 01/03/112008 Note Time: 03/12/07 0001 Status: Signed Improvement Auditor: Andrea Rodney MD (Physician) SUBJECTIVE: Here for exam. Delivered vaginally on January 28. Found to be rubella not immune. complicated by preeclampsia. Blood pressure issues resolved quickly, and she said no persistent edema. She is within 4 pounds of her pre weight, and within 10 pounds of her non weight from her first . No pain with intercourse, not planning to use any control. Continues to nurse. No smoking. Adverse Drug Reactions: Medications: Reviewed. See Medication List in LastWord. OBJECTIVE: Affect is appropriate. Perineal exam unremarkable. Speculum exam shows midline cervix, Pap was taken. Bimanual exam shows an intact perineum, mobile cervix, involuted uterus with clear adnexa. Vital Signs : Reviewed; See Flowsheet Charting in LastWord. ASSESSMENT: exam. PLAN: Pap is pending. Recheck one year. The patient was discharged ambulatory and in stable condition. documented in this encounter Plan of Treatment Not on filedocumented as of this encounter Visit Diagnoses Not on filedocumented in this encounter Care Teams Ethanol Operator Relationship Specialty Start Date End Date Andrea Rodney MD PCP - General 12/15/10 [facility]5 [place] [address] documented as of this encounter
--- OUTSIDE RECORDS SUMMARY | 2022-04-23 04:59 | XMS_ITS | Encounter Summary ---
:1985 Author Organization [facility] Address [address] [place] [address] Care Team Providers Name Role Phone Andrea Rodney MD Primary Care Provider Encounter Details Date Type Department Care Team Description 01/27/2007 Routine [facility] Andrea Rodney, 1415 [facility] [place] [address] 1416 [facility] [phone] [place], [place] [address] (Wo rk) Social History Tobacco [...] - Inhaled Oxygen Concentration - - Weight 71.2 kg (156 lb 15.8 oz) 01/27/2007 11:19 AM C: 71.2kg CDT Height - - Body Mass Index - - documented in this encounter Progress Notes Andrea Rodney MD - 01/27/2007 12:01 AM CDT Progress Notes signed by Andrea Rodney MD at 01/27/07 9160 Author: Andrea Rodney MD Service: (none) Author Type: Physician Filed: 01/03/11 6188 Note Time: 01/27/07 0001 Status: Signed Special Projects Coordinator: Andrea Rodney MD (Physician) SUBJECTIVE: Here for care. No headache. No edema, and what edema she develops results overnight. Adverse Drug Reactions: Medications: Reviewed. See Medication List in LastWord. OBJECTIVE: Exam is as indicated in the OB worksheet area. 24 hour urine collection indicates increased protein with 420 + milligrams per 24 hours. Vital Signs : Reviewed; See Flowsheet Charting in LastWord. ASSESSMENT: Proteinuria. Term . PLAN: Will attempt cervical ripening tonight, and attempt Pitocin induction tomorrow. The patient was discharged ambulatory and in stable condition. documented in this encounter Plan of Treatment Not on filedocumented as of this encounter Visit Diagnoses Not on filedocumented in this encounter Care Teams Oil Field Pipeline Supervisor Relationship Specialty Start Date End Date Andrea Rodney MD PCP - General 12/15/[address] [place] [address] [place] [address] documented as of this encounter
--- OUTSIDE RECORDS SUMMARY | 2022-04-23 04:59 | XMS_ITS | Encounter Summary ---
:1985 Author Organization [facility] Address [address] [place] [address] Care Team Providers Name Role Phone Andrea Rodney MD Primary Care Provider Encounter Details Date Type Department Care Team Description 01/20/2007 PN Conversion Only [employer] CONVERSION Andrea Rodney, [address] [facility] [place] [address] 1417 [facility] [place] [address] (Wo rk) Social History Tobacco Use Types Packs/Day Years Used Date Smoking Tobacco: Never Assessed Sex Assigned at Date Recorded Not on file documented as of this encounter Plan of Treatment Not on filedocumented as of this encounter Procedures Procedure Name Priority Date/Time Associated Comments Diagnosis GROUP B STREP SCREEN Routine 01/20/2007 3:21 PM R esults for this (OB PTS) CDT procedure are i n the results section. COMPLETE BLOOD Routine 01/20/2007 1:35 PM Results for this COUNT-W/DIFF CDT procedure are i n the results section. URIC ACID Routine 01/20/2007 1:35 PM Results f or this CDT procedure are i n the results section. ALT (SGPT) Routine 01/20/2007 1:35 PM Results f or this CDT procedure are i n the results section. AST Routine 01/20/2007 1:35 PM Results f or this CDT procedure are i n the results section. BILIRUBIN, TOTAL Routine 01/20/2007 1:35 PM Resul ts for this CDT procedure are i n the results section. BILI - DIRECT Routine 01/20/2007 1:35 PM Results for this CDT procedure are i n the results section. ALKALINE PHOSPHATASE, Routine 01/20/2007 1:35 PM Results for this TOTAL CDT procedure are i n the results section. ALBUMIN Routine 01/20/2007 1:35 PM Results f or this CDT procedure are i n the results section. URINALYSIS Routine 01/20/2007 1:23 PM Results f or this ROUTINE(MICRO IF POS) CDT proced ure are in the results section. URINALYSIS Routine 01/20/2007 1:23 PM Results f or this MICROSCOPIC CDT procedure are i n the results section. documented in this encounter Results Group B Strep Screen (OB Pts) (01/20/2007 3:21 PM CDT) Analysis Performed At [facility] Time Signature Culture Strep SEE TEXT HP CONVERSION Screen Other Source Comment: Patient: RAEGAN KIM Culture Strep Scr Other Source @ ?Collected: ??[id number] ??[id number] Source: Vag/Rect ?Processed: ??[id number] ??[id number] ? S Final Report ------ ?[id number] ??[id number] No group A or B Streptococcus isolated @ = Strep Screen Performed at ??[address] [place], [place] ?[address] Specimen (Source) Anatomical Collection Method Collection Time Re ceived Time Location / / Volume Laterality 01/20/2007 3:21 PM CDT Andrea Rodney MD LAB_1 Performing Organization Address City/State/ZIP Code Phon e Number HP CONVERSION (ABNORMAL) Complete Blood Count-W/Diff (01/20/2007 1:35 PM CDT) Patholo gist Method Time Signature White Blood Cell 7.3 3.8 - 11.0 HP CONVERSIO N Count K/cmm Red Blood Cell 4.15 3.70 - HP CONVERSION Count 5.20 m/cmm Hemoglobin 13.1 11.8 - HP CONVERSION 15.5 gm/dL Hematocrit 38.3 35.0 - HP CONVERSION 46.0 % Mean Corpuscular 92.1 80.0 - HP CONVERSION Volume 100.0 fl Mean Corpuscular 31.4 27.0 - HP CONVERSION Hemoglobin 34.0 pg Mean Corpuscular 34.1 32.0 - HP CONVERSION Hemoglobin Conc 36.5 gm/dL [place] RDW 12.4 11.0 - HP CONVERSION 15.0 % Platelet Count 119 (L) 140 - 450 HP CONVERSION k/cmm Differential Auto-Dif No normal HP CONVERSION Verify range Neutrophils 5.3 2.0 - 7.5 HP CONVERSION Absolute Count K/cmm Neutrophil 72.1 50.0 - HP CONVERSION 75.0 % Lymphocyte % 17.8 (L) 20.0 - HP CONVERSION 40.0 % Monocyte 6.5 5.0 - 14.0 HP CONVERSION % Eosinophil 2.7 0.0 - 6.0 HP CONVERSION % Basophil % 0.9 0.0 - 2.0 HP CONVERSION % Specimen (Source) Anatomical Collection Method Collection Time Re ceived Time Location / / Volume Laterality 01/20/2007 1:35 PM CDT Andrea Rodney MD LAB_1 Performing Organization Address City/State/ZIP Code Phon e Number HP CONVERSION Albumin (01/20/2007 1:35 PM CDT) athologist Signature Albumin 3.7 3.4 - 5.0 HP CONVERSION g/dL Specimen (Source) Anatomical Collection Method Collection Time Re ceived Time Location / / Volume Laterality 01/20/2007 1:35 PM CDT Andrea Rodney MD LAB_1 Performing Organization Address City/State/ZIP Code Phon e Number HP CONVERSION Alkaline Phosphatase, Total (01/20/2007 1:35 PM CDT) athologist Signature Alk Phos 117 25 - 135 U/L HP CONVERSION Specimen (Source) Anatomical Collection Method Collection Time Re ceived Time Location / / Volume Laterality 01/20/2007 1:35 PM CDT Andrea Rodney MD LAB_1 Performing Organization Address City/[facility]/ZIP Code Phon e Number HP CONVERSION ALT (SGPT) (01/20/2007 1:35 PM CDT) [facility] gist Method Time Signature Alanine 15 4 - 55 HP CONVERSION Aminotransferase U/L Specimen (Source) Anatomical Collection Method Collection Time Re ceived Time Location / / Volume Laterality 01/20/2007 1:35 PM CDT Andrea Rodney MD LAB_1 Performing Organization Address [facility] Code Phon e Number HP CONVERSION AST (01/20/2007 1:35 PM CDT) [facility] Method Time Signature Aspartate 19 0 - 45 HP CONVERSION Aminotransferase U/L Specimen (Source) Anatomical Collection Method Collection Time Re ceived Time Location / / Volume Laterality 01/20/2007 1:35 PM CDT Andrea Rodney MD LAB_1 Performing Organization Address City/[facility]/ZIP Code Phon e Number HP CONVERSION Bilirubin, Direct (01/20/2007 1:35 PM CDT) athologist Signature Bilirubin, 0.1 0.0 - 0.4 HP CONVERSION Direct mg/dL Specimen (Source) Anatomical Collection Method Collection Time Re ceived Time Location / / Volume Laterality 01/20/2007 1:35 PM CDT Andrea Rodney MD LAB_1 Performing Organization Address City/[facility]/ZIP Code Phon e Number HP CONVERSION Bilirubin, Total (01/20/2007 1:35 PM CDT) athologist Signature Bilirubin Total 0.3 0.2 - 1.2 HP CONVERSION mg/dL Specimen (Source) Anatomical Collection Method Collection Time Re ceived Time Location / / Volume Laterality 01/20/2007 1:35 PM CDT Andrea Rodney MD LAB_1 Performing Organization Address [facility] Phon e Number HP CONVERSION Uric Acid (01/20/2007 1:35 PM CDT) athologist Signature Uric Acid Serum 3.1 2.5 - 8.5 HP CONVERSION mg/dL Specimen (Source) Anatomical Collection Method Collection Time Re ceived Time Location / / Volume Laterality 01/20/2007 1:35 PM CDT Andrea Rodney MD LAB_1 Performing Organization Address [facility] Phon e Number HP CONVERSION (ABNORMAL) Urinalysis Routine(Micro If Pos) (01/20/2007 1:23 PM CDT) [facility] Method Time Signature Turbidity Clear No normal HP CONVERSION range pH Urine 6.5 4.5 - 7.5 HP CONVERSION Protein Urine 30 mg/dL Neg-Trac HP CONVERSION (A) Glucose, 500mg/dL Neg-Trac HP CONVERSION Qualitative U (A) Ketones Trace (A) Negative HP CONVERSION U BILI Negative Negative HP CONVERSION Blood Urine Negative Negative HP CONVERSION Nitrite Urine Negative Negative HP CONVERSION Leukocyte Negative Negative HP CONVERSION Esterase Urine Urobilinogen Negative 0.2 - 1.0 HP CONVERSION Urine U Specific >=1.030 1.005 - 25 HP CONVERSION [place] Specimen (Source) Anatomical Collection Method Collection Time Re ceived Time Location / / Volume Laterality 01/20/2007 1:23 PM CDT Andrea Rodney MD LAB_1 Performing Organization Address [facility] Phon e Number HP CONVERSION (ABNORMAL) Urinalysis Microscopic (01/20/2007 1:23 PM CDT) [facility] Method Time Signature White Blood 3-4/HPF 0 - 3 HP CONVERSION Cells Urine Red Blood Cells 0-2/HPF 0 - 2 HP CONVERSION Urine Bacteria Urine Few (A) None HP CONVERSION Urine Mucus Moderate None HP CONVERSION Epithelial Few Few /HPF HP CONVERSION Cells Crystals Ca Ox None HP CONVERSION Specimen (Source) Anatomical Collection Method Collection Time Re ceived Time Location / / Volume Laterality 01/20/2007 1:23 PM CDT Andrea Rodney MD LAB_1 Performing Organization Address [facility] Phon e Number HP CONVERSION documented in this encounter Visit Diagnoses Not on filedocumented in this encounter Care Teams Police Detention Attendant Relationship Specialty Start Date End Date Andrea Rodney MD PCP - General 12/15/10 1415 [facility] [place] [address] documented as of this encounter
--- OUTSIDE RECORDS SUMMARY | 2022-04-23 04:59 | XMS_ITS | Encounter Summary ---
:1985 Author Organization [facility] Address [address] [place] [address] Care Team Providers Name Role Phone Andrea Orozco MD Primary Care Provider Encounter Details Date Type Department Care Team Description 11/03/2006 Routine [facility] cine Andrea Orozco, 14[address] [facility] [place] [address] 141 [facility] [phone] [place] [facility], [place] [address] (Wo rk) Social History Tobacco Use Types Packs/Day Years Used Date Smoking Tobacco: Never Assessed Sex Assigned at Date Recorded Not on file documented as of this encounter Last Filed Vital Signs Vital Sign Reading Time Taken Comments Blood Pressure 108/64 11/03/2006 10:19 AM FINANCIAL COACH Pulse - - Temperature - - Respiratory Rate - - Oxygen Saturation - - Inhaled Oxygen Concentration - - Weight 66.7 kg (146 lb 15.7 oz) 11/03/2006 10:19 AM C: 66.7kg FINANCIAL COACH Height - - Body Mass Index - - documented in this encounter Progress Notes Andrea Orozco MD - 11/03/2006 12:01 AM CST Progress Notes signed by Andrea Orozco MD at 11/04/06 0912 Author: Andrea Orozco MD Service: (none) Author Type: Physician Filed: 01/03/11 1732 Note Time: 11/03/06 0001 Status: Signed Area Field Person: Andrea Orozco MD (Physician) NAME: RAEGAN KIM MR#: [id number] ACCT: [id number] VISIT: [id number] DICTATING CLINICIAN: ANDREA OROZCO MD JOB: [id number] LOC: 1202 CLINIC PROGRESS NOTE DATE OF VISIT: 11/03/2006 SUBJECTIVE: OBJECTIVE: ASSESSMENT: care. PLAN: OB worksheet. Flu shot given. JFR:[id number] C: 11/03/06 16:04 DOCUMENT: [id number] NCIAL COACH documented in this encounter Plan of Treatment Not on filedocumented as of this encounter Visit Diagnoses Not on filedocumented in this encounter Care Teams Drafter Geophysical Relationship Specialty Start Date End Date Andrea Orozco MD PCP - General 12/15/10 1415 [facility] [place] [address] documented as of this encounter
--- OUTSIDE RECORDS SUMMARY | 2022-04-23 04:59 | XMS_ITS | Encounter Summary ---
:1985 Author Organization [facility] Address [address], [place] [address] Care Team Providers Name Role Phone Andrea Orozco MD Primary Care Provider Reason for Visit Reason Comments Other Encounter Details Date Type Department Care Team Description 11/13/2004 Telephone [facility] Andrea Orozco MD Other [address] [facility] . [address] [place] [address] [place], [place] [phone] (Wo rk) Social History Tobacco Use Types Packs/Day Years Used Date Smoking Tobacco: Never Assessed Sex Assigned at Date Recorded Not on file documented as of this encounter Progress Notes Flower Bang RN - 11/13/2004 2:56 PM CST Phone Note filed by Flower Bang RN at 12/30/101701 Author: Flower Bang RN Service: (none) Author Type: Registered Nurse Filed: 12/30/101701 Note Time: 11/13/041455 Status: Signed Resistance Welder: Flower Bang RN (Registered Nurse) Pt is 37 1/2 weeks . Seen yesterday. This afternoon noted her pelvic area getting 'huge, big, swollen, cannot close her legs at all'. Pt could see this happening.. Also has cramping as if menstrual period that is constant. Pain rates 7 of 10. States no contractions, just the cramping.No bleeding, no water. Last time felt baby move was this morning. No movement since. Pt is at wk#[phone] and on her feet as Cecilio's manager corporate responsibility. Best way to reach her is on her cell ph# [phone]. Created on 13Nov2004 2:56pm by FLOWER BANG On 13Nov2004 2:58pm FLOWER BANG wrote: Advise pt go home and get norbert her feet--she will be reachable on her cell ph#[phone] On 13Nov2004 3:29pm BOBBY LONDON wrote: pt sent to family Acknowledged by ANDREA OROZCO on 5:32pm documented in this encounter Plan of Treatment Not on filedocumented as of this encounter Visit Diagnoses Not on filedocumented in this encounter Care Teams Lace Pinner Relationship Specialty Start Date End Date Andrea Orozco MD PCP - General 12/15/10 [address] [place] [address] documented as of this encounter
--- OUTSIDE RECORDS SUMMARY | 2022-04-23 04:59 | XMS_ITS | Encounter Summary ---
:1985 Author Organization [facility] Address [address] [address] Care Team Providers Name Role Phone Andrea Rodney MD Primary Care Provider Encounter Details Date Type Department Care Team Description 08/04/2006 PN Conversion Only [place] CONVERSION Andrea Rodney, [address] [facility] [place] [address] [address] [facility] [place] [address] (Wo rk) Social History Tobacco Use Types Packs/Day Years Used Date Smoking Tobacco: Never Assessed Sex Assigned at Date Recorded Not on file documented as of this encounter Plan of Treatment Not on filedocumented as of this encounter Procedures Procedure Name Priority Date/Time Associated Comments Diagnosis ANTIBODY SCREEN Routine 08/04/2006 3:23 PM Result s for this PEDIATRIC ALLERGIST procedure are i n the results section. HIV ANTIBODY Routine 08/04/2006 3:23 PM Results f or this PEDIATRIC ALLERGIST procedure are i n the results section. URINALYSIS Routine 08/04/2006 3:23 PM Results f or this ROUTINE(MICRO IF PEDIATRIC ALLERGIST procedure a re in POS) the results section. RPR BLOOD Routine 08/04/2006 3:23 PM Results f or this PEDIATRIC ALLERGIST procedure are i n the results section. HEMOGLOBIN OB Routine 08/04/2006 3:23 PM Results for this PEDIATRIC ALLERGIST procedure are i n the results section. HEP B SURFACE Routine 08/04/2006 3:23 PM Results for this ANTIGEN, NO REFLEX PEDIATRIC ALLERGIST procedure are in the results section. URINE CULTURE Routine 08/04/2006 3:16 PM Results for this PEDIATRIC ALLERGIST procedure are i n the results section. ANATOMICAL PATH Routine 08/04/2006 8:09 AM Result s for this LIQUID BASED PEDIATRIC ALLERGIST procedure are i n the results section. documented in this encounter Results Antibody Screen (08/04/2006 3:23 PM PEDIATRIC ALLERGIST) athologist Signature N/O BB NEG No normal HP CONVERSION ANTIBODY range SCREEN Specimen (Source) Anatomical Collection Method Collection Time Re ceived Time Location / / Volume Laterality 08/04/2006 3:23 PM PEDIATRIC ALLERGIST Andrea Rodney MD PN BLOOD BANK ORDERS Performing Organization Address [facility] Phon e Number HP CONVERSION Hemoglobin Ob (08/04/2006 3:23 PM PEDIATRIC ALLERGIST) athologist Signature OB Hemoglobin 12.9 gm/dL HP CONVERSION Comment: First trimester (week 12) 11.0 - 13.4 gm /dL Second trimester(week 20) 10.5 - 12.7 gm /dL Third trimester (week 32) 11.0 - 13.2 gm /dL From MMWR 1988;38(22): 400-4 Specimen (Source) Anatomical Collection Method Collection Time Re ceived Time Location / / Volume Laterality 08/04/2006 3:23 PM PEDIATRIC ALLERGIST Andrea Rodney MD LAB_1 Performing Organization Address [facility] Phon e Number HP CONVERSION Urinalysis Routine(Micro If Pos) (08/04/2006 3:23 PM PEDIATRIC ALLERGIST) Patholo gist Method Time Signature Turbidity Clear No [...] Specific >=1.030 1.005 - 25 HP CONVERSION [place] Specimen (Source) Anatomical Collection Method Collection Time Re ceived Time Location / / Volume Laterality 08/04/2006 3:23 PM PEDIATRIC ALLERGIST Andrea Rodney MD LAB_1 Performing Organization Address [facility] Phon e Number HP CONVERSION RPR Blood (08/04/2006 3:23 PM PEDIATRIC ALLERGIST) athologist Signature RPR Non Reac Non Reac HP CONVERSION Specimen (Source) Anatomical Collection Method Collection Time Re ceived Time Location / / Volume Laterality 08/04/2006 3:23 PM PEDIATRIC ALLERGIST Andrea Rodney MD LAB_1 Performing Organization Address City/[facility]/ZIP Code Phon e Number HP CONVERSION Hep B Surface Antigen, No Reflex (08/04/2006 3:23 PM PEDIATRIC ALLERGIST) Analysis Performed At Patho logist [facility] Hep B Surf Ag Negative Negative HP CONVERSION Specimen (Source) Anatomical Collection Method Collection Time Re ceived Time Location / / Volume Laterality 08/04/2006 3:23 PM PEDIATRIC ALLERGIST Andrea Rodney MD LAB_1 Performing Organization Address City/[facility]/ZIP Code Phon e Number HP CONVERSION HIV Antibody (08/04/2006 3:23 PM PEDIATRIC ALLERGIST) athologist Signature HIV 1/HIV 2 Non Reac Non Reac HP CONVERSION Specimen (Source) Anatomical Collection Method Collection Time Re ceived Time Location / / Volume Laterality 08/04/2006 3:23 PM PEDIATRIC ALLERGIST Andrea Rodney MD LAB_1 Performing Organization Address City/[facility]/ZIP Code Phon e Number HP CONVERSION Urine Culture (08/04/2006 3:16 PM PEDIATRIC ALLERGIST) Analysis Performed At [facility] Urine Culture SEE TEXT HP CONVERSION Comment: Patient: RAEGAN KIM Culture, Urine @ ?Collected: ?151 Source: Clean Ca ?Processed: ??[id number] ??151 Final Report ------ ?[id number] ??1025 No growth @ = URINE CULTURE Performed at ??[address], [place] ?[address] Specimen (Source) Anatomical Collection Method Collection Time Re ceived Time Location / / Volume Laterality 08/04/2006 3:16 PM PEDIATRIC ALLERGIST Andrea Rodney MD LAB_1 Performing Organization Address City/State/ZIP Code Phon e Number HP CONVERSION Pap Smear (08/04/2006 8:09 AM PEDIATRIC ALLERGIST) [facility] gist Method Time Signature PAP Smear SEE TEXT No normal HP CONVERSION Liquid Based range Comment: Patient: RAEGAN KIM ? CERVICAL CYTOLOGY REPORT Pathology # ??[id number] ?Date Obtained: ? Date Received: CYTOLOGIC IMPRESSION: Negative for intraepithelial lesion or m alignancy. Verified 08/12/06 by: ??KGM ?(electronic signature) Fungal organisms identified. ? HERMINIA TIONAL DATA LMP: ?PREG CLINICAL HIST LIQUID BASED PAP CERVICAL SPECIMEN ADEQUACY: ?? Satisfactory. ENDOCERVICAL CELLS: ??Absent; patient is . Specimen (Source) Anatomical Collection Method Collection Time Re ceived Time Location / / Volume Laterality 08/04/2006 8:09 AM PEDIATRIC ALLERGIST Andrea Rodney MD LAB_1 Performing Organization Address City/State/ZIP Code Phon e Number HP CONVERSION documented in this encounter Visit Diagnoses Not on filedocumented in this encounter Care Teams Application Processor Relationship Specialty Start Date End Date Andrea Rodney MD PCP - General 12/15/10 [address] [place] [address] documented as of this encounter
--- OUTSIDE RECORDS SUMMARY | 2022-04-23 04:59 | XMS_ITS | Encounter Summary ---
:1985 Author Organization [facility] Address [address] [place] [address] Care Team Providers Name Role Phone Andrea Rodney MD Primary Care Provider Encounter Details Date Type Department Care Team Description 01/13/2007 Routine [facility] Andrea Rodney, [address] [facility] [place] [address] [address] [facility] [phone] [place] [address] (Wo rk) Social History Tobacco Use Types Packs/Day Years Used Date Smoking Tobacco: Never Assessed Sex Assigned at Date Recorded Not on file documented as of this encounter Last Filed Vital Signs Vital Sign Reading Time Taken Comments Blood Pressure 112/72 01/13/2007 10:54 AM CDT Pulse - - Temperature - - Respiratory Rate - - Oxygen Saturation - - Inhaled Oxygen Concentration - - Weight 69.8 kg (153 lb 15.9 oz) 01/13/2007 10:54 AM C: 69.9kg CDT Height - - Body Mass Index - - documented in this encounter Progress Notes Andrea Rodney MD - 01/13/2007 12:01 AM CDT Progress Notes signed by Andrea Rodney MD at 01/13/072005 Author: Andrea Rodney MD Service: (none) Author Type: Physician Filed: 01/03/11 1900 Note Time: 01/13/07 0001 Status: Signed Telecom Coordinator: Andrea Rodney MD (Physician) SUBJECTIVE: Here for care. She has had some rare abdominal discomfort, but with normal activity. No headache, no swelling, otherwise feels well. Adverse Drug Reactions: Medications: Reviewed. See Medication List in LastWord. OBJECTIVE: Exam is as indicated in the form. Vital Signs : Reviewed; See Flowsheet Charting in LastWord. ASSESSMENT: care 35 weeks. PLAN: UA is pending. Recheck one week. Weekly checks from now until delivery. The patient was discharged ambulatory and in stable condition. documented in this encounter Plan of Treatment Not on filedocumented as of this encounter Visit Diagnoses Not on filedocumented in this encounter Care Teams Driver Courier Relationship Specialty Start Date End Date Andrea Rodney MD PCP - General 12/15/[address] [place] [address] documented as of this encounter
--- OUTSIDE RECORDS SUMMARY | 2022-04-23 05:00 | XMS_ITS | Encounter Summary ---
:1985 Author Organization [facility] Address [address] [place] [address] Care Team Providers Name Role Phone Andrea Rodney MD Primary Care Provider Encounter Details Date Type Department Care Team Description 05/10/2004 PN Conversion Only [place] CONVERSION [address] [place] [address] Social History Tobacco Use Types Packs/Day Years Used Date Smoking Tobacco: Never Assessed Sex Assigned at Date Recorded Not on file documented as of this encounter Plan of Treatment Not on filedocumented as of this encounter Visit Diagnoses Not on filedocumented in this encounter Care Teams Mailing Manager Relationship Specialty Start Date End Date Andrea Rodney MD PCP - General 12/15/10 [address] [place] [address] documented as of this encounter
--- OUTSIDE RECORDS SUMMARY | 2022-04-23 05:00 | XMS_ITS | Encounter Summary ---
:1985 Author Organization [facility] Address [address] [place] [address] Care Team Providers Name Role Phone Andrea Orozco MD Primary Care Provider Encounter Details Date Type Department Care Team Description 09/17/2004 Routine [facility] Andrea Orozco, [address] [facility] [place] [address] 14[address] [facility] [phone] [place], [place] [address] (Wo rk) Social History Tobacco Use Types Packs/Day Years Used Date Smoking Tobacco: Never Assessed Sex Assigned at Date Recorded Not on file documented as of this encounter Progress Notes Andrea Orozco MD - 09/17/2004 12:01 AM CST Progress Notes signed by Andrea Orozco MD at 09/18/04 1959 Author: Andrea Orozco MD Service: (none) Author Type: Physician Filed: 01/03/11221 Note Time: 09/17/042010 Status: Signed Biomedical Equipment Support Specialist: Andrea Orozco MD (Physician) NAME: RAEGAN RABAGO MR: [id number] ACCT: [id number] VISIT: [id number] DICTATING CLINICIAN: ANDREA OROZCO MD JOB: [id number] CLINIC PROGRESS NOTE DATE OF VISIT: 09/17/2004 SUBJECTIVE: OBJECTIVE: ASSESSMENT: . PLAN: OB worksheet. JFR:[id number] C: 09/17/04 14:01 DOCUMENT: [id number] MARKER documented in this encounter Plan of Treatment Not on filedocumented as of this encounter Visit Diagnoses Not on filedocumented in this encounter Care Teams Ballast Cleaning Operator Relationship Specialty Start Date End Date Andrea Orozco MD PCP - General 12/15/10 [facility] [place] [address] documented as of this encounter
--- OUTSIDE RECORDS SUMMARY | 2022-04-23 05:00 | XMS_ITS | Encounter Summary ---
:1985 Author Organization [facility] Address [address] [facility] [address] Care Team Providers Name Role Phone Michelle Cortez MD Primary Care Provider Reason for Visit Auth/Cert Specialty Diagnoses / Procedures Referred By Contact Refer red To Contact manager managing Diagnoses pre-eclampsia delivery delivered Rh Procedures SECTION [address] [place], [place] [address] Phone: Fax: Referral ID Status Reason Start Date Expiration Date Visits Requ ested Visits Authorized [id number] 1 1 Encounter Details Date Type Department Care Team Description 08/06/2017 Anesthesia Event [facility] Tc Neff PeriOp Services MD Bret [address] [place] [address] ANESTH ESIA [address] [place], [place] [address] (Wo rk) Anesthesia Record Procedure Summary Procedure Name Responsible Anesthesia Start Anesthesia Stop Time Anesthesiologist Time SECTION Tc Neff MD 08/06/17 1601 1706 (N/A Abdomen) Events Date Time Event Comment 08/06/2017 1601 An Start 1601 Present 1601 Quick Note Pt chart reviewe d, questions answered, consent obtained. Tx to OR 7, moved to OR table, monitors on and SAB placed 1604 An Start Data 1605 MD Present 1609 MD Present 1614 MD Present 1619 MD Present 1628 Uterine Incision 1628 Baby Delivered 1632 MD Present 1651 MD Present 1706 an stop data 1706 An Stop Electronically s igned by Elsy Adams on August 06 7 5:06 PM Name Total fentaNYL (SUBLIMAZE) injection 100 mcg ondansetron 2mg/mL 4 mg ceFAZolin vial 1 gm 2 g magnesium sulfate infusion 2.17 g oxytocin 30 units in 500 mL 0.9% NaCl infusion 189.17 mL lactated ringers infusion 1,000 mL Agents Name NO HELIOX O2 N2O Air Exp Sevoflurane Exp Isoflurane Exp Desflurane Exp N2O Ins Sevoflurane Ins Isoflurane Ins Desflurane O2 Auxiliary Blood No blood administrations on file. Lines, Drains, and Airways Type Details Placement Removal Incision/Surgical 08/06/17; 1729; 08/06/17 1729 by Breanna, Site Bilateral; Abdomen Isatu Rainey RN Urethral Catheter 08/06/17; 1615; 08/06/17 1615 by Breanna, 7 0545 by Anesthesia NAI Cameron Katherine, RN documented in this encounter Social History Tobacco Use Types Packs/Day Years Used Date Never Smoker Smokeless Tobacco: Never Used Alcohol Use Standard Drinks/Week Comments Yes 0 (1 standard drink = 0.6 oz pure alcoho l) 2 glasses during Alcohol Habits Answer Date Recorded How often do you have a drink containing Not asked alcohol? How many drinks containing alcohol do you Not asked have on a typical day when you are drinking? How often do you have six or more drinks on Not asked one occasion? Comment: 2 glasses during 08/06/2017 Sex Assigned at Date Recorded Not on file documented as of this encounter OR Notes Anesthesia Postprocedure Evaluation - Tc Neff MD - 08/06/2017 5:31 PM CST Patient: Elli Kim Procedure(s): - Wound Class: II-Clean Contaminated Diagnosis:pre-eclampsia Diagnosis Additional Information: Preeclampsia Dr Merritt Anesthesia Type: Spinal Note: Anesthesia Post Evaluation Patient location during evaluation: PACU Patient participation: Able to fully participate in evaluation Level of consciousness: awake Pain management: adequate Airway patency: patent Cardiovascular status: acceptable Respiratory status: acceptable Hydration status: acceptable PONV: none Anesthetic complications: None Last vitals: Vitals: 08/06/17 1529 08/06/17 1705 08/06/17 1715 BP: 134/68 131/73 Pulse: Resp: 16 16 Temp: 97.5 ??F (36.4 ??C) SpO2: 94% 92% Electronically Signed By: Tc Neff MD August 06, 2017 5:31 PM HOUSE TEAM MEMBER Anesthesia Procedure Notes - Elsy Adams APRN CRNA - 08/06/2017 4:12 PM CSTAssociated Order(s): ANE SPINAL BLOCK FORM Peripheral nerve/Neuraxial procedure note : intrathecal Pre-Procedure Performed by TC NEFF Referred by [facility] Location: OR Pre-Anesthestic Checklist: patient identified, IV checked, risks and benefits discussed, informed consent, monitors and equipment checked, pre-op evaluation and at physician/surgeon's request Timeout Correct Patient: Yes Correct Procedure: Yes Correct Site: Yes Correct Laterality: N/A Correct Position: Yes Site Marked: N/A . Procedure Documentation ASA 3 and Emergent Diagnosis:stat cs, preeclampsia. Procedure: Intrathecal. Insertion Site:L3-4 (midline approach) Patient Prep;mask, sterile gloves, povidone-iodine 7.5% surgical scrub, patient draped. . Needle: Sonia tip Spinal Needle (gauge): 25 Spinal/LP Needle Length (inches): 3.5 # of attempts: 1 and # of redirects: Introducer used . Assessment/Narrative Paresthesias: No. . . 0.01 mL of clear CSF fluid removed . Comments: 0.2 duramorph and 2cc .75marc. Easily accomplished, zero heme... HOUSE TEAM MEMBER Anesthesia Preprocedure Evaluation - Tc Neff MD - 08/06/2017 3:54 PM CST PAC NOTE: ANESTHESIA PRE EVALUATION: Anesthesia Evaluation . 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 ASA Status: 3 emergent. NPO Status: > 8 hours Plan for Spinal SAB w/ duramorph for POP, GETA as backup. Plan and risks fully discussed, lovenox at 2200 yesterday,plts 103, agrees to proceed with SAB understanding the bleeding risks and risks of GA. Postoperative Care Postoperative pain management: Neuraxial analgesia. Consents Anesthetic plan, risks, benefits and alternatives discussed with: Patient. Use of blood products discussed: Yes. Use of blood products discussed with Patient. Consented to blood products. . . HOUSE TEAM MEMBER documented in this encounter Miscellaneous Notes Anesthesia Care Transfer Note - Elsy Adams APRN CRNA - 08/06/2017 5:05 PM CST Patient: Elli Kim Procedure(s): - Wound Class: II-Clean Contaminated Diagnosis: pre-eclampsia Diagnosis Additional Information: No value filed. Anesthesia Type: Spinal Note: Airway :Room Air Patient transferred to:Labor and Delivery Comments: Pt VSS, rain, tx to room 12 on L/D, monitors on and report to RNHandoff Report: Identifed the Patient, Identified the Reponsible Provider, Reviewed the pertinent medical history, Discussed the surgical course, Reviewed Intra-OP anesthesia mangement and issues during anesthesia, Set expectations for post-procedure period and Allowed opportunity for questions and acknowledgement of understanding Vitals: (Last set prior to Anesthesia Care Transfer) BRAID FOLDER VITALS 08/06/2017 1635 - 08/06/2017 1705 08/06/2017 Pulse: 72 SpO2: 94 % Electronically Signed By: Elsy Adams APRN CRNA August 06, 2017 5:05 PM HOUSE TEAM MEMBER documented in this encounter Plan of Treatment Not on filedocumented as of this encounter Procedures Procedure Name Priority Date/Time Associated Diagnosis Comme nts ANE SPINAL BLOCK FORM Routine 08/06/2017 4:14 PM WAREHOUSE TEAM MEMBER Procedure Note - Alan Adams, DONG BRAID FOLDER - 08/06/2017 4:12 PM CSTThis note is in progress. Formatting of this note migh t be different from the original. Peripheral nerve/Neuraxial p rocedure note : intrathecal Pre-Procedure Performed by GAVIN NEFF Referred by JULY Location: OR Pre-Anesthestic Checklist: p atient identified, IV checked, risks and benefits discussed, informed consent, monitors and equipment checked, pre-op evaluation and at physician/surgeon's request Timeout Correct Patient: Yes Correct Procedure: Yes Correct Site: Yes Correct Laterality: N/A Correct Position: Yes Site Marked: N/A . Procedure Documentation ASA 3 and Emergent Diagnosis:stat cs, preeclamp peggy. Procedure: Intrathecal. Inse rtion Site:L3-4 (midline approach) Patient Prep;mask, sterile g loves, povidone-iodine 7.5% surgical scrub, patient draped. . Needle: Sonia tip Spinal Needle (gauge): 25 Spinal/LP Needle Length (inches): 3.5 # of attempts: 1 and # of redirects: Introducer used . Assessment/Narrative Paresthesias: No. . . 0.01 m L of clear CSF fluid removed . Comments: 0.2 duramorph and 2cc .75marc. Easily accomplished, zero heme... documented in this encounter Visit Diagnoses Not on filedocumented in this encounter Administered Medications Inactive Administered Medications - up to 3 most recent administrations Medication Order MAR Action Action Date Dose Rate Site ceFAZolin (ANCEF) 1 g vial to attach Given 08/06/2017 4:13 PM CS T 2 g to NS 100 ml bag for ADULT or 50 ml bag for PEDS Routine, PRN, Starting on Ayah 08/06/17 at 1613, Anesthesia Intra-op fentaNYL (PF) (SUBLIMAZE) injection Given 08/06/2017 4:44 PM WAREHOUSE TEAM MEMBER 50 mcg Intrathecal, PRN, moderate to severe pain, Administer over 3-5 Minutes, Starting on Ayah 08/06/17 at 1644, Anesthesia Intra-op Given 08/06/2017 4:33 PM WAREHOUSE TEAM MEMBER 50 mcg lactated ringers infusion New Bag 08/06/2017 4:30 PM WAREHOUSE TEAM MEMBER at 10-125 mL/hr, Intravenous, CONTINUOUS, Titrate lactated ringers rate to obtain total IV intake of 125 mL/hour, Starting on Ayah 08/06/17 at 1430, Until 08/10/17 at 1627 New Bag 08/06/2017 3:52 PM WAREHOUSE TEAM MEMBER Rate/Dose Change 08/06/2017 2:28 PM WAREHOUSE TEAM MEMBER 75 mL/hr 75 mL/hr magnesium sulfate infusion Rate/Dose Change 08/06/2017 4:01 PM WAREHOUSE TEAM MEMBER 2 g/hr 50 mL/hr 2 g/hr (50 mL/hr), Intravenous, CONTINUOUS, Starting on Ayah 08/06/17 at 1500, STOP infusion and then notify provider IF signs of magnesium toxicity appear (respirations less than 12 per minute, hypo-reflexia, bradycardia, change in neurologic status, or decreased level of consciousness, slurred speech, muscle weakness, visual disturbances or extreme thirst). Not for use beyond 5 days in pre-term labor. New Bag 08/06/2017 2:45 PM WAREHOUSE TEAM MEMBER 2 g/hr 50 mL/hr ondansetron (ZOFRAN) injection Given 08/06/2017 4:44 PM WAREHOUSE TEAM MEMBER 4 mg PRN, nausea, vomiting, Administer over 2-5 Minutes, Starting on Ayah 08/06/17 at 1644, Anesthesia Intra-op oxytocin (PITOCIN) 30 units Rate/Dose Change 08/06/2017 4:50 PM 250 mL/hr 250 mL/hr in 500 mL 0.9% NaCl infusion WAREHOUSE TEAM MEMBER CONTINUOUS PRN, Starting on Ayah 08/06/17 at 1629, Anesthesia Intra-op New Bag 08/06/2017 4:29 PM WAREHOUSE TEAM MEMBER 350 mL/hr 350 mL/hr documented in this encounter Care Teams Provider Enrollment Specialist Relationship Specialty Start Date End Date Michelle Cortez MD PCP - General 10/06/11 documented as of this encounter
--- OUTSIDE RECORDS SUMMARY | 2022-04-23 05:00 | XMS_ITS | Encounter Summary ---
:1985 Author Organization Replaced by [facility] Address [address] [place] [address] Care Team Providers Name Role Phone Andrea Orozco MD Primary Care Provider Encounter Details Date Type Department Care Team Description 10/29/2004 Routine [facility] Andrea Orozco, [address] [facility] [place] [address] [address] [facility] [phone] [place], [place] [phone] (Wo rk) Social History Tobacco Use Types Packs/Day Years Used Date Smoking Tobacco: Never Assessed Sex Assigned at Date Recorded Not on file documented as of this encounter Progress Notes Andrea Orozco MD - 10/29/2004 12:01 AM CST Progress Notes signed by Andrea Orozco MD at 10/31/041 Author: Andrea Orozco MD Service: (none) Author Type: Physician Filed: 01/03/113 Note Time: 10/29/042010 Status: Signed Account Solutions Analyst: Andrea Orozco MD (Physician) NAME: RAEGAN RABAGO MR: [id number] ACCT: [id number] VISIT: [id number] DICTATING CLINICIAN: ANDREA OROZCO MD JOB: [id number] CLINIC PROGRESS NOTE DATE OF VISIT: 10/29/2004 SUBJECTIVE: OBJECTIVE: ASSESSMENT: care. PLAN: OB work sheet. [id number] C: 10/30/04 16:01 DOCUMENT: [id number] TING TABLE WORKER documented in this encounter Plan of Treatment Not on filedocumented as of this encounter Visit Diagnoses Not on filedocumented in this encounter Care Teams Iron Molder Helper Relationship Specialty Start Date End Date Andrea Orozco MD PCP - General 12/15/10 [facility] [place] [id number] documented as of this encounter
--- OUTSIDE RECORDS SUMMARY | 2022-04-23 05:00 | XMS_ITS | Encounter Summary ---
:1985 Author Organization [facility] Address [address] [place] [id number] Care Team Providers Name Role Phone Michelle Cortez MD Primary Care Provider Reason for Visit Reason Comments Pre-Eclampsia Auth/Cert Specialty Diagnoses / Procedures Referred By Contact Refer red To Contact business improvement manager Diagnoses pre-eclampsia delivery delivered Rh Procedures SECTION [address] [place], [place] [address] Phone: Fax: Referral ID Status Reason Start Date Expiration Date Visits Requ ested Visits Authorized [id number] 1 1 Encounter Details Date Type Department Care Team Description [facility]2017 Encounter [facility] Lacie Mejía, delivered, current [address] [place]IG[place] hospitalization [facility] OBSTETRICS & (Primary Dx) [place], [place] GYNECOLOGY [address] SPECIALISTS [phone] [address] [facility] [address] [place] [address] Social History Tobacco Use Types Packs/Day Years [...] Sign Reading Time Taken Comments Blood Pressure 127/89 08/10/2017 9:36 AM MANAGER LABOR RELATIONS Pulse 70 08/09/2017 3:00 PM MANAGER LABOR RELATIONS Temperature 36.8 ??C (98.2 ??F) 08/10/2017 9:36 AM MANAGER LABOR RELATIONS Respiratory Rate 16 08/10/2017 9:36 AM MANAGER LABOR RELATIONS Oxygen Saturation 93% 08/08/2017 8:00 AM MANAGER LABOR RELATIONS Inhaled Oxygen Concentration - - Weight 73 kg (161 lb) 08/06/2017 2:29 PM MANAGER LABOR RELATIONS Height 157.5 cm (5' 2) 08/06/2017 2:29 PM MANAGER LABOR RELATIONS Body Mass Index 29.45 08/06/2017 2:29 PM MANAGER LABOR RELATIONS documented in this encounter Discharge Summaries Lacie Mcdowell MD - 08/06/2017 2:04 PM CST Discharge Summary Elli Kim Date of : 1985 Age: [age] year old Date of Admission: 08/06/2017 Date of Discharge: 08/10/2017 2:27 PM Admitting Physician: Lacie Mcdowell MD Discharge Physician: Lacie Mcdowell MD Discharging Service: Obstetrics and Gynecology Home clinic: [facility], Dr. Michelle Cortez Admission Diagnoses: pre-eclampsia delivery delivered Discharge Diagnosis: There is no problem list on file for this patient. Discharge Disposition: Discharged to home Condition on Discharge: Discharge condition: Patient without complaints. Nausea controlled, tolerating regular diet. Ambulating, voiding without difficulty. Passing flatus. Minimal lochia. well. Pain controlled. Discharge vitals: Blood pressure 127/89, pulse 70, temperature 98.2 ??F (36.8 ??C), temperature source Oral, resp. rate 16, height 1.575 m (5' 2), weight 73 kg (161 lb), SpO2 93 %, unknown if currently . Gen--NAD CV--RRR Abd--uterus firm below umbilicus, nontender Inc--C/D/I Ext--no unilateral edema or TTP Procedures / Labs / Imaging: Invasive procedures: Primary section and bilateral tubal ligation Medications Prior to Admission: No prescriptions prior to admission. Discharge Medications: Discharge Medication List as of 08/10/2017 12:23 PM START taking these medications Details labetalol (NORMODYNE) 200 MG tablet Take 1 tablet (200 mg) by mouth every 8 hours, Disp-60 tablet, R-0, E-Prescribe CONTINUE these medications which have NOT CHANGED Details Enoxaparin Sodium (LOVENOX) 60 MG/0.6ML injection Inject 40 mg Subcutaneous every 12 hours , Historical Vit-Fe Fumarate-FA ( MULTIVITAMIN PLUS IRON) 27-0.8 MG TABS Take 1 tablet by mouth daily., 1 tablet, Oral, DAILY, Until Discontinued, Historical STOP taking these medications ASPIRIN PO Comments: Reason for Stopping: Brief History of Illness: Elli Kim is a 32 year old female who was transferred from [facility] on 08/06/17 for HELLP syndrome at 34.3 weeks gestation. She has had multiple prior pregnancies complicated by severe pre-eclampsia, and has known Factor V Leiden mutation, managed on Lovenox during the . She had been admitted to [place] on 08/04 with worsening blood pressures and received a course ofbetamethasone. Unfortunately, her liver function tests became abnormal and she developed right upperquadrant pain the evening of 08/05 and was transferred for further management. She was receiving MgS04 for seizure prophylaxis on transfer. Hospital Course: Given the severity of illness and worsening pain, the patient underwent urgent delivery on 08/06/17 without complication. She received MgS04 for 24 hours after delivery. Her labs were followedevery 6 hours for 48 hours after delivery, during which time she developed severe thrombocytopenia and her liver enzymes peaked in the 300s. By POD#2, her labs began to improve and she felt much better. No transfusions were required. Blood pressures were persistently elevated , and she was managed on oral labetalol. She was able to ambulate, void and tolerate regular diet by postoperative day #3. She was able to pass flatus and had pain controlled with oral medications by postoperative day #2. She was discharged on postoperative day #4 meeting all milestones. Significant Results: Recent Labs Lab 08/10/17 0621 08/09/17 0615 08/08/17 0630 WBC 6.3 7.7 8.5 HGB 11.4* 11.6* 11.5* HCT 33.9* 33.5* 33.0* MCV 89 88 87 PLT 90* 74* 59* Recent Labs Lab 08/10/17 0621 08/07/17 1924 08/07/17 1325 08/07/17 0550 CR -- 0.87 0.79 0.75 GFRESTIMATED -- 75 83 88 GFRESTBLACK -- >90 >90 >90 MAG -- -- 7.6* -- AST 107* 128* 200* 307* ALT 128* 151* 191* 222* Discharge Instructions and Follow-Up: Discharge diet: Regular Discharge activity: No intercourse or vigorous exercise for 6 weeks Discharge follow-up: Follow up with primary OB provider in 1-2 weeks for BP check Lacie Mcdowell MD GER LABOR RELATIONS documented in this encounter Discharge Instructions Discharge InstructionsMilena Rasmussen RN - 08/10/2017 12:23 PM CST Postop Instructions : [phone] Start 6 weeks of Lovenox today Continue oral Labetalol Follow up with OB in 1 week Activity ?? Do not lift more than 10 pounds for 6 weeks after surgery. Ask family and friends for help when you need it. ?? No driving until you have stopped taking your pain medications (usually two weeks after surgery). ?? No heavy exercise or activity for 6 weeks. Don't do anything that will put a strain on your surgery site. ?? Don't strain when using the toilet. Your care team may prescribe a stool softener if you have problems with your bowel movements. To care for your incision: ?? Keep the incision clean and dry. ?? Do not soak your incision in water. No swimming or hot tubs until it has fully healed. You may soak in the bathtub if the water level is below your incision. ?? Do not use peroxide, gel, cream, lotion, or ointment on your incision. ?? Adjust your clothes to avoid pressure on your surgery site (check the elastic in your underwear for example). You may see a small amount of clear or pink drainage and this is normal. Check with your health care provider: ?? If the drainage increases or has an odor. ?? If the incision reddens, you have swelling, or develop a rash. ?? If you have increased pain and the medicine we prescribed doesn't help. ?? If you have a fever above 100.4 F (38 C) with or without chills when placing thermometer under your tongue. The area around your incision (surgery wound), will feel numb. This is normal. The numbness should go away in less than a year. Keep your hands clean: Always wash your hands before touching your incision (surgery wound). This helps reduce your risk ofinfection. If your hands aren't dirty, you may use an alcohol hand-rub to clean your hands. Keep your nails clean and short. Call your healthcare provider if you have any of these symptoms: ?? You soak a sanitary pad with blood within 1 hour, or you see blood clots larger than a golf ball. ?? Bleeding that lasts more than 6 weeks. ?? Vaginal discharge that smells bad. ?? Severe pain, cramping or tenderness in your lower belly area. ?? A need to urinate more frequently (use the toilet more often), more urgently (use the toilet veryquickly), or it andre when you urinate. ?? Nausea and vomiting. ?? Redness, swelling or pain around a vein in your leg. ?? Problems or a red or painful area on your breast. ?? Chest pain and cough or are gasping for air. ?? Problems with coping with sadness, anxiety or depression. If you have concerns about hurting yourself or the baby, call your provider immediately. ?? You have questions or concerns after you return home. GER LABOR RELATIONS AttachmentsThe following attachments cannot be sent through Care Everywhere. PREECLAMPSIA, UNDERSTANDING (MEXICAN)documented in this encounter Medications at Time of Discharge Medication Sig Dispensed Refills Start Date End Date Enoxaparin Sodium Inject 40 mg 0 07/18/2011 (LOVENOX) 60 MG/0.6ML Subcutaneous every 12 injectionIndications: hours Deep Vein Thrombosis labetalol (NORMODYNE) 200 Take 1 tablet (200 mg) 60 tablet 0 08/10/2017 MG tabletIndications: by mouth every 8 hours HELLP syndrome, delivered, current hospitalization Vit-Fe Take 1 tablet by mouth 0 Fumarate-FA ( daily. MULTIVITAMIN PLUS IRON) 27-0.8 MG TABS documented as of this encounter Progress Notes Milena Rasmussen RN - 08/10/2017 2:27 PM CST Patient discharged today. AVS read to patient, questions encouraged and answered. Patient educated on signs and symptoms of infection, when to call the doctor, and medications. Patient to follow up with OB in 1 week. Patient instructed how to care for incision. Patient will remain bed and board due to infant in NICU. GER LABOR RELATIONS Yolande Barth MD - 08/10/2017 8:18 AM CST POD4 Patient denies pain. doing well in SCN AF BPP 133/82 Fundus firm, nontender Incision CDI with dry steri strips No edema ALT 128 AST 1076 Plt 90 INR .97 PTT 24 1)Pain-patient denies need for even po Tylenol 2)h/o DVT-will start 6 weeks of Lovenox today 3)PIH-all HELLP labs improving; Continue po Labetalol; okay for discharge and f/u in 1 week GER LABOR RELATIONS Chata Marshall MD - 08/09/2017 9:40 AM CST Doing well. Tolerating diet, ambulating and voiding without difficulty. Having loose stools after eating that began prior to hosptialization. BP now mostly normal range Afebrile HEENT nl Abdomen soft and non tender Fundus firm and non tender Incision dry and intact Extremities nl Labs platelet = 74k Hgb= 11.6 WBC= 7.7 A: POD 3 s/p emergent primary C/S and BTL for severe pre eclampsia (elevated BPs and HELLP). Platelet count and BPs are improving Factor V Leiden with h/o DVT during a previous was on Lovenox 40mg daily during this . Has been with held due to low platelet count P: Will consult hospitalist regarding when to restart Lovenox. Will need it for 6 weeks. Will recheck CBC with platelets, ALT, AST and PT/PTT in am Continue Labetalol= will probably be able to wean off shortly GER LABOR RELATIONS Lacie Mcdowell MD - 08/08/2017 7:15 AM CST OB Note S: Feeling much better today, no nausea, tolerating regular diet. Ambulating, no pain. Passing gas. Voiding normally with catheter out. O: Vitals were reviewed Temp: 98.8 ??F (37.1 ??C) Temp Min: 97.8 ??F (36.6 ??C) Max: 99.8 ??F (37.7 ??C) Heart Rate: 61 Heart Rate Min: 16 Max: 73 BP: 125/76 Systolic (24hrs), Av , Min:120 , Max:139 Diastolic (24hrs), Av, Min:69, Max:92 Intake/Output Summary (Last 24 hours) at 08/08/17 0716 Last data filed at 08/08/17 0534 Gross per 24 hour Intake 2279.83 ml Output 4300 ml Net -2020.17 ml Gen - NAD, resting CV - RRR Abdomen - Fundus firm, below umbilicus, nontender Incision - C/D/I, bandage removed Extremities - No calf tenderness, symmetric 2+ edema bilaterally Hemoglobin Date Value Ref Range Status 08/07/2017 11.5 (L) 11.7 - 15.7 g/dL Final ] ABO Date Value Ref Range Status 08/06/2017 A Final RH(D) Date Value Ref Range Status 08/06/2017 Pos Final No components found for: RUBELLA Recent Labs Lab 08/07/17192308/07/17 1325 08/07/17 0550 WBC 7.8 7.8 7.4 HGB 11.5* 12.3 11.7 HCT 33.1* 34.7* 32.8* MCV 87 85 85 PLT 48* 42* 49* Recent Labs Lab 08/07/17192308/07/17 1325 08/07/17 0550 CR 0.87 0.79 0.75 Recent Labs Lab 08/07/17192308/07/17 1325 08/07/17 0550 AST 128* 200* 307* ALT 151* 191* 222* A: Postoperative Day #2 , s/p urgent primary CS/BTL for HELLP syndrome at 34 weeks gestation- doing well P: 1) HELLP syndrome: Blood pressures stable on labetalol, will decrease dose to 200mg PO BID. Labs improving, with platelets recovering. 2) H/o DVT and Factor V Leiden mutation: Have held prophylactic heparin given low platelets, likelyneed to restart prophylactic dosing tomorrow for six weeks . 3) Anticipate discharge POD#3 or #4. Lacie Mcdowell MD GER LABOR RELATIONS Lacie Mcdowell MD - 08/07/2017 12:11 PM CST OB Note S: Patient lying in bed, no active pain. Struggling with nausea when sitting up, better with lying flat. In bed with catheter. Pain controlled, no RUQ pain now. Bleeding minimal. Pumping for baby in NICU. O: Vitals were reviewed Temp: 97.9 ??F (36.6 ??C) Temp Min: 97.5 ??F (36.4 ??C) Max: 98.7 ??F (37.1 ??C) Heart Rate: 18 Heart Rate Min: 18 Max: 18 BP: 133/90 Systolic (24hrs), Av , Min:121 , Max:175 Diastolic (24hrs), Av, Min:68, Max:98 Intake/Output Summary (Last 24 hours) at 08/07/17 1212 Last data filed at 08/07/17 1200 Gross per 24 hour Intake 3834.83 ml Output 3225 ml Net 609.83 ml Gen - NAD, resting CV - RRR Abdomen - Fundus firm, below umbilicus, nontender.RUQ NTTP. Incision - C/D/I, bandage with old blood, none new Extremities - No calf tenderness, no unilateral edema, SCDs on Hemoglobin Date Value Ref Range Status 08/07/2017 11.7 11.7 - 15.7 g/dL Final ] ABO Date Value Ref Range Status 08/06/2017 A Final RH(D) Date Value Ref Range Status 08/06/2017 Pos Final No components found for: RUBELLA A: Postoperative Day #1 , s/p urgent primary CS for HELLP and worsening RUQ pain- doing well P: 1) HELLP: Labs improving, continue checks every 6 hours, then daily if platelets stable. BPs stable on labetalol 200mg TID. Nausea with sitting likely from spinal, will have anesthesia see patient as needed if not improving. DC MgS04 tonight after 24 hours . 2) H/O DVT with Factor V Leiden mutation. SCDs on, will restart prophylactic heparin tonight if stable, which is reversible. 3) DC rodgers after MgSO4 off, increase ambulation at that time. Lacie Mcdowell MD \ GER LABOR RELATIONS Sergio Manuel RN - 08/07/2017 7:15 AM CST Lab critical value platelets level is 49. RN updated GER LABOR RELATIONS Lacie Mcdowell MD - 08/07/2017 1:16 AM CST Reviewed labs from 0015--platelets decreasing (now 53) and LFTs increasing significantly. Patient isstable with no increased pain per RN. Continue MgS04 2g/hr and repeating labs every 6 hours. If RUQ symptoms worsen, will evaluate liver with CT of the abdomen to assess for subcapsular hematoma. Lacie Mcdowell MD GER LABOR RELATIONS Yesenia Monteiro RN - 08/06/2017 11:11 PM CST Patient has remained stable since transfer. Continues to have blurry vision causing dizziness and nausea with one episode of vomiting. Declined medication intervention at this time. Reflexes brisk, no clonus. Continues to have right upper quadrant pain, no change. Used QA AUDITOR x1 after transfer to help control pain with fundal check. Pumping initiated at 2130, encouraged 3 hour schedule. Pumped 30 mL between sides with first session, sent to NICU. Oriented to room and NICU number on board. , Raghu, present and supportive. GER LABOR RELATIONS documented in this encounter H&P Notes Lacie Mcdowell MD - 08/06/2017 4:00 PM CST History and Physical Elli Kim Date of : 1985 Age: [age] year old Date of Admission: 08/06/2017 Primary care provider: Michelle Cortez Assessment and Plan: 32yo transferred from [facility] at 34.3 weeks with severe pre- eclampsia and HELLP syndome, known factor V leiden mutation. --HELLP: LFTS doubled in past 24 hours, with new onset RUQ pain. Given worsening labs and pain, urgent delivery is indicated. Platelets >100, stable overnight. Patient consented for blood products. MgS04 for 24 hours after delivery. Manage blood pressures closely. --Factor V Leiden: Restart DVT prophylaxis 24 hours after delivery if platelets stable. SCDs until then. --Delivery: Primary CS indicated given symptoms and decreasing platelets. Patient desires BTL, will perform at delivery. Attestation: This patient has been seen and evaluated by me, Lacie Mcdowell MD. Chief Complaint: HELLP syndrome History is obtained from the patient History of Present Illness: This patient is a 32 year old female who was transferred from [facility] given status and worsening HELLP syndrome. Her prior pregnancies have all been complicated by severe pre-eclampsia, two with indicated deliveries. Her prior was c/b the development of a DVT, which prompted a thrombophilia evaluation notable for Factor V Leiden mutation. She has been managed on prophylactic Lovenox during this , last dose at 10pm last night. She was admitted two days ago for worsening blood pressures, and was started on MgS04 for severe-range BPs. She received BMZ on 08/04 and 08/05. Her LFTS were noted to be elevated on admission, and have been doubling since. Today she developed severe RUQ pain and was transferred for delivery given gestational age <35 weeks. On admission, she admits to severe RUQ pain, otherwise no nausea or abdominal pain. No headache, no vision changes. Good FM, no VB, no contractions. She last ate at 0830 this morning. Past Medical History: Past Medical History: Diagnosis Date ??? Blood dyscrasia Factor V Lienin ??? Hypertension pre eclampsia Past Surgical History: History reviewed. No pertinent surgical history. Obstetrical History: P: 2224. Four prior SVDs, two term deliveries and two deliveries. All complicated by severe pre-eclampsia. Social History: I have reviewed this patient's social history Family History: No family history on file. Immunizations: Immunizations are up to date Allergies: No Known Allergies Medications: ??? magnesium sulfate 4 g Intravenous Once ??? fentaNYL 50 mcg Intravenous Once ??? sodium citrate-citric acid 30 mL Oral Pre-Op/Pre-procedure x 1 dose ??? ceFAZolin 2 g Intravenous Pre-Op/Pre-procedure x 1 dose ??? ceFAZolin 1 g Intravenous See Admin Instructions Review of Systems: The 10 point Review of Systems is negative other than noted in the HPI Physical Exam: Vitals were reviewed Patient Vitals for the past 8 hrs: BP Temp Temp src Pulse Heart Rate Resp SpO2 Height Weight 08/06/17 1529 134/68 - - - - - 94 % - - 08/06/17 1526 - 97.9 ??F (36.6 ??C) Oral - - - - - - 08/06/17 1500 (!) 148/92 - - - - - 95 % - - 08/06/17 1450 150/89 - - - - - 96 % - - 08/06/17 1442 - - - - - - 97 % - - 08/06/17 1440 152/90 - - 73 18 - 97 % - - 08/06/17 1430 (!) 162/91 - - 70 - - - - - 08/06/17 1429 - - - - - - - 1.575 m (5' 2) 73 kg (161 lb) 08/06/17 1421 - 97.9 ??F (36.6 ??C) Oral - - 18 - - - 08/06/17 1420 124/73 - - - - - - - - Gen--NAD CV--RRR Abd--Very TTP in RUQ, otherwise gravid, NTTP FHT--Reactive, no decelerations Data: All laboratory data reviewed Lab Results Component Value Date WBC 10.3 08/06/2017 HGB 12.4 08/06/2017 HCT 35.1 08/06/2017 PLT 103 (L) 08/06/2017 CR 0.78 08/06/2017 AST 92 (H) 08/06/2017 ALT 77 (H) 08/06/2017 Lacie Mcdowell MD GER LABOR RELATIONS documented in this encounter Consult Notes Donavan Medeiros MD - 08/09/2017 1:32 PM CSTAssociated Order(s): HOSPITALIST IP CONSULT [facility] Hospitalist Consult Note Name: Elli Kim Date of : 1985 Age: [age] year old Date of admission: 08/06/2017 Primary care provider: Michelle Cortez Requesting Physician: Dr. Chata Marshall Reason for consult: resumption of prophylactic lovenox Elli Kim is a 32 year old female w/ hx of factor V leiden and one prior dVT during a prior who has been on prophylactic dose lovenox up until her recent urgent (POD 3, took place on 08/06/17) for severe preeclampsia w/ HELLP syndrome. She was 34 weeks and 3 days the day of delivery. She had a rapid rise in her LFTs, hypertension and also thrombocytopenia which hit a keren at42K on 08/07 but since then has risen steadily to 77K. She denies current oozing or bleeding issues and actually feels fairly well. The Hospitalist service was consulted re: timing of resumption of prophylactic lovenox given recent thrombocytopenia. Assessment and Plan: 1. Hx of prior DVT w/ factor V leiden: would resume sub-cu 40 mg daily lovenox tomorrow as long as PLT continue to rise, as I would expect them to given that she has delivered and other preeclampsia measures (bp, LFTs etc) are improving and hgb stable to improved. As per chief legal officer the plan is to resume sub-cu lovenox for 6 weeks post-. --recheck PLT tomorrow --would resume prophylactic dose lovenox tomorrow (40 mg daily sub-cu) as long as PLT continue to trend upward and hgb stable or improving and would monitor PLT closely moving forward (in the outpatient setting if needed). 2. Severe Preeclampsia w/ HELLP syndrome: defer management to abalone processor but appears to be improving as expected following urgent delivery. Note that LFTs are trending down and hgb is grossly stable w/ improvement in PLT. Remains on labetalol 200 mg BID w/excellent control. Thank you for involving us in her care. We'll continue to follow daily. History of Present Illness: Elli Kim is a 32 year old female w/ hx of factor V leiden and one prior dVT during a prior who has been on prophylactic dose lovenox up until her recent urgent (POD 3, took place on 08/06/17) for severe preeclampsia w/ HELLP syndrome. She was 34 weeks and 3 days the day of delivery per OB notes. She had a rapid rise in her LFTs, hypertension and also thrombocytopenia which hit a keren at 42K on 08/07 but since then has risen steadily to 77K. She notes she had some oozing post-op but that this seems to have stopped. She otherwise feels well and denies complaints other than as related to her surgical incision. She notes her prior DVT was somewhere around 3 years ago and that she was treated with one year of coumadin and then after that was told to only take prophylactic lovenox while but not to commit to lifelong AC. Past Medical History: Past Medical History: Diagnosis Date ??? Blood dyscrasia Factor V Lienin ??? Hypertension pre eclampsia Past Surgical History: History reviewed. No pertinent surgical history. Social History: Social History Substance Use Topics ??? Smoking status: Never Smoker ??? Smokeless tobacco: Never Used ??? Alcohol use Yes Comment: 2 glasses during Family History: No family history on file. Allergies: No Known Allergies Medications: ??? labetalol 200 mg Oral Q12H JORGE ??? scopolamine 1 patch Transdermal Q72H And ??? scopolamine Transdermal Q8H And ??? [START ON 08/10/2017] scopolamine Transdermal Q72H ??? magnesium sulfate 4 g Intravenous Once ??? fentaNYL 50 mcg Intravenous Once ??? senna-docusate 1-2 tablet Oral BID ??? measles, mumps and rubella vaccine 0.5 mL Subcutaneous Once Review of Systems: A comprehensive greater than 10 system review of systems was carried out. Pertinent positives and negatives are noted above. Otherwise negative for contributory info. Physical Exam: Blood pressure 116/83, pulse 68, temperature 97.8 ??F (36.6 ??C), temperature source Oral, resp. rate 16, height 1.575 m (5' 2), weight 73 kg (161 lb), SpO2 93 %, unknown if currently . Exam: General: Alert, awake, no acute distress. HEENT: NC/AT, eyes anicteric, external occular movements intact, face symmetric. Dentition WNL, MM moist. Cardiac: RRR, S1, S2. No murmurs appreciated. Pulmonary: Normal chest rise, normal work of breathing. Lungs CTA BL Abdomen: soft, non-tender, non-distended. Bowel Sounds Present. No guarding. Extremities: no deformities. Warm, well perfused. Skin: no rashes or lesions noted. Warm and Dry. Neuro: No focal deficits noted. Speech clear. Coordination and strength grossly normal. Psych: Appropriate affect. Data: Imaging: No results found for this or any previous visit (from the past 24 hour(s)). Recent Labs Lab 08/09/17 0615 08/08/17 0630 08/07/171923 WBC 7.7 8.5 7.8 HGB 11.6* 11.5* 11.5* HCT 33.5* 33.0* 33.1* MCV 88 87 87 PLT 74* 59* 48* No results found for: NA No results found for: CHLORIDE No results found for: BUN No results found for: POTASSIUM No results found for: CO2 Lab Results Component Value Date CR 0.87 08/07/2017 CR 0.79 08/07/2017 CR 0.75 08/07/2017 Recent Labs Lab 08/07/17 1924 08/07/17 1325 08/07/17 0550 AST 128* 200* 307* ALT 151* 191* 222* Charley Kumari, [facility] - 08/07/2017 3:52 PM CSTAssociated Order(s): SOCIAL WORK IP CONSULT D: SW acknowledge consult, pt and RN requested delay in SW assessment, pt not feeling well and very tired today. GER LABOR RELATIONS documented in this encounter Miscellaneous Notes Plan of Care - Ghazal Coyle RN - 08/10/2017 2:27 PM CST Problem: Patient Care Overview Goal: Plan of Care/Patient Progress Review Outcome: Adequate for Discharge Date Met: 08/10/17 Data: Vital signs within normal limits. checks within normal limits - see flow record. Patient eating and drinking normally. Patient able to empty bladder independently and is up ambulating.No apparent signs of infection. Incision healing well. Patient performing self cares and visits in NICU. Action: Patient declined medication during the shift for pain - patient stated she was comfortable. Patient education done about discharge. See flow record. Plan: Discharged to bed and board in room 453 at 1427. GER LABOR RELATIONS Note - Coty Parada RN - 08/10/2017 11:14 AM CST This note was copied from a baby's chart. As LC assisting with breast feeding postioning and techniques for deeper latch. Elli utilizing breast compressions and massageScripting handout given for contacting insurance company for coverage for medical grade pump. Encouraged to call before d/c to have pump for home. GER LABOR RELATIONS Plan of Care - Fouzia Iraheta RN - 08/10/2017 4:21 AM CST Problem: Patient Care Overview Goal: Plan of Care/Patient Progress Review Outcome: Improving Blood pressures labile, but have decreased from evening; 148/68 and 139/78 this shift. Labetalol given as scheduled. Pumped x1 overnight for with good output and visited NICU x1. Able to rest for consecutive hours comfortably. Tolerating regular diet, voiding without difficulty, and ambulatingin room ad lauren. Diarrhea present. Incision open to air with steristrips in place, no signs of infection noted. Declined use of pain medication this shift. No reports of calf pain or tenderness. AM labspending, per previous notes Lovenox will be ordered based on AM platelet count. Anticipated discharge 08/10/17 GER LABOR RELATIONS Plan of Care - Kristal Padron RN - 08/09/2017 9:46 PM CST Problem: Patient Care Overview Goal: Plan of Care/Patient Progress Review Outcome: Improving Again, patient with elevated blood pressure 144/101. Then a re-check in 15 minutes was 128/75 after laying on left side and dim lights. States that her headache is almost gone and continues to deny anyother preeclamptic symptoms. Patient will now walk to the NICU, as she also prefers. GER LABOR RELATIONS Plan of Care - Kristal Padron RN - 08/09/2017 8:50 PM CST Problem: Patient Care Overview Goal: Plan of Care/Patient Progress Review Outcome: Improving Patient is up independent in room, meeting all personal needs. Voiding without difficulty. Is pumping and bringing any EBM down to NICU, and has been down x 2 this shift via wheelchair. Blood pressuresremain slightly elevated. Drawing Checker has encouraged w/c to NICU. Dim lights, resting on left side when able and a quieter room. Patient has been complaining of a headache, but denies any other preeclampticsymptoms. Patient continues to take Labetalol BID. Drawing Checker will continue to check b/p's and will update MD if appears needed. Speaks positively regarding in NICU and that has been able to latch and breastfeed. GER LABOR RELATIONS Plan of Care - Valeria Alfredo RN - 08/09/2017 2:49 PM CST Problem: ( Delivery) (Adult,Obstetrics,Pediatric) Goal: Signs and Symptoms of Listed Potential Problems Will be Absent, Minimized or Managed () Signs and symptoms of listed potential problems will be absent, minimized or managed by discharge/transition of care (reference ( Delivery) (Adult,Obstetrics,Pediatric) CPG). Outcome: Improving Blood pressures WDL this morning. BP elevated to 149/110 this afternoon prior to labetalol dose. BP decreased to 132/90 at recheck. C/o slight headache this afternoon. Will continue to monitor. Pain well controlled. Incision well approximated with no drainage. Steri-strips applied. Pt declines pain med ications but is using abdominal binder for comfort. Voiding adequately. Eating and drinking well. Ambulating independently. Pumping regularly throughout shift. Down to NICU once this shift to visit . Meeting expected outcomes. GER LABOR RELATIONS Plan of Care - Fouzia Iraheta, NAI - 08/09/2017 5:13 AM CST Problem: Patient Care Overview Goal: Plan of Care/Patient Progress Review Outcome: Improving VSS- Pressures mildly elevated this shift, scheduled Labetalol given. Pumped x1 for but did not visit NICU overnight as rest was desired. Tolerating regular diet, voiding without difficulty andambulating in room ad lauren. Diarrhea still occurring. Pain meds offered but declined, abdominal binder in room for patient use. No complaints of lower extremity pain or PIH symptoms. Anticipated discharge 08/09/17, patient would like to utilize bed and board. GER LABOR RELATIONS Plan of Care - Florencia Mendoza RN - 08/08/2017 7:29 PM CST Problem: ( Delivery) (Adult,Obstetrics,Pediatric) Goal: Signs and Symptoms of Listed Potential Problems Will be Absent, Minimized or Managed () Signs and symptoms of listed potential problems will be absent, minimized or managed by discharge/transition of care (reference ( Delivery) (Adult,Obstetrics,Pediatric) CPG). Outcome: Improving Declines pain meds when offered. BP WDL, no headache, no visual problems, no epigastric pain. Pt went to NICU to see baby using wheelchair. Up and ambulating in the room. Senna not given , pt has diarrhea. GER LABOR RELATIONS Plan of Care - Antonette Caballero RN - 08/08/2017 2:21 PM CST Problem: ( Delivery) (Adult,Obstetrics,Pediatric) Goal: Signs and Symptoms of Listed Potential Problems Will be Absent, Minimized or Managed () Signs and symptoms of listed potential problems will be absent, minimized or managed by discharge/transition of care (reference ( Delivery) (Adult,Obstetrics,Pediatric) CPG). Outcome: Improving Pt stable, vitals WNL, slightly elevated B/P. Denies epigastric pain, visual disturbances and headache. Pt ambulating and voiding ind. Encouraged to increase fluids, urine darker. Denies pain and declines pain mediations this shift. Plt increasing. Pt was able to get down to NICU to see daughter. Pt desires bed and board after discharge. GER LABOR RELATIONS Provider Notification - Antonette Caballero RN - 08/08/2017 8:56 AM CST 08/08/17 0755 Provider Notification Provider Name/Title Dr. Mcdowell Method of Notification Electronic Page Request Evaluate-Remote Notification Reason Lab Results Text paged lab results plt of 59 GER LABOR RELATIONS Plan of Care - Fouzia Iraheta RN - 08/08/2017 6:04 AM CST Problem: ( Delivery) (Adult,Obstetrics,Pediatric) Goal: Signs and Symptoms of Listed Potential Problems Will be Absent, Minimized or Managed () Signs and symptoms of listed potential problems will be absent, minimized or managed by discharge/transition of care (reference ( Delivery) (Adult,Obstetrics,Pediatric) CPG). Outcome: Improving VSS- Blood pressures 120s/60s-70s this shift. Patient states her blurred vision has resolved, deniesepigastric pain, headache, nausea. Pumped for x1 overnight. Tolerated evening meal, but did not eat overnight. Two episodes of loose brown stool, woke up overnight with urgency. Incisional dressing in place with marked dried drainage; pt aware dressing can be removed after shower. Pain medication offered but declined. Rodgers catheter in place, draining adequate amounts of clear urine, catheterremoved at 0545 and patient is now due to void. Ambulating well with standby assist (ambulated to restroom x2), no reports of dizziness but some shakiness noted, aware to call for help with assistance to bathroom. PCDs in place, denies calf pain, tenderness and no redness noted. Dr. Mcdowell will review AM labs and determine plans for heparin dose per verbal communication this morning. GER LABOR RELATIONS Plan of Care - Annette Pastrana RN - 08/07/2017 10:39 PM CST Problem: ( Delivery) (Adult,Obstetrics,Pediatric) Goal: Signs and Symptoms of Listed Potential Problems Will be Absent, Minimized or Managed () Signs and symptoms of listed potential problems will be absent, minimized or managed by discharge/transition of care (reference ( Delivery) (Adult,Obstetrics,Pediatric) CPG). Outcome: Improving Patient is doing well, was able to get up and ambulate to door in room and back without dizziness, however was very shaky. States she is feeling better but would like to keep rodgers until morning so that she doesn't have to get up during the night. Talked about need to keep moving with DVT history. Does have pneumoboots on. Vision is still a bit blurry per patient which started with Magnesium infusion. Denies headache or epigastric pain and states she does not want any pain medication, would like to just let her body deal with the discomfort. Have offered Ibuprofen numerous times. Will continue to monitor and encourage patient. Annette Pastrana GER LABOR RELATIONS Plan of Care - Dariana García RN - 08/07/2017 9:21 PM CST Pharmacist called regarding heparin dose. Requesting MD to consider adjusting order to once daily instead of BID. Dr Mcdowell states to d/c current heparin order. Dr Mcdowell states she will review labs in the morning and discuss anticoagulant therapy with pharmacist in the morning. GER LABOR RELATIONS Provider Notification - Dariana García RN - 08/07/2017 8:11 PM CST 08/07/172010 Provider Notification Provider Name/Title Dr Mcdowell Method of Notification Phone Notification Reason Status Update Dr Mcdowell updated re: 1900 labs back. Liver enzymes trending down, and platelets 48 up from 42. MD states to d/c q6 hour labs. Order 0600 cbc with platelets. MD states to start heparin 5000 units BID at 0700 tomorrow morning due to hx of DVT. MD updated that patient is feeling better since the Mag has been turned off, but dizzy when trying to get up to the bathroom. Rodgers still in place because she is still unsteady on her feet and pt is currently outputting 200-300 q2 hours. MD ok with rodgers butwould like patient to continue to try to ambulate to bathroom every few hours. MD will be here at 0600 to review labs before initial dose of heparin. GER LABOR RELATIONS Plan of Care - Florencia Mendoza RN - 08/07/2017 5:24 PM CST Problem: ( Delivery) (Adult,Obstetrics,Pediatric) Goal: Signs and Symptoms of Listed Potential Problems Will be Absent, Minimized or Managed () Signs and symptoms of listed potential problems will be absent, minimized or managed by discharge/transition of care (reference ( Delivery) (Adult,Obstetrics,Pediatric) CPG). Dangled at bedside . Pt able to stand up and ambulated in the room. Walking slowly and got dizzy . Assisted back to bed , greg care done. Pneumoboots re-applied. GER LABOR RELATIONS Plan of Care - Antonette Caballero RN - 08/07/2017 3:19 PM CST Problem: Patient Care Overview Goal: Plan of Care/Patient Progress Review Outcome: Improving Pt stable, vitals WNL, ex elevated B/P, see flow sheet. Pt continues to complain of nausea worsens when sitting up. Reflex and Clonus WNL. Pt has declined any pain medications. QA AUDITOR pump d/c due to not using it. Pt is pumping and sending down to NICU. 02 sats stay between 88-95%, lower end when pt is sleeping. MD aware and if it doesn't improve may do chest xray. Plan is to get patient ambulating in room and d/c rodgers this shift. GER LABOR RELATIONS Provider Notification - Antonette Caballero RN - 08/07/2017 3:03 PM CST 08/07/17 1400 Provider Notification Provider Name/Title Dr. Mcdowell Method of Notification Phone Request Evaluate-Remote Notification Reason Lab Results Updated on lab liver labs and plts, MD ok with changes and ordered mag level to add on. 02 sats staybetween 88-95%, lower end when pt is sleeping. MD aware and if it doesn't improve may do chest xray later GER LABOR RELATIONS Provider Notification - Antonette Caballero RN - 08/07/2017 3:01 PM CST 08/07/17 1501 Provider Notification Provider Name/Title Dr. Mcdowell Method of Notification Phone Request Evaluate-Remote Notification Reason Lab Results Updated on Mag result of 7.6 and orders to turn off mag per MD. GER LABOR RELATIONS Note - Coty Parada RN - 08/07/2017 2:20 PM CST This note was copied from a baby's chart. Spoke with bedside RN Caro as I was unable to reach Elli by phone. She reports that mother hopes to come to NICU this fantasma after Mgso4 is d/cd. She is pumping and getting appropriate volume of colostrum. Will continue to follow and support. GER LABOR RELATIONS Provider Notification - Antonette Caballero RN - 08/07/2017 12:36 PM CST 08/07/17 1200 Provider Notification Provider Name/Title Dr. Mcdowell Method of Notification In Department Request Evaluate-Remote Notification Reason Other Updated MD on pt status, nausea, QA AUDITOR pump. MD ok with d/c payroll consultant pump GER LABOR RELATIONS Provider Notification - Eliza Hoyt RN - 08/07/2017 8:18 AM CST 08/07/17 0735 Provider Notification Provider Name/Title Dr Mcdowell Method of Notification Phone Request Evaluate-Remote Notification Reason Lab Results lab results reviewed with Shaina DAIGLE will be in to round later this a.m. No new orders. GER LABOR RELATIONS Plan of Care - Karyna De Paz RN - 08/07/2017 5:46 AM CST Problem: Patient Care Overview Goal: Plan of Care/Patient Progress Review Outcome: Improving Patient remains stable. Mag running at 2g/hr. Still complaining of slight nausea, especially with movement, No emesis this shift. Attempted to sit at edge of bed, was able to sit up in bed. Became dizzy so laid back down. Stated RUQ pain has decreased dramatically. Did not use any pain medication fromPCA pump. Rodgers catheter patent and draining adequate amounts of clear yellow urine. Abnormal lab results, Dr. Mcdowell updated earlier in shift, see previous notes. BP's stable. Pumping every 3 hours, expressing 5-10 ml per pumping session. Called NICU x2 for updates on baby. GER LABOR RELATIONS Provider Notification - Karyna De Paz RN - 08/07/2017 1:34 AM CST 08/07/17 0133 Provider Notification Provider Name/Title Dr. Mcdowell Method of Notification Phone Notification Reason Other Dr. Mcdowell called back to order STAT labs. See orders. GER LABOR RELATIONS Provider Notification - Karyna De Paz RN - 08/07/2017 1:17 AM CST 08/07/17 0116 Provider Notification Provider Name/Title Dr. Mcdowell Method of Notification Phone Request Evaluate-Remote Notification Reason Lab Results MD updated regarding lab results. Continue with current plan, continue to monitor. Labs every 6 hours. If RUQ pain gets worse, update MD. Also started Labetolol 200mg TID. GER LABOR RELATIONS Plan of Care - Jaquelin Chiu RN - 08/06/2017 8:55 PM CST Data: Elli Kim transferred to room 442 via cart at 2054. Baby in NICU. Action: Receiving unit notified of transfer: Yes. Patient and family notified of room change. Reportgiven to NAI Patterson at 2054. Belongings sent to receiving unit. Accompanied by Registered Nurse. Oriented patient to surroundings. Call light within reach. ID bands double-checked with receiving RN. Response: Patient tolerated transfer and is stable. GER LABOR RELATIONS Plan of Care - Jaquelin Chiu RN - 08/06/2017 7:51 PM CST VSS WNL. Pt stable. Pt brought to NICU to see baby accompanied by RN. GER LABOR RELATIONS Provider Notification - Jaquelin Chiu RN - 08/06/2017 6:13 PM MANAGER LABOR RELATIONS 08/06/17 181 Provider Notification Provider Name/Title DR Mcdowell Method of Notification Phone Notification Reason Status Update Updated MD that pt had a moderate sized clot. MD stated to give 800mcg of cytotec rectally. GER LABOR RELATIONS Op Note - Lacie Mcdowell MD - 08/06/2017 5:29 PM CST DATE OF PROCEDURE: 08/06/2017 PREOPERATIVE DIAGNOSES: 1. A 32-year-old -2-2-4 at 34 and 3 weeks gestation with HELLP syndrome. 2. Worsening right upper quadrant pain. 3. Factor V Leiden mutation carrier with a history of a DVT in a prior . 4. Severe preclampsia and all prior pregnancies. 5. Desires sterilization. 6. Unfavorable cervix. POSTOPERATIVE DIAGNOSES: 1. A 32-year-old -2-2-4 at 34 and 3 weeks gestation with HELLP syndrome. 2. Worsening right upper quadrant pain. 3. Factor V Leiden mutation carrier with a history of a DVT in a prior . 4. Severe preclampsia and all prior pregnancies. 5. Desires sterilization. 6. Unfavorable cervix. 7. Normal pelvis. PROCEDURE: Low transverse caesarean section and bilateral tubal ligation via partial salpingectomy. SURGEON: Lacie Mcdowell MD ANESTHESIA: Spinal. INDICATIONS: Elli Kim is a 32-year-old female -2-2-4 at 34 and 3 weeks gestation at the time of admission. She was transferred from [facility] for severe preeclampsia and HELLP syndrome. She was beneath the gestational age for delivery at that location. The patient has had a history of severe preeclampsia in 4 prior pregnancies, 2 of which were complicated by delivery. She developed a DVT in her previous and was diagnosed with a Factor V Leiden mutation. She was maintained on prophylactic Lovenox during the , and received the last dose at 2200 on 08/05. This was notable for Lovenox prophl She has been monitored closely for worsening blood pressures over the past 2 weeks and was admitted to [facility] 2 days ago given severe range blood pressures. She was given betamethasone on 08/04 and 08/05 and laboratory studies were followed closely. Her platelets dropped from the 150 to 103 the day of delivery and her LFTs had elevated from normal to the mid 50s the day of delivery. She developed the acute onset of severe right upper quadrantpain the morning of delivery, and LFTs on admission here, AST was 92, ALT was 77, which was a doubling of the day before. Given the worsening symptoms she was transferred for delivery. She was on magnesium sulfate at the time of admission and blood pressures were stable in the 150s-160s/90s-100s. Her cervix was closed and thick per the exam at [facility], and she was having no contractions at the time of admission. Given the concern for hepatic capsular hematoma with her worsening right upper quadrant pain as well as the doubling of the liver enzymes overnight, the patient was consented for urgent primary low transverse delivery. She did desire permanent sterilization and had signed the consent form more than a month prior to delivery. DESCRIPTION OF PROCEDURE: The patient was taken to the operating room where her spinal anesthesia was found to be adequate. She was prepped and draped in the normal sterile fashion in the dorsal supineposition with a leftward tilt. She was given 2 grams of Ancef prior to the procedure, and a Rodgers catheter was placed. A Pfannenstiel skin incision was made with a scalpel and carried through to the underlying layer of fascia with the Bovie. The fascia was then scored in the midline and the fascial incision was extended laterally with Alexander scissors. The superior aspect of the fascial incision was then elevated and grasped with Jia clamps. The rectus muscles were then dissected off both sharply and bluntly. The same procedure was undertaken on the inferior aspect of the fascial incision. At this point, the peritoneal cavity was identified and entered bluntly. This incision was extended bluntly. A bladder blade was placed. The vesicouterine peritoneum was identified, grasped with Russians and entered sharply with Metzenbaum scissors. This incision was extended laterally and a bladder flap was created digitally. The bladder blade was replaced. The hysterotomy was performed in a low transverse fashion with a scalpel. This incision was extended bluntly. All metal was removed and the was de livered in atraumatic fashion in cephalic presentation. Delayed cord clamping was performed given prematurity. The infant was then handed off to the NICU team in the room. At this point, the uterus wasvigorously massaged and the placenta was delivered intact. The uterus was then exteriorized and cleared of all clots and debris. The hysterotomy was repaired with 0 Vicryl in a running locked fashion, followed by a second layer of vertical imbrication. There were several small areas of oozing along the hysterotomy that were repaired with 0 Vicryl of 8 sutures. At this point, given continued hemostasis the patient was reconsented verbally for the tubal ligation. A LigaSure device was used to transectthe distal portion of both fallopian tubes to the cornua. These were sent for pathologic evaluation.The uterus was then returned to the abdomen. The abdomen was irrigated and dried, and noting good hemostasis, other than a small amount of tissue oozing. Yann hemostatic agent was applied along the bladder flap and hysterotomy. A 0 Vicryl suture was then used to close the fascia in a running fashion. The subcutaneous tissue was irrigated and dried, and closed with 3-0 Vicryl in a running fashion. The skin was closed with absorbable santos. Sponge, lap and needle counts were correct x2 at completion of the procedure. FINDINGS: Liveborn infant female, weight of 4 pounds 1 ounce. Apgars of 8 and 8. Normal uterus, tubes and ovaries bilaterally. ESTIMATED BLOOD LOSS: 700 mL. LACIE MCDOWELL MD MT: [id number] Name: ELLI KIM MRN: [id number] Account: [id number] : 1985 Procedure Date: 08/06/2017 Document: [id number] GER LABOR RELATIONS Brief Op Note - Lacie Mcdowell MD - 08/06/2017 5:23 PM MANAGER LABOR RELATIONS [facility] Brief Operative Note Pre-operative diagnosis: 32yo at 34.3 weeks with HELLP syndrome Worsening right upper quadrant pain Factor V Leiden mutation carrier with h/o DVT in prior Desires sterilization Unfavorable cervix Post-operative diagnosis 1. Same 2. Normal pelvis Procedure: Procedure(s): - Wound Class: II-Clean Contaminated Surgeon(s): Surgeon(s) and Role: * Lacie Mcdowell MD - Primary Estimated blood loss: 700 mL Specimens: Fallopian tubes, placenta Findings: Liveborn female, Weight 4#1oz, Apgars 8, 8. Normal uterus, tubes and ovaries. Lacie Mcdowell MD GER LABOR RELATIONS Plan of Care - Colten John RN - 08/06/2017 3:23 PM CST Report given to Jaquelin Cardona RN who will assume cares. GER LABOR RELATIONS Provider Notification - Colten John RN - 08/06/2017 2:50 PM MANAGER LABOR RELATIONS 08/06/17 1442 Provider Notification Provider Name/Title DR Mcdowell Method of Notification Phone Request Evaluate - Remote Notification Reason Status Update;Patient Arrived Dr Mcdowell updated of pt arrival/transfer from [facility]. 32 yo 34w 3d. Pt symptoms of severe pre-eclampsia. Upper right quadrant pain, BP 150-160/90's. Low Plts, elevated AST ALT. Orders for rpt AST, ALT, CBC, Creatinine, type and screen, and HgB. Pt arrived with Mag @ 50 and LR 75.Pt was given 20mg Labetolol prior to arrival. Currently running. Orders to continue to monitor BP and Dr Mcdowell will be in shortly to see patient. GER LABOR RELATIONS documented in this encounter Plan of Treatment Pending Results Name Type Priority Associated Diagnoses Date/Ti me Surgical Path Exam Lab Routine 7 4:39 PM MANAGER LABOR RELATIONS documented as of this encounter Procedures Procedure Name Priority Date/Time Associated Comments Diagnosis INR Routine 08/10/2017 6:21 AM Results f or this MANAGER LABOR RELATIONS procedure are i n the results section. PARTIAL THROMBOPLASTIN Routine 08/10/2017 6:21 AM Results for this TIME MANAGER LABOR RELATIONS procedure are i n the results section. AST Routine 08/10/2017 6:21 AM Results f or this MANAGER LABOR RELATIONS procedure are i n the results section. ALT Routine 08/10/2017 6:21 AM Results f or this MANAGER LABOR RELATIONS procedure are i n the results section. CBC WITH PLATELETS Routine 08/10/2017 6:21 AM Res ults for this MANAGER LABOR RELATIONS procedure are i n the results section. CBC WITH PLATELETS Routine 08/09/2017 6:15 AM Res ults for this MANAGER LABOR RELATIONS procedure are i n the results section. CBC WITH PLATELETS Routine 08/08/2017 6:30 AM Res ults for this MANAGER LABOR RELATIONS procedure are i n the results section. CREATININE Timed 08/07/2017 7:24 PM Results f or this MANAGER LABOR RELATIONS procedure are i n the results section. AST Timed 08/07/2017 7:24 PM Results f or this MANAGER LABOR RELATIONS procedure are i n the results section. ALT Timed 08/07/2017 7:24 PM Results f or this MANAGER LABOR RELATIONS procedure are i n the results section. CBC WITH PLATELETS Timed 08/07/2017 7:24 PM Res ults for this MANAGER LABOR RELATIONS procedure are i n the results section. MAGNESIUM Routine 08/07/2017 1:25 PM Results f or this MANAGER LABOR RELATIONS procedure are i n the results section. CREATININE Timed 08/07/2017 1:25 PM Results f or this MANAGER LABOR RELATIONS procedure are i n the results section. AST Timed 08/07/2017 1:25 PM Results f or this MANAGER LABOR RELATIONS procedure are i n the results section. ALT Timed 08/07/2017 1:25 PM Results f or this MANAGER LABOR RELATIONS procedure are i n the results section. CBC WITH PLATELETS Timed 08/07/2017 1:25 PM Res ults for this MANAGER LABOR RELATIONS procedure are i n the results section. CREATININE Timed 08/07/2017 5:50 AM Results f or this MANAGER LABOR RELATIONS procedure are i n the results section. AST Timed 08/07/2017 5:50 AM Results f or this MANAGER LABOR RELATIONS procedure are i n the results section. ALT Timed 08/07/2017 5:50 AM Results f or this MANAGER LABOR RELATIONS procedure are i n the results section. CBC WITH PLATELETS Timed 08/07/2017 5:50 AM Res ults for this MANAGER LABOR RELATIONS procedure are i n the results section. INR STAT 08/07/2017 1:58 AM Results f or this MANAGER LABOR RELATIONS procedure are i n the results section. PARTIAL THROMBOPLASTIN STAT 08/07/2017 1:58 AM Results for this TIME MANAGER LABOR RELATIONS procedure are i n the results section. FIBRINOGEN ACTIVITY STAT 08/07/2017 1:58 AM Re sults for this MANAGER LABOR RELATIONS procedure are i n the results section. CREATININE Timed 08/07/2017 12:12 Results for this AM MANAGER LABOR RELATIONS procedure are i n the results section. AST Timed 08/07/2017 12:12 Results for this AM MANAGER LABOR RELATIONS procedure are i n the results section. ALT Timed 08/07/2017 12:12 Results for this AM MANAGER LABOR RELATIONS procedure are i n the results section. CBC WITH PLATELETS Timed 08/07/2017 12:12 Resul ts for this AM MANAGER LABOR RELATIONS procedure are i n the results section. PLACENTA PATH ORDER AND Routine 08/06/2017 6:30 PM Results for this INDICATIONS MANAGER LABOR RELATIONS procedure are i n the results section. INR Timed 08/06/2017 6:00 PM Results f or this MANAGER LABOR RELATIONS procedure are i n the results section. PARTIAL THROMBOPLASTIN Timed 08/06/2017 6:00 PM Results for this TIME MANAGER LABOR RELATIONS procedure are i n the results section. FIBRINOGEN ACTIVITY Timed 08/06/2017 6:00 PM Re sults for this MANAGER LABOR RELATIONS procedure are i n the results section. CREATININE Timed 08/06/2017 6:00 PM Results f or this MANAGER LABOR RELATIONS procedure are i n the results section. AST Timed 08/06/2017 6:00 PM Results f or this MANAGER LABOR RELATIONS procedure are i n the results section. ALT Timed 08/06/2017 6:00 PM Results f or this MANAGER LABOR RELATIONS procedure are i n the results section. CBC WITH PLATELETS Timed 08/06/2017 6:00 PM Res ults for this MANAGER LABOR RELATIONS procedure are i n the results section. SURGICAL PATHOLOGY EXAM Routine 08/06/2017 4:39 PM MANAGER LABOR RELATIONS SECTION 08/06/2017 3:54 PM pre-eclampsia MANAGER LABOR RELATIONS CREATININE STAT 08/06/2017 2:38 PM Results f or this MANAGER LABOR RELATIONS procedure are i n the results section. AST STAT 08/06/2017 2:38 PM Results f or this MANAGER LABOR RELATIONS procedure are i n the results section. ALT STAT 08/06/2017 2:38 PM Results f or this MANAGER LABOR RELATIONS procedure are i n the results section. ABO/RH TYPE AND SCREEN STAT 08/06/2017 2:38 PM Results for this MANAGER LABOR RELATIONS procedure are i n the results section. CBC WITH PLATELETS STAT 08/06/2017 2:38 PM Res ults for this MANAGER LABOR RELATIONS procedure are i n the results section. documented in this encounter Results (ABNORMAL) CBC with platelets (08/10/2017 6:21 AM MANAGER LABOR RELATIONS) Analysis Performed At [facility] logist Time Signature WBC 6.3 4.0 - 11.0 08/10/2017 [facility] 10e9/L 7:06 AM MANAGER LABOR RELATIONS [facility] RBC Count 3.80 3.8 - 5.2 08/10/2017 [facility] 10e12/L 7:06 AM [facility] Hemoglobin 11.4 (L) 11.7 - 08/10/2017 [facility] 15.7 g/dL 7:06 AM [facility] Hematocrit 33.9 (L) 35.0 - 08/10/2017 [facility] 47.0 % 7:06 AM [facility] MCV 89 78 - 100 08/10/2017 [facility] fl 7:06 AM [facility] MCH 30.0 26.5 - 08/10/2017 [facility] 33.0 pg 7:06 AM [facility] MCHC 33.6 31.5 - 08/10/2017 [facility] 36.5 g/dL 7:06 AM [facility] RDW 13.9 10.0 - 08/10/2017 [facility] 15.0 % 7:06 AM [facility] Platelet Count 90 (L) 150 - 450 08/10/2017 [facility] 10e9/L 7:06 AM [facility] Specimen Anatomical Collection Method Collection Time Receive d Time (Source) Location / / Volume Laterality Blood specimen 08/10/2017 6:21 AM 017 7:01 (specimen) MANAGER LABOR RELATIONS AM MANAGER LABOR RELATIONS Lacie Mcdowell MD LAB - BLOOD ORDERABLES Performing Organization Address City/State/ZIP Code Phon e [facility] [address] [address] [place] [address] [phone] Partial thromboplastin time (08/10/2017 6:21 AM MANAGER LABOR RELATIONS) P athologist Signature PTT 24 22 - 37 sec 08/10/2017 [facility] 7:13 AM [facility] Specimen Anatomical Collection Method Collection Time Receive d Time (Source) Location / / Volume Laterality Blood specimen 08/10/2017 6:21 AM 017 7:01 (specimen) MANAGER LABOR RELATIONS AM MANAGER LABOR RELATIONS Chata Marshall MD LAB - BLOOD ORDERABLES Performing Organization Address City/State/ZIP Code Phon e Number [facility] [address] [address] [facility] [address] [place], [place] [address], [facility] [phone] INR (08/10/2017 6:21 AM MANAGER LABOR RELATIONS) P athologist Signature INR 0.97 0.86 - 1.14 08/10/2017 [facility] 7:13 AM [facility] Specimen Anatomical Collection Method Collection Time Receive d Time (Source) Location / / Volume Laterality Blood specimen 08/10/2017 6:21 AM 017 7:01 (specimen) MANAGER LABOR RELATIONS AM MANAGER LABOR RELATIONS Chata Marshall MD LAB - BLOOD ORDERABLES Performing Organization Address City/[facility]/ZIP [facility] Phon e Number [facility] [address] [place], [place] [address] [place] [address] [address] [place] [address], [facility] [phone] (ABNORMAL) AST (08/10/2017 6:21 AM MANAGER LABOR RELATIONS) P athologist Signature AST 107 (H) 0 - 45 U/L 08/10/2017 [facility] 7:19 AM [facility] Specimen Anatomical Collection Method Collection Time Receive d Time (Source) Location / / Volume Laterality Blood specimen 08/10/2017 6:21 AM 017 7:01 (specimen) MANAGER LABOR RELATIONS AM MANAGER LABOR RELATIONS Chata Marshall MD LAB - BLOOD ORDERABLES Performing Organization Address City/State/ZIP Code Phon e Number [facility] [address] [place], [place] [address] [facility] [address] [address], [facility] [phone] (ABNORMAL) ALT (08/10/2017 6:21 AM MANAGER LABOR RELATIONS) P athologist Signature ALT 128 (H) 0 - 50 U/L 08/10/2017 [facility] 7:19 AM [facility] Specimen Anatomical Collection Method Collection Time Receive d Time (Source) Location / / Volume Laterality Blood specimen 08/10/2017 6:21 AM 017 7:01 (specimen) MANAGER LABOR RELATIONS AM MANAGER LABOR RELATIONS Chata Marshall MD LAB - BLOOD ORDERABLES Performing Organization Address City/[facility]/ZIP Code Phon e Number [facility] [address] [place], [place] [address] [facility] [address] [place], [place] [address] [phone] (ABNORMAL) CBC with platelets (08/09/2017 6:15 AM MANAGER LABOR RELATIONS) Analysis Performed At Patho logist Time Signature WBC 7.7 4.0 - 11.0 08/09/2017 [facility] 10e9/L 6:55 AM [facility] RBC Count 3.81 3.8 - 5.2 08/09/2017 [facility] 10e12/L 6:55 AM [facility] Hemoglobin 11.6 (L) 11.7 - 08/09/2017 [facility] 15.7 g/dL 6:55 AM [facility] Hematocrit 33.5 (L) 35.0 - 08/09/2017 [facility] 47.0 % 6:55 AM [facility] MCV 88 78 - 100 08/09/2017 [facility] fl 6:55 AM [facility] MCH 30.4 26.5 - 08/09/2017 [facility] 33.0 pg 6:55 AM [facility] MCHC 34.6 31.5 - 08/09/2017 [facility] 36.5 g/dL 6:55 AM [facility] RDW 14.2 10.0 - 08/09/2017 [facility] 15.0 % 6:55 AM [facility] Platelet Count 74 (L) 150 - 450 08/09/2017 [facility] 10e9/L 6:55 AM [facility] Specimen Anatomical Collection Method Collection Time Receive d Time (Source) Location / / Volume Laterality Blood specimen 08/09/2017 6:15 AM 017 6:49 (specimen) MANAGER LABOR RELATIONS AM MANAGER LABOR RELATIONS Lacie Mcdowell MD LAB - BLOOD ORDERABLES Performing Organization Address City/[facility]/ZIP [facility] Phon e Number [facility] [address] [place], [place] [address] [facility] [address] [place], [place] [address] [phone] (ABNORMAL) CBC with platelets (08/08/2017 6:30 AM MANAGER LABOR RELATIONS) Analysis Performed At Patho logist Time Signature WBC 8.5 4.0 - 11.0 08/08/2017 [facility] 10e9/L 7:17 AM [facility] RBC Count 3.78 (L) 3.8 - 5.2 08/08/2017 [facility] 10e12/L 7:17 AM [facility] Hemoglobin 11.5 (L) 11.7 - 08/08/2017 [facility] 15.7 g/dL 7:17 AM [facility] Hematocrit 33.0 (L) 35.0 - 08/08/2017 [facility] 47.0 % 7:17 AM [facility] MCV 87 78 - 100 08/08/2017 [facility] fl 7:17 AM [facility] MCH 30.4 26.5 - 08/08/2017 [facility] 33.0 pg 7:17 AM [facility] MCHC 34.8 31.5 - 08/08/2017 [facility] 36.5 g/dL 7:17 AM [facility] RDW 14.1 10.0 - 08/08/2017 [facility] 15.0 % 7:17 AM [facility] Platelet Count 59 (L) 150 - 450 08/08/2017 [facility] 10e9/L 7:17 AM [facility] Specimen Anatomical Collection Method Collection Time Receive d Time (Source) Location / / Volume Laterality Blood specimen 08/08/2017 6:30 AM 017 7:15 (specimen) MANAGER LABOR RELATIONS AM MANAGER LABOR RELATIONS Lacie Mcdowell MD LAB - BLOOD ORDERABLES Performing Organization Address City/State/ZIP Code Phon e Number [facility] [address] [place], [place] [address] [facility] [address] [address] [phone] Creatinine (08/07/2017 7:24 PM MANAGER LABOR RELATIONS) P athologist Signature Creatinine 0.87 0.52 - 1.04 08/07/2017 [facility] mg/dL 7:50 PM [facility] GFR Estimate 75 >60 08/07/2017 [facility] mL/min/1.7m 7:[address] Comment: Non GFR Calc GFR Estimate If >90 >60 mL/min/1.7m2 08/07/2017 7:50 P [facility] Comment: GFR Calc Specimen Anatomical Collection Method Collection Time Receive d Time (Source) Location / / Volume Laterality Blood specimen 08/07/2017 7:24 PM 017 7:31 (specimen) MANAGER LABOR RELATIONS PM MANAGER LABOR RELATIONS Lacie Mcdowell MD LAB - BLOOD ORDERABLES Performing Organization Address City/[facility] [address] [place], [place] [address] [place] [address] [address] [place] [address], [facility] [phone] (ABNORMAL) ALT (08/07/2017 7:24 PM MANAGER LABOR RELATIONS) P athologist Signature ALT 151 (H) 0 - 50 U/L 08/07/2017 [facility] 7:50 PM [facility] Specimen Anatomical Collection Method Collection Time Receive d Time (Source) Location / / Volume Laterality Blood specimen 08/07/2017 7:24 PM 017 7:31 (specimen) MANAGER LABOR RELATIONS PM MANAGER LABOR RELATIONS Lacie Mcdowell MD LAB - BLOOD ORDERABLES Performing Organization Address [facility] [address] [place], [place] [address] [facility] [address] [address], [facility] [phone] (ABNORMAL) AST (08/07/2017 7:24 PM MANAGER LABOR RELATIONS) P athologist Signature AST 128 (H) 0 - 45 U/L 08/07/2017 [facility] 7:50 PM [facility] Specimen Anatomical Collection Method Collection Time Receive d Time (Source) Location / / Volume Laterality Blood specimen 08/07/2017 7:24 PM 017 7:31 (specimen) MANAGER LABOR RELATIONS PM MANAGER LABOR RELATIONS Lacie Mcdowell MD LAB - BLOOD ORDERABLES Performing Organization Address City/[facility]/ZIP Code Phon [facility] [address] [place], [place] [address] [facility] [address] [place], [place] [address] [place] [address] (ABNORMAL) CBC with platelets (08/07/2017 7:24 PM MANAGER LABOR RELATIONS) Analysis Performed At Patho logist Time Signature WBC 7.8 4.0 - 11.0 08/07/2017 [facility] 10e9/L 7:44 PM [facility] RBC Count 3.82 3.8 - 5.2 08/07/2017 [facility] 10e12/L 7:44 PM [facility] Hemoglobin 11.5 (L) 11.7 - 08/07/2017 [facility] 15.7 g/dL 7:44 PM [facility] Hematocrit 33.1 (L) 35.0 - 08/07/2017 [facility] 47.0 % 7:44 PM [facility] MCV 87 78 - 100 08/07/2017 [facility] fl 7:44 PM [facility] MCH 30.1 26.5 - 08/07/2017 [facility] 33.0 pg 7:44 PM [facility] MCHC 34.7 31.5 - 08/07/2017 [facility] 36.5 g/dL 7:44 PM [facility] RDW 13.9 10.0 - 08/07/2017 [facility] 15.0 % 7:44 PM [facility] Platelet Count 48 (LL) 150 - 450 08/07/2017 [facility] 10e9/L 7:44 PM [facility] Comment: This result has been called to COLTEN TORO (OB) by Rosy Dukes on 08 07 2017 at 1942, and has been read magi ck. Specimen Anatomical Collection Method Collection Time Receive d Time (Source) Location / / Volume Laterality Blood specimen 08/07/2017 7:24 PM 017 7:31 (specimen) MANAGER LABOR RELATIONS PM MANAGER LABOR RELATIONS Lacie Mcdowell MD LAB - BLOOD ORDERABLES Performing Organization Address City/State/ZIP Code Phon e Number Brigid [facility] [address] [place], [place] [address] [facility] [address] [place], [place] [address], [facility] [phone] (ABNORMAL) Magnesium (08/07/2017 1:25 PM MANAGER LABOR RELATIONS) athologist Signature Magnesium 7.6 (HH) 1.6 - 2.3 08/07/2017 [facility] mg/dL 2:49 PM [facility] Comment: Critical Value called to and read back Pete HOYT (OB) ON 08/07/17 AT 1445 BY TB Specimen Anatomical Collection Method Collection Time Receive d Time (Source) Location / / Volume Laterality 08/07/2017 1:25 PM 7 1:31 MANAGER LABOR RELATIONS PM MANAGER LABOR RELATIONS Lacie Mcdowell MD LAB - BLOOD ORDERABLES Performing Organization Address City/[facility]/ZIP Code Phon e [facility] [address], [place] [address] [facility] [address] [place], [place] [address], [facility] [phone] Creatinine (08/07/2017 1:25 PM MANAGER LABOR RELATIONS) athologist Signature Creatinine 0.79 0.52 - 1.04 08/07/2017 [facility] mg/dL 1:48 PM [facility] GFR Estimate 83 >60 08/07/2017 [facility] mL/min/1.7m 1:[address] Comment: Non GFR Calc GFR Estimate If >90 >60 mL/min/1.7m2 08/07/2017 1:48 [facility] Comment: GFR Calc Specimen Anatomical Collection Method Collection Time Receive d Time (Source) Location / / Volume Laterality Blood specimen 08/07/2017 1:25 PM 017 1:31 (specimen) MANAGER LABOR RELATIONS PM MANAGER LABOR RELATIONS Lacie Mcdowell MD LAB - BLOOD ORDERABLES Performing Organization Address City/[facility]/ZIP Code Phon e Number [facility] [address] [place], [place] [address] [facility] [address] [place], [place] [address], [facility] [phone] (ABNORMAL) ALT (08/07/2017 1:25 PM MANAGER LABOR RELATIONS) P athologist Signature ALT 191 (H) 0 - 50 U/L 08/07/2017 [facility] 1:48 PM [facility] Specimen Anatomical Collection Method Collection Time Receive d Time (Source) Location / / Volume Laterality Blood specimen 08/07/2017 1:25 PM 017 1:31 (specimen) MANAGER LABOR RELATIONS PM MANAGER LABOR RELATIONS Lacie Mcdowell MD LAB - BLOOD ORDERABLES Performing Organization Address [facility]/ZIP [facility] [address] [place], [place] [address] [facility] [address] [place], [place] [address] [phone] (ABNORMAL) AST (08/07/2017 1:25 PM MANAGER LABOR RELATIONS) athologist Signature AST 200 (H) 0 - 45 U/L 08/07/2017 [facility] 1:48 PM [facility] Specimen Anatomical Collection Method Collection Time Receive d Time (Source) Location / / Volume Laterality Blood specimen 08/07/2017 1:25 PM 017 1:31 (specimen) MANAGER LABOR RELATIONS PM MANAGER LABOR RELATIONS Lacie Mcdowell MD LAB - BLOOD ORDERABLES Performing Organization Address [facility] [address] [place], [place] [address] [facility] [address] [place], [place] [address] [phone] (ABNORMAL) CBC with platelets (08/07/2017 1:25 PM MANAGER LABOR RELATIONS) Analysis Performed At Patho logist Time Signature WBC 7.8 4.0 - 11.0 08/07/2017 [facility] 10e9/L 1:40 PM [facility] RBC Count 4.08 3.8 - 5.2 08/07/2017 [facility] 10e12/L 1:40 PM [facility] Hemoglobin 12.3 11.7 - 08/07/2017 [facility] 15.7 g/dL 1:40 PM [facility] Hematocrit 34.7 (L) 35.0 - 08/07/2017 [facility] 47.0 % 1:40 PM [facility] MCV 85 78 - 100 08/07/2017 [facility] fl 1:40 PM [facility] MCH 30.1 26.5 - 08/07/2017 [facility] 33.0 pg 1:40 PM [facility] MCHC 35.4 31.5 - 08/07/2017 [facility] 36.5 g/dL 1:40 PM [facility] RDW 13.7 10.0 - 08/07/2017 [facility] 15.0 % 1:40 PM [facility] Platelet Count 42 (LL) 150 - 450 08/07/2017 [facility] 10e9/L 1:40 PM [facility] Comment: . consistent with previous Specimen Anatomical Collection Method Collection Time Receive d Time (Source) Location / / Volume Laterality Blood specimen 08/07/2017 1:25 PM 017 1:31 (specimen) MANAGER LABOR RELATIONS PM MANAGER LABOR RELATIONS Lacie Mcdowell MD LAB - BLOOD ORDERABLES Performing Organization Address City/State/ZIP Code Phon e Number [place] [address] [place] [phone] Creatinine (08/07/2017 5:50 AM MANAGER LABOR RELATIONS) athologist Signature Creatinine 0.75 0.52 - 08/07/2017 [facility] 1.04 mg/dL 6:31 AM [facility] GFR Estimate 88 >60 08/07/2017 [facility] mL/min/1.7 6:[address] GFR Estimate If >90 >60 08/07/2017 [facility] [place] mL/min/1.7 6:[address] Specimen Anatomical Collection Method Collection Time Receive d Time (Source) Location / / Volume Laterality Blood specimen 08/07/2017 5:50 AM 017 6:07 (specimen) MANAGER LABOR RELATIONS AM MANAGER LABOR RELATIONS Lacie Mcdowell MD LAB - BLOOD ORDERABLES Performing Organization Address City/State/ZIP Code Phon e Number M [facility] [address] [place], [place] [address] [facility] [address] [place], [place] [address], [facility] [phone] (ABNORMAL) ALT (08/07/2017 5:50 AM MANAGER LABOR RELATIONS) P athologist Signature ALT 222 (H) 0 - 50 U/L 08/07/2017 [facility] 6:31 AM [facility] Specimen Anatomical Collection Method Collection Time Receive d Time (Source) Location / / Volume Laterality Blood specimen 08/07/2017 5:50 AM 017 6:07 (specimen) MANAGER LABOR RELATIONS AM MANAGER LABOR RELATIONS Lacei Mcdowell MD LAB - BLOOD ORDERABLES Performing Organization Address City/[facility]/ZIP [facility] Phon tarun Patel [facility] [address] [place], [place] [address] [address], [facility] [phone] (ABNORMAL) AST (08/07/2017 5:50 AM MANAGER LABOR RELATIONS) P athologist Signature AST 307 (H) 0 - 45 U/L 08/07/2017 [facility] 6:31 AM [facility] Specimen Anatomical Collection Method Collection Time Receive d Time (Source) Location / / Volume Laterality Blood specimen 08/07/2017 5:50 AM 017 6:07 (specimen) MANAGER LABOR RELATIONS AM MANAGER LABOR RELATIONS Lacie Mcdowell MD LAB - BLOOD ORDERABLES Performing Organization Address City/State/ZIP [facility] Phon e Jorge [facility] [address] [place], [place] [address] [place] [address] [address] [place] [address], [facility] [phone] (ABNORMAL) CBC with platelets (08/07/2017 5:50 AM MANAGER LABOR RELATIONS) Analysis Performed At Patho logist Time Signature WBC 7.4 4.0 - 11.0 08/07/2017 [facility] 10e9/L 6:23 AM [facility] RBC Count 3.88 3.8 - 5.2 08/07/2017 [facility] 10e12/L 6:23 AM [facility] Hemoglobin 11.7 11.7 - 08/07/2017 [facility] 15.7 g/dL 6:23 AM [facility] Hematocrit 32.8 (L) 35.0 - 08/07/2017 [facility] 47.0 % 6:23 AM [facility] MCV 85 78 - 100 08/07/2017 [facility] fl 6:23 AM [facility] MCH 30.2 26.5 - 08/07/2017 [facility] 33.0 pg 6:23 AM [facility] MCHC 35.7 31.5 - 08/07/2017 [facility] 36.5 g/dL 6:23 AM [facility] RDW 13.6 10.0 - 08/07/2017 [facility] 15.0 % 6:23 AM [facility] Platelet Count 49 (LL) 150 - 450 08/07/2017 [facility] 10e9/L 7:17 AM [facility] Comment: This result has been called to SERGIO RUIZ by Myrna Avelar on 08 07 2017 at 0713, and has been read back. CALLED TO SERGIO Gunn IN POST UNIT Specimen Anatomical Collection Method Collection Time Receive d Time (Source) Location / / Volume Laterality Blood specimen 08/07/2017 5:50 AM 017 6:07 (specimen) MANAGER LABOR RELATIONS AM MANAGER LABOR RELATIONS Lacie Mcdowell MD LAB - BLOOD ORDERABLES Performing Organization Address City/State/[facility] Code Phon e Number [place] [address] [facility] [address] [phone] Fibrinogen activity (08/07/2017 1:58 AM MANAGER LABOR RELATIONS) P athologist Signature Fibrinogen 264 200 - 420 08/07/2017 [facility] mg/dL 2:20 AM [facility] Specimen Anatomical Collection Method Collection Time Receive d Time (Source) Location / / Volume Laterality Blood specimen 08/07/2017 1:58 AM 017 2:04 (specimen) MANAGER LABOR RELATIONS AM MANAGER LABOR RELATIONS Lacie Mcdowell MD LAB - BLOOD ORDERABLES Performing Organization Address City/State/ZIP [facility] e [facility] [address] [place], [place] [address] [facility] [address] [place], [place] [address] 7, [facility] [phone] Partial thromboplastin time (08/07/2017 1:58 AM MANAGER LABOR RELATIONS) athologist Signature PTT 28 22 - 37 sec 08/07/2017 [facility] 2:20 AM MANAGER LABOR RELATIONS [facility]OSPITAL Specimen Anatomical Collection Method Collection Time Receive d Time (Source) Location / / Volume Laterality Blood specimen 08/07/2017 1:58 AM 017 2:04 (specimen) MANAGER LABOR RELATIONS AM MANAGER LABOR RELATIONS Lacie Mcdowell MD LAB - BLOOD ORDERABLES Performing Organization Address [facility] [address] [place], [place] [address] [facility] [address] [place], [place] [address], [facility] [phone] INR (08/07/2017 1:58 AM MANAGER LABOR RELATIONS) athologist Signature INR 1.12 0.86 - 1.14 08/07/2017 [facility] 2:20 AM [facility] Specimen Anatomical Collection Method Collection Time Receive d Time (Source) Location / / Volume Laterality Blood specimen 08/07/2017 1:58 AM 017 2:04 (specimen) MANAGER LABOR RELATIONS AM MANAGER LABOR RELATIONS Lacie Mcdowell MD LAB - BLOOD ORDERABLES Performing Organization Address City/[facility]/ZIP [facility] [address] [place], [place] [address] [facility] [address] [place], [place] [address], [facility] [phone] Creatinine (08/07/2017 12:12 AM MANAGER LABOR RELATIONS) athologist Signature Creatinine 0.87 0.52 - 08/07/2017 [facility] 1.04 mg/dL 1:09 AM [facility] GFR Estimate 75 >60 08/07/2017 [place] mL/min/1.7 1:[address] GFR Estimate If >90 >60 08/07/2017 [place] Black mL/min/1.7 1:[address] Specimen Anatomical Collection Method Collection Time Receive d Time (Source) Location / / Volume Laterality Blood specimen 08/07/2017 12:12 7 (specimen) AM MANAGER LABOR RELATIONS 12:39 AM MANAGER LABOR RELATIONS Lacie Mcdowell MD LAB - BLOOD ORDERABLES Performing Organization Address City/[facility]/ZIP Code Phon e Number [place] [address] [address] [place], [place] [address] [place] [address] [place] [address], [facility] [phone] (ABNORMAL) ALT (08/07/2017 12:12 AM MANAGER LABOR RELATIONS) P athologist Signature ALT 254 (H) 0 - 50 U/L 08/07/2017 [place] 1:09 AM [facility] Specimen Anatomical Collection Method Collection Time Receive d Time (Source) Location / / Volume Laterality Blood specimen 08/07/2017 12:12 7 (specimen) AM MANAGER LABOR RELATIONS 12:39 AM MANAGER LABOR RELATIONS Lacie Mcdwoell MD LAB - BLOOD ORDERABLES Performing Organization Address City/[facility] Code Phon e [place] [address] [address] [place], [place] [address] [place] [address] [address] [place], [place] [address], [facility] [phone] (ABNORMAL) AST (08/07/2017 12:12 AM MANAGER LABOR RELATIONS) P athologist Signature AST 385 (H) 0 - 45 U/L 08/07/2017 [place] 1:09 AM [facility] Specimen Anatomical Collection Method Collection Time Receive d Time (Source) Location / / Volume Laterality Blood specimen 08/07/2017 12:12 7 (specimen) AM MANAGER LABOR RELATIONS 12:39 AM MANAGER LABOR RELATIONS Lacie Mcdowell MD LAB - BLOOD ORDERABLES Performing Organization Address City/State/ZIP Code Phon e Number [facility] [address] [place], [place] [address] [place] [address] [address] [place], [place] [address], [facility] [phone] (ABNORMAL) CBC with platelets (08/07/2017 12:12 AM MANAGER LABOR RELATIONS) P athologist Signature WBC 8.4 4.0 - 11.0 08/07/2017 [facility] 10e9/L 12:43 AM [facility] RBC Count 4.05 3.8 - 5.2 08/07/2017 [facility] 10e12/L 12:43 AM [facility] Hemoglobin 12.3 11.7 - 08/07/2017 [facility] 15.7 g/dL 12:43 AM [facility] Hematocrit 35.0 35.0 - 08/07/2017 [facility] 47.0 % 12:43 AM [facility] MCV 86 78 - 100 08/07/2017 [facility] fl 12:43 AM [facility] MCH 30.4 26.5 - 08/07/2017 [facility] 33.0 pg 12:43 AM [facility] MCHC 35.1 31.5 - 08/07/2017 [facility] 36.5 g/dL 12:43 AM [facility] RDW 13.6 10.0 - 08/07/2017 [facility] 15.0 % 12:43 AM [facility] Platelet Count 53 (L) 150 - 450 08/07/2017 [facility] 10e9/L 12:43 AM [facility] Specimen Anatomical Collection Method Collection Time Receive d Time (Source) Location / / Volume Laterality Blood specimen 08/07/2017 12:12 7 (specimen) AM MANAGER LABOR RELATIONS 12:39 AM MANAGER LABOR RELATIONS Lacie Mcdowell MD LAB - BLOOD ORDERABLES Performing Organization Address City/State/ZIP Code Phon e Jorge Rainey [facility] [address] [place], [place] [address] [facility] [address] [place], [place] [address], [facility] [phone] Placenta path order and indications (08/06/2017 6:30 PM MANAGER LABOR RELATIONS) Component Value Ref Test Analysis Performed At Patholo gist Range Method Time Signature Copath Report Patient Name: ELLI KIM MR#: [id number] Specimen #: [id number] Collected: 08/06/2017 Received: 08/07/2017 Reported: 08/10/2017 15:08 Ordering Phy(s): LACIE MCDOWELL For improved result formatting, select 'View Enhanced Report Format' under Linked Documents section. SPECIMEN(S): A: Placenta B: Fallopian tube, bilateral FINAL DIAGNOSIS: A: Placenta- - Third trimester mariscal placenta (gestational age: 34 we eks, 3 days; clinical). - Placental disc weight: 320 gm. - Negative for localized placental disc lesions. - Negative for acute chorioamnionitis. - Triple-blood vessel umbilical cord without funisitis. B: Fallopian tubes, left and right, bilateral salpingectomy- - Unremarkable bilateral fallopian tubes. - Complete cross sections identified bilaterally Electronically signed out by: Yoana Sanchez M.D. CLINICAL HISTORY: Severe preeclampsia. ??HELLP. ??Sterilization. GROSS: A. The specimen, labeled placenta, consists of formalin fixe d placenta disc, membranes and umbilical cord. ??The trimmed plac ental disc weights 320 g and measures 14 cm in diameter x 2 cm in thick ness. ??The surface is covered by translucent membranes. ??The blo od vessels show normal distribution. ??The umbilical cord inserts at 2 cm from the nearest margin of the placenta. ??The maternal surface is re d-brown in color and appears complete. ??There is no evidence of retrop lacental hematoma. ??On serial sections, the placental parenchyma is without gross lesions. ??The membranes are translucent. ??The umbili yue cord is 12 cm in length x 1 cm in diameter. ??The diameter is uniform. ??On serial sections, three blood vessels are identified. ??Representati ve sections are submitted in four cassettes. B. The specimen, labeled left and right fallopian tubes, con sists of bilateral salpingectomy specimen, measuring 6 cm in length x 0.8 cm in diameter each. ??No lesions are identified. ??Road Worker sections are submitted in two cassettes. (Dictated by: Dario beach MD 08/07/2017 10:21 AM) MICROSCOPIC: A and B. ??Microscopic examination is performed. CPT Codes: A: 77453-IA4 B: 71278-LT3 TESTING LAB LOCATION: [address] ??[address] COLLECTION SITE: Client: [facility] [address] Location: RHOB (R) Specimen Anatomical Collection Method Collection Time Receive d Time (Source) Location / / Volume Laterality Specimen from 08/06/2017 6:30 PM 08/07/20 17 9:05 placenta MANAGER LABOR RELATIONS AM MANAGER LABOR RELATIONS (specimen) Lacie Mcdowell MD LAB - BEAKER AP Performing Organization Address City/[facility]/ZIP Code Phon e Number [place] Fibrinogen activity (08/06/2017 6:00 PM MANAGER LABOR RELATIONS) athologist Signature Fibrinogen 275 200 - 420 08/06/2017 [facility] mg/dL 6:52 PM MANAGER LABOR RELATIONS [facility]OSPITAL Specimen Anatomical Collection Method Collection Time Receive d Time (Source) Location / / Volume Laterality Blood specimen 08/06/2017 6:00 PM 017 6:36 (specimen) MANAGER LABOR RELATIONS PM MANAGER LABOR RELATIONS Lacie Mcdowell MD LAB - BLOOD ORDERABLES Performing Organization Address City/[facility]/ZIP Code Phon e Number M [facility] [address] [place], [place] [address] [place] [address] [address] [place], [place] [address] [place] [address] Partial thromboplastin time (08/06/2017 6:00 PM MANAGER LABOR RELATIONS) athologist Signature PTT 25 22 - 37 sec 08/06/2017 [facility] 6:52 PM MANAGER LABOR RELATIONS [facility] Specimen Anatomical Collection Method Collection Time Receive d Time (Source) Location / / Volume Laterality Blood specimen 08/06/2017 6:00 PM 017 6:36 (specimen) MANAGER LABOR RELATIONS PM MANAGER LABOR RELATIONS Lacie Mcdowell MD LAB - BLOOD ORDERABLES Performing Organization Address City/[facility]/ZIP Code Phon e Number M [facility] [address] [place], [place] [address] [facility] [address] [place], [place] [address], [facility] [phone] INR (08/06/2017 6:00 PM MANAGER LABOR RELATIONS) athologist Signature INR 0.97 0.86 - 1.14 08/06/2017 [facility] 6:52 PM MANAGER LABOR RELATIONS [facility] Specimen Anatomical Collection Method Collection Time Receive d Time (Source) Location / / Volume Laterality Blood specimen 08/06/2017 6:00 PM 017 6:36 (specimen) MANAGER LABOR RELATIONS PM MANAGER LABOR RELATIONS Lacei Mcdowell MD LAB - BLOOD ORDERABLES Performing Organization Address City/[facility]/ZIP Code [facility] e [facility] [address] [place], [place] [address] [address], [facility] [phone] Creatinine (08/06/2017 6:00 PM MANAGER LABOR RELATIONS) athologist Signature Creatinine 0.73 0.52 - 08/06/2017 [place] 1.04 mg/dL 8:33 PM [facility] GFR Estimate >90 >60 08/06/2017 [place] mL/min/1.7 8:[address] GFR Estimate If >90 >60 08/06/2017 [place] Black mL/min/1.7 8:[address] Specimen Anatomical Collection Method Collection Time Receive d Time (Source) Location / / Volume Laterality Blood specimen 08/06/2017 6:00 PM 017 6:36 (specimen) MANAGER LABOR RELATIONS PM MANAGER LABOR RELATIONS Lacie Mcdowell MD LAB - BLOOD ORDERABLES Performing Organization Address City/State/ZIP [facility] Phon e Number [facility] [address] [place], [place] [address] [address], [facility] [phone] (ABNORMAL) ALT (08/06/2017 6:00 PM MANAGER LABOR RELATIONS) athologist Signature ALT 107 (H) 0 - 50 U/L 08/06/2017 [facility] 8:33 PM [facility] Specimen Anatomical Collection Method Collection Time Receive d Time (Source) Location / / Volume Laterality Blood specimen 08/06/2017 6:00 PM 017 6:36 (specimen) MANAGER LABOR RELATIONS PM MANAGER LABOR RELATIONS Lacie Mcdowell MD LAB - BLOOD ORDERABLES Performing Organization Address [facility]/ZIP [facility] Phon e Number [facility] [address] [place] [address] [place] [address] [address] [place] [address] 7[facility] [phone] (ABNORMAL) AST (08/06/2017 6:00 PM MANAGER LABOR RELATIONS) P athologist Signature AST 141 (H) 0 - 45 U/L 08/06/2017 [facility] 8:33 PM [facility] Specimen Anatomical Collection Method Collection Time Receive d Time (Source) Location / / Volume Laterality Blood specimen 08/06/2017 6:00 PM 017 6:36 (specimen) MANAGER LABOR RELATIONS PM MANAGER LABOR RELATIONS Lacie Mcdowell MD LAB - BLOOD ORDERABLES Performing Organization Address City/[facility]/ZIP [facility] e [facility] [address] [place] [address] [place] [address] [phone] (ABNORMAL) CBC with platelets (08/06/2017 6:00 PM MANAGER LABOR RELATIONS) Analysis Performed At Patho logist Time Signature WBC 9.9 4.0 - 11.0 08/06/2017 [facility] 10e9/L 6:41 PM [facility] RBC Count 3.93 3.8 - 5.2 08/06/2017 [facility] 10e12/L 6:41 PM [facility] Hemoglobin 11.8 11.7 - 08/06/2017 [facility] 15.7 g/dL 6:41 PM [facility] Hematocrit 33.9 (L) 35.0 - 08/06/2017 [facility] 47.0 % 6:41 PM [facility] MCV 86 78 - 100 08/06/2017 [facility] fl 6:41 PM [facility] MCH 30.0 26.5 - 08/06/2017 [facility] 33.0 pg 6:41 PM [facility] MCHC 34.8 31.5 - 08/06/2017 [facility] 36.5 g/dL 6:41 PM [facility] RDW 13.3 10.0 - 08/06/2017 [facility] 15.0 % 6:41 PM [facility] Platelet Count 76 (L) 150 - 450 08/06/2017 [facility] 10e9/L 6:41 PM [facility] Specimen Anatomical Collection Method Collection Time Receive d Time (Source) Location / / Volume Laterality Blood specimen 08/06/2017 6:00 PM 017 6:36 (specimen) MANAGER LABOR RELATIONS PM MANAGER LABOR RELATIONS Lacie Mcdowell MD LAB - BLOOD ORDERABLES Performing Organization Address City/[facility]/ZIP Code Phon e Number M [facility] [address] [place] [address] [facility] [address] [place] [address], [facility] [phone] ABO/Rh type and screen (08/06/2017 2:38 PM MANAGER LABOR RELATIONS) [facility] gist Method Time Signature ABO A 08/06/2017 [facility] 3:27 PM [facility] RH(D) Pos [facility] Antibody Neg 08/06/2017 [facility] Screen 3:27 PM [facility] Test Valid [place] 08/06/2017 [facility] Only At [facility] 3:[address] [facility] Specimen 08/09/2017 08/06/2017 [facility] Expires 3:27 PM [facility] Specimen Anatomical Collection Method Collection Time Receive d Time (Source) Location / / Volume Laterality Blood specimen 08/06/2017 2:38 PM 017 2:52 (specimen) MANAGER LABOR RELATIONS PM MANAGER LABOR RELATIONS Lacie Mcdowell MD LAB - BLOOD BANK TEST ORD ER Performing Organization Address City/[facility]/ZIP [facility] Phon e Number M [facility] [address] [place], [place] [address] [facility] [address] [place] [address] [phone] Creatinine (08/06/2017 2:38 PM MANAGER LABOR RELATIONS) athologist Signature Creatinine 0.78 0.52 - 1.04 08/06/2017 [place] mg/dL 3:12 PM [facility] GFR Estimate 84 >60 08/06/2017 [place] mL/min/1.7m 3:[address] Comment: Non GFR Calc GFR Estimate If >90 >60 mL/min/1.7m2 08/06/2017 3:12 P [facility] Comment: GFR Calc Specimen Anatomical Collection Method Collection Time Receive d Time (Source) Location / / Volume Laterality Blood specimen 08/06/2017 2:38 PM 017 2:52 (specimen) MANAGER LABOR RELATIONS PM MANAGER LABOR RELATIONS Lacie Mcdowell MD LAB - BLOOD ORDERABLES Performing Organization Address City/State/ZIP Code Phon e Number M [facility] [address] [place] [address] [phone] [facility] [address] [place] [address], [place] [phone] (ABNORMAL) ALT (08/06/2017 2:38 PM MANAGER LABOR RELATIONS) athologist [facility] ALT 77 (H) 0 - 50 U/L 08/06/2017 [place] 3:12 PM [facility] Specimen Anatomical Collection Method Collection Time Receive d Time (Source) Location / / Volume Laterality Blood specimen 08/06/2017 2:38 PM 017 2:52 (specimen) MANAGER LABOR RELATIONS PM MANAGER LABOR RELATIONS Lacie Mcdowell MD LAB - BLOOD ORDERABLES Performing Organization Address City/State/ZIP Code Phon e Number [facility] [address] [place] [address] [phone] [facility] [address] [place] [address], [place] [phone] (ABNORMAL) AST (08/06/2017 2:38 PM MANAGER LABOR RELATIONS) athologist Signature AST 92 (H) 0 - 45 U/L 08/06/2017 [facility] 3:12 PM [facility] Specimen Anatomical Collection Method Collection Time Receive d Time (Source) Location / / Volume Laterality Blood specimen 08/06/2017 2:38 PM 017 2:52 (specimen) MANAGER LABOR RELATIONS PM MANAGER LABOR RELATIONS Lacie Mcdowell MD LAB - BLOOD ORDERABLES Performing Organization Address City/State/ZIP Code Phon e Number M [facility] [address] [place] [address] [facility] [address] [place] [address], [place] [phone] (ABNORMAL) CBC with platelets (08/06/2017 2:38 PM MANAGER LABOR RELATIONS) athologist Signature WBC 10.3 4.0 - 11.0 08/06/2017 [facility] 10e9/L 2:55 PM [facility] RBC Count 4.12 3.8 - 5.2 08/06/2017 [facility] 10e12/L 2:55 PM [facility] Hemoglobin 12.4 11.7 - 08/06/2017 [facility] 15.7 g/dL 2:55 PM [facility] Hematocrit 35.1 35.0 - 08/06/2017 [facility] 47.0 % 2:55 PM [facility] MCV 85 78 - 100 08/06/2017 [facility] fl 2:55 PM [facility] MCH 30.1 26.5 - 08/06/2017 [facility] 33.0 pg 2:55 PM [facility] MCHC 35.3 31.5 - 08/06/2017 [facility] 36.5 g/dL 2:55 PM [facility] RDW 13.4 10.0 - 08/06/2017 [facility] 15.0 % 2:55 PM [facility] Platelet Count 103 (L) 150 - 450 08/06/2017 [facility] 10e9/L 2:55 PM [facility] Specimen Anatomical Collection Method Collection Time Receive d Time (Source) Location / / Volume Laterality Blood specimen 08/06/2017 2:38 PM 017 2:52 (specimen) MANAGER LABOR RELATIONS PM MANAGER LABOR RELATIONS Lacie Mcdowell MD LAB - BLOOD ORDERABLES Performing Organization Address City/State/ZIP Code Phon e Number M [facility] [address] [place], [place] [address] [facility] [address] [place], [place] [address] [phone] documented in this encounter Visit Diagnoses Diagnosis HELLP syndrome, delivered, current hospi talization - Primary Severe pre-eclampsia, with delivery documented in this encounter Administered Medications Inactive Administered Medications - up to 3 most recent administrations Medication Order MAR Action Action Date Dose Rate Site bisacodyl (DULCOLAX) Suppository 10 mg 10 mg, Rectal, DAILY PRN, constipation, Starting on 08/08/17 at 0000, Start POD 2, Post-procedure calcium gluconate 10 % injection 1 g 1 g, Intravenous, ONCE PRN, magnesium sulfate toxicity , Administer over 3-5 Minutes, Starting on Ayah 08/06/17 at 171 7, For 1 dose, STOP magnesium infusion and then notify provider IF signs of magnesi um toxicity appear (respirations less than 12 per minute, hypo-reflexia, bradycardia, change in n eurologic status, or decreased level of consciousness, slurred speech, musc le weakness, visual disturbances, or extreme thirst). carboprost (HEMABATE) injection 250 mcg 250 mcg, Intramuscular, ONCE PRN, postpa rtum hemorrhage, Starting on Ayah 08/06/17 at 1720, For 1 dose, Start IF HEMORRHAGE, P ost-procedure dextrose 5% in lactated ringers infusion at 125 mL/hr, Intravenous, CONTINUOUS, S ubsequent IV at nurse's discretion. DC IV when tolerating fluids or at nurse's discretion & sali ne lock., Post-procedure, Starting on Ayah 08/06/17 at 1730, Until 08/10/17 a t 1627 diphenhydrAMINE (BENADRYL) capsule 25 mg 25 mg, Oral, EVERY 6 HOURS PRN, itching, Starting on Ayah 08/06/17 at 1748, Caution to be used when administering multiple C entral Nervous System (CONTINUITY READER) depressing meds within a short time frame., Post-procedure diphenhydrAMINE (BENADRYL) injection 25 mg 25 mg, Intravenous, EVERY 6 HOURS PRN, i tching, Only give if patient unable to take PO., Administer over 1-2 Minutes, Starti ng on Ayah 08/06/17 at 1748, Caution to be used when administering multiple Central Nervous Syste m (CONTINUITY READER) depressing meds within a short time frame. For ordered d oses up to 50 mg, give IV Push undiluted. Give each 25mg over a minimum of 1 minut e. Extend in non-emergency, Post-procedure enoxaparin (LOVENOX) injection 40 mg Given 08/10/2017 12:32 PM MANAGER LABOR RELATIONS 40 mg 40 mg, Subcutaneous, EVERY 24 HOURS, First dose on 08/10/17 at 0830 hydrocortisone 2.5 % cream Rectal, 3 TIMES DAILY PRN, hemorrhoids, Starting on Ayah 08/06/17 at 1720, Apply to hemorrhoids. Send only if nurse requests., Post-proced ure HYDROmorphone (DILAUDID) Loading Dose Given 08/06/2017 6:[address] 0.3 mg administered from QA AUDITOR 0.2-0.3 mg 0.2-0.3 mg, Intravenous, QA AUDITOR LOADING DOSE, On Ayah 08/06/17 at 1800, For 1 dose, LOADING DOSE (bolus) with start of QA AUDITOR. DO NOT GIVE IF A LOADING BOLUS DOSE HAS ALREADY BEEN GIVEN. (If loading dose not given from QA AUDITOR, bar code scan must be overridden to chart dose)., Post-procedure HYDROmorphone (DILAUDID) QA AUDITOR 1 mg/mL Shift Total 08/07/2017 6:13 AM MANAGER LABOR RELATIONS QA AUDITOR dose (mg): 0.2, Max QA AUDITOR dose (mg): 0.3, Lockout Interval (min): 10 minutes, QA AUDITOR Continuous Rate (mg/hr): CONTINUOUS RATE IS NOT RECOMMENDED FOR OPIOID NAIVE PATIENTS, Hour Limit (mg): 1.8, Initial Set-up verified by: Eliza Toth RN and Karin Munguia RN, First dose on Ayah 08/06/17 at 1800, Do NOT give additional opioids orders unless requested by provider., Intravenous, Post-procedure Rate/Dose Verify 08/07/2017 2:36 AM MANAGER LABOR RELATIONS New Syringe/Cartridge 08/06/2017 10:40 PM MANAGER LABOR RELATIONS HYDROmorphone (PF) (DILAUDID) injection 0.3-0.5 mg 0.3-0.5 mg, Intravenous, EVERY 30 MIN [place] N, severe pain, Starting on Ayah 08/06/17 at 1720, Offer at least every 2 hours. Notify provider fo r new orders if agent ineffective. Hold while on QA AUDITOR. Give IV Push undiluted up to 4 mg. Each 2mg over 2-5 minutes., Post-procedure ibuprofen (ADVIL/MOTRIN) tablet 400 mg Given 08/09/2017 6:50 PM MANAGER LABOR RELATIONS 400 mg 400 mg, Oral, EVERY 6 HOURS PRN, other, cramping, Starting on Ayah 08/06/17 at 1720, Begin after ketorolac (TORADOL) doses completed. Max dose 3200 mg/day., Post-procedure labetalol (NORMODYNE) tablet 200 mg Given 08/08/2017 2:42 AM MANAGER LABOR RELATIONS 200 mg 200 mg, Oral, EVERY 8 HOURS SCHEDULED, First dose on Thu08/07/17 at 0100 Given 08/07/2017 6:28 PM MANAGER LABOR RELATIONS 200 mg Given 08/07/2017 12:28 PM MANAGER LABOR RELATIONS 200 mg labetalol (NORMODYNE) tablet 200 mg Given 08/10/2017 3:27 AM MANAGER LABOR RELATIONS 200 mg 200 mg, Oral, EVERY 12 HOURS SCHEDULED, First dose (after last modification) on 08/08/17 at 1500 Given 08/09/2017 2:56 PM MANAGER LABOR RELATIONS 200 mg Given 08/09/2017 3:12 AM MANAGER LABOR RELATIONS 200 mg labetalol (NORMODYNE/TRANDATE) algorithm -medication instruction CONTINUOUS PRN, Starting on Ayah 08/06/17 at 1718, [facility] 08/10/17 at 1627 labetalol (NORMODYNE/TRANDATE) injection 20 mg Given 08/06/2017 7:33 PM MANAGER LABOR RELATIONS 20 mg 20 mg, Intravenous, EVERY 10 MIN PRN, other, FOR ONE DOSE for severe hypertension SBP GREATER THAN or EQUAL to 160 mmHg or DBP GREATER THAN or EQUAL to 110 mmHg x 2 readings 15 minutes apart, Administer over 2-8 Minutes, Starting on Ayah 08/06/17 at 1718, Notify provider on administration. DO NOT give if history of asthma, congestive heart failure or heart rate LESS than 60. Assess blood pressure every 10 minutes following each IV administration until target blood pressure of 140-150/90-100 mmHg is met. Then assess blood pressure every 10 minutes for one hour, then every 30 minutes for one hour and then every four hours. Administer with patient in supine position with hip wedge or side tilt. MAX daily dose: 300 mg/24 hours. For ordered doses up to 80 mg, give IV Push undiluted. Give each 20 mg over 2 minutes. labetalol (NORMODYNE/TRANDATE) injection 40 mg 40 mg, Intravenous, EVERY 10 MIN PRN, ot her, FOR ONE DOSE for severe hypertension SBP GREATER THAN or EQUAL to 160 mmHg or DBP GREATER THAN or EQUAL to 110 mmHg., Administer over 2-8 Minutes, Starting on [facility] 08/06/17 at 1718, Give IF sub-optimal response to 20 mg labetalol (NORMODYNE/T RANDATE). Administer 10 minutes after first labetalol (NORMODYNE/TRANDATE) dose. Not sydnee provider on administration. DO NOT give if history of asthma, congestive heart f ailure or heart rate LESS than 60. Assess blood pressure every 10 minutes followin g each IV administration until target blood pressure of 140-150/90-100 mmHg is met. Then assess blood pressure every 10 minutes for one hour, then every 30 minutes for one hour and t hen every four hours. Administer with patient in supine positi on with hip wedge or side tilt. MAX daily dose: 300 mg/24 hours. For ordered doses up to 80 mg, give IV Push undiluted. Give each 20 mg over 2 minutes. labetalol (NORMODYNE/TRANDATE) injection 80 mg 80 mg, Intravenous, EVERY 10 MIN PRN, ot her, FOR ONE DOSE for severe hypertension SBP GREATER THAN or EQUAL 160 mmHg or DBP GREATER THAN or EQUAL 110 mmHg., Administer over 2-8 Minutes, Starting on [facility] 08/06/17 at 1718, Give IF sub-optimal response to 40 mg labetolol (NORMODYNE/TRANDATE). Admi nister 10 minutes after second labetalol (NORMODYNE/TRANDATE) do se. Notify provider on administration. DO NOT give if history of asthma, congestiv e heart failure or heart rate LESS than 60 . Assess blood pressure every 10 minutes following eac h IV administration until target blood pressure of 140-150/90-100 mmHg is met. T hen assess blood pressure every 10 minutes for one hour, then ever y 30 minutes for one hour and then every four hours. Administer with patient in s upine position with hip wedge or side tilt. MAX daily dose: 300 mg/24 hours For ordered doses up t o 80 mg, give IV Push undiluted. Give each 20 mg over 2 minutes. lactated ringers BOLUS 1,000 mL New Bag 08/06/2017 3:49 PM MANAGER LABOR RELATIONS 1,000 mLs 999 mL/hr Intravenous, 1,000 mL, ONCE, On Ayah 08/06/17 at 1545, For 1 dose, Prior to surgery. IF preeclamptic give only 500 mL, Pre-procedure lactated ringers BOLUS 1,000 mL Intravenous, 1,000 mL, ONCE PRN, post pa rtum hemorrhage, Starting on Ayah 08/06/17 at 1720, For 1 dose, Rate: 500-1000 mL/hr. Start IF PO STPARTUM HEMORRHAGE, Post-procedure lactated ringers infusion New Bag 08/06/2017 4:30 PM MANAGER LABOR RELATIONS at 10-125 mL/hr, Intravenous, CONTINUOUS, Titrate lactated ringers rate to obtain total IV intake of 125 mL/hour, Starting on Ayah 08/06/17 at 1430, Until Thu08/10/17 at 1627 New Bag 08/06/2017 3:52 PM MANAGER LABOR RELATIONS Rate/Dose Change 08/06/2017 2:28 PM MANAGER LABOR RELATIONS 75 mL/hr 75 mL/hr lactated ringers infusion New Bag 08/07/2017 10:35 AM MANAGER LABOR RELATIONS 75 mL/hr 75 mL/hr at 10-125 mL/hr, Intravenous, CONTINUOUS, Titrate lactated ringers rate to obtain total IV intake of 125 mL/hour, Starting on Ayah 08/06/17 at 1730, Until Thu08/10/17 at 1627 New Bag 08/06/2017 8:58 PM MANAGER LABOR RELATIONS 75 mL/hr 75 mL/hr lanolin ointment Topical, EVERY 1 HOUR PRN, dry skin, sor eness, Starting on Ayah 08/06/17 at 1720, Apply to sore nipples after feedings, Post-procedure lidocaine (LMX4) kit Topical, EVERY 1 HOUR PRN, pain, with VA D insertion or accessing implanted port., Starting on Ayah 08/06/17 at 1720, Do NOT give if patient has a history of allergy to any local anesthetic or any jewel product. Apply 30 minutes prior to VAD insertion or port access. MAX Dose: 2.5 g (?? of 5 g t ube), Post-procedure lidocaine 1 % 1 mL 1 mL, Other, EVERY 1 HOUR PRN, mild pain with VAD insertion or accessing implanted port, Starting on [facility] 08/06/17 at 1720, Do NOT give if patient has a history of allergy to any local anesthetic or any jewel product. MAX dose 1 mL subcutaneous OR intradermal in divided doses., Post-procedure LORazepam (ATIVAN) injection 2 mg 2 mg, Intravenous, EVERY 3 MIN PRN, seiz ures, IF unresponsive to magnesium dosing., Administer over 1 Minutes, Starting on [facility] 08/06/17 at 1424, For 4 doses, For IV PUSH: Dilute with equal volume of NS. Fo r ordered doses up to 4 mg give IV Push. Administer each 2mg over 1-5 minutes. LORazepam (ATIVAN) injection 2 mg 2 mg, Intravenous, EVERY 3 MIN PRN, seiz ures, IF unresponsive to magnesium dosing., Administer over 1 Minutes, Starting on [facility] at 1717, For 4 doses, For IV PUSH: Dilute with equal volume of NS. Fo r ordered doses up to 4 mg give IV Push. Administer each 2mg over 1-5 minutes. magnesium sulfate 2 g in NS intermittent infusion ([employer] or [facility]) 2 g, Intravenous, Administer over 5 Asmita oneil, Once PRN for SEIZURES, other, loading dose.for ACTIVE MANAGEMENT OF SEIZURES, give If on magnesium sulfate infusion and infuse over 5 minutes., Starting on [facility] at 17 17, For 1 dose magnesium sulfate 4 g in 100 mL sterile water (premade) 4 g, Intravenous, Administer over 15-20 Minutes, Once PRN for SEIZURES, other, loading dose, for ACTIVE MANAGEMENT OF S EIZURES, give If NOT on magnesium sulfate infusion and infuse over 15-20 minutes., Starting on [facility] 08/06/17 at 1717, For 1 dose magnesium sulfate infusion Rate/Dose Change 08/06/2017 4:01 PM MANAGER LABOR RELATIONS 2 g/hr 50 mL/hr 2 g/hr (50 mL/hr), Intravenous, CONTINUOUS, Starting on [facility] 08/06/17 at 1500, STOP infusion and then notify provider IF signs of magnesium toxicity appear (respirations less than 12 per minute, hypo-reflexia, bradycardia, change in neurologic status, or decreased level of consciousness, slurred speech, muscle weakness, visual disturbances or extreme thirst). Not for use beyond 5 days in pre-term labor. New Bag 08/06/2017 2:45 PM MANAGER LABOR RELATIONS 2 g/hr 50 mL/hr magnesium sulfate infusion New Bag 08/07/2017 10:36 AM MANAGER LABOR RELATIONS 2 g/hr 50 mL/hr 2 g/hr (50 mL/hr), Intravenous, CONTINUOUS, Starting on Ayah 08/06/17 at 1800, STOP infusion and then notify provider IF signs of magnesium toxicity appear (respirations less than 12 per minute, hypo-reflexia, bradycardia, change in neurologic status, or decreased level of consciousness, slurred speech, muscle weakness, visual disturbances or extreme thirst). Not for use beyond 5 days in pre-term labor. Rate/Dose Verify 08/07/2017 10:00 AM MANAGER LABOR RELATIONS 2 g/hr 50 mL/hr Rate/Dose Verify 08/07/2017 8:00 AM MANAGER LABOR RELATIONS 2 g/hr 50 mL/hr magnesium sulfate injection 4 g 4 g, Intramuscular, ONCE PRN, seizures I F unable to obtain IV access in an emergent situation., Starting on Ayah 08/06/17 at 1717, For 1 dose, Give 2 grams IM in two largest muscular sites. Must obtain from emergency car t or from pharmacy. misoprostol (CYTOTEC) tablet 800 mcg Given 08/06/2017 6:17 PM MANAGER LABOR RELATIONS 800 mcg 800 mcg, Rectal, ONCE PRN, hemorrhage, Starting on Ayah 08/06/17 at 1720, For 1 dose, Dose requires rectal administration of FOUR tablets of 200 mcg each., Post-procedure naloxone (NARCAN) injection 0.1-0.4 mg 0.1-0.4 mg, Intravenous, EVERY 2 MIN PRN , opioid reversal, Starting on Ayah 08/06/17 at 1748, For respiratory rate LESS than or EQUAL to 8. Partial reversal dose: 0.1 mg titrated q 2 minutes for Analgesia Si de Effects Monitoring Sedation Level of 3 (frequently drowsy, arousable, drifts to sleep during conversation).Full reversal dose: 0.4 mg bolus for Analgesia Side Effects Monitori ng Sedation Level of 4 (somnolent, minimal or no response to st imulation). Give IV Push undiluted up to 2mg. Give each 0.4mg over 15 seconds in emergency situ ations. For non-emergent situations further dilute in 9mL of NS to facilitate t itration of response., Post-procedure NIFEdipine (PROCARDIA) capsule 10 mg 10 mg, Oral, EVERY 20 MIN PRN, IF no IV access for severe hypertension SBP GREATER THAN or EQUAL to 160 mmHg or DBP GREATER THAN or EQUAL to 110 mmHg x 2 readings 15 minutes apart., Starting on Ayah 08/06/17 at 1424, May repeat dose after 20 minutes IF still unable to obtain IV access in e mergent situation. Assess blood pressure every 5 minutes x 30 minutes following each dose. NIFEdipine (PROCARDIA) capsule 10 mg 10 mg, Oral, EVERY 20 MIN PRN, IF no IV access for severe hypertension SBP GREATER THAN or EQUAL to 160 mmHg or DBP GREATER THAN or EQUAL to 110 mmHg x 2 readings 15 minutes apart., Starting on Ayah 08/06/17 at 1717, May repeat dose after 20 minutes IF still unable to obtain IV access in e mergent situation. Assess blood pressure every 5 minutes x 30 minutes following each dose. NO Rho (D) immune globulin (RhoGam) need ed - mother Rh POSITIVE CONTINUOUS PRN, Starting on Ayah 08/06/17 at 1720, Unti l 08/10/17 at 1627, Post-procedure ondansetron (ZOFRAN) injection 4 mg Given 08/07/2017 10:37 AM MANAGER LABOR RELATIONS 4 mg 4 mg, Intravenous, EVERY 6 HOURS PRN, nausea, vomiting, Administer over 2-5 Minutes, Starting on Ayah 08/06/17 at 1720, If nausea not resolved in 15 minutes, notify provider before proceeding to prochlorperazine (if ordered). Irritant. For ordered doses up to 4 mg, give IV Push undiluted over 2-5 minutes., Post-procedure oxyCODONE IR (ROXICODONE) tablet 5-10 mg 5-10 mg, Oral, EVERY 3 HOURS PRN, modera te to severe pain, Starting on Ayah 08/06/17 at 1720, IF CrCl is UNKNOWN start at low est end of dosing range. Hold while on QA AUDITOR or with regular IV opioid dosing., Post-procedure oxytocin (PITOCIN) 30 units in New Bag 08/06/2017 6:25 PM MANAGER LABOR RELATIONS 100 mL/hr 100 mL/hr 500 mL 0.9% NaCl infusion 100 mL/hr, Intravenous, CONTINUOUS, Starting on Ayah 08/06/17 at 1730, Anesthesia Provider to administer at 340 mL/hr for 30 minutes (or longer per provider discretion) then decrease to 100 mL/hr. Continue until a total of 2 bags administered (1st bag initiated by Anesthesia Provider.) Discontinue IV or saline lock IV per nurse discretion., Post-procedure oxytocin (PITOCIN) 30 units in 500 mL 0. 9% NaCl infusion 340 mL/hr, Intravenous, CONTINUOUS PRN, for hemorrhage UNTIL bleeding subsided, Starting on Ayah 08/06/17 at 17 20, When bleeding subsides decrease rate to 100 mL/hr. Notify provider immediately when infusion b egun., Post-procedure oxytocin (PITOCIN) injection 10 Units 10 Units, Intramuscular, ONCE PRN, hemorrha ge. IF no IV access is available., Starting on Ayah 08/06/17 at 1720, For 1 do se, Post-procedure prochlorperazine (COMPAZINE) injection 1 0 mg 10 mg, Intravenous, EVERY 6 HOURS PRN, nausea, vomitin g, Administer over 1-2 Minutes, Starting on Ayah 08/06/17 at 172 0, May give prochlorperazine (COMPAZINE) if nausea not resolved within 15 minutes after giving ond ansetron (ZOFRAN) AND provider has been notified. If nausea still not resolv ed 15 minutes after prochlorperazine (COMPAZINE), then notify provider bef ore proceeding to give metoclopramide (REGLAN) [if ordered]. Fo r ordered doses up to 10 mg, give IV Push undiluted. Each 5mg over 1 minute., Post-procedure prochlorperazine (COMPAZINE) Suppository 25 mg 25 mg, Rectal, EVERY 12 HOURS PRN, nause a, vomiting, , Starting on Ayah 08/06/17 at 1720, May give prochlorperazine (COMPAZINE) if nausea not resolved within 15 minutes after giving ondansetron (ZOFRAN ) AND provider has been notified. If nausea still not resolved 15 minutes after prochlorperazine ( COMPAZINE), then notify provider before proceeding to give metoclopramide (REG RADHA) [if ordered]., Post-procedure scopolamine (TRANSDERM) 72 hr Given 08/07/2017 1:34 PM MANAGER LABOR RELATIONS 1 pat ch Behind Right Ear patch 1 patch 1 patch, Transdermal, EVERY 72 HOURS, First dose on Thu08/07/17 at 1230, Apply patch to skin, behind ear. Remove every 72 hours. Each 1.5 mg patch delivers 1 mg of scopolamine. scopolamine (TRANSDERM-SCOP) Patch in Pl quentin First dose on Thu08/07/17 at 1230, Chart every shift, confirming that patch is still in place on patient (no barcode scan needed). Se e patch order for dose information. scopolamine (TRANSDERM-SCOP) patch REMOV AL First dose on Thu08/10/17 at 1230, Nurs e may need to adjust schedule time to match new patch application time. Old patch sh ould be removed when new patch is applied. senna-docusate (SENOKOT-S;PERICOLACE) 8. 6-50 MG per tablet 1-2 tablet 1-2 tablet, Oral, 2 TIMES DAILY, First d ose on Thu08/06/17 at 2100, Start with 1 tablet PO BID, If no bowel movement in 2 4 hours, increase to 2 tablets po BID. Hold for loose stools. Preferred agent for constipation rel ated to opioids., Post-procedure simethicone (MYLICON) chewable tablet 80 mg 80 mg, Oral, 4 TIMES DAILY PRN, other, gas, Starting o n Thu08/06/17 at 1720, Chew., Post-procedure sodium chloride (PF) 0.9% PF flush 3 mL Given 08/08/2017 8:34 AM MANAGER LABOR RELATIONS 3 mLs 3 mL, Intracatheter, EVERY 8 HOURS, First dose on Thu08/06/17 at 1730, And Q1H PRN, to lock peripheral IV dormant line., Post-procedure Given 08/08/2017 3:20 AM MANAGER LABOR RELATIONS 3 mLs Given 08/07/2017 1:35 PM MANAGER LABOR RELATIONS 3 mLs sodium citrate-citric acid (BICITRA) solution Given 3:57 PM MANAGER LABOR RELATIONS 30 mLs 30 mL 30 mL, Oral, PRE-OP/PRE-PROCEDURE, Starting on Thu08/06/17 at 1538, For 1 dose, For gastric pH neutralization. GIVE WITHIN 45 minutes PRIOR TO SURGICAL PROCEDURE., Pre-procedure sodium phosphate (FLEET ENEMA) 1 enema 1 enema, Rectal, DAILY PRN, constipation , , Starting on 08/08/17 at 0000, Use if bisacodyl not effective. Start POD 2., Post-procedu re documented in this encounter Active and Recently Administered Medications Times are shown in MANAGER LABOR RELATIONS. Scheduled Medication Order 08/08/2017 08/09/2017 08/10/2017 enoxaparin (LOVENOX) injection 40 mg 1232 (Given - Provider: Milena Rasmussen, NAI) 40 mg, Subcutaneous, EVERY 24 HOURS, First dose on 08/10/17 at 0830 fentaNYL (PF) (SUBLIMAZE) injection 50 mcg 50 mcg, Intravenous, ONCE, Ayah 08/06/17 at 1545, For 1 dose, Give IV Push undiluted over a minimum of 3-5 minutes up to 100 mcg. labetalol (NORMODYNE) tablet 200 mg (CANCELED) 0242 (G iven - Provider: Fouzia Iraheta, NAI) 200 mg, Oral, EVERY 8 HOURS SCHEDULED, First dose on Thu 7 at 0100 labetalol (NORMODYNE) tablet 200 mg 1513 (Given - Provider: Antonette Caballero, NAI) 0312 (Given - Provider: Fouzia Iraheta, NAI)1456 (Given - Provider: Valeria Alfredo, NAI) 0327 (Given - Provider: Fouzia sullivan, RN) 200 mg, Oral, EVERY 12 HOURS SCHEDULED, First dose on Sat at 1500 magnesium sulfate 4 g in 100 mL sterile water (premade) 4 g, Intravenous, Administer over 30 Min utes, ONCE, Ayah 08/06/17 at 1430, For 1 dose, FOR SEIZURE PROPHYLAXIS. Infuse over 30 minutes per infusion control pump. Stay with patient during loading dose. Follow vital sign orders. measles, mumps and rubella vaccine (MMR) injection 0.5 mL 0.5 mL, Subcutaneous, ONCE, Thu08/07/17 at 1000, For 1 dose, Give ONLY if not immune or equivocal / borderline / low level Rubella titer., Post-procedure scopolamine (TRANSDERM) 72 hr patch 1 patch(Linked Group 1) 1230 (Canceled Entry - Provider: Orders Generic Provider - Comment: Automatically canceled at discontinue of medication order) 1 patch, Transdermal, EVERY 72 HOURS, Fi rst dose on Thu08/07/17 at 1230, Apply patch to skin, behind ear. Remove every 72 hours. Each 1.5 mg patch delivers 1 mg of scopolamine. scopolamine (TRANSDERM-SCOP) Patch in Place(Linked Hcun up 1) 0241 (Patch in Place - Provider: Fouzia Iraheta, RN)0606 (Patch in Place - Provider: Fouzia Iraheta RN)1512 (Patch in Place - Provider: Antonette Caballero RN)2151 (Patch/Med Removed - Provider: Florencia Mendoza RN) 0849 (Not Given - Provider: Valeria Alfredo RN - Reason: Patient/family refused)1148 (Not Given - Provider: Vaelria Alfredo RN - Reason: Patient/family refused)214 (Not Given - Provider: Kristal Padron RN - Reason: Other) 1230 (Canceled Entry - Provider: Orders Generic Provider - Comment: Automatically canceled at discontinue of medication order)1231 (Canceled Entry - Provider: Milena Rasmussen RN) First dose on Thu08/07/17 at 1230, Juanita t every shift, confirming that patch is still in place on patient (no barcode scan needed). See patch order for dose information. scopolamine (TRANSDERM-SCOP) patch REMOVAL(Linked Group 1) 1230 (Canceled Entry - Provider: Orders Generic Provider - Comment: Automatically canceled at discontinue of medication order) First dose on Thu08/10/17 at 1230, Nurs e may need to adjust schedule time to match new patch application time. Old patch should be removed when new patch is applied. senna-docusate (SENOKOT-S;PERICOLACE) 8.6-50 MG per ta blet 1-2 tablet 0250 (Not Given - Provider: Fouzia Iraheta RN - Reason: Other - Comment: liquid stools)0831 (Hold - Provider: Antonette Caballero RN - Reason: Patient/family refused - Comment: diarrhea) 0842 (Not Given - Provider: Valeria Alfredo RN - Reason: Patient/family refused - Comment: diarrhea)2130 (Not Given - Provider: Kristal Padron RN - Reason: Contraindicated - Comment: patient having loose stool) 1234 (Canceled Entry - Provider: Milena Rasmussen, NAI) 1-2 tablet, Oral, 2 TIMES DAILY, First d ose on Ayah 08/06/17 at 2100, Start with 1 tablet PO BID, If no bowel movement in 24 hours, increase to 2 tablets po BID. Hold for loose stools. Preferred agent fo 2151 (Not Given - Provider: Florencia Mendoza, NAI - Reason: Other - Comment: diarrhea) r constipation related to opioids., Post-procedure sodium chloride (PF) 0.9% PF flush 3 mL (CANCELED) 032 0 (Given - Provider: Fouzia Iraheta, NAI - Comment: Flush provided when IV saline locked after completed infusion.)0834 (Given - Provider: Antonette Caballero RN)2104 (Canceled Entry - Provider: Florencia Mendoza RN) 0324 (Not Given - Provider: Fouzia Iraheta, NAI - Reason: Loss of IV access) 3 mL, Intracatheter, EVERY 8 HOURS, Firs t dose on Ayah 08/06/17 at 1730, And Q1H PRN, to lock peripheral IV dormant line., Post-procedure Continuous Medication Order 08/08/2017 08/09/2017 08/10/2017 dextrose 5% in lactated ringers infusion at 125 mL/hr, Intravenous, CONTINUOUS, S ubsequent IV at nurse's discretion. DC IV when tolerating fluids or at nurse's discretion & saline lock., Post- procedure, Starting Ayah 08/06/17 at 1730, Until Thu08/10/17 at 1627 lactated ringers infusion at 10-125 mL/hr, Intravenous, CONTINUOUS , Titrate lactated ringers rate to obtain total IV intake of 125 mL/hour, Starting Ayah 08/06/17 at 1430, Until Thu08/10/17 at 1627 lactated ringers infusion 0042 (Stopped - Provider: Ruma Iraheta RN - Comment: Magnesium no longer running, patient taking oral fluids) at 10-125 mL/hr, Intravenous, CONTINUOUS , Titrate lactated ringers rate to obtain total IV intake of 125 mL/hour, Starting Ayah 08/06/17 at 1730, Until Thu08/10/17 at 1627 magnesium sulfate infusion 2 g/hr (50 mL/hr), Intravenous, at 50 mL /hr, CONTINUOUS, Starting Ayah 08/06/17 at 1800, STOP infusion and then notify provider IF signs of magnesium toxicity appear (respirations less than 12 per minute , hypo-reflexia, bradycardia, change in neurologic status, or decreased level of consciousness, slurred speech, muscle weakness, visual disturbances or extreme thirst). Not for use beyond 5 days in pre-term labor. oxytocin (PITOCIN) 30 units in 500 mL 0.9% NaCl infusion 100 mL/hr, Intravenous, at 100 mL/hr, CO NTINUOUS, Starting Ayah 08/06/17 at 1730, Post-procedure, Anesthesia Provider to administer at 340 mL/hr for 30 minutes (or longer per provider discretion) then de crease to 100 mL/hr. Continue until a to ruben of 2 bags administered (1st bag initiated by Anesthesia Provider.) Discontinue IV or saline lock IV per nurse discretion. PRN Medication Order 08/08/2017 08/09/2017 08/10/2017 bisacodyl (DULCOLAX) Suppository 10 mg 10 mg, Rectal, DAILY PRN, constipation, Starting 08/08/17 at 0000, Start POD 2, Post-procedure calcium gluconate 10 % injection 1 g 1 g, Intravenous, ONCE PRN, magnesium torrez lfate toxicity , Administer over 3-5 Minutes, Starting Ayah 08/06/17 at 1717, For 1 dose, STOP magnesium infusion and then notify provider IF signs of magnesium to xicity appear (respirations less than 12 per minute, hypo-reflexia, bradycardia, change in neurologic status, or decreased level of consciousness, slurred speech, muscle weakness, visual disturbances, or extreme thirst). carboprost (HEMABATE) injection 250 mcg 250 mcg, Intramuscular, ONCE PRN, postpa rtum hemorrhage, Starting Ayah 08/06/17 at 1720, For 1 dose, Start IF HEMORRHAGE, Post-procedure diphenhydrAMINE (BENADRYL) capsule 25 mg(Linked Group 2) 25 mg, Oral, EVERY 6 HOURS PRN, itching, Starting Ayah 08/06/17 at 1748, Caution to be used when administering multiple Central Nervous System (CONTINUITY READER) depressing meds within a short time frame., Post-procedure diphenhydrAMINE (BENADRYL) injection 25 mg(Linked Group 2) 25 mg, Intravenous, EVERY 6 HOURS PRN, i tching, Only give if patient unable to take PO., Administer over 1-2 Minutes, Starting [facility] 08/06/17 at 1748, Caution to be used when administering multiple Centra l Nervous System (CONTINUITY READER) depressing meds w ithin a short time frame. For ordered doses up to 50 mg, give IV Push undiluted. Give each 25mg over a minimum of 1 minute. Extend in non-emergency, Post-procedure hydrocortisone 2.5 % cream Rectal, 3 TIMES DAILY PRN, hemorrhoids, Starting [facility] 08/06/17 at 1720, Apply to hemorrhoids. Send only if nurse requests., Post-procedure HYDROmorphone (PF) (DILAUDID) injection 0.3-0.5 mg 0.3-0.5 mg, Intravenous, EVERY 30 MIN W[place] N, Starting [facility] 08/06/17 at 1720, Until 08/10/17 at 1627, severe pain, Post-procedure, Offer at least every 2 hours. Notify provider for new orders if agent i neffective. Hold while on QA AUDITOR. Give IV P ush undiluted up to 4 mg. Each 2mg over 2-5 minutes. ibuprofen (ADVIL/MOTRIN) tablet 400 mg 1 850 (Given - Provider: Kristal Padron, RN) 400 mg, Oral, EVERY 6 HOURS PRN, other, cramping, Starting [facility] 08/06/17 at 1720, Begin after ketorolac (TORADOL) doses completed. Max dose 3200 mg/day., Post-procedure labetalol (NORMODYNE/TRANDATE) algorithm-medication instruction Starting [facility] 08/06/17 at 1718, Algorithm for use of labetalol (NORMODYNE,TRANDATE) for hypertension of preeclampsia labetalol (NORMODYNE/TRANDATE) injection 20 mg 20 mg, Intravenous, EVERY 10 MIN PRN, ot her, FOR ONE DOSE for severe hypertension SBP GREATER THAN or EQUAL to 160 mmHg or DBP GREATER THAN or EQUAL to 110 mmHg x 2 readings 15 minutes apart, Administer over 2-8 Minutes, Starting [facility] 08/06/17 at 1718, Notify provider on administration. DO NOT give if history of asthma, congestive heart failure or heart rate LESS than 60. Assess blood pressure every 10 minutes following each IV administratio n until target blood pressure of 140-150/90-100 mmHg is met. Then assess blood pressure every 10 minutes for one hour, then every 30 minutes for one hour and then every four hours. Administer with patie nt in supine position with hip wedge or side tilt. MAX daily dose: 300 mg/24 hours. For ordered doses up to 80 mg, give IV Push undiluted. Give each 20 mg over 2 minutes. labetalol (NORMODYNE/TRANDATE) injection 40 mg 40 mg, Intravenous, EVERY 10 MIN PRN, ot her, FOR ONE DOSE for severe hypertension SBP GREATER THAN or EQUAL to 160 mmHg or DBP GREATER THAN or EQUAL to 110 mmHg., Administer over 2-8 Minutes, Starting [facility] 08/06/17 at 1718, Give IF sub-optimal response to 20 mg labetalol (NORMODYNE/TRANDATE). Administer 10 minutes after first labetalol (NORMODYNE/TRANDATE) dose. Notify provider on administration. DO NO T give if history of asthma, congestive heart failure or heart rate LESS than 60. Assess blood pressure every 10 minutes following each IV administration until target blood pressure of 140-150/90-100 mm Hg is met. Then assess blood pressure ev nathan 10 minutes for one hour, then every 30 minutes for one hour and then every four hours. Administer with patient in supine position with hip wedge or side tilt. MAX daily dose: 300 mg/24 hours. For or dered doses up to 80 mg, give IV Push undiluted. Give each 20 mg over 2 minutes. labetalol (NORMODYNE/TRANDATE) injection 80 mg 80 mg, Intravenous, EVERY 10 MIN PRN, ot her, FOR ONE DOSE for severe hypertension SBP GREATER THAN or EQUAL 160 mmHg or DBP GREATER THAN or EQUAL 110 mmHg., Administer over 2-8 Minutes, Starting [facility] at 1718, Give IF sub-optimal respo nse to 40 mg labetolol (NORMODYNE/TRANDATE). Administer 10 minutes after second labetalol (NORMODYNE/TRANDATE) dose. Notify provider on administration. DO NOT giv e if history of asthma, congestive heart failure or heart rate LESS than 60 . Assess blood pressure every 10 minutes following each IV administration until target blood pressure of 140-150/90-100 mmHg i s met. Then assess blood pressure every 10 minutes for one hour, then every 30 minutes for one hour and then every four hours. Administer with patient in supine position with hip wedge or side tilt. MAX daily dose: 300 mg/24 hours For ordered doses up to 80 mg, give IV Push undiluted. Give each 20 mg over 2 minutes. lactated ringers BOLUS 1,000 mL Intravenous, 1,000 mL, ONCE PRN, post pa rtum hemorrhage, Starting [facility] 08/06/17 at 1720, For 1 dose, Rate: 500-1000 mL/hr. Start IF HEMORRHAGE, Post-procedure lanolin ointment Topical, EVERY 1 HOUR PRN, dry skin, sor eness, Starting [facility] 08/06/17 at 1720, Apply to sore nipples after feedings, Post-procedure lidocaine (LMX4) kit Topical, EVERY 1 HOUR PRN, pain, with VA D insertion or accessing implanted port., Starting [facility] 08/06/17 at 1720, Do NOT give if patient has a history of allergy to any local anesthetic or any jewel pr oduct. Apply 30 minutes prior to VAD ins ertion or port access. MAX Dose: 2.5 g (?? of 5 g tube), Post-procedure lidocaine 1 % 1 mL 1 mL, Other, EVERY 1 HOUR PRN, mild pain with VAD insertion or accessing implanted port, Starting [facility] 08/06/17 at 1720, Do NOT give if patient has a history of allergy to any local anesthetic or any ca ine product. MAX dose 1 mL subcutaneous OR intradermal in divided doses., Post-procedure LORazepam (ATIVAN) injection 2 mg 2 mg, Intravenous, EVERY 3 MIN PRN, seiz ures, IF unresponsive to magnesium dosing., Administer over 1 Minutes, Starting [facility] 08/06/17 at 1424, For 4 doses, For IV PUSH: Dilute with equal volume of NS. Fo r ordered doses up to 4 mg give IV Push. Administer each 2mg over 1-5 minutes. LORazepam (ATIVAN) injection 2 mg 2 mg, Intravenous, EVERY 3 MIN PRN, seiz ures, IF unresponsive to magnesium dosing., Administer over 1 Minutes, Starting [facility] 08/06/17 at 1717, For 4 doses, For IV PUSH: Dilute with equal volume of NS. Fo r ordered doses up to 4 mg give IV Push. Administer each 2mg over 1-5 minutes. magnesium sulfate 2 g in NS intermittent infusion (PharMEDium or [facility] Cmpd) 2 g, Intravenous, Administer over 5 Asmita oneil, Once PRN for SEIZURES, Starting [facility] 08/06/17 at 1717, For 1 dose, other, loading dose.for ACTIVE MANAGEMENT OF SEIZURES, give If on magnesium sulfate infusion and infuse over 5 minutes. magnesium sulfate 4 g in 100 mL sterile water (premade) 4 g, Intravenous, Administer over 15-20 Minutes, Once PRN for SEIZURES, Starting [facility] 08/06/17 at 1717, For 1 dose, other, loading dose, for ACTIVE MANAGEMENT OF SEIZURES, give If NOT on magnesium sulfate infusion and infuse over 15-20 minutes. magnesium sulfate injection 4 g 4 g, Intramuscular, ONCE PRN, seizures I F unable to obtain IV access in an emergent situation., Starting [facility] 08/06/17 at 1717, For 1 dose, Give 2 grams IM in two largest muscular sites. Must obtain from emergency cart or from pharmacy. naloxone (NARCAN) injection 0.1-0.4 mg 0.1-0.4 mg, Intravenous, EVERY 2 MIN PRN , opioid reversal, Starting [facility] 08/06/17 at 1748, For respiratory rate LESS than or EQUAL to 8. Partial reversal dose: 0.1 mg titrated q 2 minutes for Analgesia S linda Effects Monitoring Sedation Level of 3 (frequently drowsy, arousable, drifts to sleep during conversation).Full reversal dose: 0.4 mg bolus for Analgesia Side Effects Monitoring Sedation Level of 4 (somnolent, minimal or no response to st imulation). Give IV Push undiluted up to 2mg. Give each 0.4mg over 15 seconds in emergency situations. For non-emergent situations further dilute in 9mL of NS to facilitate titration of response., Post-procedure NIFEdipine (PROCARDIA) capsule 10 mg 10 mg, Oral, EVERY 20 MIN PRN, Starting [facility] 08/06/17 at 1424, IF no IV access for severe hypertension SBP GREATER THAN or EQUAL to 160 mmHg or DBP GREATER THAN or EQUAL to 110 mmHg x 2 readings 15 minut es apart., May repeat dose after 20 asmita oneil IF still unable to obtain IV access in emergent situation. Assess blood pressure every 5 minutes x 30 minutes following each dose. NIFEdipine (PROCARDIA) capsule 10 mg 10 mg, Oral, EVERY 20 MIN PRN, Starting [facility] 08/06/17 at 1717, IF no IV access for severe hypertension SBP GREATER THAN or EQUAL to 160 mmHg or DBP GREATER THAN or EQUAL to 110 mmHg x 2 readings 15 minut es apart., May repeat dose after 20 asmita oneil IF still unable to obtain IV access in emergent situation. Assess blood pressure every 5 minutes x 30 minutes following each dose. NO Rho (D) immune globulin (RhoGam) needed - mother Rh POSITIVE CONTINUOUS PRN, Starting [facility] 08/06/17 at 1720, Until 08/10/17 at 1627, Post-procedure ondansetron (ZOFRAN) injection 4 mg 4 mg, Intravenous, EVERY 6 HOURS PRN, na usea, vomiting, Administer over 2-5 Minutes, Starting [facility] 08/06/17 at 1720, If nausea not resolved in 15 minutes, notify provider before proceeding to prochlorper azine (if ordered). Irritant. For ordere d doses up to 4 mg, give IV Push undiluted over 2-5 minutes., Post-procedure oxyCODONE IR (ROXICODONE) tablet 5-10 mg 5-10 mg, Oral, EVERY 3 HOURS PRN, modera te to severe pain, Starting [facility] 08/06/17 at 1720, IF CrCl is UNKNOWN start at lowest end of dosing range. Hold while on QA AUDITOR or with regular IV opioid dosing., Post-procedure oxytocin (PITOCIN) 30 units in 500 mL 0.9% NaCl infusion 340 mL/hr, Intravenous, at 340 mL/hr, CO NTINUOUS PRN, for hemorrhage UNTIL bleeding subsided, Starting [facility] 08/06/17 at 1720, Post-procedure, When bleeding subsides decrease rate to 100 mL/hr. Notify provider immediately when infusion begun. oxytocin (PITOCIN) injection 10 Units 10 Units, Intramuscular, ONCE PRN, postp artum hemorrhage. IF no IV access is available., Starting [facility] 08/06/17 at 1720, For 1 dose, Post-procedure prochlorperazine (COMPAZINE) injection 10 mg(Linked Group 3) 10 mg, Intravenous, EVERY 6 HOURS PRN, n ausea, vomiting, Administer over 1-2 Minutes, Starting [facility] 11/23/17 at 1720, May give prochlorperazine (COMPAZINE) if nausea not resolved within 15 minutes after giving ondansetron (ZOFRAN) AND provider has been notified. If nausea still not resolved 15 minutes after prochlorperazine (COMPAZINE), then notify provider before proceeding to give metoclopramide (REG RADHA) [if ordered]. For ordered doses up to 10 mg, give IV Push undiluted. Each 5mg over 1 minute., Post-procedure prochlorperazine (COMPAZINE) Suppository 25 mg(Linked Group 3) 25 mg, Rectal, EVERY 12 HOURS PRN, nause a, vomiting, , Starting [facility] 08/06/17 at 1720, May give prochlorperazine (COMPAZINE) if nausea not resolved within 15 minutes after giving ondansetron (ZOFRAN) AND provider has been notified. If nausea s till not resolved 15 minutes after prochlorperazine (COMPAZINE), then notify provider before proceeding to give metoclopramide (REGLAN) [if ordered]., Post-procedure simethicone (MYLICON) chewable tablet 80 mg 80 mg, Oral, 4 TIMES DAILY PRN, other, g as, Starting [facility] 08/06/17 at 1720, Chew., Post-procedure sodium phosphate (FLEET ENEMA) 1 enema 1 enema, Rectal, DAILY PRN, constipation , , Starting 08/08/17 at 0000, Use if bisacodyl not effective. Start POD 2., Post-procedure Linked Groups Order Group 1: scopolamine (TRANSDERM) 72 hr patch 1 patchJump to med 1 patch, Transdermal, EVERY 72 HOURS, Fi rst dose on Thu08/07/17 at 1230
Apply patch to skin, behind ear. Remove every 72 hours. Each 1.5 mg patch delivers 1 mg of scopolamine.
And scopolamine (TRANSDERM-SCOP) Patch in PlaceJump to med First dose on Thu08/07/17 at 1230
Ch art every shift, confirming that patch is still in place on patient (no barcode scan needed). See patch order for dose information.
And scopolamine (TRANSDERM-SCOP) patch REMOVALJump to med First dose on 08/10/17 at 1230
Nu rse may need to adjust schedule time to match new patch application time. Old patch should be removed when new patch is applied.
Group 2: diphenhydrAMINE (BENADRYL) capsule 25 mgJump to med 25 mg, Oral, EVERY 6 HOURS PRN, itching, Starting [facility] 08/06/17 at 1748
Caution to be used when administering multiple Central Nervous System (CONTINUITY READER) depressing meds within a short time frame.
Post-procedure Or diphenhydrAMINE (BENADRYL) injection 25 mgJump to med 25 mg, Intravenous, EVERY 6 HOURS PRN, i tching, Only give if patient unable to take PO., Administer over 1-2 Minutes, Starting [facility] 08/06/17 at 1748
Caution to be used when administering multipl e Central Nervous System (CONTINUITY READER) depressin g meds within a short time frame. For ordered doses up to 50 mg, give IV Push undiluted. Give each 25mg over a minimum of 1 minute. Extend in non-emergency
Post-procedure Group 3: prochlorperazine (COMPAZINE) injection 10 mgJump to med 10 mg, Intravenous, EVERY 6 HOURS PRN, n ausea, vomiting, Administer over 1-2 Minutes, Starting [facility] 08/06/17 at 1720
May give prochlorperazine (COMPAZINE) if nausea not resolved within 15 minute s after giving ondansetron (ZOFRAN) AND provider has been notified. If nausea still not resolved 15 minutes after prochlorperazine (COMPAZINE), then notify provider before proceeding to give metoclopramide (REGLAN) [if orde red]. For ordered doses up to 10 mg, give IV Push undiluted. Each 5mg over 1 minute.
Post-procedure Or prochlorperazine (COMPAZINE) Suppository 25 mgJump to med 25 mg, Rectal, EVERY 12 HOURS PRN, nause a, vomiting, , Starting [facility] 08/06/17 at 1720
May give prochlorperazine (COMPAZINE) if nausea not resolved within 15 minutes after giving ondansetron (ZOF RAN) AND provider has been notified.&nbs p; If nausea still not resolved 15 minutes after prochlorperazine (COMPAZINE), then notify provider before proceeding to give metoclopramide (REGLAN) [if ordered].
Post-procedure documented in this encounter Care Teams Medical Collections Representative Relationship Specialty Start Date End Date Michelle Cortez MD PCP - General 10/06/11 documented as of this encounter
--- OUTSIDE RECORDS SUMMARY | 2022-04-23 05:00 | XMS_ITS | Encounter Summary ---
:1985 Author Organization [facility] Address [address] [place] [address] Care Team Providers Name Role Phone Andrea Rodney MD Primary Care Provider Encounter Details Date Type Department Care Team Description 07/29/2000 PN Conversion Only RASTAFARI CONVERSION Irving Alex MD Social History Tobacco Use Types Packs/Day Years Used Date Smoking Tobacco: Never Assessed Sex Assigned at Date Recorded Not on file documented as of this encounter Plan of Treatment Not on filedocumented as of this encounter Procedures Procedure Name Priority Date/Time Associated Comments Diagnosis SEXUALLY TRANSMITTED Routine 07/29/2000 7:01 PM R esults for this DISEASE PROBE MACHINE SPLITTER procedure are in the results section. ANATOMICAL PATH-C Routine 07/29/2000 9:16 AM Resu lts for this MACHINE SPLITTER procedure are i n the results section. documented in this encounter Results Sexually Transmitted Disease Probe (07/29/2000 7:01 PM MACHINE SPLITTER) [facility] Method Time Signature Sexually SEE TEXT HP CONVERSION Transmitted Disease Probe Comment: Patient: RAEGAN RABAGO Sexually Trans Disease Probe @ ?Collected: ??[id number] ??[id number] Source: CERVIX ?Processed: ??[id number] ??1930 Final Report ------ ?[id number] ??1600 No Chlamydia trachomatis by amplified DN A probe. No Neisseria gonorrhoeae by DNA probe. @ = Sexually Trans Disease Probe Perform ed at ??[address] [facility], ?[place] [address] Specimen (Source) Anatomical Collection Method Collection Time Re ceived Time Location / / Volume Laterality 07/29/2000 7:01 PM MACHINE SPLITTER Irving Alex MD LAB_1 Performing Organization Address City/State/ZIP Code Phon e Number HP CONVERSION Anatomical Path-C (07/29/2000 9:16 AM MACHINE SPLITTER) P athologist Signature PAP Smear SEE TEXT No normal HP CONVERSION range Comment: Patient: RAEGAN RABAGO ? CERVICAL CYTOLOGY REPORT Pathology # ??[id number] ?Date Obtained: [id number] ? Date Received: [id number] LMP: ?06-29-00 CLINICAL HIST CERVICAL SMEAR SPECIMEN ADEQUACY: ?? Satisfactory. ENDOCERVICAL CELLS: ??Present. CYTOLOGIC IMPRESSION: Within Normal Limits (Negative). Verified 08/13/00 by: ??LBM ?(electronic signature) Specimen (Source) Anatomical Collection Method Collection Time Re ceived Time Location / / Volume Laterality 07/29/2000 9:16 AM MACHINE SPLITTER Irving Alex MD LAB_1 Performing Organization Address City/State/ZIP Code Phon e Number HP CONVERSION documented in this encounter Visit Diagnoses Not on filedocumented in this encounter Care Teams Roll Forming Machine Set Up Mechanic Relationship Specialty Start Date End Date Andrea Rodney MD PCP - General 12/15/10 [address] [facility] [place] [id number] documented as of this encounter
--- OUTSIDE RECORDS SUMMARY | 2022-04-23 05:00 | XMS_ITS | Encounter Summary ---
:[address] [facility] Address [address] [address] Care Team Providers Name Role Phone Andrea Orozco MD Primary Care Provider Reason for Visit Reason Comments Other Encounter Details Date Type Department Care Team Description 07/02/2004 Telephone [facility], Message Other [address] [facility] [place] [address] Social History Tobacco Use Types Packs/Day Years Used Date Smoking Tobacco: Never Assessed Sex Assigned at Date Recorded Not on file documented as of this encounter [facility], Message - 07/02/2004 9:33 AM CDT Phone Note filed by Tethis S.p.A at 12/30/10 5127 Author: Tethis S.p.A Service: (none) Author Type: (none) Filed: 12/30/10 1446 Note Time: 07/02/04932 Status: Signed Executive Casino Host: [facility] MESSAGE TO CARE TEAM NAME OF CALLER:mom NAME OF CLINICIAN:penelope MESSAGE:medical question PHARMACY NAME: PHARMACY PHONE #: CALL BACK PHONE #:[phone] BEST TIME TO CALL BACK: Is it OK to leave detailed message on voicemail? Created on 02Jul2004 9:33am by EMMA HOGAN R On 02Jul2004 9:54am MICHAELA BANG wrote: Mom (Nuzhat) calling. Pt is 17 weeks . Her aoc operations intelligence officer suspects pt has been drinking because she saw yellow whites of eyes. Pt denies any drinking or drugs--just taking pre-natals. Is there any lab or test that can be run to disprove aoc operations intelligence officer's claims?? They are doing a urine at [facility]. call Mom back at #wk [phone] till 5:30pm. Pt's next appt is first week July. On 02Jul2004 12:44pm ANDREA OROZCO wrote: Needs visit. Call pt. Acknowledged by ANDREA OROZCO on 12:44pm On 02Jul2004 1:59pm CAYLA COY wrote: Patient couldn't void today, she is going to go back tomorrow to see if she can void for the test. Answered mom's questions, she had no further questions. She did tell me her daughter doesn't have yellow eyes and that she is not drinking or anything. Acknowledged by CAYLA COY on 1:59pm documented in this encounter Plan of Treatment Not on filedocumented as of this encounter Visit Diagnoses Not on filedocumented in this encounter Care Teams Derrick Boat Operator Relationship Specialty Start Date End Date Andrea Orozco MD PCP - General 12/15/10 [address] [place] [id number] documented as of this encounter
--- OUTSIDE RECORDS SUMMARY | 2022-04-23 05:00 | XMS_ITS | Encounter Summary ---
:1985 Author Organization [facility] Address [address] [place] [address] Care Team Providers Name Role Phone Andrea Orozco MD Primary Care Provider Encounter Details Date Type Department Care Team Description 11/12/2004 Routine [facility] cine Andrea Orozco, [address] [facility] [place] [address] [address] [facility] [phone] [place], [place] [address] (Wo rk) Social History Tobacco Use Types Packs/Day Years Used Date Smoking Tobacco: Never Assessed Sex Assigned at Date Recorded Not on file documented as of this encounter Last Filed Vital Signs Vital Sign Reading Time Taken Comments Blood Pressure 124/76 11/12/2004 11:19 AM GUEST SERVICES OFFICER Pulse - - Temperature - - Respiratory Rate - - Oxygen Saturation - - Inhaled Oxygen Concentration - - Weight 68.9 kg (151 lb 14.4 oz) 11/12/2004 11:19 AM C: 68.90kg GUEST SERVICES OFFICER Height - - Body Mass Index - - documented in this encounter Progress Notes Andrea Orozco MD - 11/12/2004 12:01 AM CST Progress Notes signed by Andrea Orozco MD at 11/12/04 9735 Author: Andrea Orozco MD Service: (none) Author Type: Physician Filed: 01/03/11 0329 Note Time: 11/12/04 0001 Status: Signed Fire And Safety Helper: Andrea Orozco MD (Physician) NAME: RAEGAN RABAGO MR: [id number] ACCT: [id number] VISIT: [id number] DICTATING CLINICIAN: ANDREA OROZCO MD JOB: [id number] CLINIC PROGRESS NOTE DATE OF VISIT: 11/12/2004 SUBJECTIVE: OBJECTIVE: ASSESSMENT: . PLAN: OB work sheet. JFR:[id number] C: 11/12/04 16:18 DOCUMENT: [id number] T SERVICES OFFICER documented in this encounter Plan of Treatment Not on filedocumented as of this encounter Visit Diagnoses Not on filedocumented in this encounter Care Teams Septic Cleaner Relationship Specialty Start Date End Date Andrea Orozco MD PCP - General 12/15/10 [facility] [place] [place] [address] documented as of this encounter
--- OUTSIDE RECORDS SUMMARY | 2022-04-23 05:00 | XMS_ITS | Encounter Summary ---
:1985 Author Organization [facility] Address [address] [place] [address]. [address] Care Team Providers Name Role Phone Michelle Cortez MD Primary Care Provider Encounter Details Date Type Department Care Team Description 08/17/2017 Encounter Social History Tobacco Use Types Packs/Day Years [...] documented as of this encounter Miscellaneous Notes Note - Coty Parada RN - 08/17/2017 12:44 PM CST This note was copied from a baby's chart. Discharge handouts reviewed with Elli for home storage of breast milk, how to warm milk, weaning from pumping, OTC and Rx medications. I gave her my card for follow [facility]. We discussed bottle feeding after every breast feeding. My recommendations are in the feeding plan below. I expressed my concern that 2 feedings in one session is not ideal and can cause fatique and decrease success with feedings. Feeding Plan Feed Gloria at least 8 times a day (may feed more) Some feedings will be better than others, but she should feed 8 times everyday Signs (cues) that she wants to feed may not be obvious or you may not see them 1. Body movements: fingers moving, legs, arms moving 2. Movements under the eyelids 3. Sucking sounds, mouth movements, searching for something to suck on 4. Putting hands to mouth 5. CRYING is a late cue for feeding and babe will need calming before feeding Breast fed babies feed often ?? 1 ?? hours to 3 hours between feedings ?? Your baby should NOT be sleeping more than 3 hours, wake her to feed ?? To wake your baby to feed, place skin to skin between your breasts ?? Feed on one side as completely as possible before going to the other side ?? Your breasts should feel softer after a feeding ?? You should hear or feel swallowing every 1-3 sucks during the feeding ?? Keep a log with feeding times and wet and stool diapers (at least 4-6 wet diapers and 3 stools each day) Please follow up with me in the outpatient clinic in the [address], [address] for appointments Mon/Thu/Thu afternoons Pumping Continue pumping as you are currently pumping. After Gloria is gaining weight consistently, I recommend pumping after every other feeding. Continue advancing weaning from pumping using the handout as your guide. Bottling Use paced bottle feeding for all bottle feedings. A bottle feeding should last 20 minutes. You must pump when Gloria gets a bottle feeding. When bottling right after a feeding, take time to dress her and swaddle her before offering her the bottle. NCT PROFESSOR OF ENGLISH documented in this encounter Plan of Treatment Not on filedocumented as of this encounter Visit Diagnoses Not on filedocumented in this encounter Care Teams Report Programmer Relationship Specialty Start Date End Date Michelle Cortez MD PCP - General 10/06/11 documented as of this encounter
--- OUTSIDE RECORDS SUMMARY | 2022-04-23 05:00 | XMS_ITS | Encounter Summary ---
:1985 Author Organization [facility] Address [address] [place] [address] Care Team Providers Name Role Phone Andrea Orozco MD Primary Care Provider Encounter Details Date Type Department Care Team Description 07/23/2004 Routine [facility] Andrea Orozco, 14[address] [facility] [place] [address] 141 [facility] [phone] [place], [place] [address] (Wo rk) Social History Tobacco Use Types Packs/Day Years Used Date Smoking Tobacco: Never Assessed Sex Assigned at Date Recorded Not on file documented as of this encounter Progress Notes Andrea Orozco MD - 07/23/2004 12:01 AM CST Progress Notes signed by Andrea Orozco MD at 07/24/04 1815 Author: Andrea Orozco MD Service: (none) Author Type: Physician Filed: 01/03/11 0123 Note Time: 07/23/04 0001 Status: Signed Craniologist: Andrea Orozco MD (Physician) NAME: RAEGAN RABAGO MR: [id number] ACCT: [id number] VISIT: [id number] DICTATING CLINICIAN: ANDREA OROZCO MD JOB: [id number] CLINIC PROGRESS NOTE DATE OF VISIT: 07/23/2004 SUBJECTIVE: care. OBJECTIVE: ASSESSMENT: care. PLAN: OB worksheet. [id number] C: 07/24/04 12:38 DOCUMENT: [id number] TER PORTABLE MACHINE documented in this encounter Plan of Treatment Not on filedocumented as of this encounter Visit Diagnoses Not on filedocumented in this encounter Care Teams Volleyball Assembler Relationship Specialty Start Date End Date Andrea Orozco MD PCP - General 12/15/10 [facility]5 [facility] [place] [address] documented as of this encounter
--- OUTSIDE RECORDS SUMMARY | 2022-04-23 05:00 | XMS_ITS | Encounter Summary ---
:1985 Author Organization [facility] Address [address] [place] [address]. [place] [address] Care Team Providers Name Role Phone Michelle Cortez MD Primary Care Provider Encounter Details Date Type Department Care Team Description 08/10/2017 Encounter Social History Tobacco Use Types Packs/Day [...] Notes Note - Coty Parada RN - 08/10/2017 4:38 PM CST This note was copied from a baby's chart. Insurance approval obtained for medical grade pump. Rx obtained and Father Raghu given directions [facility] to acquire pump. Pumping supplies and steam bag for cleaning given to Elli with directions to bring in all pumped breast milk. Will continue to follow and support. FOOD FRY COOK documented in this encounter Plan of Treatment Not on filedocumented as of this encounter Visit Diagnoses Not on filedocumented in this encounter Care Teams Paid Search Analyst Relationship Specialty Start Date End Date Michelle Cortez MD PCP - General 10/06/11 documented as of this encounter
--- OUTSIDE RECORDS SUMMARY | 2022-04-23 05:00 | XMS_ITS | Encounter Summary ---
:1985 Author Organization [facility] Address [address] [place] [address] Care Team Providers Name Role Phone Andrea Orozco MD Primary Care Provider Encounter Details Date Type Department Care Team Description 06/20/2004 Routine [facility] Andrea Orozco, 14[address] [facility] [place] [address] 1410 [facility] [phone] [place], [place] [address] (Wo rk) Social History Tobacco Use Types Packs/Day Years Used Date Smoking Tobacco: Never Assessed Sex Assigned at Date Recorded Not on file documented as of this encounter Progress Notes Andrea Orozco MD - 06/20/2004 12:01 AM CDT Progress Notes signed by Andrea Orozco MD at 06/21/040 Author: Andrea Orozco MD Service: (none) Author Type: Physician Filed: 01/03/11 0048 Note Time: 06/20/04 0001 Status: Signed Gasoline Pump Installer: Andrea Orozco MD (Physician) NAME: RAEGAN RABAGO MR: [id number] ACCT: [id number] VISIT: [id number] DICTATING CLINICIAN: ANDREA OROZCO MD JOB: [id number] CLINIC PROGRESS NOTE DATE OF VISIT: 06/20/2004 SUBJECTIVE: OBJECTIVE: ASSESSMENT: care. PLAN: OB worksheet. [id number] C: 06/21/04 10:10 DOCUMENT: [id number] documented in this encounter Plan of Treatment Not on filedocumented as of this encounter Visit Diagnoses Not on filedocumented in this encounter Care Teams Textile Finisher Relationship Specialty Start Date End Date Andrea Orozco MD PCP - General 12/15/10 1415 [facility] [place] [address] documented as of this encounter
--- OUTSIDE RECORDS SUMMARY | 2022-04-23 05:00 | XMS_ITS | Encounter Summary ---
:1985 Author Organization [facility] include [facility] beds at the [facility] Address [address] [place] [address] Care Team Providers Name Role Phone Andrea Rodney MD Primary Care Provider Encounter Details Date Type Department Care Team Description 09/17/2004 PN Conversion Only [place] CONVERSION Andrea Rodney, 1415 [facility] [place] [address] 141 [facility] [place] [address] (Wo rk) Social History Tobacco Use Types Packs/Day Years Used Date Smoking Tobacco: Never Assessed Sex Assigned at Date Recorded Not on file documented as of this encounter Plan of Treatment Not on filedocumented as of this encounter Procedures Procedure Name Priority Date/Time Associated Diagnosis Comme nts GLUCOSE - 1 HR. Routine 09/17/2004 8:18 AM Result s for this P.C. PREG HUMAN SERVICES SUPERVISOR procedure are i n the results section. documented in this encounter Results Glucose - 1 Hr. P.C. Preg (09/17/2004 8:18 AM HUMAN SERVICES SUPERVISOR) P athologist Signature Glucose, GTT - 131 40 - 139 HP CONVERSION 1 Hour mg/dL Specimen (Source) Anatomical Collection Method Collection Time Re ceived Time Location / / Volume Laterality 09/17/2004 8:18 AM HUMAN SERVICES SUPERVISOR Andrea Rodney MD LAB_1 Performing Organization Address City/State/ZIP Code Phon e Number HP CONVERSION documented in this encounter Visit Diagnoses Not on filedocumented in this encounter Care Teams Ecommerce Marketing Specialist Relationship Specialty Start Date End Date Andrea Rodney MD PCP - General 12/15/10 1415 [facility] [address] documented as of this encounter
--- OUTSIDE RECORDS SUMMARY | 2022-04-23 05:00 | XMS_ITS | Encounter Summary ---
:1985 Author Organization [facility] Address [address] [place] [address] Care Team Providers Name Role Phone Andrea Orozco MD Primary Care Provider Encounter Details Date Type Department Care Team Description 05/10/2004 Initial [facility] Andrea Orozco, 1415 [facility] [place] [address] 1418 [facility] [phone] [place] [address] (Wo rk) Social History Tobacco Use Types Packs/Day Years Used Date Smoking Tobacco: Never Assessed Sex Assigned at Date Recorded Not on file documented as of this encounter Progress Notes Andrea Orozco MD - 05/10/2004 12:01 AM CDT Progress Notes signed by Andrea Orozco MD at 05/14/04 1832 Author: Andrea Orozco MD Service: (none) Author Type: Physician Filed: 01/03/11 0006 Note Time: 05/10/04 0001 Status: Signed Oyster Culler: Andrea Orozco MD (Physician) NAME: RAEGAN RABAGO MR: [id number] ACCT: [id number] VISIT: [id number] DICTATING CLINICIAN: ANDREA OROZCO MD JOB: [id number] CLINIC PROGRESS NOTE DATE OF VISIT: 05/10/2004 SUBJECTIVE: A 18-year-old female here for her first OB visit. She is at approximately 8-5/7 weeks with a last menstrual period of 03/11/04. Outside ultrasound unavailable. Estimated gestational age as mentioned with an EDC of 12/16/04. Urine test was done again outside on 04/26/04. PAST MEDICAL HISTORY: Negative for hospitalization. She has had no surgeries herself. ADR/ALLERGIES: NONE. MEDICATIONS: She is taking vitamins. She is no smoking. FAMILY HISTORY: Negative for defects, multiple births, or mental retardation. SOCIAL HISTORY: The patient is involved with the father of the baby. 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 Her job does require prolonged standing. REVIEW OF SYSTEMS: Negative for significant vision problems. 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 No skin problems. No wheezing, cough, or asthma. No palpitations, known heart murmur, or hypertension. No heartburn. She does have nausea. No constipation. is negative for stones, bladder infections. No known STDs. Musculoskeletal is negative for bone, muscle, or joint concerns. Neuro is negative for headaches, migraines, seizures. Endocrine is negative for diabetes, thyroid disease. OBJECTIVE: VS: BP: 104/62. Ht: 5 ft. 3 in. Wt: 122. heart tones are heard today. Remaining exam will be delayed for another visit as time had for the patient's appointment. ASSESSMENT: Eight-week intrauterine . PLAN: First OB labs are set up. Will reevaluate in 2 weeks for Pap and full physical. Discussed regular care. [id number]:[id number] C: 05/13/04 12:28 DOCUMENT: [id number] documented in this encounter Plan of Treatment Not on filedocumented as of this encounter Visit Diagnoses Not on filedocumented in this encounter Care Teams Avionics Electrical Engineer Relationship Specialty Start Date End Date Andrea Orozoc MD PCP - General [facility]15[facility]10 [facility] [place] [address] documented as of this encounter
--- OUTSIDE RECORDS SUMMARY | 2022-04-23 05:00 | XMS_ITS | Encounter Summary ---
:1985 Author Organization [facility] Address [address] [place] [address] Care Team Providers Name Role Phone Andrea Rodney MD Primary Care Provider Reason for Visit Reason Comments Other Encounter Details Date Type Department Care Team Description 10/31/2004 Telephone [facility] Heide Jesus Other [address] [facility] [place] [address] Social History Tobacco Use Types Packs/Day Years Used Date Smoking Tobacco: Never Assessed Sex Assigned at Date Recorded Not on file documented as of this encounter Progress Notes Heide Jesus - 10/31/2004 11:54 PM CST Phone Note filed by Heide Jesus RN at 12/30/10 7877 Author: Heide Jesus RN Service: (none) Author Type: (none) Filed: 12/30/105 Note Time: 10/31/04 7305 Status: Signed Beauty Sales Advisor: Alejandra Conversion Phone Care Triage Note [facility] Rash General Nursing Reference - Adult IMPRESSION: Rash SEMI-URGENT SYMPTOMS: Rash with small, unraised red dots, Additional Symptoms: Pt. noticed little red dots on her hands that were itchy last night. Today, has flat red dots all over her arms, legs and abdomen. Doesn't think it looks like broken blood vessels. Pt. is 35 weeks and denies any change in vaginal discharge, baby moving as usual. Denies any fever or achiness or any feelings of sickness. States she just took a shower and rash felt more like it was stinging than itching. Shower was with warm water. Denies any medications or new foods, lotions or detergents. PATIENT INFORMATION: Allergies: Reviewed/updated today in LastWord --- Medications: Reviewed/updated today in LastWord --- Status: Patient is 35 week(s) . INTERIM/HOME MANAGEMENT RECOMMENDATIONS: General comfort measures for rash/dry skin: take tylenol for discomfort/pain. Give cool baths or apply cool compresses for 15-20 minutes at a time. Extreme changes in temperatures will aggravate rash. Wear clothes made of cotton or cotton blends, Avoid overdressing to prevent sweating. Advised to callback if any of the following occur: symptoms of infection, cola-colored urine, joint pain, symptoms persist or worsen, PLAN: SCHEDULED APPOINTMENT WITHIN 12 HOURS. Pt. has to check about getting off of work. She will contact her OB in the morning to discuss. Patient/Caller agrees with plan and denies additional questions. Denies any emergent, urgent symptoms Call Complete. Created on [id number] 11:54pm by HEIDE JESUS documented in this encounter Plan of Treatment Not on filedocumented as of this encounter Visit Diagnoses Not on filedocumented in this encounter Care Teams Director Surface Transportation Relationship Specialty Start Date End Date Andrea Rodney MD PCP - General 12/15/10 [address] [place] [address] documented as of this encounter
--- OUTSIDE RECORDS SUMMARY | 2022-04-23 05:00 | XMS_ITS | Encounter Summary ---
:1985 Author Organization [facility] Address [address], [place] [address] Care Team Providers Name Role Phone Andrea Rodney MD Primary Care Provider Encounter Details Date Type Department Care Team Description 06/06/2004 PN Conversion Only [place] CONVERSION Andrea Rodney, 14[address] [facility] [address] 4082 [facility] [place] [address] (Wo rk) Social History Tobacco Use Types Packs/Day Years Used Date Smoking Tobacco: Never Assessed Sex Assigned at Date Recorded Not on file documented as of this encounter Plan of Treatment Not on filedocumented as of this encounter Procedures Procedure Name Priority Date/Time Associated Comments Diagnosis SEXUALLY TRANSMITTED Routine 06/06/2004 2:45 PM R esults for this DISEASE PROBE CDT procedure are in the results section. ANATOMICAL PATH Routine 06/06/2004 8:27 AM Result s for this LIQUID BASED CDT procedure are i n the results section. documented in this encounter Results Sexually Transmitted Disease Probe (06/06/2004 2:45 PM CDT) [facility] Method Time Signature Sexually SEE TEXT HP CONVERSION Transmitted Disease Probe Comment: Patient: RAEGAN RABAGO Sexually Trans Disease Probe @ ?Collected: ??[id number] ??1445 Source: ENDOCERV ?Processed: ??[id number] ??1445 Final Report ------ ?[id number] ??1428 No Chlamydia trachomatis detected by amp lified DNA assay No Neisseria gonorrhoeae detected by amp lified DNA assay @ = Sexually Trans Disease Probe Perform ed at ??[address] ?[place] [address] Specimen (Source) Anatomical Collection Method Collection Time Re ceived Time Location / / Volume Laterality 06/06/2004 2:45 PM CDT Andrea Rodney MD LAB_1 Performing Organization Address City/State/[facility] Phon e Number HP CONVERSION Pap Smear (06/06/2004 8:27 AM CDT) [facility] gist Method Time Signature PAP Smear SEE TEXT No normal HP CONVERSION Liquid Based range Comment: Patient: RAEGAN RABAGO ? CERVICAL CYTOLOGY REPORT Pathology # ??[id number] ?Date Obtained: [id number] ? Date Received: [id number] CYTOLOGIC IMPRESSION: Negative for intraepithelial lesion or m alignancy. Fungal organisms identified. ? HERMINIA TIONAL DATA LMP: ?03-11-04 CLINICAL HIST LIQUID BASED PAP CERVICAL SPECIMEN ADEQUACY: ?? Satisfactory. ENDOCERVICAL CELLS: ??Present. Verified 06/13/04 by: ??KGM ?(electronic signature) Specimen (Source) Anatomical Collection Method Collection Time Re ceived Time Location / / Volume Laterality 06/06/2004 8:27 AM CDT Andrea Rodney MD LAB_1 Performing Organization Address City/State/ZIP Code Phon e Number HP CONVERSION documented in this encounter Visit Diagnoses Not on filedocumented in this encounter Care Teams Program Production Specialist Relationship Specialty Start Date End Date Andrea Rodney MD PCP - General 12/15/10 [address] [place] [id number] documented as of this encounter
--- OUTSIDE RECORDS SUMMARY | 2022-04-23 05:00 | XMS_ITS | Encounter Summary ---
:1985 Author Organization [facility] Address [address] [place] [address] Care Team Providers Name Role Phone Andrea Orozco MD Primary Care Provider Encounter Details Date Type Department Care Team Description 06/06/2004 Routine [facility] Andrea Orozco, 1415 [facility] [place] [address] 1418 [facility] [phone] [place] [address] (Wo rk) Social History Tobacco Use Types Packs/Day Years Used Date Smoking Tobacco: Never Assessed Sex Assigned at Date Recorded Not on file documented as of this encounter Progress Notes Andrea Orozco MD - 06/06/2004 12:01 AM CDT Progress Notes signed by Andrea Orozco MD at 06/11/042042 Author: Andrea Orozco MD Service: (none) Author Type: Physician Filed: 01/03/11 0034 Note Time: 06/06/04 0001 Status: Signed Consumer Recruiter: Andrea Orozco MD (Physician) NAME: RAEGAN RABAGO MR: [id number] ACCT: [id number] VISIT: [id number] DICTATING CLINICIAN: ANDREA OROZCO MD JOB: [id number] CLINIC PROGRESS NOTE DATE OF VISIT: 06/06/2004 SUBJECTIVE: N/A. OBJECTIVE: N/A. ASSESSMENT: care. PLAN: OB worksheet. [id number] C: 06/07/04 17:57 DOCUMENT: [id number] documented in this encounter Plan of Treatment Not on filedocumented as of this encounter Visit Diagnoses Not on filedocumented in this encounter Care Teams Bark Scaler Relationship Specialty Start Date End Date Andrea Orozco MD PCP - General 12/15/10 1415 [facility] [place] [address] documented as of this encounter
--- OUTSIDE RECORDS SUMMARY | 2022-04-23 05:00 | XMS_ITS | Encounter Summary ---
:1985 Author Organization [facility] Address [address] [place] [address] Care Team Providers Name Role Phone Michelle Cortez MD Primary Care Provider Encounter Details Date Type Department Care Team Description 08/12/2017 Encounter Social History Tobacco Use Types Packs/Day [...] Notes Note - Coty Parada RN - 08/12/2017 10:32 AM CST This note was copied from a baby's chart. As LC assisting with breast feeding. No nipple shield used, munching noted at times, ansley right afterlatching. Latch is often shallow. Techniques given to position to achieve deeper latch, focusing on chin impacting breast. 16mL per scale. Reviewed pumping strategies and due to >target for milk volume, encouraged increased rest time at night with close monitor of milk volume. Will continue to follow and support. REVERSER documented in this encounter Plan of Treatment Not on filedocumented as of this encounter Visit Diagnoses Not on filedocumented in this encounter Care Teams Sebd Teacher Relationship Specialty Start Date End Date Michelle Cortez MD PCP - General 10/06/11 documented as of this encounter
--- OUTSIDE RECORDS SUMMARY | 2022-04-23 05:00 | XMS_ITS | Encounter Summary ---
:1985 Author Organization [facility] Address [facility] [place] [address] Care Team Providers Name Role Phone Michelle Cortez MD Primary Care Provider Encounter Details Date Type Department Care Team Description 08/14/2017 Encounter Social History Tobacco Use Types Packs/Day [...] Notes Note - Coty Parada RN - 08/14/2017 5:03 PM CST This note was copied from a baby's chart. As LC observed breast feeding. Gloria is on left breast and pulls off frequently. Elli has a stronger let down on left breast and it appears it is overwhelming for babe. Switched to other breast and feeding resumed. Munching noted after latch and did not improve with techniques until milk flowing.Elli has been instructed on oral exercise with pacifier per OT to help with this. 20mL per scale. Techniques suggested to Elli for managing breast feeding on left breast. We reviewed her pumping strategies and her milk volume is increasing. She has a 4 hr sleep break at night and I discouraged alarmsetting for that night time pumping. I have suggested the time she is at home to pump every 3 /2 hours with continuing to pump after every breast feeding. Will continue to follow and support. IT HISTORIAN documented in this encounter Plan of Treatment Not on filedocumented as of this encounter Visit Diagnoses Not on filedocumented in this encounter Care Teams Day Haul [employer] Farm Charter Bus Driver Relationship Specialty Start Date End Date Michelle Cortez MD PCP - General 10/06/11 documented as of this encounter
--- OUTSIDE RECORDS SUMMARY | 2022-04-23 05:00 | XMS_ITS | Encounter Summary ---
:1985 Author Organization [facility] Address [address] [place] [address] Care Team Providers Name Role Phone Andrea rOozco MD Primary Care Provider Encounter Details Date Type Department Care Team Description 08/20/2004 Routine [facility] Andrea Orozco, 1415 [facility] [place] [address] [facility] [phone] [place], [place] [address] (Wo rk) Social History Tobacco Use Types Packs/Day Years Used Date Smoking Tobacco: Never Assessed Sex Assigned at Date Recorded Not on file documented as of this encounter Progress Notes Andrea Orozco MD - 08/20/2004 12:01 AM CST Progress Notes signed by Andrea Orozco MD at 08/21/04 1906 Author: Andrea Orozco MD Service: (none) Author Type: Physician Filed: 01/03/11 0153 Note Time: 08/20/04 0001 Status: Signed Pick Pack Worker: Andrea Orozco MD (Physician) NAME: RAEGAN RABAGO MR: [id number] ACCT: [id number] VISIT: [id number] DICTATING CLINICIAN: ANDREA OROZCO MD JOB: [id number] CLINIC PROGRESS NOTE DATE OF VISIT: 08/20/2004 SUBJECTIVE: OBJECTIVE: ASSESSMENT: care. PLAN: OB worksheet. [id number] C: 08/20/04 15:11 DOCUMENT: [id number] ARCHITECT documented in this encounter Plan of Treatment Not on filedocumented as of this encounter Visit Diagnoses Not on filedocumented in this encounter Care Teams Outbound Call Center Representative Relationship Specialty Start Date End Date Andrea Orozco MD PCP - General 12/15/[address] [facility] [place] [address] documented as of this encounter
--- OUTSIDE RECORDS SUMMARY | 2022-04-23 05:00 | XMS_ITS | Encounter Summary ---
:1985 Author Organization [facility] Address [address] [address] Care Team Providers Name Role Phone Andrea Rodney MD Primary Care Provider Reason for Visit Reason Comments Other Encounter Details Date Type Department Care Team Description 07/02/[address] Renetta James RN Other Medicine [address] [place] [address] [place] [address] Social History Tobacco Use Types Packs/Day Years Used Date Smoking Tobacco: Never Assessed Sex Assigned at Date Recorded Not on file documented as of this encounter Progress Notes Renetta James RN - 07/02/2004 2:51 AM CDT Phone Note filed by Renetta James RN at 12/30/10 3187 Author: Renetta James RN Service: (none) Author Type: Registered Nurse Filed: 12/30/10 0176 Note Time: 07/02/04250 Status: Signed Renewable Energy Engineer: Renetta James RN (Registered Nurse) Phone Care Triage Note [facility] Epigastric Pain/Discomfort Nursing Reference - Adult IMPRESSION: Epigastric Pain/Discomfort NON-URGENT SYMPTOMS: Symptoms of heartburn, burning sensation behind the sternum with nausea, Additional Symptoms: Pt states she went dancing tonight as states her doctor 'told her she could. ' Now is having some burning in her stomach and going up into her esophagus. Is 18 weeks . Wondering what she could take. PATIENT INFORMATION: Problem List: Reviewed today in LastWord today --- Allergies: Reviewed/updated today in LastWord --- Medications: Reviewed/updated today in LastWord --- Status: Patient is 18 week(s) . INTERIM/HOME MANAGEMENT RECOMMENDATIONS: For Heartburn: avoid foods high in fat, or acidic, spicy foods, eliminate tobacco products, alcohol, caffeine, and carbonated drinks, take OTC antacid of choice as directed on package, Advised to call clinic if any of the following occur: symptoms persist or worsen, PLAN: HOME MANAGEMENT ADVICE GIVEN Patient/Caller agrees with plan and denies additional questions. Denies any emergent, urgent, semi-urgent symptoms Call Complete. Created on 02Jul2004 2:51am by RENETTA JAMES documented in this encounter Plan of Treatment Not on filedocumented as of this encounter Visit Diagnoses Not on filedocumented in this encounter Care Teams Packaging Supervisor Relationship Specialty Start Date End Date Andrea Rodney MD PCP - General 12/15/[address] [place], [place] [address] [place] [address] documented as of this encounter
--- OUTSIDE RECORDS SUMMARY | 2022-04-23 05:00 | XMS_ITS | Encounter Summary ---
:1985 Author Organization [facility] Address [address], [place] [address] Care Team Providers Name Role Phone Andrea Rodney MD Primary Care Provider Encounter Details Date Type Department Care Team Description 03/21/1997 PN Conversion Only [facility] Andrea Rodney, Medicine MD [address] [facility] . [address] [place] [address] [place], [place] [id number] (Wo rk) Social History Tobacco Use Types Packs/Day Years Used Date Smoking Tobacco: Never Assessed Sex Assigned at Date Recorded Not on file documented as of this encounter Progress Notes Andrea Rodney MD - 03/21/1997 12:01 AM CDT Progress Notes signed by Andrea Rodney MD at 04/05/97 0945 Author: Andrea Rodney MD Service: (none) Author Type: Physician Filed: 01/01/11 0005 Note Time: 03/21/97 0001 Status: Signed Repairer Kiln Car: Andrea Rodney MD (Physician) IMPRESSION: Immunization update. Dysmenorrhea. Sports physical. SUBJECTIVE: 11-year-old who comes in for a sports physical. She has had no loss of consciousness in the past year. No serious injury. No loss of a paired organ. She is on no medication. OBJECTIVE: Physical exam, as indicated in the correspondence section. ASSESSMENT: Sports physical. PLAN: She is okay to participate and forms were signed. SUBJECTIVE #2: Dysmenorrhea. The patient is soon to be 12. She has had periods since 10. Her initial periods were irregular, but they now have become a little bit more approaching a monthly cycle. She has had missed periods, and indeed some periods come earlier. Consistent with her later periods now have been intense cramping and abdominal discomfort. Flow is moderate, 5-7 days, but she has missed school because of her cramps. She denies sexual activity. She has used some modest ibuprofen dosing during the time of cramping, but none prophylactically. She is having some flow today, which was not anticipated. OBJECTIVE: No exam performed today. ASSESSMENT: Dysmenorrhea. PLAN: Will attempt alternating a course of Naprosyn 375 b.i.d. 1-2 days prior to the onset of her period, if this can be judged well, and continue until the cramps no longer exist. If this is unsuccessful, she will try ibuprofen 600 mg q.i.d., again on the same dosing schedule. If both of these are ineffective, would consider a pelvic exam, a Pap at the patient's discretion, and initiation of oral contraceptives. Mother was present today and indeed stated that this is the preferred course. Will recheck in 1-2 months. SUBJECTIVE #3: Immunization update. The patient did receive her MMR, but does need a DT. OBJECTIVE: N/A ASSESSMENT: Immunization update. PLAN: DT given. HILARIOD documented in this encounter Plan of Treatment Not on filedocumented as of this encounter Visit Diagnoses Not on filedocumented in this encounter Care Teams Tunnel Miner Relationship Specialty Start Date End Date Andrea Rodney MD PCP - General 12/15/10 [address] [facility] [place] [id number] documented as of this encounter
--- OUTSIDE RECORDS SUMMARY | 2022-04-23 05:00 | XMS_ITS | Encounter Summary ---
:1985 Author Organization [facility] Address [address] [place] [address] Care Team Providers Name Role Phone Andrea Orozco MD Primary Care Provider Encounter Details Date Type Department Care Team Description 10/15/2004 Routine [facility] Andrea Orozco, [address] [facility] [place] [address] [address] [facility] [phone] [place], [place] [address] (Wo rk) Social History Tobacco Use Types Packs/Day Years Used Date Smoking Tobacco: Never Assessed Sex Assigned at Date Recorded Not on file documented as of this encounter Progress Notes Andrea Orozco MD - 10/15/2004 12:01 AM CST Progress Notes signed by Andrea Orozco MD at 10/16/04 1847 Author: Andrea Orozco MD Service: (none) Author Type: Physician Filed: 01/03/11 0255 Note Time: 10/15/04 0001 Status: Signed Nonprofit Manager: Andrea Orozco MD (Physician) NAME: RAEGAN RABAGO MR: [id number] ACCT: [id number] VISIT: [id number] DICTATING CLINICIAN: ANDREA OROZCO MD JOB: [id number] CLINIC PROGRESS NOTE DATE OF VISIT: 10/15/2004 SUBJECTIVE: OBJECTIVE: ASSESSMENT: care. PLAN: OB work sheet. [id number] C: 10/16/04 16:37 DOCUMENT: [id number] OCCUPATIONAL Andrea Orozco MD - 10/15/2004 12:01 AM CST Progress Notes signed by Andrea Orozco MD at 10/16/04 1847 Author: Andrea Orozco MD Service: (none) Author Type: Physician Filed: 01/03/11 0255 Note Time: 10/15/042010 Status: Signed Nonprofit Manager: Andrea Orozco MD (Physician) NAME: RAEGAN RABAGO MR: [id number] ACCT: [id number] VISIT: [id number] DICTATING CLINICIAN: ANDREA OROZCO MD JOB: [id number] CLINIC PROGRESS NOTE DATE OF VISIT: 10/15/2004 SUBJECTIVE: OBJECTIVE: ASSESSMENT: care. PLAN: OB work sheet. [id number] C: 10/16/04 16:37 DOCUMENT: [id number] OCCUPATIONAL documented in this encounter Plan of Treatment Not on filedocumented as of this encounter Visit Diagnoses Not on filedocumented in this encounter Care Teams Cement Handler Relationship Specialty Start Date End Date Andrea Orozco MD PCP - General 12/15/10 [facility] [place] [id number] documented as of this encounter
--- OUTSIDE RECORDS SUMMARY | 2022-04-23 05:00 | XMS_ITS | Encounter Summary ---
:1985 [facility] Address [address], [place] [address] Care Team Providers Name Role Phone Andrea Rodney MD Primary Care Provider Encounter Details Date Type Department Care Team Description 05/01/2004 PN Conversion Only ORIENTAL ORTHODOX CONVERSION Social History Tobacco Use Types Packs/Day Years Used Date Smoking Tobacco: Never Assessed Sex Assigned at Date Recorded Not on file documented as of this encounter Plan of Treatment Not on filedocumented as of this encounter Visit Diagnoses Not on filedocumented in this encounter Care Teams Office Support Assistant Relationship Specialty Start Date End Date Andrea Rodney MD PCP - General 12/15/10 [address] [place] [address] documented as of this encounter
--- OUTSIDE RECORDS SUMMARY | 2022-04-23 05:01 | XMS_ITS | Encounter Summary ---
:1985 Author Organization [facility] Address [address] [facility] [place] [address] Care Team Providers Name Role Phone Michelle Cortez MD Primary Care Provider Reason for Visit Reason Comments Ultrasound DVT/PELVIC THROMBOSIS-ON YOVANY ENOX Encounter Details Date Type Department Care Team Description 10/07/2011 Hospital Encounter [facility] Severino Sosa [facility] pecified Maternal MD Edvin complication of Medicine [place] [address] , antepartum [facility] [address] [place], [place] [address] [address] [place], [place] [phone] (Work) [phone] Social History Tobacco Use Types Packs/Day Years Used Date Never Assessed Sex Assigned at Date Recorded Not on file documented as of this encounter Medications at Time of Discharge Medication Sig Dispensed Refills Start Date End Date Enoxaparin Sodium Inject 40 mg 0 07/18/2011 (LOVENOX) 60 MG/0.6ML Subcutaneous every 12 injectionIndications: hours Deep Vein Thrombosis Vit-Fe Take 1 tablet by mouth 0 Fumarate-FA ( daily. MULTIVITAMIN PLUS IRON) 27-0.8 MG TABS documented as of this encounter Plan of Treatment Not on filedocumented as of this encounter Visit Diagnoses Diagnosis Unspecified complication of , a ntepartum documented in this encounter Care Teams Toe Laster Relationship Specialty Start Date End Date Michelle Cortez MD PCP - General 10/06/11 documented as of this encounter
--- OUTSIDE RECORDS SUMMARY | 2022-04-23 05:01 | XMS_ITS | Encounter Summary ---
:1985 Author Organization [facility] Address [address] [facility] [place] [address] Care Team Providers Name Role Phone Michelle Cortez MD Primary Care Provider Encounter Details Date Type Department Care Team Description 10/07/2011 Hospital Encounter [facility] Ian, Severino Юлияdon lesvia, Maternal Medicine [facility] [address] [facility] [address] [facility] [address] [place] [id number] [phone] Social History Tobacco Use Types Packs/Day Years [...] on filedocumented in this encounter Care Teams Geophysics Scientist Relationship Specialty Start Date End Date Michelle Cortez MD PCP - General 10/06/11 documented as of this encounter
--- OUTSIDE RECORDS SUMMARY | 2022-04-23 05:01 | XMS_ITS | Encounter Summary ---
:1985 Author Organization [facility] Address [facility] [place] [address] Care Team Providers Name Role Phone Michelle Cortez MD Primary Care Provider Reason for Visit Reason Comments Pre-Eclampsia Auth/Cert Specialty Diagnoses / Procedures Referred By Contact Refer red To Contact charhouse worker Diagnoses pre-eclampsia delivery delivered Rh Procedures SECTION [address] [place], [place] [address] Phone: Fax: Referral ID Status Reason Start Date Expiration Date Visits Requ ested Visits Authorized [id number] 1 1 Encounter Details Date Type Department Care Team Description 08/06/2017 Surgery [facility] Renetta Mcdowell SECTION PeriOp Services MD Alfonzo [address] OBSTETRICS & [place] [address] SPECIA LISTS [address] [id number] (Wo rk) Surgery Details Date/Time Status Location OR Service Patient Class Case Case Trauma Class Type Case? 08/06/17 3:40 Posted [facility] OR OR 07 Obstetrics Inpatient PM Panel 1 Procedure LRB Anes Op Region Wound Class Commen ts SECTION N/A Spinal Abdomen II-Clean Contaminat ed Surgeon Surgeon Role Service Panel Lacie Mcdowell MD Primary Obstetrics 1 documented in this encounter Social History Tobacco [...] Sign Reading Time Taken Comments Blood Pressure 137/87 08/06/2017 5:40 PM BIOLOGICAL CHEMIST Pulse 73 08/06/2017 2:40 PM BIOLOGICAL CHEMIST Temperature 36.4 ??C (97.5 ??F) 08/06/2017 5:05 PM BIOLOGICAL CHEMIST Respiratory Rate 16 08/06/2017 5:30 PM BIOLOGICAL CHEMIST Oxygen Saturation 93% 08/06/2017 5:40 PM BIOLOGICAL CHEMIST Inhaled Oxygen Concentration - - Weight 73 kg (161 lb) 08/06/2017 2:29 PM BIOLOGICAL CHEMIST Height 157.5 cm (5' 2) 08/06/2017 2:29 PM BIOLOGICAL CHEMIST Body Mass Index 29.45 08/06/2017 2:29 PM BIOLOGICAL CHEMIST documented in this encounter Discharge Summaries Lacie Mcdowell MD - 08/06/2017 2:04 PM CST Discharge Summary Elli Kim Date of : 1985 Age: [age] year old Date of Admission: 08/06/2017 Date of Discharge: 08/10/2017 2:27 PM Admitting Physician: Lacie Mcdowell MD Discharge Physician: Lacie Mcdowell MD Discharging Service: Obstetrics and Gynecology Home clinic: [facility], Dr. Michelle Cortez Admission Diagnoses: pre-eclampsia delivery [...] year old female who was transferred from [facility] on 08/06/17 for HELLP syndrome at 34.3 weeks gestation. She has had multiple prior pregnancies complicated by severe pre-eclampsia, and has known Factor V Leiden mutation, managed on Lovenox during the . She had been admitted to [place] on 08/04 with worsening blood pressures and [...] weeks for BP check Lacie Mcdowell MD OGICAL CHEMIST documented in this encounter Discharge Instructions Discharge InstructionsMilena Rasmussen RN - 08/10/2017 12:23 PM CST Postop Instructions : [phone] Start 6 weeks of Lovenox today Continue [...] questions or concerns after you return home. OGICAL CHEMIST AttachmentsThe following attachments cannot be sent through Care Everywhere. PREECLAMPSIA, UNDERSTANDING (BAHAMIAN)documented in this encounter Medications at Time of [...] will remain bed and board due to in NICU. OGICAL CHEMIST Yolande Barth MD - 08/10/2017 8:18 AM [...] for discharge and f/u in 1 week OGICAL CHEMIST Chata Marshall MD - 08/09/2017 9:40 AM [...] probably be able to wean off shortly OGICAL CHEMIST Lacie Mcdowell MD - 08/08/2017 7:15 AM [...] components found for: RUBELLA Recent Labs Lab 08/07/17 1924 08/07/17 1325 08/07/17 0550 WBC 7.8 7.8 7.4 HGB 11.5* 12.3 11.7 HCT 33.1* 34.7* 32.8* MCV 87 85 85 PLT 48* 42* 49* Recent Labs Lab 08/07/17 1924 08/07/17 1325 08/07/17 0550 CR 0.87 0.79 0.75 Recent Labs Lab 08/07/17 1924 08/07/17 1325 [...] discharge POD#3 or #4. Lacie Mcdowell MD OGICAL CHEMIST Lacie Mcdowell MD - 08/07/2017 12:11 PM [...] at that time. Lacie Mcdowell MD \ OGICAL CHEMIST Sergio Manuel RN - 08/07/2017 7:15 AM CST Lab critical value platelets level is 49. RN updated Lacie Fuller MD - 08/07/2017 1:16 AM CST Reviewed labs from 0015--platelets decreasing (now 53) and LFTs increasing significantly. Patient isstable with no increased pain per RN. Continue MgS04 2g/hr and repeating labs every 6 hours. If RUQ symptoms worsen, will evaluate liver with CT of the abdomen to assess for subcapsular hematoma. Lacie Mcdowell MD OGICAL CHEMIST Yesenia Monteiro RN - 08/06/2017 11:11 PM CST Patient has remained stable since transfer. Continues to have blurry vision causing dizziness and nausea with one episode of vomiting. Declined medication intervention at this time. Reflexes brisk, no clonus. Continues to have right upper quadrant pain, no change. Used PROFESSOR OF PUBLIC ADMINISTRATION x1 after transfer to help control pain with fundal check. Pumping initiated at 2130, encouraged 3 hour schedule. Pumped 30 mL between sides with first session, sent to NICU. Oriented to room and NICU number on board. , Raghu, present and supportive. OGICAL CHEMIST documented in this encounter H&P Notes Lacie Mcdowell MD - 08/06/2017 4:00 PM CST History and Physical Elli Kim Date of : 1985 Age: [age] year old Date of Admission: 08/06/2017 Primary care provider: Michelle Cortez Assessment and Plan: 32yo transferred from [facility] at 34.3 weeks with severe pre- eclampsia [...] year old female who was transferred from [facility] given status and worsening HELLP syndrome. Her [...] ALT 77 (H) 08/06/2017 Lacie Mcdowell MD OGICAL CHEMIST documented in this encounter Consult Notes Donavan Medeiros MD - 08/09/2017 1:32 PM CSTAssociated Order(s): HOSPITALIST IP CONSULT [facility] Hospitalist Consult Note Name: Elli Kim Date [...] and hgb stable to improved. As per grinder set up operator thread the plan is to resume sub-cu lovenox for 6 weeks post-. --recheck PLT tomorrow --would resume prophylactic dose lovenox tomorrow (40 mg daily sub-cu) as long as PLT continue to trend upward and hgb stable or improving and would monitor PLT closely moving forward (in the outpatient setting if needed). 2. Severe Preeclampsia w/ HELLP syndrome: defer management to stacker and sorter operator but appears to be improving as expected [...] 128* 200* 307* ALT 151* 191* 222* OGICAL CHEMIST Charley Mckeon LICSW - 08/07/2017 3:52 PM CSTAssociated Order(s): SOCIAL WORK IP CONSULT D: SW acknowledge consult, pt and RN requested delay in SW assessment, pt not feeling well and very tired today. OGICAL CHEMIST documented in this encounter Miscellaneous Notes Plan [...] and board in room 453 at 1427. OGICAL CHEMIST Note - Coty Parada RN - 08/10/2017 11:14 AM CST This note was copied from a baby's chart. As LC assisting with breast feeding postioning and techniques for deeper latch. Elli utilizing breast compressions and massageScripting handout given for contacting insurance company for coverage for medical grade pump. Encouraged to call before d/c to have pump for home. OGICAL CHEMIST Plan of Care - Fouzia Iraheta RN [...] on AM platelet count. Anticipated discharge 08/10/17 OGICAL CHEMIST Plan of Care - Kristal Padron RN [...] to the NICU, as she also prefers. OGICAL CHEMIST Plan of Care - Kristal Padron RN - 08/09/2017 8:50 PM CST Problem: Patient Care Overview Goal: Plan of Care/Patient Progress Review Outcome: Improving Patient is up independent in room, meeting all personal needs. Voiding without difficulty. Is pumping and bringing any EBM down to NICU, and has been down x 2 this shift via wheelchair. Blood pressuresremain slightly elevated. Validation Intern has encouraged w/c to NICU. Dim lights, resting on left side when able and a quieter room. Patient has been complaining of a headache, but denies any other preeclampticsymptoms. Patient continues to take Labetalol BID. Validation Intern will continue to check b/p's and will update MD if appears needed. Speaks positively regarding infant in NICU and that has been able to latch and breastfeed. OGICAL CHEMIST Plan of Care - Valeria Alfredo RN [...] to NICU once this shift to visit infant. Meeting expected outcomes. OGICAL CHEMIST Plan of Care - Fouzia Iraheta RN - 08/09/2017 5:13 AM CST Problem: Patient [...] would like to utilize bed and board. OGICAL CHEMIST Plan of Care - Florencia Mendoza RN [...] Senna not given , pt has diarrhea. OGICAL CHEMIST Plan of Care - Antonette Caballero RN [...] Pt desires bed and board after discharge. OGICAL CHEMIST Provider Notification - Antonette Caballero RN - 08/08/2017 8:56 AM CST 08/08/17 0755 Provider Notification Provider Name/Title Dr. Mcdowell Method of Notification Electronic Page Request Evaluate-Remote Notification Reason Lab Results Text paged lab results plt of 59 OGICAL CHEMIST Plan of Care - Fouzia Iraheta RN [...] heparin dose per verbal communication this morning. OGICAL CHEMIST Plan of Care - Annette Pastrana RN [...] to monitor and encourage patient. Annette Pastrana OGICAL CHEMIST Plan of Care - Dariana García RN - 08/07/2017 9:21 PM CST Pharmacist called regarding heparin dose. Requesting MD to consider adjusting order to once daily instead of BID. Dr Mcdowell states to d/c current heparin order. Dr Mcdowell states she will review labs in the morning and discuss anticoagulant therapy with pharmacist in the morning. OGICAL CHEMIST Provider Notification - Dariana García RN - [...] review labs before initial dose of heparin. OGICAL CHEMIST Plan of Care - Florencia Mendoza RN [...] bed , greg care done. Pneumoboots re-applied. OGICAL CHEMIST Plan of Care - Antonette Caballero RN - 08/07/2017 3:19 PM CST Problem: Patient Care Overview Goal: Plan of Care/Patient Progress Review Outcome: Improving Pt stable, vitals WNL, ex elevated B/P, see flow sheet. Pt continues to complain of nausea worsens when sitting up. Reflex and Clonus WNL. Pt has declined any pain medications. PROFESSOR OF PUBLIC ADMINISTRATION pump d/c due to not using it. Pt is pumping and sending down to NICU. 02 sats stay between 88-95%, lower end when pt is sleeping. MD aware and if it doesn't improve may do chest xray. Plan is to get patient ambulating in room and d/c rodgers this shift. OGICAL CHEMIST Provider Notification - Antonette Caballero RN - [...] doesn't improve may do chest xray later OGICAL CHEMIST Provider Notification - Antonette Caballero RN - 08/07/2017 3:01 PM CST 08/07/17 1501 Provider Notification Provider Name/Title Dr. Mcdowell Method of Notification Phone Request Evaluate-Remote Notification Reason Lab Results Updated on Mag result of 7.6 and orders to turn off mag per MD. OGICAL CHEMIST Note - Coty Parada RN - 08/07/2017 2:20 PM CST This note was copied from a baby's chart. Spoke with bedside RN Caro as I was unable to reach Elli by phone. She reports that mother hopes to come to NICU this fantasma after Mgso4 is d/cd. She is pumping and getting appropriate volume of colostrum. Will continue to follow and support. OGICAL CHEMIST Provider Notification - Antonette Caballero RN - 08/07/2017 12:36 PM CST 08/07/17 1200 Provider Notification Provider Name/Title Dr. Mcdowell Method of Notification In Department Request Evaluate-Remote Notification Reason Other Updated MD on pt status, nausea, PROFESSOR OF PUBLIC ADMINISTRATION pump. MD ok with d/c fortune cookie maker pump OGICAL CHEMIST Provider Notification - Eliza Hoyt RN - 08/07/2017 8:18 AM CST 08/07/17 0735 Provider Notification Provider Name/Title Dr Mcdowell Method of Notification Phone Request Evaluate-Remote Notification Reason Lab Results lab results reviewed with Shaina DAIGLE will be in to round later this a.m. No new orders. OGICAL CHEMIST Plan of Care - Karyna De Paz [...] Called NICU x2 for updates on baby. OGICAL CHEMIST Provider Notification - Karyna De Paz RN - 08/07/2017 1:34 AM CST 08/07/17 0133 Provider Notification Provider Name/Title Dr. Mcdowell Method of Notification Phone Notification Reason Other Dr. Mcdowell called back to order STAT labs. See orders. OGICAL CHEMIST Provider Notification - Karyna De Paz RN - 08/07/2017 1:17 AM CST 08/07/17 0116 Provider Notification Provider Name/Title Dr. Mcdowell Method of Notification Phone Request Evaluate-Remote Notification Reason Lab Results MD updated regarding lab results. Continue with current plan, continue to monitor. Labs every 6 hours. If RUQ pain gets worse, update MD. Also started Labetolol 200mg TID. OGICAL CHEMIST Plan of Care - Jaquelin Chiu RN [...] Response: Patient tolerated transfer and is stable. OGICAL CHEMIST Plan of Care - Jaquelin Chiu RN - 08/06/2017 7:51 PM CST VSS WNL. Pt stable. Pt brought to NICU to see baby accompanied by RN. OGICAL CHEMIST Provider Notification - Jaquelin Chiu RN - 08/06/2017 6:13 PM BIOLOGICAL CHEMIST 08/06/171811 Provider Notification Provider Name/Title DR Mcdowell Method of Notification Phone Notification Reason Status Update Updated MD that pt had a moderate sized clot. stated to give 800mcg of cytotec rectally. OGICAL CHEMIST Op Note - Shaina, Lacie Mejía MD - 08/06/2017 5:29 PM CST DATE [...] time of admission. She was transferred from [facility] for severe preeclampsia and HELLP syndrome. She [...] past 2 weeks and was admitted to [facility] 2 days ago given severe range blood [...] closed and thick per the exam at [facility], and she was having no contractions at [...] cord clamping was performed given prematurity. The was then handed off to the NICU [...] at completion of the procedure. FINDINGS: Liveborn female, weight of 4 pounds 1 ounce. Apgars of 8 and 8. Normal uterus, tubes and ovaries bilaterally. ESTIMATED BLOOD LOSS: 700 mL. LACIE MCDOWELL MD MT: [id number] Name: ELLI KIM Account: [id number] : 1985 Procedure Date: 08/06/2017 Document: [id number] OGICAL CHEMIST Brief Op Note - Lacie Mcdowell MD - 08/06/2017 5:23 PM BIOLOGICAL CHEMIST [facility] Brief Operative Note Pre-operative diagnosis: 32yo at [...] uterus, tubes and ovaries. Lacie Mcdowell MD OGICAL CHEMIST Plan of Care - Colten John RN - 08/06/2017 3:23 PM CST Report given to Jaquelin Cardona RN who will assume cares. OGICAL CHEMIST Provider Notification - Colten John RN - 08/06/2017 2:50 PM BIOLOGICAL CHEMIST 08/06/17 1442 Provider Notification Provider Name/Title DR Mcdowell Method of Notification Phone Request Evaluate - Remote Notification Reason Status Update;Patient Arrived Dr Mcdowell updated of pt arrival/transfer from [facility]. 32 yo 34w 3d. Pt symptoms of [...] will be in shortly to see patient. OGICAL CHEMIST documented in this encounter Plan of Treatment Pending Results Name Type Priority Associated Diagnoses Date/Ti me Surgical Path Exam Lab Routine 7 4:39 PM BIOLOGICAL CHEMIST documented as of this encounter Procedures Procedure Name Priority Date/Time Associated Comments Diagnosis INR Routine 08/10/2017 6:21 AM Results f or this BIOLOGICAL CHEMIST procedure are i n the results section. PARTIAL THROMBOPLASTIN Routine 08/10/2017 6:21 AM Results for this TIME BIOLOGICAL CHEMIST procedure are i n the results section. AST Routine 08/10/2017 6:21 AM Results f or this BIOLOGICAL CHEMIST procedure are i n the results section. ALT Routine 08/10/2017 6:21 AM Results f or this BIOLOGICAL CHEMIST procedure are i n the results section. CBC WITH PLATELETS Routine 08/10/2017 6:21 AM Res ults for this BIOLOGICAL CHEMIST procedure are i n the results section. CBC WITH PLATELETS Routine 08/09/2017 6:15 AM Res ults for this BIOLOGICAL CHEMIST procedure are i n the results section. CBC WITH PLATELETS Routine 08/08/2017 6:30 AM Res ults for this BIOLOGICAL CHEMIST procedure are i n the results section. CREATININE Timed 08/07/2017 7:24 PM Results f or this BIOLOGICAL CHEMIST procedure are i n the results section. AST Timed 08/07/2017 7:24 PM Results f or this BIOLOGICAL CHEMIST procedure are i n the results section. ALT Timed 08/07/2017 7:24 PM Results f or this BIOLOGICAL CHEMIST procedure are i n the results section. CBC WITH PLATELETS Timed 08/07/2017 7:24 PM Res ults for this BIOLOGICAL CHEMIST procedure are i n the results section. MAGNESIUM Routine 08/07/2017 1:25 PM Results f or this BIOLOGICAL CHEMIST procedure are i n the results section. CREATININE Timed 08/07/2017 1:25 PM Results f or this BIOLOGICAL CHEMIST procedure are i n the results section. AST Timed 08/07/2017 1:25 PM Results f or this BIOLOGICAL CHEMIST procedure are i n the results section. ALT Timed 08/07/2017 1:25 PM Results f or this BIOLOGICAL CHEMIST procedure are i n the results section. CBC WITH PLATELETS Timed 08/07/2017 1:25 PM Res ults for this BIOLOGICAL CHEMIST procedure are i n the results section. CREATININE Timed 08/07/2017 5:50 AM Results f or this BIOLOGICAL CHEMIST procedure are i n the results section. AST Timed 08/07/2017 5:50 AM Results f or this BIOLOGICAL CHEMIST procedure are i n the results section. ALT Timed 08/07/2017 5:50 AM Results f or this BIOLOGICAL CHEMIST procedure are i n the results section. CBC WITH PLATELETS Timed 08/07/2017 5:50 AM Res ults for this BIOLOGICAL CHEMIST procedure are i n the results section. INR STAT 08/07/2017 1:58 AM Results f or this BIOLOGICAL CHEMIST procedure are i n the results section. PARTIAL THROMBOPLASTIN STAT 08/07/2017 1:58 AM Results for this TIME BIOLOGICAL CHEMIST procedure are i n the results section. FIBRINOGEN ACTIVITY STAT 08/07/2017 1:58 AM Re sults for this BIOLOGICAL CHEMIST procedure are i n the results section. CREATININE Timed 08/07/2017 12:12 Results for this AM BIOLOGICAL CHEMIST procedure are i n the results section. AST Timed 08/07/2017 12:12 Results for this AM BIOLOGICAL CHEMIST procedure are i n the results section. ALT Timed 08/07/2017 12:12 Results for this AM BIOLOGICAL CHEMIST procedure are i n the results section. CBC WITH PLATELETS Timed 08/07/2017 12:12 Resul ts for this AM BIOLOGICAL CHEMIST procedure are i n the results section. PLACENTA PATH ORDER AND Routine 08/06/2017 6:30 PM Results for this INDICATIONS BIOLOGICAL CHEMIST procedure are i n the results section. INR Timed 08/06/2017 6:00 PM Results f or this BIOLOGICAL CHEMIST procedure are i n the results section. PARTIAL THROMBOPLASTIN Timed 08/06/2017 6:00 PM Results for this TIME BIOLOGICAL CHEMIST procedure are i n the results section. FIBRINOGEN ACTIVITY Timed 08/06/2017 6:00 PM Re sults for this BIOLOGICAL CHEMIST procedure are i n the results section. CREATININE Timed 08/06/2017 6:00 PM Results f or this BIOLOGICAL CHEMIST procedure are i n the results section. AST Timed 08/06/2017 6:00 PM Results f or this BIOLOGICAL CHEMIST procedure are i n the results section. ALT Timed 08/06/2017 6:00 PM Results f or this BIOLOGICAL CHEMIST procedure are i n the results section. CBC WITH PLATELETS Timed 08/06/2017 6:00 PM Res ults for this BIOLOGICAL CHEMIST procedure are i n the results section. SURGICAL PATHOLOGY EXAM Routine 08/06/2017 4:39 PM BIOLOGICAL CHEMIST SECTION 08/06/2017 3:54 PM pre-eclampsia BIOLOGICAL CHEMIST CREATININE STAT 08/06/2017 2:38 PM Results f or this BIOLOGICAL CHEMIST procedure are i n the results section. AST STAT 08/06/2017 2:38 PM Results f or this BIOLOGICAL CHEMIST procedure are i n the results section. ALT STAT 08/06/2017 2:38 PM Results f or this BIOLOGICAL CHEMIST procedure are i n the results section. ABO/RH TYPE AND SCREEN STAT 08/06/2017 2:38 PM Results for this BIOLOGICAL CHEMIST procedure are i n the results section. CBC WITH PLATELETS STAT 08/06/2017 2:38 PM Res ults for this BIOLOGICAL CHEMIST procedure are i n the results section. documented in this encounter Results (ABNORMAL) CBC with platelets (08/10/2017 6:21 AM BIOLOGICAL CHEMIST) Analysis Performed At Patho logist Time Signature WBC 6.3 4.0 - 11.0 08/10/2017 [facility] 10e9/L 7:06 AM [facility] RBC Count 3.80 3.8 - 5.2 08/10/2017 [facility] 10e12/L 7:06 AM [facility] Hemoglobin 11.4 (L) 11.7 - 08/10/2017 [facility] 15.7 g/dL 7:06 AM [facility] Hematocrit 33.9 (L) 35.0 - 08/10/2017 [facility] 47.0 % 7:06 AM [facility] MCV 89 78 - 100 08/10/2017 [facility] fl 7:06 AM [facility] MCH 30.0 26.5 - 08/10/2017 [facility] 33.0 pg 7:06 AM [facility] MCHC 33.6 31.5 - 08/10/2017 [facility] 36.5 g/dL 7:06 AM [facility] RDW 13.9 10.0 - 08/10/2017 [facility] 15.0 % 7:06 AM [facility] Platelet Count 90 (L) 150 - 450 08/10/2017 [facility] 10e9/L 7:06 AM [facility] Specimen Anatomical Collection Method Collection Time Receive d Time (Source) Location / / Volume Laterality Blood specimen 08/10/2017 6:21 AM 017 7:01 (specimen) BIOLOGICAL CHEMIST AM BIOLOGICAL CHEMIST Lacie Mcdowell MD LAB - BLOOD ORDERABLES Performing Organization Address City/State/ZIP Code Phon e Number M [facility] [address] [address] [facility] [address] [phone] Partial thromboplastin time (08/10/2017 6:21 AM BIOLOGICAL CHEMIST) P athologist Signature PTT 24 22 - 37 sec 08/10/2017 [facility] 7:13 AM [facility] Specimen Anatomical Collection Method Collection Time Receive d Time (Source) Location / / Volume Laterality Blood specimen 08/10/2017 6:21 AM 017 7:01 (specimen) BIOLOGICAL CHEMIST AM BIOLOGICAL CHEMIST Chata L Song MD LAB - BLOOD ORDERABLES Performing Organization Address City/[facility]/ZIP Code Phon e Number [facility] [address] [place], [place] [address] [facility] [address] [address], [facility] [phone] INR (08/10/2017 6:21 AM BIOLOGICAL CHEMIST) P athologist Signature INR 0.97 0.86 - 1.14 08/10/2017 [facility] 7:13 AM [facility] Specimen Anatomical Collection Method Collection Time Receive d Time (Source) Location / / Volume Laterality Blood specimen 08/10/2017 6:21 AM 017 7:01 (specimen) BIOLOGICAL CHEMIST AM BIOLOGICAL CHEMIST Chata Marshall MD LAB - BLOOD ORDERABLES Performing Organization Address [facility] Phon e Number [facility] [address] [place], [place] [address] [facility] [address] [address], [facility] [phone] (ABNORMAL) AST (08/10/2017 6:21 AM BIOLOGICAL CHEMIST) P athologist Signature AST 107 (H) 0 - 45 U/L 08/10/2017 [place] 7:19 AM [facility] Specimen Anatomical Collection Method Collection Time Receive d Time (Source) Location / / Volume Laterality Blood specimen 08/10/2017 6:21 AM 017 7:01 (specimen) BIOLOGICAL CHEMIST AM BIOLOGICAL CHEMIST Chata Marshall MD LAB - BLOOD ORDERABLES Performing Organization Address City/[facility]/ZIP [facility] Phon e Number [facility] [address] [place], [place] [address] [facility] [address] [address], [facility] [phone] (ABNORMAL) ALT (08/10/2017 6:21 AM BIOLOGICAL CHEMIST) P athologist Signature ALT 128 (H) 0 - 50 U/L 08/10/2017 [facility] 7:19 AM [facility] Specimen Anatomical Collection Method Collection Time Receive d Time (Source) Location / / Volume Laterality Blood specimen 08/10/2017 6:21 AM 017 7:01 (specimen) BIOLOGICAL CHEMIST AM BIOLOGICAL CHEMIST Chata Marshall MD LAB - BLOOD ORDERABLES Performing Organization Address City/State/ZIP Code Phon e Number M [facility] [address] [place], [place] [address] [facility] [address] [place], [place] [address] [phone] (ABNORMAL) CBC with platelets (08/09/2017 6:15 AM BIOLOGICAL CHEMIST) Analysis Performed At Patho logist Time Signature WBC 7.7 4.0 - 11.0 08/09/2017 [facility] 10e9/L 6:55 AM [facility] RBC Count 3.81 3.8 - 5.2 08/09/2017 [facility] 10e12/L 6:55 AM [facility] Hemoglobin 11.6 (L) 11.7 - 08/09/2017 [facility] 15.7 g/dL 6:55 AM [facility] Hematocrit 33.5 (L) 35.0 - 08/09/2017 [facility] 47.0 % 6:55 AM [facility] MCV 88 78 - 100 08/09/2017 [facility] fl 6:55 AM [facility] MCH 30.4 26.5 - 08/09/2017 [facility] 33.0 pg 6:55 AM [facility] MCHC 34.6 31.5 - 08/09/2017 [facility] 36.5 g/dL 6:55 AM [facility] RDW 14.2 10.0 - 08/09/2017 [facility] 15.0 % 6:55 AM [facility] Platelet Count 74 (L) 150 - 450 08/09/2017 [facility] 10e9/L 6:55 AM [facility] Specimen Anatomical Collection Method Collection Time Receive d Time (Source) Location / / Volume Laterality Blood specimen 08/09/2017 6:15 AM 017 6:49 (specimen) BIOLOGICAL CHEMIST AM BIOLOGICAL CHEMIST Lacie Mcdowell MD LAB - BLOOD ORDERABLES Performing Organization Address City/State/ZIP Code Phon e Number M [facility] [address] [place], [place] [address] [facility] [address] [place], [place] [address], [facility] [phone] (ABNORMAL) CBC with platelets (08/08/2017 6:30 AM BIOLOGICAL CHEMIST) Analysis Performed At Patho logist Time Signature WBC 8.5 4.0 - 11.0 08/08/2017 [facility] 10e9/L 7:17 AM [facility] RBC Count 3.78 (L) 3.8 - 5.2 08/08/2017 [facility] 10e12/L 7:17 AM [facility] Hemoglobin 11.5 (L) 11.7 - 08/08/2017 [facility] 15.7 g/dL 7:17 AM [facility] Hematocrit 33.0 (L) 35.0 - 08/08/2017 [facility] 47.0 % 7:17 AM [facility] MCV 87 78 - 100 08/08/2017 [facility] fl 7:17 AM [facility] MCH 30.4 26.5 - 08/08/2017 [facility] 33.0 pg 7:17 AM [facility] MCHC 34.8 31.5 - 08/08/2017 [facility] 36.5 g/dL 7:17 AM [facility] RDW 14.1 10.0 - 08/08/2017 [facility] 15.0 % 7:17 AM [facility] Platelet Count 59 (L) 150 - 450 08/08/2017 [facility] 10e9/L 7:17 AM [facility] Specimen Anatomical Collection Method Collection Time Receive d Time (Source) Location / / Volume Laterality Blood specimen 08/08/2017 6:30 AM 017 7:15 (specimen) BIOLOGICAL CHEMIST AM BIOLOGICAL CHEMIST Lacie Mcdowell MD LAB - BLOOD ORDERABLES Performing Organization Address City/State/ZIP Code Phon e Number Brigid [facility] [address] [place], [place] [address] [facility] [address] [place], [place] [address], [facility] [phone] Creatinine (08/07/2017 7:24 PM BIOLOGICAL CHEMIST) athologist Signature Creatinine 0.87 0.52 - 1.04 08/07/2017 [facility] mg/dL 7:50 PM [facility] GFR Estimate 75 >60 08/07/2017 [place] mL/min/1.7m 7:[address] Comment: Non GFR Calc GFR Estimate If >90 >60 mL/min/1.7m2 08/07/2017 7:50 P [facility] Comment: GFR Calc Specimen Anatomical Collection Method Collection Time Receive d Time (Source) Location / / Volume Laterality Blood specimen 08/07/2017 7:24 PM 017 7:31 (specimen) BIOLOGICAL CHEMIST PM BIOLOGICAL CHEMIST Lacie Mcdowell MD LAB - BLOOD ORDERABLES Performing Organization Address City/[facility]/ZIP [facility] [address] [place], [place] [address] [place] [address] [address] [place] [address], [facility] [phone] (ABNORMAL) ALT (08/07/2017 7:24 PM BIOLOGICAL CHEMIST) athologist Signature ALT 151 (H) 0 - 50 U/L 08/07/2017 [place] 7:50 PM [facility] Specimen Anatomical Collection Method Collection Time Receive d Time (Source) Location / / Volume Laterality Blood specimen 08/07/2017 7:24 PM 017 7:31 (specimen) BIOLOGICAL CHEMIST PM BIOLOGICAL CHEMIST Lacie Mcdowell MD LAB - BLOOD ORDERABLES Performing Organization Address City/State/ZIP [facility] Phon [facility] [address] [place], [place] [address] [facility] [address] [place] [address] [phone] (ABNORMAL) AST (08/07/2017 7:24 PM BIOLOGICAL CHEMIST) athologist Signature AST 128 (H) 0 - 45 U/L 08/07/2017 [place] 7:50 PM [facility] Specimen Anatomical Collection Method Collection Time Receive d Time (Source) Location / / Volume Laterality Blood specimen 08/07/2017 7:24 PM 017 7:31 (specimen) BIOLOGICAL CHEMIST PM BIOLOGICAL CHEMIST Lacie Mcdowell MD LAB - BLOOD ORDERABLES Performing Organization Address City/State/ZIP Code Phon e Number M [facility] [address] [place], [place] [address] [facility] [address] [phone] (ABNORMAL) CBC with platelets (08/07/2017 7:24 PM BIOLOGICAL CHEMIST) Analysis Performed At Patho logist Time Signature WBC 7.8 4.0 - 11.0 08/07/2017 [facility] 10e9/L 7:44 PM [facility] RBC Count 3.82 3.8 - 5.2 08/07/2017 [facility] 10e12/L 7:44 PM [facility] Hemoglobin 11.5 (L) 11.7 - 08/07/2017 [facility] 15.7 g/dL 7:44 PM [facility] Hematocrit 33.1 (L) 35.0 - 08/07/2017 [facility] 47.0 % 7:44 PM [facility] MCV 87 78 - 100 08/07/2017 [facility] fl 7:44 PM [facility] MCH 30.1 26.5 - 08/07/2017 [facility] 33.0 pg 7:44 PM [facility] MCHC 34.7 31.5 - 08/07/2017 [facility] 36.5 g/dL 7:44 PM [facility] RDW 13.9 10.0 - 08/07/2017 [facility] 15.0 % 7:44 PM [facility] Platelet Count 48 (LL) 150 - 450 08/07/2017 [facility] 10e9/L 7:44 PM [facility] Comment: This result has been called to COLTEN TORO (OB) by Rosy Dukes on 08 07 2017 at 1942, and has been read ba ck. Specimen Anatomical Collection Method Collection Time Receive d Time (Source) Location / / Volume Laterality Blood specimen 08/07/2017 7:24 PM 017 7:31 (specimen) BIOLOGICAL CHEMIST PM BIOLOGICAL CHEMIST Lacie Mcdowell MD LAB - BLOOD ORDERABLES Performing Organization Address City/State/ZIP Code Phon e Number M [facility] [address] [place], [place] [address] [place] [address] [address] [place], [place] [address], [facility] [phone] (ABNORMAL) Magnesium (08/07/2017 1:25 PM BIOLOGICAL CHEMIST) athologist Signature Magnesium 7.6 (HH) 1.6 - 2.3 08/07/2017 [place] mg/dL 2:49 PM [facility] Comment: Critical Value called to and read back Pete HOYT (OB) ON 08/07/17 AT 1445 BY TB Specimen Anatomical Collection Method Collection Time Receive d Time (Source) Location / / Volume Laterality 08/07/2017 1:25 PM 7 1:31 BIOLOGICAL CHEMIST PM BIOLOGICAL CHEMIST Lacie Mcdowell MD LAB - BLOOD ORDERABLES Performing Organization Address City/State/ZIP Code Phon e Number M [facility] [address] [place], [place] [address] [address], [facility] [phone] Creatinine (08/07/2017 1:25 PM BIOLOGICAL CHEMIST) athologist Signature Creatinine 0.79 0.52 - 1.04 08/07/2017 [place] mg/dL 1:48 PM [facility] GFR Estimate 83 >60 08/07/2017 [place] mL/min/1.7m 1:[address] Comment: Non GFR Calc GFR Estimate If >90 >60 mL/min/1.7m2 08/07/2017 1:48 P [facility] Comment: GFR Calc Specimen Anatomical Collection Method Collection Time Receive d Time (Source) Location / / Volume Laterality Blood specimen 08/07/2017 1:25 PM 017 1:31 (specimen) BIOLOGICAL CHEMIST PM BIOLOGICAL CHEMIST Lacie Mcdowell MD LAB - BLOOD ORDERABLES Performing Organization Address City/State/ZIP Code Phon e Number [facility] [address] [place], [place] [address] [facility] [address] [place], [place] [address], [facility] [phone] (ABNORMAL) ALT (08/07/2017 1:25 PM BIOLOGICAL CHEMIST) P athologist Signature ALT 191 (H) 0 - 50 U/L 08/07/2017 [place] 1:48 PM [facility] Specimen Anatomical Collection Method Collection Time Receive d Time (Source) Location / / Volume Laterality Blood specimen 08/07/2017 1:25 PM 017 1:31 (specimen) BIOLOGICAL CHEMIST PM BIOLOGICAL CHEMIST Lacie Mcdowell MD LAB - BLOOD ORDERABLES Performing Organization Address City/State/ZIP Code [facility] [address] [place], [place] [address] [facility] [address] [place], [place] [address], [facility] [phone] (ABNORMAL) AST (08/07/2017 1:25 PM BIOLOGICAL CHEMIST) P athologist Signature AST 200 (H) 0 - 45 U/L 08/07/2017 [place] 1:48 PM [facility] Specimen Anatomical Collection Method Collection Time Receive d Time (Source) Location / / Volume Laterality Blood specimen 08/07/2017 1:25 PM 017 1:31 (specimen) BIOLOGICAL CHEMIST PM BIOLOGICAL CHEMIST Lacie Mcdowell MD LAB - BLOOD ORDERABLES Performing Organization Address City/State/ZIP Code Phon [facility] [address] [place], [place] [address] [facility] [address] [place], [place] [address], [facility] [phone] (ABNORMAL) CBC with platelets (08/07/2017 1:25 PM BIOLOGICAL CHEMIST) Analysis Performed At Patho logist Time Signature WBC 7.8 4.0 - 11.0 08/07/2017 [facility] 10e9/L 1:40 PM [facility] RBC Count 4.08 3.8 - 5.2 08/07/2017 [facility] 10e12/L 1:40 PM [facility] Hemoglobin 12.3 11.7 - 08/07/2017 [facility] 15.7 g/dL 1:40 PM [facility] Hematocrit 34.7 (L) 35.0 - 08/07/2017 [facility] 47.0 % 1:40 PM [facility] MCV 85 78 - 100 08/07/2017 [facility] fl 1:40 PM [facility] MCH 30.1 26.5 - 08/07/2017 [facility] 33.0 pg 1:40 PM [facility] MCHC 35.4 31.5 - 08/07/2017 [facility] 36.5 g/dL 1:40 PM [facility] RDW 13.7 10.0 - 08/07/2017 [facility] 15.0 % 1:40 PM [facility] Platelet Count 42 (LL) 150 - 450 08/07/2017 [facility] 10e9/L 1:40 PM [facility] Comment: . consistent with previous Specimen Anatomical Collection Method Collection Time Receive d Time (Source) Location / / Volume Laterality Blood specimen 08/07/2017 1:25 PM 017 1:31 (specimen) BIOLOGICAL CHEMIST PM BIOLOGICAL CHEMIST Lacie Mcdowell MD LAB - BLOOD ORDERABLES Performing Organization Address City/State/ZIP Code Phon e Number M [place] [address] [address] [place] [address] [phone] Creatinine (08/07/2017 5:50 AM BIOLOGICAL CHEMIST) P athologist Signature Creatinine 0.75 0.52 - 08/07/2017 [facility] 1.04 mg/dL 6:31 AM [facility] GFR Estimate 88 >60 08/07/2017 [facility] mL/min/1.7 6:[address] GFR Estimate If >90 >60 08/07/2017 [facility] [place] mL/min/1.7 6:[address] Specimen Anatomical Collection Method Collection Time Receive d Time (Source) Location / / Volume Laterality Blood specimen 08/07/2017 5:50 AM 017 6:07 (specimen) BIOLOGICAL CHEMIST AM BIOLOGICAL CHEMIST Lacie Mcdowell MD LAB - BLOOD ORDERABLES Performing Organization Address City/State/ZIP Code Phon e Jorge [facility] [address] [place], [place] [address] [facility] [address] [place], [place] [address], [facility] [phone] (ABNORMAL) ALT (08/07/2017 5:50 AM BIOLOGICAL CHEMIST) P athologist Signature ALT 222 (H) 0 - 50 U/L 08/07/2017 [place] 6:31 AM [facility] Specimen Anatomical Collection Method Collection Time Receive d Time (Source) Location / / Volume Laterality Blood specimen 08/07/2017 5:50 AM 017 6:07 (specimen) BIOLOGICAL CHEMIST AM BIOLOGICAL CHEMIST Lacie Mcdowell MD LAB - BLOOD ORDERABLES Performing Organization Address City/State/ZIP Code Phon e Jorge [facility] [address] [place], [place] [address] [facility] [address] [place], [place] [address], [facility] [phone] (ABNORMAL) AST (08/07/2017 5:50 AM BIOLOGICAL CHEMIST) P athologist Signature AST 307 (H) 0 - 45 U/L 08/07/2017 [place] 6:31 AM [facility] Specimen Anatomical Collection Method Collection Time Receive d Time (Source) Location / / Volume Laterality Blood specimen 08/07/2017 5:50 AM 017 6:07 (specimen) BIOLOGICAL CHEMIST AM BIOLOGICAL CHEMIST Lacie Mcdowell MD LAB - BLOOD ORDERABLES Performing Organization Address City/State/ZIP Code Phon e Jorge [facility] [address] [place], [place] [address] [facility] [address] [place], [place] [address], [facility] [phone] (ABNORMAL) CBC with platelets (08/07/2017 5:50 AM BIOLOGICAL CHEMIST) Analysis Performed At Patho logist Time Signature WBC 7.4 4.0 - 11.0 08/07/2017 [facility] 10e9/L 6:23 AM [facility] RBC Count 3.88 3.8 - 5.2 08/07/2017 [facility] 10e12/L 6:23 AM [facility] Hemoglobin 11.7 11.7 - 08/07/2017 [facility] 15.7 g/dL 6:23 AM [facility] Hematocrit 32.8 (L) 35.0 - 08/07/2017 [facility] 47.0 % 6:23 AM [facility] MCV 85 78 - 100 08/07/2017 [facility] fl 6:23 AM [facility] MCH 30.2 26.5 - 08/07/2017 [facility] 33.0 pg 6:23 AM [facility] MCHC 35.7 31.5 - 08/07/2017 [facility] 36.5 g/dL 6:23 AM [facility] RDW 13.6 10.0 - 08/07/2017 [facility] 15.0 % 6:23 AM [facility] Platelet Count 49 (LL) 150 - 450 08/07/2017 [facility] 10e9/L 7:17 AM [facility] Comment: This result has been called to SERGIO RUIZ by Myrna Avelar on 08 07 2017 at 0713, and has been read back. CALLED TO SERGIO Gunn IN [place] Specimen Anatomical Collection Method Collection Time Receive d Time (Source) Location / / Volume Laterality Blood specimen 08/07/2017 5:50 AM 017 6:07 (specimen) BIOLOGICAL CHEMIST AM BIOLOGICAL CHEMIST Lacie Mcdowell MD LAB - BLOOD ORDERABLES Performing Organization Address City/State/ZIP Code Phon e Number M [facility] [address] [place] [address] [facility] [address] [place] [address] [phone] Fibrinogen activity (08/07/2017 1:58 AM BIOLOGICAL CHEMIST) P athologist Signature Fibrinogen 264 200 - 420 08/07/2017 [facility] mg/dL 2:20 AM [facility]OLOG[facility]MIST [facility]OSPITAL Specimen Anatomical Collection Method Collection Time Receive d Time (Source) Location / / Volume Laterality Blood specimen 08/07/2017 1:58 AM 017 2:04 (specimen) BIOLOGICAL CHEMIST AM BIOLOGICAL CHEMIST Lacie Mcdowell MD LAB - BLOOD ORDERABLES Performing Organization Address [facility]/ZIP Code Phon e Number [facility] [address] [place], [place] [address] [facility] [address] [place], [place] [address], [facility] [phone] Partial thromboplastin time (08/07/2017 1:58 AM BIOLOGICAL CHEMIST) P athologist Signature PTT 28 22 - 37 sec 08/07/2017 [facility] 2:20 AM BIOLOGICAL CHEMIST [facility]OSPITAL Specimen Anatomical Collection Method Collection Time Receive d Time (Source) Location / / Volume Laterality Blood specimen 08/07/2017 1:58 AM 017 2:04 (specimen) BIOLOGICAL CHEMIST AM BIOLOGICAL CHEMIST Lacie Mcdowell MD LAB - BLOOD ORDERABLES Performing Organization Address City/[facility]/ZIP Code Phon e Number [facility] [address] [place], [place] [address] [facility] [address] [place], [place] [address], [facility] [phone] INR (08/07/2017 1:58 AM BIOLOGICAL CHEMIST) P athologist Signature INR 1.12 0.86 - 1.14 08/07/2017 [facility] 2:20 AM BIOLOGICAL CHEMIST [facility]OSPITAL Specimen Anatomical Collection Method Collection Time Receive d Time (Source) Location / / Volume Laterality Blood specimen 08/07/2017 1:58 AM 017 2:04 (specimen) BIOLOGICAL CHEMIST AM BIOLOGICAL CHEMIST Lacie Mcdowell MD LAB - BLOOD ORDERABLES Performing Organization Address [facility] Phon e Number [facility] [address] [place], [place] [address] [facility] [address] [place] [address], [facility] [phone] Creatinine (08/07/2017 12:12 AM BIOLOGICAL CHEMIST) athologist Signature Creatinine 0.87 0.52 - 08/07/2017 [place] 1.04 mg/dL 1:09 AM [facility] GFR Estimate 75 >60 08/07/2017 [place] mL/min/1.7 1:[address] GFR Estimate If >90 >60 08/07/2017 [facility] [place] mL/min/1.7 1:[address] Specimen Anatomical Collection Method Collection Time Receive d Time (Source) Location / / Volume Laterality Blood specimen 08/07/2017 12:12 7 (specimen) AM BIOLOGICAL CHEMIST 12:39 AM BIOLOGICAL CHEMIST Lacie Mcdowell MD LAB - BLOOD ORDERABLES Performing Organization Address City/[facility] [place] [address] [address] [place], [place] [address] [address], [facility] [phone] (ABNORMAL) ALT (08/07/2017 12:12 AM BIOLOGICAL CHEMIST) athologist Signature ALT 254 (H) 0 - 50 U/L 08/07/2017 [place] 1:09 AM [facility] Specimen Anatomical Collection Method Collection Time Receive d Time (Source) Location / / Volume Laterality Blood specimen 08/07/2017 12:12 7 (specimen) AM BIOLOGICAL CHEMIST 12:39 AM BIOLOGICAL CHEMIST Lacie Mcdowell MD LAB - BLOOD ORDERABLES Performing Organization Address City/State/[facility] Phon Jorge [facility] [address] [place], [place] [address] [place] [address] [address] [place] [address], [facility] [phone] (ABNORMAL) AST (08/07/2017 12:12 AM BIOLOGICAL CHEMIST) athologist Signature AST 385 (H) 0 - 45 U/L 08/07/2017 [place] 1:09 AM [facility] Specimen Anatomical Collection Method Collection Time Receive d Time (Source) Location / / Volume Laterality Blood specimen 08/07/2017 12:12 7 (specimen) AM BIOLOGICAL CHEMIST 12:39 AM BIOLOGICAL CHEMIST Lacie Mcdowell MD LAB - BLOOD ORDERABLES Performing Organization Address City/State/ZIP Code Phon e Number [place] [address] [address] [place], [place] [address] [facility] [address] [phone] (ABNORMAL) CBC with platelets (08/07/2017 12:12 AM BIOLOGICAL CHEMIST) athologist Signature WBC 8.4 4.0 - 11.0 08/07/2017 [facility] 10e9/L 12:43 AM [facility] RBC Count 4.05 3.8 - 5.2 08/07/2017 [facility] 10e12/L 12:43 AM [facility] Hemoglobin 12.3 11.7 - 08/07/2017 [facility] 15.7 g/dL 12:43 AM [facility] Hematocrit 35.0 35.0 - 08/07/2017 [facility] 47.0 % 12:43 AM [facility] MCV 86 78 - 100 08/07/2017 [facility] fl 12:43 AM [facility] MCH 30.4 26.5 - 08/07/2017 [facility] 33.0 pg 12:43 AM [facility] MCHC 35.1 31.5 - 08/07/2017 [facility] 36.5 g/dL 12:43 AM [facility] RDW 13.6 10.0 - 08/07/2017 [facility] 15.0 % 12:43 AM [facility] Platelet Count 53 (L) 150 - 450 08/07/2017 [facility] 10e9/L 12:43 AM [facility] Specimen Anatomical Collection Method Collection Time Receive d Time (Source) Location / / Volume Laterality Blood specimen 08/07/2017 12:12 7 (specimen) AM BIOLOGICAL CHEMIST 12:39 AM BIOLOGICAL CHEMIST Lacie Mcdowell MD LAB - BLOOD ORDERABLES Performing Organization Address City/[facility]/ZIP [facility] Phon e Number [place] [address] [address] [place], [place] [address] [facility] [address] [place] [id number] [facility] [phone] Placenta path order and indications (08/06/2017 6:30 PM BIOLOGICAL CHEMIST) Component Value Ref Test Analysis Performed At [facility] gist Range Method Time Signature Copath Report Patient Name: ELLI KIM MR#: [id number] Specimen #: [id number] Collected: 08/06/2017 Received: 08/07/2017 Reported: 08/10/2017 15:08 [...] in diameter each. ??No lesions are identified. ??National Sales sections are submitted in two cassettes. (Dictated by: Dario beach MD 08/07/2017 10:21 AM) MICROSCOPIC: A and B. ??Microscopic examination is performed. CPT Codes: A: 14987-OE6 B: 17655-LQ9 TESTING LAB LOCATION: [place] [address], [place] ??[address] COLLECTION SITE: Client: [facility] Location: RHOB (R) Specimen Anatomical Collection Method Collection Time Receive d Time (Source) Location / / Volume Laterality Specimen from 08/06/2017 6:30 PM 08/07/20 17 9:05 placenta BIOLOGICAL CHEMIST AM BIOLOGICAL CHEMIST (specimen) Lacie Mcdowell MD LAB - BEAKER AP Performing Organization Address City/[facility]/ZIP [facility] Phon e Number [facility] Fibrinogen activity (08/06/2017 6:00 PM BIOLOGICAL CHEMIST) P athologist Signature Fibrinogen 275 200 - 420 08/06/2017 [facility] mg/dL 6:52 PM [facility]OSPITAL Specimen Anatomical Collection Method Collection Time Receive d Time (Source) Location / / Volume Laterality Blood specimen 08/06/2017 6:00 PM 017 6:36 (specimen) BIOLOGICAL CHEMIST PM BIOLOGICAL CHEMIST Lacie Mcdowell MD LAB - BLOOD ORDERABLES Performing Organization Address [facility] Phon e Number [place] [address] [address] [place], [place] [address] [place] [address] [address] [place] [address] [phone] Partial thromboplastin time (08/06/2017 6:00 PM BIOLOGICAL CHEMIST) P athologist Signature PTT 25 22 - 37 sec 08/06/2017 [facility] 6:52 PM BIOLOGICAL CHEMIST [facility] Specimen Anatomical Collection Method Collection Time Receive d Time (Source) Location / / Volume Laterality Blood specimen 08/06/2017 6:00 PM 017 6:36 (specimen) BIOLOGICAL CHEMIST PM BIOLOGICAL CHEMIST Lacie Mcdowell MD LAB - BLOOD ORDERABLES Performing Organization Address City/[facility]/ZIP [facility] Phon e Number [facility] [address] [place], [place] [address] [facility] [address] [place], [place] [address], [facility] [phone] INR (08/06/2017 6:00 PM BIOLOGICAL CHEMIST) athologist Signature INR 0.97 0.86 - 1.14 08/06/2017 [facility] 6:52 PM BIOLOGICAL CHEMIST [facility]OSPITAL Specimen Anatomical Collection Method Collection Time Receive d Time (Source) Location / / Volume Laterality Blood specimen 08/06/2017 6:00 PM 017 6:36 (specimen) BIOLOGICAL CHEMIST PM BIOLOGICAL CHEMIST Lacie Mcdowell MD LAB - BLOOD ORDERABLES Performing Organization Address [facility] Phon e Number [facility] [address] [place], [place] [address] [facility] [address] [place] [address], [facility] [phone] Creatinine (08/06/2017 6:00 PM BIOLOGICAL CHEMIST) athologist Signature Creatinine 0.73 0.52 - 08/06/2017 [place] 1.04 mg/dL 8:33 PM [facility] GFR Estimate >90 >60 08/06/2017 [place] mL/min/1.7 8:[address] GFR Estimate If >90 >60 08/06/2017 [facility] [place] mL/min/1.7 8:[address] Specimen Anatomical Collection Method Collection Time Receive d Time (Source) Location / / Volume Laterality Blood specimen 08/06/2017 6:00 PM 017 6:36 (specimen) BIOLOGICAL CHEMIST PM BIOLOGICAL CHEMIST Lacie Mcdowell MD LAB - BLOOD ORDERABLES Performing Organization Address [facility]/ZIP [facility] Phon e Number [facility] [address] [place], [place] [address] [facility] [address] [place] [address], [facility] [phone] (ABNORMAL) ALT (08/06/2017 6:00 PM BIOLOGICAL CHEMIST) P athologist Signature ALT 107 (H) 0 - 50 U/L 08/06/2017 [place] 8:33 PM [facility] Specimen Anatomical Collection Method Collection Time Receive d Time (Source) Location / / Volume Laterality Blood specimen 08/06/2017 6:00 PM 017 6:36 (specimen) BIOLOGICAL CHEMIST PM BIOLOGICAL CHEMIST Lacie Mcdowell MD LAB - BLOOD ORDERABLES Performing Organization Address [facility]/ZIP [facility] [address] [place], [place] [address] [place] [address] [address] [place] [address] [phone] (ABNORMAL) AST (08/06/2017 6:00 PM BIOLOGICAL CHEMIST) athologist Signature AST 141 (H) 0 - 45 U/L 08/06/2017 [place] 8:33 PM [facility] Specimen Anatomical Collection Method Collection Time Receive d Time (Source) Location / / Volume Laterality Blood specimen 08/06/2017 6:00 PM 017 6:36 (specimen) BIOLOGICAL CHEMIST PM BIOLOGICAL CHEMIST Lacie Mcdowell MD LAB - BLOOD ORDERABLES Performing Organization Address [facility]/ZIP [facility] [address] [place], [place] [address] [facility] [address] [place] [address] [phone] (ABNORMAL) CBC with platelets (08/06/2017 6:00 PM BIOLOGICAL CHEMIST) Analysis Performed At Patho logist Time Signature WBC 9.9 4.0 - 11.0 08/06/2017 [facility] 10e9/L 6:41 PM [facility] RBC Count 3.93 3.8 - 5.2 08/06/2017 [place] 10e12/L 6:41 PM [facility] Hemoglobin 11.8 11.7 - 08/06/2017 [facility] 15.7 g/dL 6:41 PM [facility] Hematocrit 33.9 (L) 35.0 - 08/06/2017 [facility] 47.0 % 6:41 PM [facility] MCV 86 78 - 100 08/06/2017 [facility] fl 6:41 PM [facility] MCH 30.0 26.5 - 08/06/2017 [facility] 33.0 pg 6:41 PM [facility] MCHC 34.8 31.5 - 08/06/2017 [facility] 36.5 g/dL 6:41 PM [facility] RDW 13.3 10.0 - 08/06/2017 [facility] 15.0 % 6:41 PM [facility] Platelet Count 76 (L) 150 - 450 08/06/2017 [facility] 10e9/L 6:41 PM [facility] Specimen Anatomical Collection Method Collection Time Receive d Time (Source) Location / / Volume Laterality Blood specimen 08/06/2017 6:00 PM 017 6:36 (specimen) BIOLOGICAL CHEMIST PM BIOLOGICAL CHEMIST Lacie Mcdowell MD LAB - BLOOD ORDERABLES Performing Organization Address City/State/ZIP Code Phon e Number [facility] [address] [address] [facility] [address] [phone] ABO/Rh type and screen (08/06/2017 2:38 PM BIOLOGICAL CHEMIST) [facility] gist Method Time Signature ABO A 08/06/2017 [facility] 3:27 PM [facility] RH(D) Pos [facility] Antibody Neg 08/06/2017 [facility] Screen 3:27 PM [facility] Test Valid Satin 08/06/2017 [facility] Only At [facility] 3:27 PM [facility] Specimen 08/09/2017 08/06/2017 [facility] Expires 3:27 PM [facility] Specimen Anatomical Collection Method Collection Time Receive d Time (Source) Location / / Volume Laterality Blood specimen 08/06/2017 2:38 PM 017 2:52 (specimen) BIOLOGICAL CHEMIST PM BIOLOGICAL CHEMIST Lacie Mcdowell MD LAB - BLOOD BANK TEST ORD ER Performing Organization Address City/State/ZIP Code Phon e Number M [facility] [address] [place] [address] [facility] [address] [place], [place] [address] [phone] Creatinine (08/06/2017 2:38 PM BIOLOGICAL CHEMIST) athologist Signature Creatinine 0.78 0.52 - 1.04 08/06/2017 [facility] mg/dL 3:12 PM [facility] GFR Estimate 84 >60 08/06/2017 [place] mL/min/1.7m 3:[address] Comment: Non GFR Calc GFR Estimate If >90 >60 mL/min/1.7m2 08/06/2017 3:12 P [facility] Comment: GFR Calc Specimen Anatomical Collection Method Collection Time Receive d Time (Source) Location / / Volume Laterality Blood specimen 08/06/2017 2:38 PM 017 2:52 (specimen) BIOLOGICAL CHEMIST PM BIOLOGICAL CHEMIST Lacie Mcdowell MD LAB - BLOOD ORDERABLES Performing Organization Address City/State/ZIP Code Phon e Number M [facility] [address] [address] [place] [address] [place] [address], [place] [phone] (ABNORMAL) ALT (08/06/2017 2:38 PM BIOLOGICAL CHEMIST) athologist Signature ALT 77 (H) 0 - 50 U/L 08/06/2017 [place] 3:12 PM [facility] Specimen Anatomical Collection Method Collection Time Receive d Time (Source) Location / / Volume Laterality Blood specimen 08/06/2017 2:38 PM 017 2:52 (specimen) BIOLOGICAL CHEMIST PM BIOLOGICAL CHEMIST Lacie Mcdowell MD LAB - BLOOD ORDERABLES Performing Organization Address City/State/ZIP Code Phon e Number [facility] [address] [place] [address] [place] [address] [place] [address], [place] [phone] (ABNORMAL) AST (08/06/2017 2:38 PM BIOLOGICAL CHEMIST) athologist Signature AST 92 (H) 0 - 45 U/L 08/06/2017 [facility] 3:12 PM [facility] Specimen Anatomical Collection Method Collection Time Receive d Time (Source) Location / / Volume Laterality Blood specimen 08/06/2017 2:38 PM 017 2:52 (specimen) BIOLOGICAL CHEMIST PM BIOLOGICAL CHEMIST Lacie Mcdowell MD LAB - BLOOD ORDERABLES Performing Organization Address City/State/ZIP Code Phon e Number [facility] [address] [place] [address] [facility] [address] [place] [address], [place] [phone] (ABNORMAL) CBC with platelets (08/06/2017 2:38 PM BIOLOGICAL CHEMIST) athologist [facility] WBC 10.3 4.0 - 11.0 08/06/2017 [facility] 10e9/L 2:55 PM [facility] RBC Count 4.12 3.8 - 5.2 08/06/2017 [facility] 10e12/L 2:55 PM [facility] Hemoglobin 12.4 11.7 - 08/06/2017 [facility] 15.7 g/dL 2:55 PM [facility] Hematocrit 35.1 35.0 - 08/06/2017 [facility] 47.0 % 2:55 PM [facility] MCV 85 78 - 100 08/06/2017 [facility] fl 2:55 PM [facility] MCH 30.1 26.5 - 08/06/2017 [facility] 33.0 pg 2:55 PM [facility] MCHC 35.3 31.5 - 08/06/2017 [facility] 36.5 g/dL 2:55 PM [facility] RDW 13.4 10.0 - 08/06/2017 [facility] 15.0 % 2:55 PM [facility] Platelet Count 103 (L) 150 - 450 08/06/2017 [facility] 10e9/L 2:55 PM [facility] Specimen Anatomical Collection Method Collection Time Receive d Time (Source) Location / / Volume Laterality Blood specimen 08/06/2017 2:38 PM 017 2:52 (specimen) BIOLOGICAL CHEMIST PM BIOLOGICAL CHEMIST Lacie Mcdowell MD LAB - BLOOD ORDERABLES Performing Organization Address City/State/ZIP Code Phon e Number [facility] [address] [place], [place] [address] [facility] [address], [place] [address] [phone] documented in this encounter Visit Diagnoses Not [...] , Administer over 3-5 Minutes, Starting on Yaah 08/06/17 at 171 7, For 1 dose, [...] when administering multiple C entral Nervous System (AIR TANK ASSEMBLER) depressing meds within a short time frame., Post-procedure diphenhydrAMINE (BENADRYL) injection 25 mg 25 mg, Intravenous, EVERY 6 HOURS PRN, i tching, Only give if patient unable to take PO., Administer over 1-2 Minutes, Starti ng on Ayah 08/06/17 at 1748, Caution to be used when administering multiple Central Nervous Syste m (AIR TANK ASSEMBLER) depressing meds within a short time frame. For ordered d oses up to 50 mg, give IV Push undiluted. Give each 25mg over a minimum of 1 minut e. Extend in non-emergency, Post-procedure enoxaparin (LOVENOX) injection 40 mg Given 08/10/2017 12:32 PM BIOLOGICAL CHEMIST 40 mg 40 mg, Subcutaneous, EVERY 24 HOURS, First dose on 08/10/17 at 0830 hydrocortisone 2.5 % cream Rectal, 3 TIMES DAILY PRN, hemorrhoids, Starting on Ayah 08/06/17 at 1720, Apply to hemorrhoids. Send only if nurse requests., Post-proced ure HYDROmorphone (PF) (DILAUDID) injection 0.3-0.5 mg 0.3-0.5 mg, Intravenous, EVERY 30 MIN IA N, severe pain, Starting on Ayah 08/06/17 at 1720, Offer at least every 2 hours. Notify provider fo r new orders if agent ineffective. Hold while on PROFESSOR OF PUBLIC ADMINISTRATION. Give IV Push undiluted up to 4 mg. Each 2mg over 2-5 minutes., Post-procedure ibuprofen (ADVIL/MOTRIN) tablet 400 mg Given 08/09/2017 6:50 PM BIOLOGICAL CHEMIST 400 mg 400 mg, Oral, EVERY 6 HOURS PRN, other, cramping, Starting on Ayah 08/06/17 at 1720, Begin after ketorolac (TORADOL) doses completed. Max dose 3200 mg/day., Post-procedure labetalol (NORMODYNE) tablet 200 mg Given 08/10/2017 3:27 AM BIOLOGICAL CHEMIST 200 mg 200 mg, Oral, EVERY 12 HOURS SCHEDULED, First dose (after last modification) on 08/08/17 at 1500 Given 08/09/2017 2:56 PM BIOLOGICAL CHEMIST 200 mg Given 08/09/2017 3:12 AM BIOLOGICAL CHEMIST 200 mg labetalol (NORMODYNE/TRANDATE) algorithm -medication instruction CONTINUOUS PRN, Starting on Ayah 08/06/17 at 1718, Unti l 08/10/17 at 1627 labetalol (NORMODYNE/TRANDATE) injection 20 mg Given 08/06/2017 7:33 PM BIOLOGICAL CHEMIST 20 mg 20 mg, Intravenous, EVERY 10 [...] mmHg., Administer over 2-8 Minutes, Starting on Ayah 08/06/17 at 1718, Give IF sub-optimal response [...] mmHg., Administer over 2-8 Minutes, Starting on Ayah 08/06/17 at 1718, Give IF sub-optimal response [...] ringers infusion New Bag 08/06/2017 4:30 PM BIOLOGICAL CHEMIST at 10-125 mL/hr, Intravenous, CONTINUOUS, Titrate lactated ringers rate to obtain total IV intake of 125 mL/hour, Starting on Ayah 08/06/17 at 1430, Until Thu08/10/17 at 1627 New Bag 08/06/2017 3:52 PM BIOLOGICAL CHEMIST Rate/Dose Change 08/06/2017 2:28 PM BIOLOGICAL CHEMIST 75 mL/hr 75 mL/hr lactated ringers infusion New Bag 08/07/2017 10:35 AM BIOLOGICAL CHEMIST 75 mL/hr 75 mL/hr at 10-125 mL/hr, Intravenous, CONTINUOUS, Titrate lactated ringers rate to obtain total IV intake of 125 mL/hour, Starting on Ayah 08/06/17 at 1730, Until Thu08/10/17 at 1627 New Bag 08/06/2017 8:58 PM BIOLOGICAL CHEMIST 75 mL/hr 75 mL/hr lanolin ointment Topical, EVERY 1 HOUR PRN, dry skin, sor eness, Starting on [facility] 08/06/17 at 1720, Apply to sore nipples after feedings, Post-procedure lidocaine (LMX4) kit Topical, EVERY 1 HOUR PRN, pain, with VA D insertion or accessing implanted port., Starting on [facility] 08/06/17 at 1720, Do NOT give [...] insertion or accessing implanted port, Starting on [facility] 08/06/17 at 1720, Do NOT give if patient has a history of allergy to any local anesthetic or any jewel product. MAX dose 1 mL subcutaneous OR intradermal in divided doses., Post-procedure LORazepam (ATIVAN) injection 2 mg 2 mg, Intravenous, EVERY 3 MIN PRN, seiz ures, IF unresponsive to magnesium dosing., Administer over 1 Minutes, Starting on [facility] 08/06/17 at 1424, For 4 doses, For IV PUSH: Dilute with equal volume of NS. Fo r ordered doses up to 4 mg give IV Push. Administer each 2mg over 1-5 minutes. LORazepam (ATIVAN) injection 2 mg 2 mg, Intravenous, EVERY 3 MIN PRN, seiz ures, IF unresponsive to magnesium dosing., Administer over 1 Minutes, Starting on [facility] 08/06/17 at 1717, For 4 doses, For [...] and infuse over 5 minutes., Starting on [facility] 08/06/17 at 17 17, For 1 dose magnesium sulfate 4 g in 100 mL sterile water (premade) 4 g, Intravenous, Administer over 15-20 Minutes, Once PRN for SEIZURES, other, loading dose, for ACTIVE MANAGEMENT OF S EIZURES, give If NOT on magnesium sulfate infusion and infuse over 15-20 minutes., Starting on Ayah 08/06/17 at 1717, For 1 dose magnesium sulfate infusion New Bag 08/07/2017 10:36 AM BIOLOGICAL CHEMIST 2 g/hr 50 mL/hr 2 g/hr (50 [...] pre-term labor. Rate/Dose Verify 08/07/2017 10:00 AM BIOLOGICAL CHEMIST 2 g/hr 50 mL/hr Rate/Dose Verify 08/07/2017 8:00 AM BIOLOGICAL CHEMIST 2 g/hr 50 mL/hr magnesium sulfate injection 4 g 4 g, Intramuscular, ONCE PRN, seizures I F unable to obtain IV access in an emergent situation., Starting on Ayah 08/06/17 at 1717, For 1 dose, Give 2 grams IM in two largest muscular sites. Must obtain from emergency car t or from pharmacy. naloxone (NARCAN) injection 0.1-0.4 [...] on Ayah 08/06/17 at 1720, Unti l [facility] 08/10/17 at 1627, Post-procedure ondansetron (ZOFRAN) injection 4 mg Given 08/07/2017 10:37 AM BIOLOGICAL CHEMIST 4 mg 4 mg, Intravenous, EVERY 6 [...] end of dosing range. Hold while on PROFESSOR OF PUBLIC ADMINISTRATION or with regular IV opioid dosing., Post-procedure oxytocin (PITOCIN) 30 units in New Bag 08/06/2017 6:25 PM BIOLOGICAL CHEMIST 100 mL/hr 100 mL/hr 500 mL 0.9% [...] (TRANSDERM) 72 hr Given 08/07/2017 1:34 PM BIOLOGICAL CHEMIST 1 pat ch Behind Right Ear patch [...] DAILY PRN, other, gas, Starting o n Ayah 08/06/17 at 1720, Chew., Post-procedure sodium phosphate (FLEET ENEMA) 1 enema 1 enema, Rectal, DAILY PRN, constipation , , Starting on 08/08/17 at 0000, Use if bisacodyl not effective. Start POD 2., Post-procedu re documented in this encounter Active and Recently Administered Medications Times are shown in BIOLOGICAL CHEMIST. Scheduled Medication Order 08/08/2017 08/09/2017 08/10/2017 enoxaparin (LOVENOX) injection 40 mg 1232 (Given - Provider: Milena Rasmussen, NAI) 40 mg, Subcutaneous, EVERY 24 HOURS, First dose on Thu08/10/17 at 0830 fentaNYL (PF) (SUBLIMAZE) injection 50 mcg 50 mcg, Intravenous, ONCE, Ayah 08/06/17 at 1545, For 1 dose, Give IV Push undiluted over a minimum of 3-5 minutes up to 100 mcg. labetalol (NORMODYNE) tablet 200 mg (CANCELED) 0242 (Saul iven - Provider: Fouzia Iraheta, NAI) 200 mg, Oral, EVERY 8 HOURS SCHEDULED, First dose on Thu 7 at 0100 labetalol (NORMODYNE) tablet 200 mg 1513 (Given - Provider: Antonette Caballero RN) 0312 (Given - Provider: Fouzia Iraheta RN)1456 (Given - Provider: Valeria Alfredo, RN) 0327 (Given - Provider: Fouzia sullivan RN) 200 mg, Oral, EVERY 12 HOURS [...] of scopolamine. scopolamine (TRANSDERM-SCOP) Patch in Place(Linked Chun up 1) 0241 (Patch in Place - Provider: Fouzia Iraheta RN)0606 (Patch in Place - Provider: Fouzia Iraheta, NAI)1512 (Patch in Place - Provider: Antonette Caballero RN)2151 (Patch/Med Removed - Provider: Florencia Mendoza RN) 0849 (Not Given - Provider: Valeria Alfredo, NAI - Reason: Patient/family refused)1148 (Not Given - Provider: Valeria Alfredo, NAI - Reason: Patient/family refused)2149 (Not Given - Provider: Kristal Padron RN - Reason: Other) 1230 (Canceled Entry - Provider: Orders Generic Provider - Comment: Automatically canceled at discontinue of medication order)1231 (Canceled Entry - Provider: Milena Rasmussen, NAI) First dose on Thu08/07/17 at 1230, Juanita t every shift, confirming that patch is still in place on patient (no barcode scan needed). See patch order for dose information. scopolamine (TRANSDERM-SCOP) patch REMOVAL(Linked Group 1) 1230 (Canceled Entry - Provider: Orders Generic Provider - Comment: Automatically canceled at discontinue of medication order) First dose on 08/10/17 at 1230, Nurs e may need to [...] Hold for loose stools. Preferred agent fo 2150 (Not Given - Provider: Florencia Mendoza RN - Reason: Other - Comment: diarrhea) r constipation related to opioids., Post-procedure sodium chloride (PF) 0.9% PF flush 3 mL (CANCELED) 032 0 (Given - Provider: Fouzia Iraheta RN - Comment: Flush provided when IV saline locked after completed infusion.)0834 (Given - Provider: Antonette Caballero, NAI)2104 (Canceled Entry - Provider: Florencia Mendoza RN) [...] procedure, Starting Ayah 08/06/17 at 1730, Until 08/10/17 at 1627 lactated ringers infusion at 10-125 mL/hr, Intravenous, CONTINUOUS , Titrate lactated ringers rate to obtain total IV intake of 125 mL/hour, Starting Ayah 08/06/17 at 1430, Until 08/10/17 at 1627 lactated ringers infusion 0042 (Stopped [...] used when administering multiple Central Nervous System (AIR TANK ASSEMBLER) depressing meds within a short time frame., Post-procedure diphenhydrAMINE (BENADRYL) injection 25 mg(Linked Group 2) 25 mg, Intravenous, EVERY 6 HOURS PRN, i tching, Only give if patient unable to take PO., Administer over 1-2 Minutes, Starting Ayah 08/06/17 at 1748, Caution to be used when administering multiple Centra l Nervous System (AIR TANK ASSEMBLER) depressing meds w ithin a short time frame. For ordered doses up to 50 mg, give IV Push undiluted. Give each 25mg over a minimum of 1 minute. Extend in non-emergency, Post-procedure hydrocortisone 2.5 % cream Rectal, 3 TIMES DAILY PRN, hemorrhoids, Starting Ayah 08/06/17 at 1720, Apply to hemorrhoids. Send only if nurse requests., Post-procedure HYDROmorphone (PF) (DILAUDID) injection 0.3-0.5 mg 0.3-0.5 mg, Intravenous, EVERY 30 MIN IA N, Starting Ayah 08/06/17 at 1720, Until 08/10/17 at 1627, severe pain, Post-procedure, Offer at least every 2 hours. Notify provider for new orders if agent i neffective. Hold while on PROFESSOR OF PUBLIC ADMINISTRATION. Give IV P ush undiluted up to 4 mg. Each 2mg over 2-5 minutes. ibuprofen (ADVIL/MOTRIN) tablet 400 mg 1 850 (Given - Provider: Kristal Padron RN) 400 mg, Oral, EVERY 6 HOURS PRN, other, cramping, Starting [facility] 08/06/17 at 1720, Begin after ketorolac (TORADOL) doses completed. Max dose 3200 mg/day., Post-procedure labetalol (NORMODYNE/TRANDATE) algorithm-medication instruction Starting [facility] 08/06/17 at 1718, Algorithm for use of labetalol (NORMODYNE,TRANDATE) for hypertension of preeclampsia labetalol (NORMODYNE/TRANDATE) injection 20 mg 20 mg, Intravenous, EVERY 10 MIN PRN, ot her, FOR ONE DOSE for severe hypertension SBP GREATER THAN or EQUAL to 160 mmHg or DBP GREATER THAN or EQUAL to 110 mmHg x 2 readings 15 minutes apart, Administer over 2-8 Minutes, Starting [facility] 08/06/17 at 1718, Notify provider on [...] 110 mmHg., Administer over 2-8 Minutes, Starting [facility] 08/06/17 at 1718, Give IF sub-optimal response [...] 110 mmHg., Administer over 2-8 Minutes, Starting Ayah at 1718, Give IF sub-optimal respo nse [...] ONCE PRN, post pa rtum hemorrhage, Starting Ayah 08/06/17 at 1720, For 1 dose, Rate: 500-1000 mL/hr. Start IF HEMORRHAGE, Post-procedure lanolin ointment Topical, EVERY 1 HOUR PRN, dry skin, sor eness, Starting Ayah 08/06/17 at 1720, Apply to sore nipples after feedings, Post-procedure lidocaine (LMX4) kit Topical, EVERY 1 HOUR PRN, pain, with VA D insertion or accessing implanted port., Starting Ayah 08/06/17 at 1720, Do NOT give [...] VAD insertion or accessing implanted port, Starting Ayah 08/06/17 at 1720, Do NOT give if patient has a history of allergy to any local anesthetic or any ca ine product. MAX dose 1 mL subcutaneous OR intradermal in divided doses., Post-procedure LORazepam (ATIVAN) injection 2 mg 2 mg, Intravenous, EVERY 3 MIN PRN, seiz ures, IF unresponsive to magnesium dosing., Administer over 1 Minutes, Starting Ayah 08/06/17 at 1424, For 4 doses, For IV PUSH: Dilute with equal volume of NS. Fo r ordered doses up to 4 mg give IV Push. Administer each 2mg over 1-5 minutes. LORazepam (ATIVAN) injection 2 mg 2 mg, Intravenous, EVERY 3 MIN PRN, seiz ures, IF unresponsive to magnesium dosing., Administer over 1 Minutes, Starting Ayah 08/06/17 at 1717, For 4 doses, For IV PUSH: Dilute with equal volume of NS. Fo r ordered doses up to 4 mg give IV Push. Administer each 2mg over 1-5 minutes. magnesium sulfate 2 g in NS intermittent infusion (PharMEDium or [facility] Cmpd) 2 g, Intravenous, Administer over 5 Asmita oneil, Once PRN for SEIZURES, Starting [facility] 08/06/17 at 1717, For 1 dose, other, [...] es apart., May repeat dose after 20 asmiat oneil IF still unable to obtain IV [...] end of dosing range. Hold while on PROFESSOR OF PUBLIC ADMINISTRATION or with regular IV opioid dosing., Post-procedure [...] IF no IV access is available., Starting Ayah 08/06/17 at 1720, For 1 dose, Post-procedure prochlorperazine (COMPAZINE) injection 10 mg(Linked Group 3) 10 mg, Intravenous, EVERY 6 HOURS PRN, n ausea, vomiting, Administer over 1-2 Minutes, Starting Ayah 08/06/17 at 1720, May give [...] patch REMOVALJump to med First dose on Thu08/10/17 at 1230
Nu rse may need to adjust schedule time to match new patch application time. Old patch should be removed when new patch is applied.
Group 2: diphenhydrAMINE (BENADRYL) capsule 25 mgJump to med 25 mg, Oral, EVERY 6 HOURS PRN, itching, Starting Ayah 08/06/17 at 1748
Caution to be used when administering multiple Central Nervous System (AIR TANK ASSEMBLER) depressing meds within a short time frame.
Post-procedure Or diphenhydrAMINE (BENADRYL) injection 25 mgJump to med 25 mg, Intravenous, EVERY 6 HOURS PRN, i tching, Only give if patient unable to take PO., Administer over 1-2 Minutes, Starting Ayah 08/06/17 at 1748
Caution to be used when administering multipl e Central Nervous System (AIR TANK ASSEMBLER) depressin g meds within a short time [...]
Post-procedure documented in this encounter Care Teams Java Web User Interface Developer Relationship Specialty Start Date End Date Michelle Cortez MD PCP - General 10/06/11 documented as of this encounter
--- OUTSIDE RECORDS SUMMARY | 2022-04-23 05:01 | XMS_ITS | Encounter Summary ---
:1985 Author Organization [facility] Address [address] [place] [address] Care Team Providers Name Role Phone Michelle Cortez MD Primary Care Provider Reason for Visit Reason Comments Ultrasound DVT/PELVIC THROMBOSIS-ON YOVANY ENOX DX @ 13 WEEKS IN [place], ON [address]. NO CARE IN [place] FROM 06/19-10/03 Encounter Details Date Type Department Care Team Description 10/06/2011 PRE VISIT [facility], Ultrasound (DVT/PELVIC Maternal Medicine NAI Jimenez THRO MBOSIS-ON [place] DX [facility] @ 13 WEEKS IN [place], ON [address]. [address] CARE IN FROM [place], [place] 06/19-10/03) [id number] Social History Tobacco Use Types Packs/Day Years Used Date Never Assessed Sex Assigned at Date Recorded Not on file documented as of this encounter Last Filed Vital Signs Vital Sign Reading Time Taken Comments Blood Pressure - - Pulse - - Temperature - - Respiratory Rate - - Oxygen Saturation - - Inhaled Oxygen Concentration - - Weight - - Height 160 cm (5' 3) 10/06/2011 2:23 PM HOME STEREO EQUIPMENT INSTALLER Body Mass Index - - documented in this encounter Plan of Treatment Not on filedocumented as of this encounter Visit Diagnoses Not on filedocumented in this encounter Care Teams Stucco Worker Relationship Specialty Start Date End Date Michelle Cortez MD PCP - General 10/06/11 documented as of this encounter
--- OUTSIDE RECORDS SUMMARY | 2022-04-23 05:01 | XMS_ITS | Encounter Summary ---
:1985 Author Organization [facility] Address [address] [place] [address] Care Team Providers Name Role Phone Unavailable Primary Care Provider Unavailable Encounter Details Date Type Department Care Team Description 06/21/2009 Emergency room [facility] Nikita Hopkins, [facility] Results MD EMERGENCY PHYSIC [facility] [place] [address] [place], [place] [address] (Wo rk) Social History Tobacco Use Types Packs/Day Years Used Date Never Assessed Sex Assigned at Date Recorded Not on file documented as of this encounter Progress Notes Nikita Hopkins MD - 09/28/2009 10:43 AM ACCESS CONTROL SPECIALIST FINAL CHIEF COMPLAINT: Raegan Kim is a 24-year-old female with chief complaint of heavy bleeding. HISTORY OF PRESENT ILLNESS: The patient is a 24-year-old female who has been known to be . The patient is known to be having a miscarriage. The patient passed some tissue yesterday. Today, shehad some increased bleeding. She describes a tampon an hour and reports here for evaluation. She hashad no abdominal pain. PAST MEDICAL HISTORY: Recent miscarriage. CURRENT MEDICATIONS: None. ALLERGIES: None. FAMILY HISTORY: Negative. SOCIAL HISTORY: Negative. REVIEW OF SYSTEMS: Negative except as above. PHYSICAL EXAMINATION: GENERAL: This is a well-appearing 24-year-old female. VITAL SIGNS: Blood pressure 134/86, pulse 94, respirations 20, oral temperature 98.8 and room air sat 98%. HEENT: Atraumatic. Conjunctivae are normal. CHEST: Regular. PULMONARY: Clear. ABDOMEN: Soft and nontender. GYNECOLOGY: The patient has some mild dark blood in the vaginal vault. There is no heavy bleeding. Cervix is closed. There is no uterine tenderness or fullness. EMERGENCY DEPARTMENT COURSE: Based on heavy bleeding presentation, I did send hemoglobin and this was 12.8. Quant beta was low at 628. Blood type was A positive. Ultrasound of the abdomen demonstratesno evidence of intrauterine and no ultrasound findings to suggest ectopic. There is a normal endometrial stripe. Based on clinical exam, I think this is a completed miscarriage. The patient even admits that the bleeding has slowed here. We will offer her Methergine as needed for heavy bleeding, but otherwise sheis to followup with her PLANNING ASSOCIATE. We will discharge her home. PLAN: Ibuprofen 600 mg to 800 mg q.6 h. if bleeding a pad an hour for 3 to 4 hours, start Methergine and call on-call PLANNING ASSOCIATE. Return with worsening symptoms. DISCHARGE DIAGNOSIS: Completed miscarriage. Electronically signed on 09/28/2009 10:42 by NIKITA HOPKINS MD MT: [id number] Name: RAEGAN KIM MRN: [id number] Account: [id number] : 1985 Visit Date: 06/21/2009 Document: [id number] SS CONTROL SPECIALIST documented in this encounter Plan of Treatment Not on filedocumented as of this encounter Visit Diagnoses Not on filedocumented in this encounter
--- OUTSIDE RECORDS SUMMARY | 2022-04-23 05:01 | XMS_ITS | Encounter Summary ---
:1985 Author Organization [place] Address [facility] [place] [address] Care Team Providers Name Role Phone Unavailable Primary Care Provider Unavailable Reason for Referral - Closed Specialty Diagnoses / Procedures Referred By Contact Refer red To Contact Diagnoses Unspecified complication of , antepartum Michelle Cortez MD [address] [place] [address] Referral ID Status Reason Start Date Expiration Date Visits Requ ested Visits Authorized [id number] Closed 10/03/2011 03/31/2012 1 1 LOADER Encounter Details Date Type Department Care Team Description 10/03/2011 Orders Only [facility] Michelle Cortez MD Unspecified Maternal [address] complica tion of [facility] [address] , [place] [address] (Primary Dx) [address] [facility] [phone] [address] (Work) [place], [place] [phone] [address] (Fax) [phone] Social History Tobacco Use Types Packs/Day Years Used Date Never Assessed Sex Assigned at Date Recorded Not on file documented as of this encounter Plan of Treatment Scheduled Referrals Name Type Priority Associated Diagnoses Order S chedule MATERNAL Referral Routine Unspecified complication E xpected: 12/03/2011, [facility] , antepartum Expires: 12/02/2011 REFERRAL documented as of this encounter Visit Diagnoses Diagnosis Unspecified complication of , a ntepartum - Primary documented in this encounter
--- OUTSIDE RECORDS SUMMARY | 2022-04-23 05:01 | XMS_ITS | Encounter Summary ---
:1985 Author Organization [place] Address [address] [facility] [place] [address] Care Team Providers Name Role Phone Michelle Cortez MD Primary Care Provider Encounter Details Date Type Department Care Team Description 10/07/2011 Hospital Encounter M [facility] Ian, Severino Юлияdon lesvia, Maternal Medicine [facility] [address] [facility] [address] [facility] [address] [place] [phone] Social History Tobacco Use Types Packs/Day Years [...] filedocumented in this encounter Care Teams Manager Floral Relationship Specialty Start Date End Date Michelle Cortez MD PCP - General 10/06/11 documented as of this encounter
--- OUTSIDE RECORDS SUMMARY | 2022-04-23 05:01 | XMS_ITS | Encounter Summary ---
:1985 Author Organization [place] Address [address] [place] [address] Care Team Providers Name Role Phone Unavailable Primary Care Provider Unavailable Encounter Details Date Type Department Care Team Description 05/18/2010 Historic Results INTERFACED REPORT Juan Roach MD [address] [place], [place] [address] (Wo rk) Social History Tobacco Use Types Packs/Day Years Used Date Never Assessed Sex Assigned at Date Recorded Not on file documented as of this encounter Plan of Treatment Not on filedocumented as of this encounter Procedures Procedure Name Priority Date/Time Associated Diagnosis Comme nts CBC WITH PLATELETS Routine 05/18/2010 6:45 AM Res ults for this CDT procedure are i n the results section. documented in this encounter Results (ABNORMAL) CBC with platelets (05/18/2010 6:45 AM CDT) Analysis Performed At Patho logist Time Signature MCV 86 78 - 100 M[facility] fl MCH 30.5 26.5 - MISYS 33.0 pg MCHC 35.4 31.5 - MISYS 36.5 g/dL RDW 13.2 10.0 - MISYS 15.0 % WBC 10.1 4.0 - 11.0 MISYS 10e9/L RBC Count 3.77 (L) 3.8 - 5.2 MISYS 10e12/L Hemoglobin 11.5 (L) 11.7 - MISYS 15.7 g/dL Hematocrit 32.5 (L) 35.0 - MISYS 47.0 % Platelet Count 104 (L) 150 - 450 [facility] 10e9/L Specimen (Source) Anatomical Collection Method Collection Time Re ceived Time Location / / Volume Laterality 05/18/2010 6:45 AM 0 CDT Scot Roach MD LAB - BLOOD ORDERABLES Performing Organization Address City/State/ZIP Code Phon e Number MISYS documented in this encounter Visit Diagnoses Not on filedocumented in this encounter
--- OUTSIDE RECORDS SUMMARY | 2022-04-23 05:01 | XMS_ITS | Encounter Summary ---
:1985 Author Organization [place] Address [address] [place] [address] Care Team Providers Name Role Phone Unavailable Primary Care Provider Unavailable Encounter Details Date Type Department Care Team Description 05/17/2010 Historic Results INTERFACED REPORT Juan Roach MD [address] [place], [place] [address] (Wo rk) Social History Tobacco Use Types Packs/Day Years Used Date Never Assessed Sex Assigned at Date Recorded Not on file documented as of this encounter Plan of Treatment Not on filedocumented as of this encounter Procedures Procedure Name Priority Date/Time Associated Comments Diagnosis CBC WITH PLATELETS & STAT 05/17/2010 8:05 AM R esults for this DIFFERENTIAL CDT procedure are i n the results section. URIC ACID STAT 05/17/2010 8:05 AM Results f or this CDT procedure are i n the results section. CREATININE STAT 05/17/2010 8:05 AM Results f or this CDT procedure are i n the results section. AST STAT 05/17/2010 8:05 AM Results f or this CDT procedure are i n the results section. ALT STAT 05/17/2010 8:05 AM Results f or this CDT procedure are i n the results section. documented in this encounter Results (ABNORMAL) CBC with platelets differential (05/17/2010 8:05 AM CDT) [facility] Method Time Signature MCV 85 78 - 100 MIS[place] fl MCH 30.2 26.5 - MISYS 33.0 pg MCHC 35.5 31.5 - MISYS 36.5 g/dL RDW 12.9 10.0 - MISYS 15.0 % WBC 8.1 4.0 - MISYS 11.0 10e9/L RBC Count 4.07 3.8 - 5.2 MISYS 10e12/L Hemoglobin 12.3 11.7 - MISYS 15.7 g/dL Hematocrit 34.6 (L) 35.0 - MISYS 47.0 % % Neutrophils 73 40 - 75 % MISYS % Lymphocytes 16 (L) 20 - 48 % MISYS % Monocytes 8 0 - 12 % MISYS % Eosinophils 3 0 - 6 % MISYS % Basophils 0 0 - 2 % MISYS Platelet Count 95 (L) 150 - 450 MIS[facility] 10e9/L Absolute 6.0 1.6 - 8.3 MIS[facility] Neutrophil 10e9/L Absolute 1.3 0.8 - 5.3 MIS[facility] Lymphocytes 10e9/L Absolute 0.7 0.0 - 1.3 MISYS Monocytes 10e9/L Absolute 0.2 0.0 - 0.7 MISYS Eosinophils 10e9/L Absolute 0.0 0.0 - 0.2 MISYS Basophils 10e9/L Diff Method Automated MISYS Method Specimen Anatomical Collection Method Collection Time Receive d Time (Source) Location / / Volume Laterality 05/17/2010 8:05 AM 0 7:58 CDT AM CDT Scot Roach MD LAB - BLOOD ORDERABLES Performing Organization Address City/State/ZIP Code Phon e Number MISYS AST (05/17/2010 8:05 AM CDT) athologist Signature AST 15 0 - 45 U/L MISYS Specimen Anatomical Collection Method Collection Time Receive d Time (Source) Location / / Volume Laterality 05/17/2010 8:05 AM 0 7:58 CDT AM CDT Scot Roach MD LAB - BLOOD ORDERABLES Performing Organization Address City/State/ZIP Code Phon e Number MISYS ALT (05/17/2010 8:05 AM CDT) P athologist Signature ALT <6 0 - 50 U/L MISYS Specimen Anatomical Collection Method Collection Time Receive d Time (Source) Location / / Volume Laterality 05/17/2010 8:05 AM 0 7:58 CDT AM CDT Scot Roach MD LAB - BLOOD ORDERABLES Performing Organization Address City/State/ZIP Code Phon e Number MISYS Creatinine (05/17/2010 8:05 AM CDT) P athologist Signature Creatinine 0.74 0.52 - 1.04 MIS[facility] mg/dL Comment: New IDMS-traceable calibration beginning 01/13/08 GFR Estimate >90 >60 mL/min/1.7m2 MISYS GFR Estimate If Black >90 >60 mL/min/1.7m2 M ISYS Specimen Anatomical Collection Method Collection Time Receive d Time (Source) Location / / Volume Laterality 05/17/2010 8:05 AM 0 7:58 CDT AM CDT Scot Roach MD LAB - BLOOD ORDERABLES Performing Organization Address City/State/ZIP Code Phon e Number MISYS Uric acid (05/17/2010 8:05 AM CDT) P athologist Signature Uric Acid 3.6 2.5 - 6.2 MISYS mg/dL Specimen Anatomical Collection Method Collection Time Receive d Time (Source) Location / / Volume Laterality 05/17/2010 8:05 AM 0 7:58 CDT AM CDT Scot Roach MD LAB - BLOOD ORDERABLES Performing Organization Address City/State/ZIP Code Phon e Number MISYS documented in this encounter Visit Diagnoses Not on filedocumented in this encounter
--- OUTSIDE RECORDS SUMMARY | 2022-04-23 05:01 | XMS_ITS | Encounter Summary ---
:1985 Author Organization [place] Address [address] [place] [address] Care Team Providers Name Role Phone Unavailable Primary Care Provider Unavailable Encounter Details Date Type Department Care Team Description 06/22/2009 Results Only [facility] Nikita Khan, Hospital Results MD EMERGENCY PHYSIC DAVIS SANTAMARIA [address] [place], [place] [address] (Wo rk) Social History Tobacco Use Types Packs/Day Years Used Date Never Assessed Sex Assigned at Date Recorded Not on file documented as of this encounter Plan of Treatment Not on filedocumented as of this encounter Procedures Procedure Name Priority Date/Time Associated Diagnosis Comme nts HC US OB 1ST Routine 06/22/2009 12:20 AM Results for this TRIMESTER CDT procedure are i n MAT/, SINGLE the result s GESTATION section. documented in this encounter Results US, PREG UTER, REAL TIME W/IMAGE DOCUMENT, & MATERNAL, 1ST TRIMEST, TRANSABDOM; SINGL/1ST GEST (06/22/2009 12:20 AM CDT) Specimen (Source) Anatomical Collection Method Collection Time Re ceived Time Location / / Volume Laterality 06/22/2009 12:20 AM CDT Impressions RADIOLOGY RESULTS - 06/22/2009 10:19 AM CDT ULTRASOUND OBSTETRIC TRIMESTER WITH BOYD SVAGINAL IMAGING ??June 22, 2009 12:20 AM HISTORY: Pelvic pain. Evaluate for misca rriage. FINDINGS: There is no evidence of an int rauterine gestational sac. Endometrial stripe is normal measuring 8 mm in thickness. Trace amount of fluid is noted in the endometrial can al. Left ovary is unremarkable. The right ovary contains a possible hemorrhagic cyst or corpus luteal cyst measuring 1.7 cm. No adnexal masses or free pelvic fluid is evident. IMPRESSION: 1. No evidence of intrauterine . No ultrasound findings to suggest ectopic . Findings are suspicious for missed AB. Followup beta-hCG and ultrasound as clin ically warranted. 2. Possible small hemorrhagic cyst right ovary. Agree with initial interpretation provid ed by Dr. Curran. Nikita Khan MD SPECIAL IMAGING STUDIES Performing Organization Address City/State/ZIP Code Phon e Number RADIOLOGY RESULTS documented in this encounter Visit Diagnoses Not on filedocumented in this encounter
--- OUTSIDE RECORDS SUMMARY | 2022-04-23 05:01 | XMS_ITS | Encounter Summary ---
:1985 Author Organization [place] Address [address] [place] [address] Care Team Providers Name Role Phone Unavailable Primary Care Provider Unavailable Encounter Details Date Type Department Care Team Description 06/21/2009 Historic Results INTERFACED REPORT Amita Khan MD EMERGENCY PHYSIC DAVIS SANT[address]IA [address] [place], [place] [address] (Wo rk) Social History Tobacco Use Types Packs/Day Years Used Date Never Assessed Sex Assigned at Date Recorded Not on file documented as of this encounter Plan of Treatment Not on filedocumented as of this encounter Procedures Procedure Name Priority Date/Time Associated Comments Diagnosis HEMOGLOBIN STAT 06/21/2009 10:40 Results for this PM CDT procedure are i n the results section. HCG QUANTITATIVE STAT 06/21/2009 10:40 Results for this PM CDT procedure are i n the results section. ABO/RH TYPE AND STAT 06/21/2009 10:40 Results for this SCREEN PM CDT procedure are i n the results section. documented in this encounter Results Hemoglobin (06/21/2009 10:40 PM CDT) athologist Signature Hemoglobin 12.8 11.7 - 15.7 MISYS g/dL Specimen Anatomical Collection Method Collection Time Receive d Time (Source) Location / / Volume Laterality 06/21/2009 10:40 06/21/2009 PM CDT 10:33 PM CDT Nikita Kahn MD LAB - BLOOD ORDERABLES Performing Organization Address City/State/ZIP Code Phon e Number MISYS HCG quantitative (06/21/2009 10:40 PM CDT) P athologist Signature HCG Quantitative 628 IU/L MISYS Serum Comment: Non- ?0 - 5 , weeks from LMP: ??1 - 10 weeks ? 64 - 151,000 IU/L 11 - 15 weeks 11,800 - 152,000 IU/L 16 - 22 weeks ??9,380 - 61,400 IU/L 23 - 40 weeks ??1,740 - 98,600 IU/L Specimen Anatomical Collection Method Collection Time Receive d Time (Source) Location / / Volume Laterality 06/21/2009 10:40 06/21/2009 PM CDT 10:33 PM CDT Nikita Khan MD LAB - BLOOD ORDERABLES Performing Organization Address City/[facility] Code Phon e Number MISYS ABO/Rh type and screen (06/21/2009 10:40 PM CDT) Analysis Performed At Patho logist Time Signature ABO A MISYS RH(D) Pos MISYS Antibody Neg MISYS Screen Specimen 06/24/2009 MISYS Expires Specimen Anatomical Collection Method Collection Time Receive d Time (Source) Location / / Volume Laterality 06/21/2009 10:40 06/21/2009 PM CDT 10:33 PM CDT Nikita Khan MD LAB - BLOOD BANK TEST ORDER Performing Organization Address City/[facility] Phon e Number MISYS documented in this encounter Visit Diagnoses Not on filedocumented in this encounter
== END 2022-04-17 12:59 | disposition home or self-care (01) ==
LOC: CT 12:58
PROVIDERS: PCP Family Medicine; Visit Provider Family Medicine
DX: R91.1 Solitary pulmonary nodule (principal)
CPT/HCPCS: 71250

== ENCOUNTER 2022-10-03 16:13 | Emergency (ER) | payer BC, SELFPAY ==
[2022-10-03 16:25] VITALS: BP 119/75; PULSE 70; RESP 18; TEMP 36.8; O2SAT 99; BMI 30.2
--- NOTE | 2022-10-03 16:38 | CRLHL7_ITS ---
For Patients: As a result of the Cures Act, medical imaging exams and procedure reports are released immediately into your electronic medical record. You may view this report before your referring provider. If you have questions, please contact your health care provider. DATE: 10/03/2022. CLINICAL HISTORY: Head trauma. TECHNIQUE: Standard helical CT image acquisition of the brain was performed. COMPARISON: None available. FINDINGS: There is no intracranial hemorrhage. No extra-axial collection, mass effect, or midline shift. Day-white matter differentiation is preserved. The ventricles are normal in size and morphology for patient age. No displaced calvarial fracture. The orbits are unremarkable. The paranasal sinuses are unremarkable. The mastoid air cells are unremarkable. The soft tissues are unremarkable. IMPRESSION: No CT evidence of acute intracranial abnormality or closed-head injury. Please note that all CT scans at this facility use dose modulation, iterative reconstruction, and/or weight-based dosing when appropriate to reduce radiation dose to as low as reasonably achievable. Dictated by Jed Mccloud MD @ 10/03/2022 5:53:14 PM (Electronically Signed)
[2022-10-03] MEDS: ONDANSETRON ODT 4 MG TAB PO (17:48)
--- NOTE | 2022-10-03 18:01 | ED_ITS ---
HPI - General Adult General Chief complaint: Neuro Symptoms/Altered Deficit Stated complaint: Concussion getting worse, diagnose last Tue Time Seen by Provider: 10/03/22 16:37 Source: patient Mode of arrival: ambulatory Limitations: no limitations History of Present Illness HPI narrative: 37-year-old female coming in today complaining of continuing headache after she suffered a closed head injury approximately 1 and half weeks ago. She states that the headache is a bit worse in the last couple of days and it has been and it is constant. She has tried taking ibuprofen Tylenol as well as some migraine medication without any relief. She has to take breaks during the day where she has to close her eyes. She does run a daycare. She feels nauseated frequently but has not vomited. No fevers. No garbled speech or confusion. She has a difficult time sleeping at night secondary to the headache. She was evaluated week and half ago when she 1st suffered her injury and was told she had a concussion but no imaging was done at that time. She states that she was bending down grabbing something on the cabinet in stood up very quickly and smashed her head on the bottom of the cabinet. She felt immediate significant pain. Today, patient is complaining of the worst headache she has ever had. Related Data Home Medications Medication Instructions Recorded Confirmed No Known Home Medications 03/13/22 10/03/22 Previous Rx's Medication Instructions Recorded ketorolac 10 mg tablet 10 mg PO TID 5 days #15 tabs 10/03/22 ondansetron HCl 4 mg tablet 4 mg PO TID PRN nausea and 10/03/22 vomiting #10 tabs Allergies Allergy/AdvReac Type Severity Reaction Status Date / Time No Known Drug Allergies Allergy Verified 10/03/22 16:31 Review of Systems Status of ROS: Reports: 10 or more systems reviewed and unremarkable except as noted in History and below [facility] Medical History Dyslipidemia Factor 5 Leiden mutation, heterozygous (2011) History of DVT (deep vein thrombosis) (2011) History of pre-eclampsia Lung nodule seen on imaging study (~02/2022) Surgical History History of emergency section (2016) Family History Maternal Grandfather Stroke, Onset Age: 80 Type 1 diabetes mellitus Mother FH: mental illness Father Renal failure Social History Narrative: , daycare provider, 5 daughters Exercise 3 times a week, weights and light cardio 35 minutes Lifetime nonsmoker, 4 alcoholic drinks a month Smoking Status: Never smoker Do you use any of these nicotine containing products: None Second hand tobacco smoke exposure: No How often do you have a drink containing alcohol: monthly or less How many standard drinks containing alcohol do you have on a typical day: 1 or 2 How often do you have six or more drinks on one occasion: Never AUDIT-C Alcohol total score: 1 Non-prescribed substance use: denies use service: No Exam Narrative: Exam Narrative: Well-nourished well-developed patient in no acute distress. Alert and oriented. Answers questions appropriately. Mood and affect are appropriate. Thoughts are goal oriented and rational. No tangential or magical thinking noted. Patient speaks in full sentences without needing to catch their breath. Speech is not slurred or pressured. HEENT: Normocephalic atraumatic. Pupils are equally round reactive to light. Extraocular muscles are intact. Conjunctivae are moist without any icterus noted. Moist mucous membranes. TMs are clear bilaterally. Neck is soft without any discomfort. No tenderness to palpation of the cervical spine. Full range of motion at the neck without pain. Strength is 5/5 of the upper and lower extremities. Cranial nerves 3-12 are normal. There is no nystagmus either horizontally or vertically. Gait is normal. Const: Vital Signs, click to edit/add: Vital Signs - 24 hr 10/03/22 16:25 Temperature 98.3 F Pulse Rate [Right Pulse Oximeter] 70 Respiratory Rate 18 Blood Pressure [Ri ght Upper Arm] 119/75 Pulse Oximetry 99 Oxygen Delivery Me thod Room Air Course Course Hospital Course: Head CT was done, read by me, does not show any acute abnormalities. Vital Signs Vital signs: Initial Vital Signs Temperature 98.3 F 10/03/22 16:25 Temperature Source Temporal Artery Scan 10/03/22 16:25 Pulse Rate 70 10/03/22 16:25 Respiratory Rate 18 10/03/22 16:25 Blood Pressure 119/75 10/03/22 16:25 Blood Pressure Mean 89 10/03/22 16:25 Blood Pressure Position Sitting 10/03/22 16:25 Pulse Oximetry 99 10/03/22 16:25 Oxygen Delivery Method 10/03/22 16:25 Vital Signs Temperature 98.3 F 10/03/22 16:25 Pulse Rate 70 10/03/22 16:25 Respiratory Rate 18 10/03/22 16:25 Blood Pressure 119/75 10/03/22 16:25 Pulse Oximetry 99 10/03/22 16:25 Oxygen Delivery Method 10/03/22 16:25 Temperature 98.3 F 10/03/22 16:25 Pulse Rate 70 10/03/22 16:25 Respiratory Rate 18 10/03/22 16:25 Blood Pressure 119/75 10/03/22 16:25 Pulse Oximetry 99 10/03/22 16:25 Oxygen Delivery Method 10/03/22 16:25 Medical Decision Making MDM Narrative Medical decision making narrative: 37-year-old female with close head injury and concussion symptoms for over a week. We will [place] her [place] [facility] with Toradol and Zofran. We discussed brain rest. Imaging Data CT scan - head: Attestation: I have reviewed the pertinent imaging results. Radiologist's impression: TECHNIQUE: Standard helical CT image acquisition of the brain was performed. COMPARISON: None available. FINDINGS: There is no intracranial hemorrhage. No extra-axial collection, mass effect, or midline shift. Day-white matter differentiation is preserved. The ventricles are normal in size and morphology for patient age. No displaced calvarial fracture. The orbits are unremarkable. The paranasal sinuses are unremarkable. The mastoid air cells are unremarkable. The soft tissues are unremarkable. IMPRESSION: No CT evidence of acute intracranial abnormality or closed-head injury. Discharge Plan Discharge Clinical Impression: Concussion, Closed head injury Patient Disposition: Home, Self-Care Condition: Stable Additional Instructions: Will be provided with the phone number to the concussion Clinic recommend you call Thursday morning to schedule follow-up. Consider brain rest as we discussed including increased sleep and frequent breaks throughout the day. Recommend against screens or loud/bright stimulus. Take Toradol as needed for pain, take Zofran as needed for nausea. Prescriptions: New ketorolac 10 mg tablet 10 mg PO TID 5 Days Qty: 15 0RF ondansetron HCl 4 mg tablet 4 mg PO TID PRN (Reason: nausea and vomiting) Qty: 10 0RF No Action No Known Home Medications Follow Up/Referrals: Neeru Covarrubias MD [Primary Care Provider] - Stand Alone Forms: [employer] Info Instructions
== END 2022-10-03 18:20 | disposition home or self-care (01) ==
PROVIDERS: Emergency Provider Family Medicine; PCP Family Medicine
DX: S06.0X0A Concussion without loss of consciousness, initial encounter (principal); R51.9 Headache, unspecified
CPT/HCPCS: 70450; 99283; 99284; A9270

== ENCOUNTER 2024-07-27 13:02 | Emergency (ER) | payer OTHER, BC, SELFPAY ==
[2024-07-27 13:30] VITALS: BP 123/76; PULSE 71; RESP 16; TEMP 37.1; O2SAT 98; BMI 26.9
--- NOTE | 2024-07-27 14:21 | ED.UPPEXIN ---
HPI - Extremity Injury (Upper) General Time Seen by Provider: 14:21 Date Seen: 07/27/24 Chief Complaint: Extremity Pain/Injury, Upper Stated Complaint: L arm injury Time Seen by Provider: 07/27/24 14:16 Source: patient and RN notes reviewed Mode of arrival: ambulatory Limitations: no limitations History of Present Illness HPI narrative: This 39-year-old female is coming in after a crush injury to her elbow and upper forearm. This happened just prior to arrival. There is a steel drum and the machine was coming down with a heavy bear all, it is a medicine loading apparatus. Her elbow got pinched between this steel drum and the barrel. Her elbow was hurting, if she moves her elbow she gets a sharp pain. She is getting pain radiating up the arm, it does radiate down the forearm. Her fingers feel little numb and tingly now. She is holding the elbow against her side, she has an ice pack on it. She would appreciate some pain management. Nothing else was injured. It was primarily the elbow and the upper forearm that got pinched or crushed. complaint: injury to: left, arm and elbow Related Data Previous Rx's ?Medication ?Instructions ?Recorded oxycodone 5 mg tablet 5 mg PO Q6H PRN pain #6 tabs 07/27/24 Allergies Allergy/AdvReac Type Severity Reaction Status Date / Time No Known Drug Allergies Allergy Verified 07/27/24 13:35 Review of Systems Narrative: As per HPI. [facility] Medical History History of pre-eclampsia ?Z87.59 - Personal history of other complications of , childbirth and the puerperium (ICD-10) History of DVT (deep vein thrombosis) (2011) ?Z86.718 - Personal history of other venous thrombosis and embolism (ICD-10) Factor 5 Leiden mutation, heterozygous (2011) ?D68.51 - Activated protein C resistance (ICD-10) Lung nodule seen on imaging study (~02/2022) ?R91.1 - Solitary pulmonary nodule (ICD-10) Dyslipidemia ?E78.5 - Hyperlipidemia, unspecified (ICD-10) Surgical History History of emergency section (2017) ?Z98.891 - History of uterine scar from previous surgery (ICD-10) Family History Maternal Grandfather Stroke, Onset Age: 80 Type 1 diabetes mellitus Mother FH: mental illness Father Renal failure Social History Narrative: , daycare provider, 5 daughters Exercise 3 times a week, weights and light cardio 35 minutes Lifetime nonsmoker, 4 alcoholic drinks a month Smoking Status: Never smoker Do you use any of these nicotine containing products: None Second hand tobacco smoke exposure: No How often do you have a drink containing alcohol: monthly or less How many standard drinks containing alcohol do you have on a typical day: 1 or 2 How often do you have six or more drinks on one occasion: Never AUDIT-C Alcohol total score: 1 Non-prescribed substance use: denies use service: No Exam Const: Vital Signs, click to edit/add: Vital Signs - 24 hr 07/27/24 13:30 Temperature 98.7 F Pulse Rate [Pulse Oximeter] 71 Respiratory Rate 16 Blood Pressure [Ri ght Upper Arm] 123/76 Pulse Oximetry 98 Oxygen Delivery Me thod Room Air Raegan is a 39-year-old female that is alert, interactive, no apparent distress but does seem to have mild amount of pain on examination. She is holding her elbow flexed at 90? along her side, ice pack is on this. I can palpate along her clavicle and glenohumeral joint without any pain. She can shrug her shoulders and she has no pain in the left shoulder. Pain starts around the elbow area, cannot do range of motion of her elbow without significant pain. There is no open wound, do not see any skin changes. The skin is cool but she has had an ice pack on it. Mid forearm and down through her wrist and hand there is no pain on palpation. When I isolate her wrist I can flex and extend it without any pain in the wrist area, she does get some pain translating on extension up to the elbow area. She has good peripheral pulses, normal cap refill, normal light touch sensation throughout the fingers in the hand. Documenting provider has reviewed patient's vital signs: yes Course Course ED Course: We will give this patient a dose of oxycodone and Tylenol for pain management. We will x-ray her left elbow and forearm. We did discuss the numbness and tingling. It certainly can be from trauma or crush injury to the nerves, can be from immobility and holding her elbow in the extremity. She has normal light touch sensation on examination which is reassuring. We need to rule out underlying fracture for her with the imaging. Clinical exam is reassuring that the numbness/tingling feeling is not from a compartment syndrome. Reevaluation(s) Time of Reevaluation #1: 15:35 Reevaluation #1: Have reviewed with patient that the x-rays as read by Radiology are showing no fracture. She states there is pain with range of motion. She is re-evaluated. I can see no significant swelling or erythema, there is no skin compromise. I am able to fully but slowly extend her arm out, can supinate and pronate. She states she still has pins and needles or numbness tingling type feeling in her fingers but she has light touch sensation on my examination. We will provide sling for comfort, few pain pills of oxycodone (6) to pharmacy. Provide note to be off work for next 2 days to rest, allow orthopedic follow up if needed. Reviewed that if she has ongoing pain, numbness/tingling, needs to be seen in orthopedics for re-evaluation. Vital Signs Vital signs: Initial Vital Signs Temperature 98.7 F 07/27/24 13:30 Temperature Source Temporal Artery Scan 07/27/24 13:30 Pulse Rate 71 07/27/24 13:30 Respiratory Rate 16 07/27/24 13:30 Blood Pressure 123/76 07/27/24 13:30 Blood Pressure Mean 91 07/27/24 13:30 Blood Pressure Position Sitting 07/27/24 13:30 Pulse Oximetry 98 07/27/24 13:30 Oxygen Delivery Method Room Air 07/27/24 13:30 Vital Signs Temperature 98.7 F 07/27/24 13:30 Pulse Rate 71 07/27/24 13:30 Respiratory Rate 16 07/27/24 13:30 Blood Pressure 123/76 07/27/24 13:30 Pulse Oximetry 98 07/27/24 13:30 Oxygen Delivery Method Room Air 07/27/24 13:30 Temperature 98.7 F 07/27/24 13:30 Pulse Rate 71 07/27/24 13:30 Respiratory Rate 16 07/27/24 13:30 Blood Pressure 123/76 07/27/24 13:30 Pulse Oximetry 98 07/27/24 13:30 Oxygen Delivery Method Room Air 07/27/24 13:30 Medications Administered Medications: Discontinued Medications Generic Name Dose Route Start Last Admin Trade Name Freq PRN Reason Stop Dose Admin Acetaminophen 1,000 mg 07/27/24 14:27 07/27/24 14:36 Acetaminophen 500 Mg Tablet PO 07/27/24 14:28 1,000 mg ONCE ONE Administration Oxycodone HCl 5 mg 07/27/24 14:27 07/27/24 14:36 Oxycodone 5 Mg Tablet PO 07/27/24 14:28 5 mg ONCE ONE Administration MDM - Extremity Injury (Upper) Imaging Data XR left elbow: Attestation: I have reviewed the pertinent imaging results. My impression: I do not appreciate any acute fracture on my preliminary review. Radiologist's impression: Patient: RAEGAN RAMOS Facility:?[facility] Patient ID:?[id number] Site Patient ID:?[id number]. Site :?1985 Study:?XRay-Extremity Elbow 3V-07/27/2024 3:00:13 PM Ordering Physician:Oneil Mason Final Report: Indication: Crush injury Technique: Three views left elbow Comparison: None Findings/Impression: Bones: Alignment is normal. No fractures or bone lesions. Joint spaces: Unremarkable. Soft tissues: Minimal calcification within the dorsal soft tissues. Dictated by Chun Brito MD @ 07/27/2024 3:08:28 PM (Electronic Signature) XR left forearm: Attestation: I have reviewed the pertinent imaging results. My impression: I see no acute pathology on my preliminary review. Radiologist's impression: Patient: RAEGAN RAMOS Facility:?[facility] Patient ID:?[id number] Site Patient ID:?[id number]. Site :?1985 Study:?XRay-Extremity Forearm 2V-07/27/2024 3:00:41 PM Ordering Physician:Oneil Mason Final Report: Indication: Crush injury. Technique: Two views of the left forearm. Comparison: None. Findings/Impression: No acute fracture or dislocation. Soft tissues are unremarkable. Dictated by Donnie Andersen MD @ 07/27/2024 3:19:39 PM (Electronic Signature) Discharge Plan Discharge Clinical Impression: Elbow pain, left Crushing injury of elbow, left Qualifiers: Encounter type: initial encounter Qualified Code(s): S57.02XA - Crushing injury of left elbow, initial encounter Patient Disposition: Home, Self-Care Condition: Stable Instructions: Arm Pain (ED), Crush Injury (ED) Additional Instructions: With use sling as needed for comfort. Do recommend attempting to do range of motion of the elbow and the arm 3 to 4 times a day. Can be gentle and slow particularly at the elbow to diminish pain. Ice and elevate your elbow as much as able to for the next 48 hours. This will help decrease pain and swelling. If you have ongoing pain in the elbow, ongoing numbness tingling, do need to be further evaluated by Orthopedics. Phone number is [phone]. Can use Tylenol 1000 mg 3 times a day baseline for pain. Supplement with ibuprofen per bottle directions. I have written for few tablets of oxycodone, take as prescribed. Note provided to be out of work the next 2 days. Activity Level: Activity as Tolerated Prescriptions: New oxycodone 5 mg tablet 5 mg PO Q6H PRN (Reason: pain) Qty: 6 0RF Follow Up/Referrals: Neeru Covarrubias MD [Staff Physician] - Stand Alone Forms: [employer] Info Instructions
--- NOTE | 2024-07-27 14:28 | CRLHL7_ITS ---
For Patients: As a result of the Cures Act, medical imaging exams and procedure reports are released immediately into your electronic medical record. You may view this report before your referring provider. If you have questions, please contact your health care provider. Indication: Crush injury. Technique: Two views of the left forearm. Comparison: None. Findings/Impression: No acute fracture or dislocation. Soft tissues are unremarkable. Dictated by Donnie Andersen MD @ 07/27/2024 3:19:39 PM (Electronically Signed)
--- NOTE | 2024-07-27 14:28 | CRLHL7_ITS ---
For Patients: As a result of the Cures Act, medical imaging exams and procedure reports are released immediately into your electronic medical record. You may view this report before your referring provider. If you have questions, please contact your health care provider. Indication: Crush injury Technique: Three views left elbow Comparison: None Findings/Impression: Bones: Alignment is normal. No fractures or bone lesions. Joint spaces: Unremarkable. Soft tissues: Minimal calcification within the dorsal soft tissues. Dictated by Chun Brito MD @ 07/27/2024 3:08:28 PM (Electronically Signed)
[2024-07-27] MEDS: ACETAMINOPHEN 500 MG TABLET 1000 MG PO (14:36)
[2024-07-27] MEDS: OXYCODONE 5 MG TABLET PO (14:36)
--- OUTSIDE RECORDS SUMMARY | 2024-07-27 14:39 | XMS_ITS | Clinical Summary ---
Author Organization [facility] Address [address] [place] [id number] Care Team Providers Care Pond Tender Name Role Phone Michelle Cortez MD Primary Care Provider [phone] Allergies No known active allergies Medications Vit-Fe Fumarate-FA ( MULTIVITAMIN PLUS IRON) 27-0.8 MG TABS Take 1 tablet by mouth daily. Active Enoxaparin Sodium (LOVENOX) 60 MG/0.6ML injectionIndication s:Deep Vein Thrombosis Inject 40 mg Subcutaneous every 12 hours 07/18/20 11 Active labetalol (NORMODYNE) 200 MG tabletIndications:H ELLP syndrome, delivered, current hospitalization Take 1 tablet (200 mg) by mouth every 8 hours 60 tablet 08/10/20 17 Active Social History Tobacco Use Types Packs/Day Years Used Date Smoking Tobacco: Never Smokeless Tobacco: Never Alcohol Use Standard Drinks/Week Comments Yes 0 (1 standard drink = 0.6 oz pur e alcohol) 2 glasses during Adolescent Education Answer Date Record ed Getting School Help Needed Not on file 06/30 Comments No Sex and Gender Information Value Date Recorded Sex Assigned at Not on file Legal Sex 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 Gender Identity Not on file Sexual Orientation Not on file Last Filed Vital Signs Vital Sign Reading Time Taken Comments Blood Pressure 127/89 08/10/2017 9:36 AM TRUCK CRANE OPERATOR HELPER Pulse 70 08/09/2017 3:00 PM TRUCK CRANE OPERATOR HELPER Temperature 36.8 ??C (98.2 ??F) 08/10/2017 9:36 AM CS T Respiratory Rate 16 08/10/2017 9:36 AM TRUCK CRANE OPERATOR HELPER Oxygen Saturation 93% 08/08/2017 8:00 AM TRUCK CRANE OPERATOR HELPER Inhaled Oxygen Concentration - - Weight 73 kg (161 lb) 08/06/2017 2:29 PM TRUCK CRANE OPERATOR HELPER Height 157.5 cm (5' 2) 08/06/2017 2:29 PM TRUCK CRANE OPERATOR HELPER Body Mass Index 29.45 08/06/2017 2:29 PM TRUCK CRANE OPERATOR HELPER Plan of Treatment Not on file Insurance Bret [place] [id number] [facility] Care Teams Pond Tender Relationship Specialty Start Date End Date Michelle Cortez MD PCP - General 10/06/11
--- OUTSIDE RECORDS SUMMARY | 2024-07-27 14:39 | XMS_ITS | Referral Summary ---
Author Organization [facility] Address [address] [place] [id number] Care Team Providers Care Washer Cutter Name Role Phone Michelle Cortez MD Primary Care Provider [phone] Allergies No known active allergies Medications Vit-Fe [...] on file Legal Sex Female 4:49 AM GANG SAWYER Gender Identity Not on file Sexual Orientation Not on file Last Filed Vital Signs Vital Sign Reading Time Taken Comments Blood Pressure 127/89 08/10/2017 9:36 AM GANG SAWYER Pulse 70 08/09/2017 3:00 PM GANG SAWYER Temperature 36.8 ??C (98.2 ??F) 08/10/2017 9:36 AM CS T Respiratory Rate 16 08/10/2017 9:36 AM GANG SAWYER Oxygen Saturation 93% 08/08/2017 8:00 AM GANG SAWYER Inhaled Oxygen Concentration - - Weight 73 kg (161 lb) 08/06/2017 2:29 PM GANG SAWYER Height 157.5 cm (5' 2) 08/06/2017 2:29 PM GANG SAWYER Body Mass Index 29.45 08/06/2017 2:29 PM GANG SAWYER Plan of Treatment Not on file Insurance Bret [place] [id number] [facility] Care Teams Washer Cutter Relationship Specialty Start Date End Date Michelle Cortez MD PCP - General 10/06/11
--- OUTSIDE RECORDS SUMMARY | 2024-07-27 14:39 | XMS_ITS | Clinical Summary ---
Author Organization [facility] Address [address] [address] Care Team Providers Care In Flight Refueling Craftsman Name Role Phone Needs Pcp, Assignment Primary Care Provider Source Comments You are receiving this document as you are listed as the primary care provider,follow-up provider, or the patient has been referred to you for consultation.This is in compliance with the Medicare and[facility] EHR Incentive Program,which states Providers who transition their patient to another setting of careor provider of care or refers their patient to another provider of care shouldprovide summary care record for each transition of care or referral. [facility] Allergies No known active allergies Medications Medication Sig Dispensed Refills Start Date End Date Status Vit-Fe Fumarate-FA ( OR) Take 1 tablet by mouth daily (every 24 hours). 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 DVT (deep venous thrombosis) 01/14/2012 Overview (05/06/2017): DVT (deep venous thrombosis) 07/11/2011 Immunizations Name Administration Dates Next Due Flu Vac Preserv Free (3+yrs) 07/20/2010, 10/30/2009,08/23/2008, 007,11/03/2006 H1n1 Miv Sanofi 3+ Yr (Injected) 10/30/2009 Influenza IIV4 (Quadrivalent ) 0.5mL ([id number]) 06/18/2016 MMR 04/08/2007 Td 03/21/1997 Family History Relation Name Status Comments Father Mother Alive Brother 1 Alive Brother 2 Alive Sister Alive Social History Tobacco Use Types Packs/Day Years Used Date Smoking Tobacco: Never Alcohol Use Standard Drinks/Week Comments No 0 (1 standard drink = 0.6 oz pure alcohol) Alcoholic Drinks/day: Amount:1-2 drinks; Freq:Never; Sex and Gender Information Value Date Recorded Sex Assigned at Not on file Gender Identity Not on file Sexual Orientation Not on file Last Filed Vital Signs Vital Sign Reading Time Taken Comments Blood Pressure 108/74 07/13/2012 8:55 AM CDT Pulse 60 07/13/2012 8:55 AM CDT Temperature - - Respiratory Rate - - Oxygen Saturation - - Inhaled Oxygen Concentration - - Weight 65.5 kg (144 lb 6.4 oz) 07/13/2012 8:55 A M CDT Height 158.8 cm (5' 2.5) 07/13/2012 8:55 AM CDT Body Mass Index 25.99 07/13/2012 8:55 AM CDT Plan of Treatment Health Maintenance Due Date Last Done Comments Hep C Screening (Preventive Services) 1985 Mammogram 1983 DTaP/Tdap/Td (2 - Tdap) 03/22/1997 03/21/1997 Adult Preventive Visit 2001 HepB (1) 2002 Cervical Cancer Screening Due 10/31/2009 10/30/2009, 06/13/2008, 03/12/2007, Additional history exists COVID-19 Vaccine ( season) 2024 Influenza (#1) 2024 06/18/2016, 02/2010, 10/30/2009, Additional history exists Zoster/Shingles (1 of 2) 2033 HIV Screening (Preventive Services) Completed 10/16/2009, 08/04/2006, 05/10/2004 HPV Vaccine Aged Out No longer eligi ble based on patient's age to complete this topic HepA Aged Out No longer eligi ble based on patient's age to complete this topic Hib Aged Out No longer eligi ble based on patient's age to complete this topic IPV (Polio) Aged Out No longer eligi ble based on patient's age to complete this topic RSV Aged Out No longer eligi ble based on patient's age to complete this topic MCV4 Aged Out No longer eligi ble based on patient's age to complete this topic Pneumococcal Aged Out No longer eligi ble based on patient's age to complete this topic Procedures Procedure Name Priority Date/Time Associated Diagnosis Comments ANATOMICAL PATH LIQUID BASED Routine 10/30/2009 7:43 AM PRINT LINE TAILER HIV ANTIBODY Routine 10/16/2009 8:29 AM PRINT LINE TAILER from Last 3 Months or Most Recently Relevant to Health Maintenance Results * Pap Smear (10/30/2009 7:43 AM PRINT LINE TAILER) PAP Smear Liquid Based SEE TEXT No normal range HP CONVERSION Comment: Patient: RAEGAN KIM ? CERVICAL CYTOLOGY REPORT Pathology # ??[id number] ?Date Obtained: ? Date Received: CYTOLOGIC IMPRESSION: Negative for intraepithelial lesion or malignancy. Verified 11/01/09 by: ??Thomas Daily M.D. ?(electronic signature) ? ADDITIONAL DATA LMP: CLINICAL HIST LIQUID BASED PAP CERVICAL SPECIMEN ADEQUACY: ?? Satisfactory. ENDOCERVICAL CELLS: ??Present. 10/30/2009 7:43 AM PRINT LINE TAILER Yesenia Rea RN LAB_1 HP CONVERSION * HIV ANTIBODY (10/16/2009 8:29 AM PRINT LINE TAILER) HIV 1/HIV 2 Non Reac Non Reac HP CONVERSION 10/16/2009 8:29 AM PRINT LINE TAILER Scot Roach MD LAB_1 HP CONVERSION from Last 3 Months or Most Recently Relevant to Health Maintenance Care Teams In Flight Refueling Craftsman Relationship Specialty Start Date End Date Needs Pcp, [place] [address] PCP - General 06/24/24
== END 2024-07-27 15:57 | disposition home or self-care (01) ==
PROVIDERS: Emergency Provider Family Medicine
DX: S57.02XA Crushing injury of left elbow, initial encounter (principal); W31.89XA Contact with other specified machinery, initial encounter; Y99.0 Civilian activity done for income or pay
CPT/HCPCS: 73080; 73090; 99283; A9270

== ENCOUNTER 2024-10-11 09:45 | Outpatient (RCR) | payer OTHER, BC, SELFPAY ==
--- NOTE | 2024-09-27 16:45 | PT.OPDNX ---
PT [facility] Daily Note PT [facility] Daily Note/progress note Start: 08/18/24 07:17 Freq: Status: Active Protocol: Document 09/27/24 12:00 WILLIAM (Rec: 09/27/24 16:44 WILLIAM [id number]) E-signed By Delvin Langley DPT PT OP Daily Progress Note Visit Information Note Type Daily Note,Recert/Progress Note Visit Number 5 Insurance Information Insurance Name [employer] Medical Diagnosis left shoulder pain Treating Diagnosis left shoulder pain muscle weakness Referring MD rosales conrad Subjective Subjective Elli comes into clinic stating the elbow is more sore /painful otherwise nothing too dramatically has changed. Is somewhat frustrated as pain continues with minimal progression, having trouble with work related activity mainly resisted lifting carrying pushing pulling Pain Comments -03/23 Precautions Treatment Precautions/Contraindications five factor lieden- blood clotting disorder more prone to blood clotting Home Exercise Home Exercise Comments Access Code: [email or web address] URL: [email or web address] Date: 08/18/2024 Prepared by: Delvin Langley Objective Other/Pertinent Objective SHOULDER AROM WNL on R Flexion: L141 before pain Abduction: L140 degrees before pain Internal Rotation: L T8 External Rotation: L WNL NECK/SHOULDER MMT: WNL on R Shoulder flexion: L 4+/5 Shoulder abduction: L4 /5 Shoulder External Rotation: L4 +/5 Shoulder Internal Rotation: L5 /5 Elbow flexion: L 5/5 Elbow extension L5 /5 wrist flexion: 5/5 but more painful with elbow extended wrist ext : 4/5 L with wrist elbow extended and flexed SPECIAL TEST HawkinsKensivay Test: - Neer Test: + L Salile Test(subacromial) : + L Painful arc 60-120 scaption: + L *Empty can/Jobes (Supra): + L JOINT MOBILITY/PALPATION increased discomfort along deltoid insertion increased pain with resisted wrist extension with elbow flexed increased pain along common extensor tendon on L - no change Patient Instructed in Risks/Benefits Yes Therapeutic Exercise Therapeutic Exercise Minutes (minutes) 10 Therapeutic Exercise: To Restore extensive time spent Functional Status discussing and answering questions for patient understanding on: HEP, activity progression, and POC PT educated the patient regarding the concept of active rest and monitoring symptoms to continue with daily activities as much as possible but not intentionally flaring symptoms. PT explained all exercises should be pain-free and how to modify them if necessary while maintaining the integrity of the exercise Manual Therapy Techniques Manual Therapy Minutes (minutes) 10 Manual Therapy Techniques STM deltoid wrist extensors flexors Treatment Minutes Untimed Code Treatment Minutes 15 Timed Code Treatment Minutes 20 Total Treatment Time 35 Billing Units Manual Therapy Units 1 Therapeutic Exercise Units 1 Assessment/Impression Assessment/Impression Patient is a 39 year old female that presents with L shoulder and L elbow pain after incident happening at work back in July. Patient reports mild to moderate improvement with skilled physical therapy services for her shoulder pain, demonstrating improved ROM, improved pain in upper neck and shoulder, some strength gains but not to the level of work demands. In terms of her elbow she feels like pain has been consistent and even worsening since starting formal therapy/having less restrictions at work . I do think it would be warranted at this time to consider further assessment/imaging of the LUE , specifically of the L elbow/ wrist, due to prolonged symptoms without improvement. Her shoulder is showing progression but would be also appropriate for further assessment/imaging. Discussed still continuing with therapy with hope of progressing shoulder strength/function. Plan of Care Physical Therapy Goals GOALS Pt will be independent with HEP within 12-16 weeks to allow for independence and continued improvement past formal therapy Patient will demonstrate/ report ability to sleep with losing <1 hours of sleep being interrupted by shoulder pain. within 12-16 weeks Patient will demonstrate/ report ability to reach to 150 + degrees shoulder flexion and abduction with pain level <1/ 10, to allow for television camera operator, hygiene, work within 12-16 weeks Pt will be able to demonstrate / report ability to lift/carry #30-50 from floor to counter height without pain within 12- 16 weeks, for household and work activity. Daily Plan of Care Continue per POC Discharge Note Date of First Visit for Therapy 08/18/24 Initial Primary Functional Limitations lifting carrying reaching away from body sleeping Initial Pain Level 6-7/10
== END 2024-11-30 13:35 | disposition home or self-care (01) ==
PROVIDERS: PCP Family Medicine; Visit Provider Family Medicine
DX: M25.512 Pain in left shoulder (principal); M62.81 Muscle weakness (generalized); Z51.89 Encounter for other specified aftercare
CPT/HCPCS: 97110; 97140; 97161

== ENCOUNTER 2024-11-09 07:07 | Outpatient (CLI) | payer OTHER, BC, SELFPAY | END 2024-11-09 07:08 | disposition home or self-care (01) | PROVIDERS: PCP Family Medicine; Visit Provider Family Medicine | DX: M25.512 Pain in left shoulder (principal); M19.012 Primary osteoarthritis, left shoulder | CPT/HCPCS: 73221 ==